=== PATIENT | male | born 1940 | race Caucasian/White ===

== ENCOUNTER 2017-04-24 06:24 | Inpatient (IN) ==
--- NOTE | 2017-04-24 06:32 | Emergency Department Note ---
START Narrative - START START: For this encounter, I have reviewed the SANDBLAST OR SHOTBLAST EQUIPMENT TENDER or PA documentation, treatment plan, and medical decision making; and I have had face to face time with this patient. 76 year old male presents to the ED via EMS for chest pain that started 0600 that wokeup him from sleep. Edgar appers to be having a STEMI on the ekg and it has anterolateral ST elevations and depression in the inferior leads. We have called a STEMI alert and awaiting phone call from the interventionalist.
[2017-04-24] MEDS ORDERED: *HR* Heparin 5,000 UNIT/ML VIAL IVP ONE (06:34)
[2017-04-24] MEDS ORDERED: *HR* Ticagrelor 90 MG TABLET PO ONE (06:34)
[2017-04-24] MEDS ORDERED: *HR* Heparin 5,000 UNIT/ML VIAL IVP PRN ×2 (06:34)
--- NOTE | 2017-04-24 06:34 | Emergency Department Note ---
Disposition Clinical Impression: Chest pain, STEMI (ST elevation myocardial infarction) Disposition: Admitted As Inpatient Condition: Fair Time of Disposition: 06:34 Chest Pain HPI - General Chief Complaint: ED Chest Pain Stated Complaint: CHEST PAIN Time Seen by Provider: 04/24/17 06:25 Source: patient Mode of arrival: EMS Limitations: no limitations Vital Signs Reviewed: Yes Nursing Notes Reviewed: Yes - History of Present Illness HPI Narrative: Patient is a 76-year-old male with no past medical history that presents to the ED with sudden onset chest pain that woke him up from rest. Patient describes chest pain as heaviness radiating to his left and right upper extremity with associated diaphoresis and shortness of breath. Rates pain a 6 out of 10. Denies any nausea, vomiting, fever, back pain, abdominal pain or any other symptoms/complaints. Denies any smoking history. Pt complaint: chest pain Onset (ago): hour(s) Duration: constant Onset: during rest Pain Location: left chest Severity: moderate Severity scale (1-10): 6 Quality: heaviness Pain Radiation: RUE, LUE Improves with: nothing Worsens with: nothing Associated symptoms: Reports: diaphoresis, dyspnea. Denies: nausea, vomiting, sense of impending doom, syncope, palpitations, fever, cough, leg swelling Treatments prior to arrival chest pain: aspirin - Related Data Allergies Allergy/AdvReac Type Severity Reaction Status Date / Time Penicillins AdvReac Hives Verified 04/24/17 06:26 All systems ED: reviewed and negative except as stated. Review of Systems: As Per HPI Constitutional: Denies: fever, chills Eyes: Denies: eye discharge, vision change ENT ED: Denies: ear pain, throat pain, dental pain, congestion Cardiovascular: Reports: chest pain, dyspnea on exertion. Denies: palpitations , orthopnea, edema, syncope, paroxysmal nocturnal dyspnea Respiratory: Reports: dyspnea. Denies: cough, wheezes, hemoptysis Gastrointestinal: Denies: abdominal pain, nausea, vomiting, diarrhea, constipation, hematemesis, melena, hematochezia Genitourinary: Denies: urgency, dysuria, frequency Musculoskeletal: Denies: back pain, neck pain Integumentary: Denies: rash Neurological: Denies: headache, weakness Chest Pain PMH - Past Medical History Medical history: Reports: no medical history Physical Exam - General Limitations: no limitations General appearance: alert, in no apparent distress - Head Head exam: atraumatic, normocephalic, normal inspection - Eye Eye exam: Present: normal appearance, PERRL, EOMI - ENT ENT exam: normal exam, normal oropharynx, mucous membranes moist - Neck Neck exam: Present: normal inspection, full ROM, trachea midline. Absent: tenderness, meningismus - Chest Chest inspection: Present: normal inspection, symmetric chest wall rise. Absent : tenderness - Respiratory Respiratory exam: Present: normal lung sounds bilaterally. Absent: respiratory distress, wheezes, stridor, accessory muscle use, prolonged expiratory phase - Cardiovascular Cardiovascular exam: Present: regular rate, normal rhythm, normal heart sounds - Abdominal Exam Abdominal exam: Present: soft, Non-Tender, normal bowel sounds. Absent: tenderness, distention, guarding, rebound, rigidity - Extremities Exam Extremities exam: Present: normal inspection, full ROM. Absent: pedal edema - Back Exam Back exam: Present: normal inspection, full ROM. Absent: tenderness, CVA tenderness (R), CVA tenderness (L) - Neurological Exam Neurological exam: Present: alert, oriented X3, CN II-XII intact - Psychiatric Psychiatric exam: Present: normal affect, normal mood - Skin Skin exam: Present: warm, dry, intact, normal color. Absent: rash, cyanosis, diaphoresis Course Course Narrative: Patient is a 76-year-old male with no past medical history that presents to the ED with sudden onset chest pain that woke him up from rest. Patient describes chest pain as heaviness radiating to his left and right upper extremity with associated diaphoresis and shortness of breath. Rates pain a 7 out of 10. Denies any nausea, vomiting, fever, back pain, abdominal pain or any other symptoms/complaints. Denies any smoking history. Pt is a nontoxic-appearing 76-year-old male. Vital stable. Afebrile. Alert and oriented 3. Head normocephalic. Eyes normal inspection. ENT within normal limits. Neck supple, full range of motion, nontender. Heart RRR. Lungs CTAB. Abdomen soft, nontender. Extremity within normal limits. No pedal edema. Neuro no focal neurological deficits noted on exam. EKG shows anterolateral ST elevations and depression in the inferior leads. ASA 324 mg GIVEN BY EMS in transit 06:26 STEMI Alert Called. 06:30 r&d lab technician notified they were on their way in. Interventionalists paged at 06:30 and AGAIN at 06:36. STEMI protocol orders initiated. Dr. Almonte recommended no pain meds at this time. Pain is a 5 out of 10. Interventionalist has not called back. Will transfer to [facility]. [facility] paged at 06:54 Pharmacy called at 06:59 to send up TPA. Chrissy talk to [facility] before giving TPA. Dr. Burton called back at 07:00. STates Dr. Murray is on his way in and to hang up with [facility]. Dr. Burton doesn't want TPA given Cath team called again at 07:05 they are here at [facility] now. Pt to geophysical laboratory chief 07:13. I walked pt myself to geophysical laboratory chief with cath team. Dr. Almonte had [id number] time with patient and agrees with my assessment and treatment plan. Vital Signs Temperature 97.7 F 04/24/17 06:26 Pulse Rate 69 04/24/17 06:26 Respiratory Rate 18 04/24/17 06:26 Blood Pressure 156/108 04/24/17 06:26 O2 Sat by Pulse Oximetry 96 04/24/17 06:26 Temperature 97.7 F 04/24/17 06:26 Pulse Rate 80 04/24/17 06:54 Respiratory Rate 12 04/24/17 06:54 Blood Pressure 155/81 04/24/17 06:54 O2 Sat by Pulse Oximetry 96 04/24/17 06:54 Oxygen Delivery Oxygen Delivery Nasal Cannula Chest Pain - Medical Records Medical records reviewed: Yes I reviewed the patient's medical records. - Lab Data Lab results reviewed: Yes I reviewed the patient's lab results. Result diagrams: 04/24/17 06:30 04/24/17 06:30 Lab Results 04/24/17 04/24/17 04/24/17 Range/Units 06:30 06:30 06:30 WBC 7.9 (4.3-11.1) K/mcL RBC 5.16 (4.19-5.50) M/mcL Hgb 15.1 (12.9-16.9) g/dL Hct 46.1 (37.5-50.1) % MCV 89.3 (83.0-100.0) fL MCH 29.3 (28.0-33.3) pg MCHC 32.8 (31.6-35.5) g/dL RDW 13.9 (11.5-14.5) % Plt Count 118 L (140-400) K/mcL MPV 10.9 (9.4-12.4) fL Immature Gran % 0.4 (0-4) % Seg Neutrophils % 58.9 % Lymphocytes % 29.6 % Monocytes % 7.1 % Eosinophils % 3.2 % Basophils % 0.8 % Neutrophils # 4.6 (1.6-8.9) K/mcL Lymphocytes # 2.3 (0.6-4.6) K/mcL Monocytes # 0.6 (0.0-1.3) K/mcL Eosinophils # 0.3 (0.0-0.6) K/mcL Basophils # 0.1 (0.0-0.2) K/mcL PT (9.4-12.1) Seconds INR APTT (26.0-36.0) Seconds Sodium 139 (136-145) mEq/L Potassium 4.1 (3.5-4.5) mEq/L Chloride 105 (98-109) mEq/L Carbon Dioxide 24 (19-29) mEq/L BUN 23 (8-26) mg/dL Creatinine 1.28 H (0.72-1.25) mg/dL Est GFR ( Amer) > 60 (> 60) Est GFR (Non-Af Amer) 54 L (> 60) BUN/Creatinine Ratio 18 (6-26) Glucose 120 H (70-99) mg/dL Calculated Osmolality 293 (280-300) Calcium 9.7 (8.6-10.8) mg/dL Magnesium 2.0 (1.6-2.6) mg/dL Troponin I 0.15 H* (0-0.03) ng/mL 04/24/17 Range/Units 06:40 WBC (4.3-11.1) K/mcL RBC (4.19-5.50) M/mcL Hgb (12.9-16.9) g/dL Hct (37.5-50.1) % MCV (83.0-100.0) fL MCH (28.0-33.3) pg MCHC (31.6-35.5) g/dL RDW (11.5-14.5) % Plt Count (140-400) K/mcL MPV (9.4-12.4) fL Immature Gran % (0-4) % Seg Neutrophils % % Lymphocytes % % Monocytes % % Eosinophils % % Basophils % % Neutrophils # (1.6-8.9) K/mcL Lymphocytes # (0.6-4.6) K/mcL Monocytes # (0.0-1.3) K/mcL Eosinophils # (0.0-0.6) K/mcL Basophils # (0.0-0.2) K/mcL PT 10.4 (9.4-12.1) Seconds INR 1.0 APTT 24.0 L (26.0-36.0) Seconds Sodium (136-145) mEq/L Potassium (3.5-4.5) mEq/L Chloride (98-109) mEq/L Carbon Dioxide (19-29) mEq/L BUN (8-26) mg/dL Creatinine (0.72-1.25) mg/dL Est GFR ( Amer) (> 60) Est GFR (Non-Af Amer) (> 60) BUN/Creatinine Ratio (6-26) Glucose (70-99) mg/dL Calculated Osmolality (280-300) Calcium (8.6-10.8) mg/dL Magnesium (1.6-2.6) mg/dL Troponin I (0-0.03) ng/mL - Radiology Data Radiology results reviewed: Yes I reviewed the patient's radiology results. - EKG Data EKG attestation: Yes I reviewed and interpreted this EKG. EKG shows normal: sinus rhythm Rate: normal Rhythm: NSR [place]/QRS: normal ST segment elevation in: v2, v3, v4, v5, v6 ST segment depression in: II, III, aVF Interpretation: acute HI
[2017-04-24 06:36] LABS: Basophils # 0.1 K/mcL (0.0-0.2); Basophils % 0.8 %; Eosinophils # 0.3 K/mcL (0.0-0.6); Eosinophils % 3.2 %; Hematocrit 46.1 % (37.5-50.1); Hemoglobin 15.1 g/dL (12.9-16.9); Immature Granulocytes % 0.4 % (0-4); Lymphocytes # 2.3 K/mcL (0.6-4.6); Lymphocytes % 29.6 %; Mean Corpuscular HGB Conc 32.8 g/dL (31.6-35.5); Mean Corpuscular Hemoglobin 29.3 pg (28.0-33.3); Mean Corpuscular Volume 89.3 fL (83.0-100.0); Mean Platelet Volume 10.9 fL (9.4-12.4); Monocytes # 0.6 K/mcL (0.0-1.3); Monocytes % 7.1 %; Neutrophils # 4.6 K/mcL (1.6-8.9); Platelet Count 118 K/mcL (140-400); Red Blood Count 5.16 M/mcL (4.19-5.50); Red Cell Distribution Width 13.9 % (11.5-14.5); Segmented Neutrophils % 58.9 %
[2017-04-24] MEDS ORDERED: Heparin 25,000 UNIT/500 ML D5W 25,000 UNIT/500 ML MLS IVC SCH (06:45)
[2017-04-24 06:49] LABS: Prothrombin Time 10.4 Seconds (9.4-12.1)
[2017-04-24 06:49] LABS: BUN/Creatinine Ratio 18 (6-26); Blood Urea Nitrogen 23 mg/dL (8-26); Calcium 9.7 mg/dL (8.6-10.8); Carbon Dioxide 24 mEq/L (19-29); Chloride 105 mEq/L (98-109); Glucose 120 mg/dL (70-99); Osmolality,Calculated 293 (280-300); Potassium 4.1 mEq/L (3.5-4.5); Sodium 139 mEq/L (136-145); eGFR For African Americans > 60 (> 60); eGFR For Non-African Americans 54 (> 60)
[2017-04-24] MEDS ORDERED: Nitroglycerin 1,000 MCG/10 ML VIAL IV ONE (06:55)
[2017-04-24] MEDS ORDERED: Heparin 1,000 UNITS/500 mL NS 500 ML ONE (06:55)
[2017-04-24] MEDS ORDERED: *HR* Heparin 10,000 UNIT/10 ML VIAL ONE (06:55)
[2017-04-24] MEDS ORDERED: 0.9 % Sodium Chloride 1,000 ML ONE ×2 (06:55→07:07)
[2017-04-24] MEDS ORDERED: ALTEPLASE IVPB ONE (06:57)
[2017-04-24] MEDS ORDERED: ALTEPLASE IVP ONE (07:02)
[2017-04-24] MEDS ORDERED: Verapamil 5 MG/2 ML VIAL ONE (07:14)
[2017-04-24] MEDS ORDERED: *HR* Midazolam HCl 2 MG/2 ML VIAL ONE (07:21)
[2017-04-24] MEDS ORDERED: *HR* FentaNYL (PF) 100 MCG/2 ML VIAL ONE (07:21)
[2017-04-24] MEDS ORDERED: *HR* Alteplase (Cathflo) 2 MG VIAL ONE (07:34)
[2017-04-24] MEDS ORDERED: Water for inj. (sterile) 10 ML IV ONE (07:37)
--- NOTE | 2017-04-24 08:35 | Pre-Sedation Evaluation ---
Pre-sedation evaluation - Pre-sedation checklist Date of procedure: 04/24/17 Procedure: [facility] Recent Vitals: Last Vital Signs Temp 97.7 F 04/24/17 06:26 Pulse 80 04/24/17 06:54 Resp 12 04/24/17 07:13 BP 148/89 04/24/17 07:13 Pulse Ox 96 04/24/17 06:54 H&P (including ROS) documented in medical record: Yes Previous reaction to sedatives/anesthetics: No Dietary Status: unknown Airway Assessment: Patient can open mouth completely, TMJ function normal Dentition: No loose teeth or bridges ASA Classification *see protocol: CLASS II-Mild systemic disease, E-EMERGENCY- Add to any of the above to indicate emergent Plan of Care: Pt appropriate candidate for procedure/moderate/conscious sedation , Risks/benefits of procedure/sedation discussed w/ patient/family, If not NPO; Risk of intake outweiged by necessity to perform procedure
--- NOTE | 2017-04-24 08:38 | Cardiology Consult Note ---
Date of Encounter: 04/24/17 Time of Encounter: 08:35 Assessment and Plan (1) STEMI (ST elevation myocardial infarction) Current Visit: Yes Status: Acute Guarded prognosis, patient critically ill. A/R/B C explained for life saving measures, patient agreeable and will proceed. Aspirin, Brilinta, heparin given. EF assessment will be completed and cardiac rehab consulted. Critical care time: 1 hour. Labs reviewed, EKG interpreted Qualifiers: Involved coronary artery: LAD coronary artery Qualified Code(s): I21.02 - ST elevation (STEMI) myocardial infarction involving left anterior descending coronary artery Discussion w patient/family: The assessment and plan as outlined above was discussed with the patient and/or family members who expressed understanding and agreement. All questions were answered. Thank you for involving us in the care of your patient. Please call with any questions. History of Present Illness Consult date: 04/24/17 Consult reason: chest pain History of present illness: Mr. Asher is a 76 year old male with no previous cardiac history awoke around 6am with crushing severe chest pressure - retrosternal - without radiation associated with diaphoresis. He stated he thought he was going to . Upon arrival to ED he had no improvement with aspirin, NTG, morphine. EKG shows anterolateral current of injury and STEMI page was activated. Past Med Surg Social Fam HX - Past Medical History Medical history: no medical history Psychiatric history: no psych history - Social History Smoking Status: Never smoker Smokeless Tobacco Status: No Alcohol use: none Drug use: none Medications and Allergies 3 Allergy/AdvReac Type Severity Reaction Status Date / Time Penicillins AdvReac Hives Verified 04/24/17 06:26 All Systems Review: A 10-system review of systems was performed and is negative for pertinent findings except as documented above in the HPI. - Constitutional Constitutional: chills, no fever(s) - EENT Eyes: no blurred vision, no loss of vision Nose, mouth and throat: no dysphagia, no epistaxis - Cardiovascular Cardiovascular: chest pain at rest, chest pain with exertion - Respiratory Respiratory: no hemoptysis, no wheezing - Gastrointestinal Gastrointestinal: no hematemesis, no hematochezia - Genitourinary Genitourinary: no dysuria, no hematuria - Musculoskeletal Musculoskeletal: no arthralgias, no myalgias - Integumentary Integumentary: no erythema, no rash - Neurological Neurological: no syncope, no tingling - Psychiatric Psychiatric: no hallucinations, no panic attacks - Hematological/Lymphatic Hematologic/Lymphatic: no easy bleeding, no easy bruising Physical Examination Vital Signs, Last 4 Hours Resp BP 04/24/17 07:13 12 148/89 General: Conversant, Other (distressed) HEENT: Atraumatic, Normocephaly Neck: No JVD Cardiac: Reg Rate and Rhythm, Normal S1 and S2 Lungs: Normal Breath Sounds Neuro: Alert and responsive Abdomen: Soft Skin: No rashes noted on visualized skin Musculoskeletal: No Chest Wall Tenderness Extremities: No Edema Results 04/24/17 06:30 04/24/17 06:30 - EKG Interpretation EKG results cardiology: personally reviewed (anterolateral current of injury) Consult Discharge Plan - Plan Referrals: Mirtha Vieira, COLLECTION AGENT [Primary Care Provider] -
[2017-04-24] MEDS ORDERED: *HR* OxyCODONE/APAP 5/325 TABLET PO PRN (08:40)
[2017-04-24] MEDS ORDERED: Ondansetron 4 MG/2 ML VIAL IVP PRN (08:40)
[2017-04-24] MEDS ORDERED: *HR* HYDROcodone/Acet 5/325 mg TABLET PO PRN (08:40)
[2017-04-24] MEDS ORDERED: Acetaminophen 325 MG TABLET PO PRN (08:40)
[2017-04-24] MEDS ORDERED: Nitroglycerin 0.4 MG TAB.SUBL SL PRN (08:40)
--- NOTE | 2017-04-24 08:51 | Invasive Diagnostic Lab Proc ---
Name: Aly Asher Date of Study: 04/24/2017 Date: 1940 Ht: 72.0in Medical Record#: [id number] Age: 76 Wt: 185.19lb Gender: Male BSA: 2.06 Order #: [id number] BMI: 25.08 Physicians Procedure Physician: Dominic Murray MD, FACC Referring MD: Mirtha Vieira CNP Referring MD: Staff Name Position Time In Reese Bales RN Monitor 07:19 AM Bernice James RN Delivery Technician 07:19 AM Julien Lee RN Delivery Technician 07:20 AM Kaylin Curran RT (R) Scrub 07:20 AM Indications Indication STEMI Procedures Performed Procedure L HRT ARTERY/VENTRICLE ANGIO PRQ CARD REVASC ME 1 VSL Pre-Procedure Checklist Informed consent is complete signed and on chart. H&P is on chart. ID band is on and ID verified with patient. Pt not NPO for procedure and MD aware. The procedure was described for the patient and questions were answered. Blood Pressure: 155/80 ECG is on chart. Rhythm: NSR Plan of Care Patient will tolerate the procedure without complications. Adequate level of comfort will be maintained. Hemodynamics will remain stable Patient will recover from procedure without complications. Respiratory function will be maintained. Cardiac rhythm will remain stable. Patient temperature will be maintained. Patient and/or family have verbalized understanding of the procedure. Patient Education Intravenous Access Time IV Size Location DC'd Fluid/Drip Rate Units RN 07:12 AM 18g 1 1/4" Patent On Arrival Lt Antecubital 0.9NaCl 25 ml/hr Bernice James RN 07:12 AM 18g 1 1/4" Patent On Arrival Rt Antecubital Bernice James RN Allergies PCN Vital Signs Time BP (mmHg) HR (bpm) O2 Sat. RR (bpm) LOC 07:12 AM 155 / 81 80 96 % 12 5 = Fully awake and oriented or at pre-proc level 07:21 AM / % 5 = Fully awake and oriented or at pre-proc level 07:21 AM / % 4 = Oriented but drowsy 07:37 AM / % 4 = Oriented but drowsy 08:07 AM / % 4 = Oriented but drowsy 07:18 AM 180 / 106 77 97 % 07:23 AM 188 / 101 73 98 % 29 07:28 AM 183 / 103 77 87 % 16 07:33 AM 199 / 122 81 98 % 14 07:38 AM 192 / 108 80 96 % 14 07:43 AM 201 / 96 77 99 % 24 07:48 AM 114 / 84 75 99 % 18 07:53 AM 103 / 57 60 97 % 16 07:58 AM 120 / 60 63 96 % 16 08:04 AM 116 / 62 67 96 % 16 08:09 AM 104 / 54 65 93 % 36 08:14 AM 107 / 52 65 96 % 17 08:19 AM 115 / 59 65 93 % 14 08:24 AM 115 / 63 70 100 % 10 08:23 AM / % 5 = Fully awake and oriented or at pre-proc level Procedural Medications Time Medication Dose Units Method Given By 07:21 AM Oxygen 2 L/min nasal cannula Julien Lee RN 07:22 AM Lidocaine 2% 1 ml Subcutaneous Dominic Murray MD, FACC 07:24 AM Lidocaine 2% 17 ml Subcutaneous Dominic Murray MD, FACC 07:25 AM Versed 2 mg Intravenous Bernice James RN 07:25 AM Fentanyl 50 mcg Intravenous Bernice James RN 07:29 AM Oxygen 10 L/min Oxy Mask Bernice James RN 07:40 AM TPA 2 mg Intracoronary Dominic Murray MD 07:45 AM Hydralazine 10 mg Intravenous JacobBernice steiner RN 07:51 AM Heparin 2000 units Intravenous Bernice James RN 07:30 AM Oxygen 15 L/min 100% non rebreather mask [place] RN 08:02 AM Oxygen 10 L/min Oxy Mask Bernice James RN ASA Classification: Emergent Procedure: ASA score is assumed Sejal Score Preprocedure Postprocedure Activity 2- Moves 4 extremities sustained head lift Activity 2- Moves 4 extremities sustained head lift Circulation 2- SBP +/= 20 points of pre-anesthetic level Circulation 2- SBP +/= 20 points of pre-anesthetic level Consciousness 2- Awake and alert oriented x 3 Consciousness 2- Awake and alert oriented x 3 O2 Saturation 2- Able to maintain O2 satruation of 92% on room air O2 Saturation 2- Able to maintain O2 satruation of 92% on room air Respiratory 2- Able to deep breathe and cough well Respiratory 2- Able to deep breathe and cough well Total Score 10 Total Score 10 Contrast Agent: Isovue Diagnostic Contrast: 288 ml Total Contrast: 288 ml Fluoro Dose: 1879 mGy Activated Clotting Time Time Seconds to Clot 07:54 AM 212 08:26 AM 243 Procedure Log Time Note Enter By 07:07 AM CathStat 07:17 AM Vitals capture started with the following parameters, Patient=Adult, Interval=5 min, Initial Qlwuutqk=608 mmHg, Deflation Rate=5 mmHg, Cuff placed on Right Arm 07:18 AM HR=77 bpm, FAXS=819/106 mmhg, SpO2=97.0 %, Comment=sr with st elevation 07:19 AM Recorded ECG: HR=78 Condition=Condition 1 07:19 AM Pt arrived to label press operator 2 at 07:14 csmith 07:19 AM Reese Bales RN Position: Monitor Time in: 07:19 csmith 07:20 AM Bernice James RN Position: Delivery Technician Time in: 07:19 csmith 07:20 AM Case Start 07:20 AM Julien Lee RN Position: Delivery Technician Time in: 07:20 csmith 07:20 AM Kaylin Curran RT (R) Position: Scrub Time [facility]: 07:20 [facility] Patient charges- Angio tray pack, Navilyst 3mm J, Pulse Oximetry and ACIST tubing and transducer csmith 07:21 AM Hair removed from procedure site in emergency department using clippers. Bilateral groin & right wrist prepped with Chloraprep by Julien Lee RN, safety strap applied then patient was draped. Skin intact. [facility] 07:21 AM Meet and greet completed [facility] AM Procedure start 07:21 [facility] AM Time: 07:21 Oxygen on at 2 L/min per nasal cannula by Julien Lee RN [facility] 07: AM Time: 07:21 Patient comfortable and pain free: Yes [facility] 07:21 AM Time: 07:21LOC: 5 = Fully awake and oriented or at pre-proc level csmith 07: AM Time out performed according to hospital policy [facility] :23 AM Time: : 1 ml Lidocaine 2% to right radial Subcutaneous Given by [facility], [facility] 07[facility] AM HR=73 bpm, OYFW=551/101 mmhg, SpO2=98.0 %, Resp=29 B/min 07:23 AM unable to pass wire via radial artery puncture site, abandoning radial attempt and moving to R groin [facility] 07:24 AM Time: 07:24 17 ml Lidocaine 2% to right groin Subcutaneous Given by Dominic Murray MD, [facility] csmith 07:25 AM Time: 07:25 Versed 2 mg Intravenous Given by Bernice James RN csmith 07:25 AM Time: 07:25 Fentanyl 50 mcg Intravenous Given by Bernice James RN csmith 07:25 AM Access obtained by percutaneous puncture. 6Fr 10cm Terumo Byram sheath placed in right Femoral artery. [id number] csmith 07:25 AM 0.035 260cm Navilyst 3mmJ wire [id number] csmith 07:25 AM Pressure channel 3 zeroed. 07:25 AM 6Fr EBU 3.5 [employer] Network[employer] guide catheter was used to cannulate the PCI vessel successfully. reused? No csmith 07:26 AM Recorded Pressure: Ao, HR=82, Condition=Condition 1 (Aorta) Ao 191/130/156 07:27 AM .014 [place] 190cm guide wire across target lesion- successful. reused? No csmith 07:27 AM LCA angiography performed in multiple views. csmith 07:27 AM Coronary Dominance: Left csmith 07:27 AM 2.0 mm x 12 mm Emerge Monorail balloon across target lesion- successful. reused? No csmith 07:28 AM balloon up and down csmith 07:28 AM HR=77 bpm, RUKU=844/103 mmhg, SpO2=87.0 %, Resp=16 B/min, Comment=sr with st elevation 07:29 AM balloon removed intact csmith 07:29 AM Time: 07:29 Oxygen on at 10 L/min per Oxy Mask by Bernice James RN csmith 07:30 AM Time: 07:30 Oxygen on at 15 L/min per 100% non rebreather mask by Bernice James RN csmith 07:32 AM PCI lesion in Proximal LAD. Pre Stenosis: 100 Pre ALTAGRACIA Flow: 0: No Flow/No perfusion csmith 07:33 AM HR=81 bpm, ABOM=740/122 mmhg, SpO2=98.0 %, Resp=14 B/min, Comment=sr with st elevation 07:35 AM 2.0 mm x 15 mm Emerge over the wire balloon across target lesion- unsuccessful. reused? No csmith 07:37 AM Time: 07:21 Patient comfortable and pain free: csmith 07:37 AM Time: 07:21LOC: 4 = Oriented but drowsy csmith 07:38 AM HR=80 bpm, GRPQ=461/108 mmhg, SpO2=96.0 %, Resp=14 B/min, Comment=sr with st elevation 07:39 AM pressure dressing placed to R radial site csmith 07:40 AM Time: 07:40 tpa 2 mg Intracoronary Given by Dominic Murray MD - given over 2 minutes slow push csmith 07:43 AM HR=77 bpm, FWZS=030/96 mmhg, SpO2=99.0 %, Resp=24 B/min, Comment=sr with st elevation 07:44 AM Balloon inflated @ 12 [place] for 16 seconds csmith 07:45 AM Balloon inflated @ 14 [place] for 16 seconds csmith 07:46 AM Time: 07:45 Hydralazine 10 mg Intravenous Given by Bernice James RN csmith 07:48 AM HR=75 bpm, DXKG=270/84 mmhg, SpO2=99.0 %, Resp=18 B/min, Comment=sr with st elevation 07:49 AM 3.5mm x 24mm Synergy drug-eluting stent across target lesion- successful Lot #[id number] csmith 07:50 AM Stent deployed @ 16 [place] for 30 seconds csmith 07:51 AM Time: 07:51 Heparin 2000 units Intravenous Given by Bernice James RN IVP csmith 07:52 AM Time: 07:37 Patient comfortable and pain free: Yes csmith 07:52 AM act drawn and running csmith 07:52 AM stent delivery system removed intact csmith 07:53 AM HR=60 bpm, JCRX=710/57 mmhg, SpO2=97.0 %, Resp=16 B/min, Comment=sr with st elevation 07:53 AM 4.0mm x 12mm Synergy drug-eluting stent across target lesion- successful Lot #[id number] csmith 07:54 AM PCI lesion in Mid LAD. Pre Stenosis: 100 Pre ALTAGRACIA Flow: 0: No Flow/No perfusion csmith 07:54 AM At 07:54 the ACT was 212 seconds. Drawn pre-heparin administration csmith 07:55 AM Stent deployed @ 16 [place] for 34 seconds csmith 07:56 AM Stent balloon reinflated @ 16 [place] for 15 seconds csmith 07:57 AM Stent balloon reinflated @ 16 [place] for 15 seconds csmith 07:58 AM HR=63 bpm, SAUH=833/60 mmhg, SpO2=96.0 %, Resp=16 B/min, Comment=sr with st elevation 07:58 AM chest pain improved to 2-3/10 per patient csmith 07:59 AM Vitals capture stopped. 08:01 AM stent delivery system removed csmith 08:02 AM Time: 08:02 Oxygen on at 10 L/min per Oxy Mask by Bernice James RN csmith 08:03 AM .014 [employer] [facility] Extra Support 182cm guide wire across target lesion- successful. reused? No 1st diagonal csmith 08:03 AM Vitals capture started with the following parameters, Patient=Adult, Interval=5 min, Initial Bktederv=301 mmHg, Deflation Rate=5 mmHg, Cuff placed on Right Arm 08:04 AM HR=67 bpm, MDYE=212/62 mmhg, SpO2=96.0 %, Resp=16 B/min, Comment=sr 08:05 AM 2.0 mm x 12 mm Emerge Monorail balloon across target lesion- successful. reused? No csmith 08:06 AM Balloon inflated @ 8 [place] for 6 seconds csmith 08:07 AM Time: 07:52 Patient comfortable and pain free: Yes csmith 08:07 AM Time: 07:37LOC: 4 = Oriented but drowsy csmith 08:09 AM HR=65 bpm, LFST=420/54 mmhg, SpO2=93.0 %, Resp=36 B/min, Comment=sr with improving st elevation 08:10 AM PCI lesion in 1st Diagonal. Pre Stenosis: 100 Pre ALTAGRACIA Flow: 0: No Flow/No perfusion csmith 08:14 AM HR=65 bpm, AUXV=086/52 mmhg, SpO2=96.0 %, Resp=17 B/min, Comment=sr 08:14 AM Balloon inflated @ 6 [place] for 11 seconds csmith 08:16 AM both coronary wires and balloon removed csmith 08:16 AM guide catheter removed csmith 08:16 AM 5Fr FR 4 catheter inserted over the wire [facility] csmith 08:18 AM RCA angiography performed in multiple views. csmith 08:18 AM catheter removed csmith 08:19 AM 5Fr Pigtail catheter inserted over the wire DN csmith 08:19 AM Catheter selectively placed in left ventricle csmith 08:19 AM HR=65 bpm, NVQR=823/59 mmhg, SpO2=93.0 %, Resp=14 B/min, Comment=sr 08:19 AM Pressure channel 2 zeroed. 08:19 AM Recorded Pressure: LV, HR=69, Condition=Condition 1 (Left Ventricle) LV 89/2/17 08:20 AM Bolus angiogram of left Ventricle complete: 12 ml/sec for a total of 30 mls csmith 08:20 AM Catheter removed csmith 08:20 AM Wire removed csmith 08:21 AM Recorded Pressure: LV, Ao, HR=70, Condition=Condition 1 (Left Ventricle) LV 80/14/21, (Aorta) Ao 68/34/51 08:23 AM Time: 08:07LOC: 4 = Oriented but drowsy csmith 08:23 AM Time: 08:07 Patient comfortable and pain free: Yes csmith 08:24 AM HR=70 bpm, OFDA=572/63 mmhg, LiL6=702.0 %, Resp=10 B/min, Comment=sr 08:24 AM Procedure completed at 08:24 csmith 08:25 AM Sign out completed: Radiation Dose 1879 mGy Fluoro Time: 19.8 Isovue 370 - 200ml contrast 288 ml given by Dominic Murray MD, [facility]. Complications: NoneCardiac Rehab Consult needed: YesConfirmed administered medications: Yes csmith 08:25 AM Isovue 370 - 200ml,2 Bottle(s) used. csmith 08:25 AM Sheath left in place to be pulled on floor/holding area csmith 08:25 AM Post ECG NSR csmith 08:25 AM Post Blood Pressure 115/63 csmith 08:25 AM 08:25 Post Pulses Bilateral DP & radial 2+ csmith 08:25 AM Information taught PCI csmith 08:25 AM Education needs Responsibilities of Patient in Care csmith 08:25 AM Learning barriers :None csmith 08:25 AM Education Methods Verbal csmith 08:25 AM Education evaluation Able to repeat information [facility] AM Site status No bleeding/hematoma - Rt Groin as reported by Kaylin Curran RT (R) at 08:25 csmith 08:26 AM Opsite applied csmith 08:26 AM Plavix, Effient or Brilinta given No - given in ED csmith 08:26 AM Family placed in consult room. csmith 08:26 AM At 08:26 the ACT was 243 seconds. csmith 08:29 AM Site status No bleeding/hematoma - Rt Wrist as reported by Julien Lee RN at 08:29 csmith 08:38 AM Time: 08:23 Patient comfortable and pain free: Yes csmith 08:38 AM Time: 08:23LOC: 5 = Fully awake and oriented or at pre-proc level csmith 08:40 AM Report given to atilio chavez RN Pt taken to ICU Room #10. 08:40 csmith 08:40 AM Patient out of room: 08:40 csmith Complications Complication None Hemodynamics Pressures Site Systolic/A Wave Diastolic/V Wave Mean AO 191 130 156 LV 89 2 17 LV 80 14 21 AO 68 34 51 Post Procedure Information Blood Pressure: 115/63 mmHg Rhythm: NSR Post procedural instructions were given Closure Device Time Device Success/Fail Manual Compression Site Checks Time Location Status Staff Sheath In? Note 08:25 AM Rt Groin No bleeding/hematoma Kaylin Curran RT (R) 08:29 AM Rt Wrist No bleeding/hematoma Julien Lee RN Pulses Time Site Pre-Procedure Post-Procedure Note 04/24/2017 7:12:00 AM Bilateral DP & radial 1+ 8:25:00 AM Bilateral DP & radial 2+ Updated by Reese Bales RN on 04/24/2017 8:40:24 AM electronically signed on 04/24/2017 8:42:28 AM with status of Final
[2017-04-24] MEDS ORDERED: Tirofiban 5 MG/100ML 5 MG/100 ML BAG IV ONE (09:00)
[2017-04-24] MEDS ORDERED: *HR* Ticagrelor 90 MG TABLET PO SCH (09:00)
[2017-04-24] MEDS ORDERED: Tirofiban 12.5 MG/250ML 12.5 MG/250 ML BAG IVC SCH (09:00)
[2017-04-24] MEDS: Metoprolol XL (24 HR) Succ 25 MG TAB.ER.24H PO SCH (14:15)
[2017-04-24] MEDS: Aspirin 81 MG TAB.CHEW PO SCH (14:15)
[2017-04-24] MEDS: 0.9 % Sodium Chloride 1,000 ML IVC SCH (14:16)
[2017-04-24] MEDS: *HR* Ticagrelor 90 MG TABLET PO SCH (20:24)
[2017-04-25] MEDS: 0.9 % Sodium Chloride 1,000 ML IVC SCH ×2 (03:08→13:51)
[2017-04-25 04:50] LABS: Basophils % 0.2 %; Eosinophils # 0.1 K/mcL (0.0-0.6); Eosinophils % 0.5 %; Hematocrit 40.5 % (37.5-50.1); Hemoglobin 13.3 g/dL (12.9-16.9); Immature Granulocytes % 0.5 % (0-4); Lymphocytes # 1.4 K/mcL (0.6-4.6); Lymphocytes % 10.6 %; Mean Corpuscular HGB Conc 32.8 g/dL (31.6-35.5); Mean Corpuscular Hemoglobin 29.9 pg (28.0-33.3); Mean Platelet Volume 10.7 fL (9.4-12.4); Monocytes % 7.5 %; Neutrophils # 10.7 K/mcL (1.6-8.9); Platelet Count 149 K/mcL (140-400); Red Blood Count 4.45 M/mcL (4.19-5.50); Red Cell Distribution Width 14.4 % (11.5-14.5); Segmented Neutrophils % 80.7 %
[2017-04-25 05:03] LABS: BUN/Creatinine Ratio 19 (6-26); Blood Urea Nitrogen 18 mg/dL (8-26); Calcium 8.5 mg/dL (8.6-10.8); Carbon Dioxide 18 mEq/L (19-29); Chloride 110 mEq/L (98-109); Glucose 108 mg/dL (70-99); Osmolality,Calculated 286 (280-300); Potassium 4.1 mEq/L (3.5-4.5); Sodium 137 mEq/L (136-145); eGFR For African Americans > 60 (> 60); eGFR For Non-African Americans > 60 (> 60)
[2017-04-25] MEDS: Metoprolol XL (24 HR) Succ 25 MG TAB.ER.24H PO SCH (08:42)
[2017-04-25] MEDS: *HR* Ticagrelor 90 MG TABLET PO SCH ×2 (08:42→19:55)
[2017-04-25] MEDS: Aspirin 81 MG TAB.CHEW PO SCH (08:42)
--- NOTE | 2017-04-25 10:59 | Cardiology Progress Note ---
Date of Encounter: 04/25/17 Time of Encounter: 09:20 Assessment and Plan (1) STEMI (ST elevation myocardial infarction) Current Visit: Yes Status: Acute Acute anterior NJ. S/p PCI with PTCA and ONEYDA to his proximal LAd and mid LAD. PTCA to the first diagonal. Denies recurrent chest pain. Hemodynamically stable. 24 hour telemetry review shows avg HR 62 bpm. NSR. There was one khalida noted. Seven beat run of IVCD. Continue bb. Importance of DAPT with asa and brilinta for minimum of one year uninterrupted reviewed with patient and family. They voiced understanding. Healthy heart diet and exercise reviewed. Cardiac rehab discussed. Continue statin and bb therapy. Check TTE. Cardiac rehab consult. Stepdown to 2N or 2NE. Possible d/c in am. Qualifiers: Involved coronary artery: LAD coronary artery Qualified Code(s): I21.02 - ST elevation (STEMI) myocardial infarction involving left anterior descending coronary artery (2) Leukocytosis Current Visit: Yes Status: Acute Mild leukocytosis noted. Likely reactive from NJ. CXR shows no concerning findings. No fever or chills. No cough. Continue to monitor. Qualifiers: Leukocytosis type: unspecified Qualified Code(s): D72.829 - Elevated white blood cell count, unspecified Discussion w patient/family: The assessment and plan as outlined above was discussed with the patient and/or family members who expressed understanding and agreement. All questions were answered. Thank you for involving us in the care of your patient. Please call with any questions. Subjective Principal diagnosis: STEMI Interval history: Mr. Asher has no complaints. Denies recurrent chest pain or SOB. Denies problems with right radial access site. Objective Vital Signs, Last 4 Hours Pulse Resp BP Pulse Ox 04/25/17 10:00 58 18 100/57 95 04/25/17 09:00 65 16 94/47 96 04/25/17 08:00 57 14 112/62 94 04/25/17 07:00 62 16 105/77 95 General: Conversant, No Apparent Distress HEENT: Atraumatic, Normocephaly, Mucus Membranes Moist Neck: No JVD, Normal carotid pulses Cardiac: Reg Rate and Rhythm, Normal S1 and S2, No Murmur Lungs: Normal Breath Sounds, No Wheeze, Rales, Rhonchi Neuro: Alert and responsive, No focal deficits noted Abdomen: Soft, Non-Tender Skin: No rashes noted on visualized skin Musculoskeletal: No Chest Wall Tenderness Extremities: No Clubbing, No Cyanosis, No Edema, Normal Pulses Results 04/25/17 04:42 04/25/17 04:42 Lab Results 04/25/17 04/25/17 04:42 04:42 WBC 13.2 H D Hgb 13.3 D Hct 40.5 Plt Count 149 Sodium 137 Potassium 4.1 Chloride 110 H Carbon Dioxide 18 L BUN 18 Creatinine 0.97 Glucose 108 H Calcium 8.5 L - Imaging and Cardiology Echo: pending Cardiac cath: report reviewed (SR with improving ST changes.) - EKG Interpretation EKG results cardiology: personally reviewed Consult Discharge Plan - Plan Referrals: Mirtha Vieira CNP [Primary Care Provider] -
[2017-04-25] MEDS ORDERED: *HR* HYDROcodone/Acet 5/325 mg TABLET PO PRN (13:53)
[2017-04-25] MEDS ORDERED: Nitroglycerin 0.4 MG TAB.SUBL SL PRN (13:53)
[2017-04-25] MEDS ORDERED: Acetaminophen 325 MG TABLET PO PRN (13:53)
[2017-04-25] MEDS ORDERED: Ondansetron 4 MG/2 ML VIAL IVP PRN (13:53)
[2017-04-25] MEDS ORDERED: *HR* OxyCODONE/APAP 5/325 TABLET PO PRN (13:53)
[2017-04-25] MEDS: *HR* Heparin 5,000 UNIT/ML VIAL SQ SCH (17:54)
[2017-04-26] MEDS: *HR* Heparin 5,000 UNIT/ML VIAL SQ SCH (05:41)
--- NOTE | 2017-04-26 06:20 | Electrocardiograph Report ---
[place] [address] Test Date: 2017-04-24 Pat Name: Aly Asher Department: 103 Room: 2NE34 Gender: M Ground Support Agent: LEOBARDO : 1940 Requested By: Maisha Rogers Order Number: [id number] Reading MD: Dominic Murray MD Measurements Intervals [place] Rate: 65 P: 42 AK: 154 QRS: -48 QRSD: 91 T: 35 QT: 409 QTc: 420 Interpretive Statements SINUS RHYTHM WITH OCCASIONAL VENTRICULAR PREMATURE COMPLEXES LOW QRS VOLTAGE IN PRECORDIAL LEADS LEFT ANTERIOR FASCICULAR BLOCK ANTEROLATERAL MA BASELINE ARTIFACT Electronically Signed On 04-26-2017 6:18:38 EDT by Dominic Murray MD
--- NOTE | 2017-04-26 06:22 | Electrocardiograph Report ---
[address] [place], [place] [address] Test Date: 2017-04-24 Pat Name: Aly Asher Department: 109 Room: 2NE34 Gender: M Coil Binder: GRACE : 1940 Requested By: Dominic Murray Order Number: [id number] Reading MD: Dominic Murray MD Measurements Intervals [place] Rate: 67 P: 44 SC: 166 QRS: 50 QRSD: 84 T: 26 QT: 403 QTc: 418 Interpretive Statements SINUS RHYTHM INDETERMINATE AXIS LOW QRS VOLTAGE IN EXTREMITY LEADS Poor R wave progression BASELINE ARTIFACT BORDERLINE LATERAL ST ELEVATION, ME PROBABLY RECENT Electronically Signed On 04-26-2017 6:21:06 EDT by Dominic Murray MD
[2017-04-26] MEDS: *HR* Ticagrelor 90 MG TABLET PO SCH (08:44)
[2017-04-26] MEDS ORDERED: Aspirin 81 MG TAB.CHEW PO SCH (09:00)
[2017-04-26] MEDS ORDERED: Metoprolol XL (24 HR) Succ 25 MG TAB.ER.24H PO SCH (09:00)
[2017-04-26] MEDS ORDERED: Perflutren Lipid Microsphere 1.3 ML in 0.9 % Sodium Chloride 8.7 ML IVP ONE (14:05)
[2017-04-26 15:43] VITALS: BP 115/76
--- NOTE | 2017-04-26 15:44 | Discharge Summary ---
Date of Encounter: 04/26/17 Time of Encounter: 15:41 - Discharge Diagnosis (1) STEMI (ST elevation myocardial infarction) Priority: Primary Status: Acute Comments: Admitted as acute NM Qualifiers: Involved coronary artery: LAD coronary artery Qualified Code(s): I21.02 - ST elevation (STEMI) myocardial infarction involving left anterior descending coronary artery (2) Ischemic cardiomyopathy Priority: Secondary Status: Acute Comments: LVEF 40% (3) Leukocytosis Priority: Secondary Status: Acute Comments: Elevated WBC, thought to be secondary to NM. Qualifiers: Leukocytosis type: unspecified Qualified Code(s): D72.829 - Elevated white blood cell count, unspecified - Discharge Medications Prescriptions: Nitroglycerin 0.4 mg SL Q5MIN PRN #10 tab.subl PRN Reason: Chest Pain Lisinopril [Zestril] 2.5 mg PO DAILY #30 tablet Metoprolol XL (24 HR) Succ [Toprol Xl] 25 mg PO DAILY #30 tab.er.24h Rosuvastatin [Crestor] 40 mg PO HS #30 tablet Ticagrelor [Brilinta] 90 mg PO BID #60 tablet Home Medications: Aspirin 81 mg PO DAILY 04/24/17 [History] Lisinopril [Zestril] 2.5 mg PO DAILY #30 tablet 04/26/17 [Rx] Metoprolol XL (24 HR) Succ [Toprol Xl] 25 mg PO DAILY #30 tab.er.24h 04/26/17 [ Rx] Nitroglycerin 0.4 mg SL Q5MIN PRN #10 tab.subl 04/26/17 [Rx] Rosuvastatin [Crestor] 40 mg PO HS #30 tablet 04/26/17 [Rx] Ticagrelor [Brilinta] 90 mg PO BID #60 tablet 04/26/17 [Rx] Allergies/Adverse Reactions: 3 Allergy/AdvReac Type Severity Reaction Status Date / Time Penicillins AdvReac Hives Verified 04/24/17 06:26 Procedures/tests Complete & Pending: Procedures Performed prior 72 hours Category Date Time Status ECG 12 lead ECG [ECG] Routine Y 04/24/17 08:40 Completed ECG 12 lead ECG [ECG] Routine Y 04/25/17 07:00 Ordered EV echocardiogram w enhance Routine Y 04/26/17 07:00 Completed Date of admission: 04/24/17 07:09 Primary care physician: Mirtha Vieira CNP Consults: 04/24/17 08:43 Consult to Cardiac Rehabilitation-Phase1 [CONS] Routine Comment: Reason for Consult: AMI Call Completed: Yes Consult to Nurse Navigator [CONS] Routine Comment: Discharging clinician: Analilia Baires Anticipated date of discharge: 04/26/17 - Patient Status Disposition: Home, Self-Care Condition: Fair Functional capacity at discharge: independent ambulation Overall status at discharge: patient is progressing back to baseline - Discharge Instructions Follow Up With: Dominic Murray MD [Partnered Physician] - (office will call patient at home with appointment date and time) Mirtha Vieira CNP [Primary Care Provider] - 04/29/17 2:00 pm Additional Instructions: RISK FACTORS: STOP SMOKING: If you smoke, STOP. Smoking or tobacco use significantly increases your risk of heart disease because nicotine causes the arteries to narrow or constrict. It also causes fats to stick to the artery. Your chances of having a heart attack are greatly increased if you continue to smoke. For more information, call the education line for smoking cessation 6-028-VTBSQLO EAT A LOW FAT/CHOLESTEROL/SODIUM DIET: This diet may help reduce your chances of having a heart attack. LIFTING: With affected extremity: Avoid bending, pushing off and lifting more than 2 pounds for 24 hours The following 48 hours, avoid lifting anything more than 5 pounds Avoid strenuous activity or repetitive motions ACTIVITY: You may walk or climb stairs as tolerated You can resume sexual activity as tolerated In general, you are encouraged to engage in a minimum of 30 minutes or more of moderate intensity physical activity, such as brisk walking, daily or at least 3 -4 times weekly BATHING Do not submerge the site into water (bath tub, hot tub, swimming pool, dishes) for 1 week. This can be a source for infection into the blood stream. You may shower after 24 hours SITE CARE: After 24 hours, you may remove the dressing and leave the site open to air. Keep the site clean and dry. Clean gently and pat dry. You can expect bruising and tenderness that gradually resolve within a week or two. Return to work as instructed per your physician Resume driving as instructed per physician Keep all scheduled follow up appointments Resume medications as instructed IMPORTANT: If prescribed a Platelet Aggregation Inhibitor such as, Plavix, Brilinta or Effient: Duration of therapy is minimum one year These medications are often used in combination with Aspirin in prevention of future heart attacks Never discontinue unless consult with your Foot Caster STROKE (CVA) Risk factors for a stroke are: Age, cigarette smoking, diabetes, excessive alcohol consumption, family history, high blood pressure, overweight, physical inactivity, prior stroke, heart attack, diagnosis of carotid artery stenosis or other artery disease. Warning signs: Sudden numbness or weakness of the face, arm or leg; especially on one side of the body, sudden confusion, trouble speaking or understanding, sudden trouble seeing in one or both eyes, sudden trouble walking, dizziness, loss of balance or coordination, sudden severe headache with no cause. Call 911 or go to the Emergency Room. CONGESTIVE HEART FAILURE: If you have been diagnosed with Congestive Heart Failure (CHF) and your symptoms return, make an appointment with your physician Weigh yourself daily. Notify your physician if you have a weight gain of two or more pounds in one day or five or more pounds in one week. If you experience any difficulty breathing, please call 911 BLEEDING: Although the risk of bleeding is minimal, it can happen. If you have any bleeding from the site, apply firm pressure above the puncture site for 10-15 minutes. If the bleeding does not stop, continue manual pressure and call 911 Contact [facility] ( ) if: You develop a fever greater than 101 degrees Fahrenheit Your site becomes reddened or has any drainage You have an increase in pain or burning at the site or if a large knot forms at the site. If you experience chest pain, shortness of breath, dizziness, or extreme tiredness, stop the activity and rest. Please notify [facility] office if you experience any of these symptoms and they are not relieved by rest please call 911! - Diet and Activity Activity: increase activity as tolerated Diet: low fat, low cholesterol, low salt diet - Hospital Course Hospital course: Mr. Asher is a 76 year old male who was admitted as acute NM. Patient underwent LHC with PCI to LAD and diagonal. Patient educated on importance of dual anti-platelet therapy uniterrupted for at least one year. Patient states understanding. Brilinta assistance card given to patient. ON asa, statin, beta richard, and brilinta. TTE today with LVEF 40%, moderate diastolic dysfunction, mild AR, mild MR, mild TR, mild TX, mild PH, apex, apical anterior, mid anterior , apical anterior, mid anterior, apical septal, mid inferior septal, and mid anterior septal hill hypokinetic. Bubba inhibitor was added. Patient educated to monitor BP and HR. Right radial access site without hematoma or ecchymosis. Right radial access site care instructions given to patient. Patient is being prepped for discharge today in stable condition. Patient will have follow up set with cardiology. Patient educated to call cardiololgy for any issues with prescriptions. Patient states understanding. - Time Spent with Patient Total time spent providing and/or coordinating discharge services: Less than 30 minutes Physical Examination Vital Signs Temperature 97.7 F 04/24/17 06:26 Pulse Rate 69 04/24/17 06:26 Respiratory Rate 18 04/24/17 06:26 Blood Pressure 156/108 04/24/17 06:26 O2 Sat by Pulse Oximetry 96 04/24/17 06:26 Temperature 97.7 F 04/26/17 14:00 Pulse Rate 60 04/26/17 14:00 Respiratory Rate 15 04/26/17 14:00 Blood Pressure 115/76 04/26/17 14:00 O2 Sat by Pulse Oximetry 98 04/26/17 14:00 Oxygen Delivery Oxygen Delivery Nasal Cannula General: Conversant, No Apparent Distress HEENT: Atraumatic, Normocephaly, Mucus Membranes Moist Neck: No JVD, Normal carotid pulses Cardiac: Reg Rate and Rhythm, Normal S1 and S2, No Murmur Lungs: Normal Breath Sounds, No Wheeze, Rales, Rhonchi Neuro: Alert and responsive, No focal deficits noted Abdomen: Soft, Non-Tender Skin: No rashes noted on visualized skin, Other (Right radial access site without hematoma or ecchymosis. ) Musculoskeletal: No Chest Wall Tenderness Extremities: No Clubbing, No Cyanosis, No Edema, Normal Pulses
[2017-04-26] MEDS ORDERED: FLUARIX QUAD 2017-18 36MOS UP/PF 0.5 ML SYRINGE IM ONE (16:07)
== END 2017-04-26 16:59 | disposition home or self-care (01) | DRG 246 ==
LOC: EMEROO 06:24 → ICNU 07:09 → 2NENU 04-25 15:08
PROVIDERS: ADMIT Emergency Medicine; ATTEND Emergency Medicine

== ENCOUNTER 2018-12-19 10:39 | Inpatient (IN) ==
--- NOTE | 2018-12-19 09:15 | Discharge Summary ---
<Nadeen Mariee E - Last Filed: 12/19/18 09:14> Orders not resulted at time of discharge: Pending orders 12/19/18 01:00 XR knee RT 1-2V [XR] Routine Hemoglobin and Hematocrit [HEME] Routine Date of Encounter: 12/19/18 - Hospital Course Hospital course: Mr. Asher is a 78 year old male - Time Spent with Patient Total time spent providing and/or coordinating discharge services: - Discharge Medications Prescriptions: Continued Aspirin 81 mg PO DAILY Metoprolol XL (24 HR) Succ [Toprol Xl] 25 mg PO DAILY #30 tab.er.24h Nitroglycerin 0.4 mg SL Q5MIN PRN #10 tab.subl PRN Reason: Chest Pain Clopidogrel [Plavix] 75 mg PO DAILY Acetaminophen [Tylenol] 500 mg PO Q6HR PRN PRN Reason: Pain Docusate Sodium [Move It Along] 100 mg PO BID Lisinopril 2.5 mg PO DAILY Oxycodone HCl [Roxybond] 5 mg PO Q6H PRN PRN Reason: Pain Rosuvastatin [Crestor] 40 mg PO DAILY Home Medications: Aspirin 81 mg PO DAILY 04/24/17 [History] Metoprolol XL (24 HR) Succ [Toprol Xl] 25 mg PO DAILY #30 tab.er.24h 04/26/17 [Rx] Nitroglycerin 0.4 mg SL Q5MIN PRN #10 tab.subl 04/26/17 [Rx] Clopidogrel [Plavix] 75 mg PO DAILY 05/25/17 [History] Acetaminophen [Tylenol] 500 mg PO Q6HR PRN 12/26/18 [History] Docusate Sodium [Move It Along] 100 mg PO BID 12/26/18 [History] Lisinopril 2.5 mg PO DAILY 12/26/18 [History] Oxycodone HCl [Roxybond] 5 mg PO Q6H PRN 12/26/18 [History] Rosuvastatin [Crestor] 40 mg PO DAILY 12/26/18 [History] Allergies/Adverse Reactions: Allergy/AdvReac Type Severity Reaction Status Date / Time Penicillins AdvReac Hives Verified 12/26/18 04:49 Primary care physician: Mirtha Vieiar CNP - Patient Status Disposition: Transfer Inpatient Rehab Fac Condition: Good - Discharge Instructions Follow Up With: Nadeen Mariee PAC [Physician Carrot Buncher] - 12/29/18 9:45 am (ALSO JANUARY 06 @ 0930) Maurice Amaya MD [Partnered Physician] - 01/18/19 4:00 pm Mirtha Vieira CNP [Primary Care Provider] - 04/26/19 3:00 pm Iván Lopez MD [Non-Partnered Physician] - 05/24/19 9:00 am Additional Instructions: Discharge Instructions: Total Knee Replacement Please call [facility] ([phone]), your Primary Care Physician, or report to the Emergency Room if you have any of the following symptoms: Nausea, vomiting, fever greater that 101.5, swelling, chest pain, shortness of breath, increased pain/redness/drainage/odor for your incision site, numbness/tingling, or any other concerning symptoms. ACTIVITY:Weight-bearing as tolerated. You may progress off support (crutches or walker) as tolerated. Incentive Spirometer 10 times an hour. MEDICATIONS: Upon discharge resume your home medications. Take all the medications as prescribed. Take a stool softener if taking narcotic pain medications. Stool softeners are only effective if you drink enough fluids. Drink 6-8 glass of water or fluids a day, unless this is not allowed for another health problem. Despite using stool softeners, if you haven't had a bowel movement in 3 days, please switch to a gentle laxative. Gentle laxatives are sold over the counter. You should have a bowel movement within 24 hours, if not call the office. You will be discharged from the hospital with a prescription for pain medication. You are encouraged to decrease the use of narcotic pain medication as tolerated. Should you require a refill, please call the office. [facility] prescribes narcotic pain medication for only 4-6 weeks after surgery. If you require pain medication beyond this time period, you may be referred to your Primary Care Physician or to the Pain Clinic for further evaluation. Plan ahead for refills on pain medication as many narcotics either need to be picked up at the office or mailed. It is best to call 48-72 hours in advance of needing a prescription refill so you don't run out of medication. To help control the post-operative pain, you may take NSAIDs (Aleve,Advil, Motrin, Ibuprofen, Naprosyn) or Tylenol as prescribed on the bottle in addition to the pain medication. ANTICOAGULATION (blood thinners): Continue your Aspirin, Lovenox or Coumadin as prescribed to help prevent a blood clot in the leg or in the lungs. As long as your incision remains dry and you tolerate the NSAIDs (Aleve, Advil, Motrin, ibuprofen, naprosyn), it is OK to use the NSAIDS while you are taking your anticoagulation medication. Should your incision start to drain, stop the NSAID and contact our office. Common symptoms of blood clot in the legs include: localized pain, swelling, calf tenderness, redness or discoloration of the skin. Blood clot in the lung symptoms include: shortness of breath, rapid pulse, sweating, and chest pain that worsens with deep breathing, coughing up blood, lightheadedness, feelings of anxiety. If you experience any of these symptoms notify your physician immediately, go to the emergency room, or if having trouble breathing, call 911. WOUND CARE: Leave the dressing on for 7 to 10days. You may change the dressing if it becomes saturated greater than 50%. Do not get the dressing wet at anytime. Wash your hands with antibacterial soap, rinse and dry prior to any wound care. If you have carmen the visiting nurse or rehab facility can remove the stapes 10-14 days after surgery and place steri-strips across the wound. Leave the steri-strips in place until they fall off on their won. You may let water from the shower run on top of the steri-strips. If you do not have a visiting nurse or rehab facility, you will need to return to the office at 10-14 days for the carmen to be removed. If you have itching or redness around the dressing call the office. FOLLOW-UP: Please follow up with your surgeon in the orthopedic clinic in 4 weeks from the day of surgery. If you have carmen that need to be removed, you will need to come back to the office in 10-14 days from the day of surgery. <Nadeen Gutierres - Last Filed: 12/26/18 17:33> - NOTES TO OUTPATIENT PROVIDER Notes to Outpatient Provider: Will need close follow up of H/H upon discharge, repeat labs at ECF within 24 hrs Orders not resulted at time of discharge: Pending orders 12/19/18 11:44 US anesthesia pain block [US] Routine 12/21/18 18:39 EKG [ECG 12 lead ECG] [ECG] Stat Date of Encounter: 12/26/18 Time of Encounter: 17:21 - Discharge Diagnosis (1) Status post total right knee replacement Priority: Primary Status: Acute (2) Osteoarthritis of right knee Priority: Primary Status: Chronic Qualifiers: Osteoarthritis type: unspecified Qualified Code(s): M17.11 - Unilateral primary osteoarthritis, right knee (3) CAD (coronary artery disease) Priority: Secondary Status: Chronic Qualifiers: Coronary Disease-Associated Artery/Lesion type: unspecified vessel or lesion type [place] vs. transplanted heart: [place] heart Associated angina: angina presence unspecified Qualified Code(s): I25.10 - Atherosclerotic heart disease of [place] coronary artery without angina pectoris (4) HTN (hypertension) Priority: Secondary Status: Chronic Qualifiers: Hypertension type: unspecified Qualified Code(s): I10 - Essential (primary) hypertension (5) Acute blood loss anemia Priority: Secondary Status: Acute (6) Hypotension Priority: Secondary Status: Acute Qualifiers: Hypotension type: hypotension due to hypovolemia Qualified Code(s): I95.89 - Other hypotension; E86.1 - Hypovolemia - Hospital Course Hospital course: Mr. Asher is a 78 year old male status post right TKR 12/19/18 with medical history of CAD, HTN. Patient developed hypotension and postoperative blood loss anemia likely cause of his vagal episode. Hospitalist was consulted and patient received fluid boluses and 2 units RBC transfusions and there was subsequent improvement to blood pressure and hemaglobin. Medically cleared by hospitalist. He is going to ECF upon discharge and will have close monitoring of H/H with repeat labs within 24hrs. A CT of hip/thigh was performed and found to have an intramuscular hemmorrhage in thigh, per Dr. Amaya no surgical intervention for this. He did participate with therapy once hypotension resolved and progressed well. He will follow up in [facility] office within 1 week. - Time Spent with Patient Total time spent providing and/or coordinating discharge services: Date of admission: 12/21/18 13:22 Primary care physician: Mirtha Vieira CNP Consults: 12/19/18 17:04 Consult to Nutrition [CONS] Routine Comment: Consulting Provider: NUTRITION Reason for Dietary Consult: Other Other:: Proper nutrition to facilitate wound healing Consult to Occupational Therapy [CONS] Routine Comment: Evaluate, develop and implement POC Reason for Consult: post knee surgery Does patient have active BEDREST order?: No Is patient medically & hemodynamically stable?: Yes Consult to Orthopedic Navigator [CONS] [CONS] Routine Consult to Physical Therapy [CONS] Routine Comment: Evaluate, develop and impliment POC Reason for Consult: post knee surgery Does patient have active BEDREST order?: No Is patient medically & hemodynamically stable?: Yes Consult to Combat [employer] [CONS] Routine Reason for SW Consult: Post op joint replacement. Patient needs assistance in cancelling home health that he has ordered and assistance w/rehabilitation placement for recovery post-discharge. RT Post Op Consult [CONS] Routine 12/20/18 18:58 Consult to Hospitalist [CONS] Stat Consulting Provider: Hospitalist Gabbi Reason for Consult: low BP Call Completed: No 12/20/18 23:31 Consult to Pastoral Services [CONS] Routine Comment: Discharging clinician: Dinesh Stoner Anticipated date of discharge: 12/24/18 - Impressions ITS Impressions Knee X-Ray 12/19/18 01:00 IMPRESSION: 1. Right knee arthroplasty. No periprosthetic dislocation. 2. Subtle linear lucency in the upper pole of the patella. Differential includes osteotomy or nondisplaced fracture. D/ / Dale Atkinson MD / Dale Atkinson MD Interpreting Provider: Dale Atkinson MD Echocardiogram 12/21/18 00:34 Impressions: LVEF 45%. Normal LV chamber size, wall thickness. Segmental left ventricular systolic dysfunction. Mild left ventricular diastolic dysfunction. Normal right ventricular structure and function. Mild aortic regurgitation. No evidence of pulmonary hypertension. Left Ventricular Wall Motion: Rest Echo Findings The apex, apical inferior, apical septal and mid anterior septal hill were hypokinetic. All other wall segments showed normal motion. Findings: Study Quality * Technically adequate exam. ECG Findings * Normal sinus rhythm. Left Ventricle * LVEF 45%. * Normal LV chamber size, wall thickness. * Segmental left ventricular systolic dysfunction. * Mild left ventricular diastolic dysfunction. Right Ventricle * Normal right ventricular structure and function. Left Atrium * Moderately dilated left atrium. Right Atrium * Mildly dilated right atrium. Interatrial Septum * Interatrial septum not well evaluated. Aortic Valve * Trileaflet aortic valve. * Mildly sclerotic aortic valve leaflets. * Mild aortic regurgitation. * No aortic stenosis. Mitral Valve * Normal mitral valve structure and function. * No mitral regurgitation. * No mitral stenosis. Tricuspid Valve * Normal tricuspid valve structure and function. * Trace tricuspid regurgitation. * No evidence of pulmonary hypertension. Pulmonic Valve * Normal pulmonic valve structure and function. * Trace pulmonic regurgitation. Aorta * Normally sized aortic root. Pericardium * The pericardium appears normal. IVC * Normal IVC dimensions and inspiratory collapse. Pulmonary Artery * Pulmonary artery not well visualized. Chest X-Ray 12/21/18 18:46 IMPRESSION: Left basilar atelectasis or scarring. Otherwise negative portable study D/ / Lisa Cesar Cha, MD / Lisa Cesar Cha, MD Interpreting Provider: Lisa Cesar Cha, MD Hip CT 12/21/18 19:43 IMPRESSION: 1. Heterogeneous enlargement of the proximal right vastus musculature likely representing intramuscular hemorrhage. 2. No acute osseous abnormality. D/ / Tushar Bales MD / Tushar Bales MD Interpreting Provider: Tushar Bales MD Knee CT 12/21/18 19:44 IMPRESSION: 1. Heterogeneous enlargement of the vastus intermedius muscle within the mid thigh compatible with intramuscular hemorrhage. 2. Status post right total knee arthroplasty without complication. Foci of soft tissue gas about the distal femur likely postoperative in etiology. D/ / Tushar Bales MD / Tushar Bales MD Interpreting Provider: Tushar Bales MD - Patient Status Functional capacity at discharge: uses cane/walker Overall status at discharge: patient is progressing back to baseline - Diet and Activity Activity: ambulate only with your walker, as per physical therapy Diet: advance to your usual diet
--- NOTE | 2018-12-19 10:36 | Anesthesia Evaluation PreOp ---
Date of Encounter: 12/19/18 Time of Encounter: 11:06 - Past History Planned Operation: Right Total Knee Arthroplasty Cardiac History: NM (2017), HTN, Hyperlipidemia, Cardiac Stent (stent x 3 in 2017, on plavix--last dose taken 12/19/2018) Pulmonary History: Denies Any Significant HX, Snore GRAIN GRADER History: Denies Any Significant HX Other Medical History: Denies Any Significant HX Anesthesia History: No Prior Anesthetic Complications, Past Anesthesia Alcohol Use: none Drug use: none Medications and Allergies Aspirin 81 mg PO DAILY 04/24/17 [History] Lisinopril [Zestril] 2.5 mg PO DAILY #30 tablet 04/26/17 [Rx] Metoprolol XL (24 HR) Succ [Toprol Xl] 25 mg PO DAILY #30 tab.er.24h 04/26/17 [Rx] Nitroglycerin 0.4 mg SL Q5MIN PRN #10 tab.subl 04/26/17 [Rx] Rosuvastatin [Crestor] 40 mg PO HS #30 tablet 04/26/17 [Rx] Clopidogrel [Plavix] 75 mg PO DAILY 05/25/17 [History] Acetaminophen [Non-Aspirin Extra Strength] 500 mg PO Q6H PRN 7 Days #28 tablet 12/19/18 [Rx] Docusate Sodium [Colace] 100 mg PO BID 5 Days #10 capsule 12/19/18 [Rx] OxyCODONE Immed Rel [Roxicodone 5 MG] 5 mg PO Q6HR PRN 5 Days #20 tablet 12/19/18 [Rx] Allergy/AdvReac Type Severity Reaction Status Date / Time Penicillins AdvReac Hives Verified 12/19/18 11:44 - Meds/Allergy Pre-op Review Medications Reviewed: Yes Allergies Reviewed: Yes Beta Blockers on Current Med List: Yes If Beta Blockers taken, Date/Time (Last Dose taken): 12/19/2018 at 0800 Anesthesia Results - Labs Laboratory Tests 11/30/18 11/30/18 11/30/18 14:24 14:24 14:24 WBC 6.6 Hgb 13.8 Hct 42.9 Plt Count 174 PT 11.2 INR 1.0 APTT 30.1 Sodium 138 Potassium 4.3 BUN 20 Creatinine 1.24 - Imaging EKG: report reviewed (12/12/2018 SINUS RHYTHM ANTEROSEPTAL MYOCARDIAL INFARCTION, OF INDETERMINATE AGE baseline artifact) Additional studies: 06/14/2017 Echo Impressions: LVEF 50%. Not all LV wall segments are well visualized. Mild left ventricular diastolic dysfunction. Normal right ventricular structure and function. Mild aortic regurgitation. Mild mitral regurgitation. Mild pulmonic regurgitation. Aneurysmal interatrial septal. No evidence of PFO with agitated saline contrast. 04/24/2017 Echo Impressions: There is severe one vessel coronary artery disease sp successful PTCA/Drug-Eluting Stent placement in the proximal/mid LAD and PTCA of proximal diagonal for culprit lesion The left ventricle has moderately abnormal contractility EF 35% Recommendations: Optimal medical therapy of patient's disease. Aggressive risk factor modification. DAPT Anesthesia Exam O2 Sat Height 1.78 m Weight 82.554 kg O2 Sat by Pulse Oximetry 98 Vital Signs Temp Pulse Resp BP Pulse Ox 97.7 F 58 18 133/78 98 12/19/18 11:16 12/19/18 11:16 12/19/18 11:16 12/19/18 11:16 12/19/18 11:16 Height: 5'10" Weight: 182 lbs NPO (# of Hours): 8 Pain Scale: 0 Pain Scale Used: Numeric (1 - 10) - HEENT Pupil (Motor): EOMI Mallampati: III Teeth: Normal Oral Opening: Greater than 3 - GRAIN GRADER LOC: Oriented GRAIN GRADER Motor: Normal RUE, Normal LUE, Normal RLE, Normal LLE, Normal Face GRAIN GRADER Sensory: Normal: RUE, LUE, RLE, LLE, Face - Cardiac Rhythm: Regular Murmur: None - Pulmonary Breath Sounds: bilateral Clear Respiratory Effort: Symmetrical Anesthesia Assess/Plan ASA Score: 3 Level of consciousness: Cooperative, Oriented, Tranquil Anesthetic Plan: General, Regional Nerve Block Regional Nerve Block Plan: Adductor canal Reason for No Neuroaxial/Regional Block: Patient on blood thinner (patient on p lavix with last dose taken today at 0800) Monitoring Plan: Standard Monitors Recovery Plan: PACU
[2018-12-19] MEDS ORDERED: *HR* FentaNYL (PF) 100 MCG/2 ML VIAL ONE (10:57)
[2018-12-19] MEDS ORDERED: Lidocaine -MPF 2% 2 ML VIAL ONE (10:58)
--- NOTE | 2018-12-19 10:59 | History & Physical Report ---
Date of Encounter: 12/19/18 Time of Encounter: 10:59 24 Hour HP Update - Instructions Instructions: If the History and Physical is less than 30 days old and was completed prior to A.M. admission and or procedure and has NOT been updated on calendar day of procedure please complete this update prior to performing procedure. - Update Patient reports changes in Medical Condition: No Changes in examination, assessment, or condition: No Changes in Medication: No Preop tests/diagnostics Reviewed: Yes Surgery Remains Indicated: Yes Consent for Planned Operative Procedure(s) Verified: Yes - Pre-Operative Checklist Preoperative Checklist Indicated: No Prophylactic Antibiotic Ordered: Yes Is VTE Prophylaxis Indicated?: Yes
[2018-12-19] MEDS ORDERED: Ethanol\\Acetic Acid\\Na Ace\\Ben 1,000 ML IRRIG.SOLN IR ONE (11:38)
[2018-12-19] MEDS ORDERED: Clindamycin 900 MG/50 ML 900 MG/50 ML IV.SOLN IVPB ONE (11:42)
[2018-12-19] MEDS ORDERED: ROPIVACAINE/PF/NS SYRINGE INTRAART ONE (11:44)
[2018-12-19] MEDS ORDERED: ROPIVACAINE HCL/PF 0.5% 30 ML VIAL ONE (11:44)
[2018-12-19] MEDS ORDERED: *HR* OxyCODONE ER (12 HR) 10 MG TABLET PO ONE ×2 (11:45→11:48)
[2018-12-19] MEDS ORDERED: Celecoxib 200 MG CAPSULE PO ONE ×2 (11:45→11:48)
[2018-12-19] MEDS: Ringers Solution, Lactated 1,000 ML IVC SCH ×3 (11:54→17:45)
[2018-12-19] MEDS ORDERED: *HR* HYDROmorphone (PF) 1 MG/ML SYRINGE IVP PRN (11:55)
[2018-12-19] MEDS ORDERED: Ondansetron 4 MG/2 ML VIAL IVP ONE (11:55)
[2018-12-19] MEDS ORDERED: *HR* Promethazine 25 MG/ML VIAL IVP PRN ×2 (11:55→17:04)
[2018-12-19] MEDS ORDERED: *HR* Propofol 200 MG/20 ML VIAL IVP ONE (12:08)
[2018-12-19] MEDS ORDERED: Ondansetron 4 MG/2 ML VIAL ONE (12:13)
[2018-12-19] MEDS ORDERED: Dexamethasone 4 MG/ML VIAL ONE (12:13)
[2018-12-19] MEDS ORDERED: EPHEDrine 50 MG/ML VIAL ONE (12:21)
[2018-12-19] MEDS ORDERED: *HR* HYDROMORPHONE 2 MG/ML VIAL ONE (12:29)
[2018-12-19] MEDS ORDERED: *HR* PHENYLEPHRINE 1,000 MCG/10 ML SYRINGE IVP ONE (12:36)
[2018-12-19] MEDS ORDERED: Ropivacaine/PF 0.5% 24.62 ML, EPINEPHrine 0.25 MG, Ketorolac 15 MG, Water for inj. (ste... IR ONE (12:40)
--- NOTE | 2018-12-19 12:45 | Anesthesia Procedures ---
Date of Encounter: 12/19/18 Time of Encounter: 12:00 Procedures: Anesthesia - Nerve Block Procedure Date: 12/19/18 Time: 12:00 Allergies/Adv Reactions: pcn Surgical Procedure: Right tka Checklist: Correct Patient Identifier, Correct procedure, History checked Correct side: Right Blood Thinner: Yes (plavix today) Monitor Applied: EKG, BP, Pulse Oximetry Supplemental Oxygen via Nasal Cannula (L/min): 2 Sedation: Fentanyl (mcg): 100 Indication: Post Op Analgesia (per dr. mandujano) Pre-op Neuro Deficits: No Block Type: Other (adductor) Catheter placed: No Sterile Technique: Yes Ultrasound used: Yes Anatomy identified: Yes Visual spread of Local: Yes Neuro Stimulation: No Blood on Needle Aspiration: No Smooth Injection of Local: Yes Pain with Injection of Local: No Prep: Chlorhexadine Needle: 21 x 100 mm Stimuplex Local: Ropivacaine (10cc 0.5% with 4mg decadron) Volume (cc): 10 Number of Attempts: 1 Complications: None/effective block Vitals: Vital Signs/O2 Sat/Glucose, Most Recent Temp Pulse Resp BP Pulse Ox 97.7 F 57 18 138/76 97 12/19/18 11:16 12/19/18 12:04 12/19/18 12:04 12/19/18 12:04 12/19/18 12:04 Comments: naac, performed by VIDAL Stout
--- NOTE | 2018-12-19 13:08 | Orthopedic Operative Note ---
Date of procedure: 12/19/18 Pre-op diagnosis: Right knee arthritis Post-op diagnosis: same Procedure: Procedure: Right robotic-assisted Total knee replacement Estimated blood loss: 200 cc Hardware: Metal and polyethylene replacement. Osgood Femur: 6 Tibia:6 TS insert:9 Patella: 39 Exam Under anesthesia: 20 degree flexion contracture 15 degree varus as calculated by the robot full flexion and no instability Procedural Notes: Grade 4 arthritic changes all 3 compartments Operative procedure: The patient was brought to the operating room and placed on the operating room table. After general anesthesia was administered the operative knee was examined. Findings were noted in the exam under anesthesia. The operative extremity was prepped and draped in sterile surgical fashion. The patient received IV antibiotics prior to skin incision. A standard midline incision was made centered over the patella. The incision was made through the skin and subcutaneous tissue. A medial parapatellar tendon approach was performed. Care was taken to preserve tissue along the medial aspect of the patella. And to protect the patella tendon. The deep MCL was released off the medial tibia. The infra patella fat pad was excised. The patella was everted and cut was made at the level of the insertion of the quadriceps and patella tendon. The patella was sized the guide was seated and the lug holes are drilled. Knee was brought into flexion. Patient noted to have grade 4 arthritic changes all 3 components. Steinmann pins were placed in the tibia and the femur for the tibial and femoral arrays respectively. Checkpoints were also placed in the tibia and the femur for calculation purposes. The knee including the femur and the tibial registered. Osteophytes, ACL and PCL were excised at this point. Extension and flexion were assessed with a valgus stress components were adjusted on the computer to balance the knee. Femoral cuts were made first with robotic assistance, these included the anterior cut posterior cuts chamfer cuts. Tibial cut was then performed with robotic assistance as well. Bone fragments were removed, as well as the medial and lateral meniscus. The size 6 femoral guide was seated box cut was made lug holes are drilled. The size 6 tibial tray was seated and prepared with the fin cutter. Trial reduction with the 9 TS Nelly revealed extension of 0 degree and 6 degrees varus full flexion. No varus valgus instability. Trial reduction revealed excellent patella tracking. All trial components were removed all bony surfaces were irrigated. The Tibia was seated followed by the femur, The selected Nelly size was seated and secured patella. Patient had similar findings for motion and stability. The knee was closed by the PA. The knee was then irrigated out with 2 L of pulse irrigation. The extensor mechanism was closed with #2 FiberWire suture and #2 PDS suture. The subcutaneous tissue was then irrigated and closed deep with #1 PDS suture superficially with 0 PDS suture and skin was closed with zip tie The patient was then placed in a sterile dressing and a postoperative brace extubated and transferred to recovery room in stable condition. Anesthesia: GETA Surgeon: Maurice Amaya Was there an administrative assistant front desk present: No Estimated blood loss (cc): 200 Condition: stable Disposition: PACU
--- NOTE | 2018-12-19 14:37 | Anesthesia Evaluation Post Op ---
Date of Encounter: 12/19/18 Time of Encounter: 14:31 - Vital Signs Vital Signs: vss - Lungs Lungs: Clear Ascult./Percussion - Airway Airway: Non-obstructed - Cardiovascular Baseline Rhythm - Mental Status Mental Status: Asleep with brisk response to light stimulation - Pain Pain Scale used: Tessa (Faces) (tolerable) - Nausea Vomiting Nausea Vomiting: Not Present - Hydration Hydration: Ice chips - Discharge PostOp Status: Transfer Patient to floor
[2018-12-19 14:41] LABS: Hematocrit 37.4 % (37.5-50.1); Hemoglobin 12.1 g/dL (12.9-16.9)
[2018-12-19] MEDS ORDERED: Temazepam 15 MG CAPSULE PO PRN (17:04)
[2018-12-19] MEDS ORDERED: Naloxone 0.4 MG/ML INJ IVP PRN (17:04)
[2018-12-19] MEDS ORDERED: Nitroglycerin 0.4 MG TAB.SUBL SL PRN (17:04)
[2018-12-19] MEDS ORDERED: Sennosides 8.6 MG TABLET PO PRN (17:04)
[2018-12-19] MEDS ORDERED: HYDROcodone BIT/Homatropine 5 MG TABLET PO PRN (17:04)
[2018-12-19] MEDS ORDERED: MOM Conc 10 ML UD.LIQ PO PRN (17:04)
[2018-12-19] MEDS ORDERED: *HR* OxyCODONE Immed Rel 5 MG TABLET PO PRN (17:04)
[2018-12-19] MEDS ORDERED: Ondansetron 4 MG/2 ML VIAL IVP PRN (17:04)
[2018-12-19] MEDS: Ascorbic Acid 500 MG TABLET PO SCH (17:46)
[2018-12-19] MEDS: Clindamycin 900 MG/50 ML 900 MG/50 ML IV.SOLN IVPB SCH (20:25)
[2018-12-20] MEDS: Clindamycin 900 MG/50 ML 900 MG/50 ML IV.SOLN IVPB SCH (03:49)
[2018-12-20] MEDS: *HR* Enoxaparin 30 MG/0.3 ML SYRINGE SQ SCH ×2 (06:38→16:41)
--- NOTE | 2018-12-20 06:40 | Orthopedics Progress Note ---
Date of Encounter: 12/20/18 Time of Encounter: 06:40 Subjective Interval history: Patient was seen this morning doing well without complaints. Afebrile vital signs stable. Operative extremity: Neurovascularly intact Dressing clean dry and intact Calves nontender Assessment and plan: Continue with postoperative care stable for discharge Objective Vital signs: Vital Signs Temp Pulse Resp BP Pulse Ox 12/20/18 05:22 104/65 12/20/18 03:43 97.3 F L 65 15 92/54 94 12/20/18 00:17 97.5 F L 12/19/18 22:57 97.0 F L 63 17 102/65 96 12/19/18 19:29 97.9 F 66 17 116/70 97 12/19/18 18:23 97.9 F 63 16 105/57 96 12/19/18 17:34 97.7 F 65 16 102/62 96 12/19/18 17:04 97.8 F 62 14 104/59 95 12/19/18 15:45 97.7 F 70 16 104/59 97 12/19/18 15:18 97.0 F L 61 16 102/54 98 12/19/18 15:08 97.0 F L 63 18 96/56 96 12/19/18 14:57 65 18 96/61 98 12/19/18 14:47 71 18 98/63 95 12/19/18 14:37 97.1 F L 74 18 105/66 94 12/19/18 14:27 82 18 106/75 93 12/19/18 14:17 77 16 98/61 93 12/19/18 14:07 96.9 F L 77 18 102/59 93 12/19/18 13:57 85 16 99/60 94 12/19/18 13:47 80 18 106/73 95 12/19/18 13:37 97.4 F L 83 18 115/62 97 12/19/18 12:04 57 18 138/76 97 12/19/18 11:58 58 18 115/77 97 12/19/18 11:16 97.7 F 58 18 133/78 98 Intake and Output 12/19/18 12/19/18 12/20/18 15:59 23:59 07:59 Intake Total 1000 / 2280 1280 / 2280 Output Total 200 / 200 100 / 100 Balance 800 / 2080 1280 / 2080 -100 / -100 Intake: IV Fluids 1000 / 2100 1100 / 2100 Lactated Ringers 1,000 ML @ 25 1000 / 2000 1000 / 2000 mls/hr IVC .Q24H [facility] Rx#: [id number] Cleocin Premix 900 MG/50 ML 900 100 / 100 mg In 50 ml @ 50 mls/hr IVPB Q8H [facility] Rx#:[id number] Oral 180 / 180 Output: Urine 100 / 100 Estimated Blood Loss 200 / 200 Other: # Voids 1 Weight 82.554 kg 82.7 kg Patient Weight 12/20/18 23:59 Weight 82.7 kg - Labs CBC & BMP: 12/19/18 14:03 Labs: Abnormal lab results Hgb 12.1 g/dL (12.9-16.9) L 12/19/18 14:03 Hct 37.4 % (37.5-50.1) L 12/19/18 14:03 Consult Discharge Plan - Plan Referrals: Mirtha Vieira, [facility] [Primary Care Provider] - Prescriptions: Docusate Sodium [Colace] 100 mg PO BID 5 Days #10 capsule Acetaminophen [Non-Aspirin Extra Strength] 500 mg PO Q6H PRN 7 Days #28 tablet PRN Reason: Mild To Moderate Pain OxyCODONE Immed Rel [Roxicodone 5 MG] 5 mg PO Q6HR PRN 5 Days #20 tablet PRN Reason: Severe Pain
[2018-12-20] MEDS: Ascorbic Acid 500 MG TABLET PO SCH ×2 (07:44→16:40)
[2018-12-20] MEDS: Multivit/Ca/Min/Fe/FA 1 TAB TABLET PO SCH (07:44)
[2018-12-20] MEDS: Aspirin 81 MG TAB.CHEW PO SCH (07:44)
--- NOTE | 2018-12-20 08:05 | Physician Discharge Referral ---
Home Health/Hosp Referral Info Transfer to: Home Health Attending Provider: Dr. Amaya - Diagnosis (1) Status post total right knee replacement Priority: Primary Status: Acute (2) Osteoarthritis of right knee Priority: Primary Status: Chronic (3) CAD (coronary artery disease) Priority: Secondary Status: Chronic (4) HTN (hypertension) Priority: Secondary Status: Chronic - Respiratory Orders None Smoking Cessation: Smoking cessation has been advised. For more information, call the [place] Tobacco Quit Line at 8-827-PRJZ-NOW. - Diet/Nutrition Diet/Nutrition Orders: Regular - Activity Activity Orders: Ambulate, Chair, Walker - Services Needed Following services are medically necessary services: Nursing, Home Health Aide, Physical Therapy, Occupational Therapy Home Care Orders: Opsite dressing, leave intact until first post-operative visit. If dressing becomes >50% saturated, contact office, remove dressing and place appropriate dressing in its place. Do not allow for dressing to get wet. Zipline/Susanna in place, plan to remove at post-operative day #14-16. Total Joint Precautions x 6 weeks Apply cold therapy wrap 3-6x/day for 20 minutes at a time. Encourage ambulation throughout the day Use Incentive spirometer 10x/hour. Elevate affected extremity above heart as tolerated. Brace: Wear knee immobilizer at night x 2 weeks. - Transfer Medications Prescriptions: Docusate Sodium [Colace] 100 mg PO BID 5 Days #10 capsule Acetaminophen [Non-Aspirin Extra Strength] 500 mg PO Q6H PRN 7 Days #28 tablet PRN Reason: Mild To Moderate Pain OxyCODONE Immed Rel [Roxicodone 5 MG] 5 mg PO Q6HR PRN 5 Days #20 tablet PRN Reason: Severe Pain Home Medications: Aspirin 81 mg PO DAILY 04/24/17 [History] Lisinopril [Zestril] 2.5 mg PO DAILY #30 tablet 04/26/17 [Rx] Metoprolol XL (24 HR) Succ [Toprol Xl] 25 mg PO DAILY #30 tab.er.24h 04/26/17 [Rx] Nitroglycerin 0.4 mg SL Q5MIN PRN #10 tab.subl 04/26/17 [Rx] Rosuvastatin [Crestor] 40 mg PO HS #30 tablet 04/26/17 [Rx] Clopidogrel [Plavix] 75 mg PO DAILY 05/25/17 [History] Acetaminophen [Non-Aspirin Extra Strength] 500 mg PO Q6H PRN 7 Days #28 tablet 12/19/18 [Rx] Docusate Sodium [Colace] 100 mg PO BID 5 Days #10 capsule 12/19/18 [Rx] OxyCODONE Immed Rel [Roxicodone 5 MG] 5 mg PO Q6HR PRN 5 Days #20 tablet 12/19/18 [Rx] Allergies/Adverse Reactions: Allergy/AdvReac Type Severity Reaction Status Date / Time Penicillins AdvReac Hives Verified 12/19/18 11:44 Certification: Further, I certify that my clinical findings support that this patient is homebound (i.e. absences from home require considerable and taxing effort and are for medical reasons or advent services or infrequently or short duration when for other reasons) because: Homebound Reason: Post-surgery restriction and or conditions limit ability to leave home Attestation: My signature below is to certify that this patient is under my care and that I, or nurse practitioner, or a physician accounting administrative assistant working with me, has a [id number] encounter with this patient.
[2018-12-20 08:45] LABS: Basophils % 0.1 %; Hematocrit 30.5 % (37.5-50.1); Immature Granulocytes % 0.5 % (0-4); Lymphocytes # 0.8 K/mcL (0.6-4.6); Lymphocytes % 7.3 %; Mean Corpuscular HGB Conc 31.8 g/dL (31.6-35.5); Mean Corpuscular Hemoglobin 29.5 pg (28.0-33.3); Mean Corpuscular Volume 92.7 fL (83.0-100.0); Mean Platelet Volume 10.8 fL (9.4-12.4); Monocytes # 0.7 K/mcL (0.0-1.3); Monocytes % 6.3 %; Neutrophils # 9.5 K/mcL (1.6-8.9); Platelet Count 158 K/mcL (140-400); Red Blood Count 3.29 M/mcL (4.19-5.50); Red Cell Distribution Width 13.5 % (11.5-14.5); Segmented Neutrophils % 85.8 %
[2018-12-20] MEDS ORDERED: 0.9 % Sodium Chloride 1,000 ML ONE (08:48)
[2018-12-20 08:49] LABS: Hemoglobin 9.7 g/dL (12.9-16.9)
[2018-12-20] MEDS ORDERED: Metoprolol XL (24 HR) Succ 25 MG TAB.ER.24H PO SCH (09:00)
[2018-12-20] MEDS ORDERED: Ringers Solution, Lactated 500 ML IVC ONE ×2 (09:04→14:40)
[2018-12-20 09:05] LABS: BUN/Creatinine Ratio 27 (6-26); Blood Urea Nitrogen 32 mg/dL (8-23); Carbon Dioxide 25 mEq/L (23-29); Chloride 102 mEq/L (98-107); Potassium 4.4 mEq/L (3.5-5.1); Sodium 135 mEq/L (136-145); eGFR For African Americans > 60 (> 60)
[2018-12-20 09:06] LABS: Calcium 8.8 mg/dL (8.6-10.3); Glucose 267 mg/dL (70-105); Osmolality,Calculated 296 (280-300); eGFR For Non-African Americans 58 (> 60)
[2018-12-20] MEDS: Ringers Solution, Lactated 1,000 ML IVC SCH (10:15)
[2018-12-20] MEDS ORDERED: *HR* Enoxaparin 30 MG/0.3 ML SYRINGE SQ SCH (11:07)
[2018-12-20 12:14] LABS: Hematocrit 29.5 % (37.5-50.1); Hemoglobin 9.7 g/dL (12.9-16.9)
[2018-12-20] MEDS: tiZANidine 4 MG TABLET PO PRN (15:04)
--- NOTE | 2018-12-20 18:06 | Event Note ---
Date of Encounter: 12/20/18 Time of Encounter: 14:50 PCR - POD#1 s/p right TKR 12/19/18 Patient seen at bedside, He states he is tired but denies any other symptoms at this time. Denies chest pain, SOB, fevers, changes in vision, headaches.A&O x 3 He had a vagal episode when he got up with therapy this morning and was lightheaded during this time. Nurse held his morning metoprolol this morning. Dressings had a little bleeding midline but within expectation and not excessive. Afebrile, vital signs stable except for hypotension since yesterday. He has received one fluid bolus so far and BP did improve somewhat. Nurse later informed me that BP dropped again. Will add another fluid bolus. HH was repeated and stable from this morning. Labs reviewed. H/H - 9.7/30.5 decreased from yesterday, stable upon recheck at 9.7/29.5 Pain control: inadequate, unable to give oxycodone due to low BP but he is having significant muscle spasms so will add tizanidine Participated in PT this morning but had vagal episode. currently on bedrest All questions and concerns addressed. Educated on use of incentive spirometer. Encouraged ambulation and proper hydration. Patient educated on post-operative restrictions and post-operative care. Assessment and plan: Continue with postoperative care Discharge plan: Home, discharge once medically stable. UPDATE 18:00 - Received call from nurse that BP had dropped to 73/39. She did lower head of bed and gave fluid bolus ordered earlier. After this BP only came up to 86/44 and patient is now displaying some confusion per nurse different than he was this morning. Will consult hospitalist for further evaluation. Call placed to paging center around 6:06pm and did not receive a response. Estefany stallworth paging center again around 6:35pm and told they can see the message was opened but still no response. 3NE charge nurse told to place a page as well around 6:55pm and still no answer. UPDATE 19:00 - hospitalist returned call and agreeable to take consult.
[2018-12-20 20:18] LABS: Hematocrit 25.1 % (37.5-50.1)
--- NOTE | 2018-12-20 23:21 | Internal Medicine Consult Note ---
Date of Encounter: 12/20/18 Time of Encounter: 22:30 - Assessment and Plan (1) Hypotension Current Visit: Yes Status: Acute Assessment and plan: Acute hypotension post-procedure. Likely d/t blood loss as evidenced by drop in Hgb from 12.1 to 8.0. Pt. reports he has never had issues w/hypotension in the past. Most recent Echocardiogram on 06/14/17 showed LVEF of 50%, not all LV wall segments were well visualized, mild left ventricular diastolic dysfunction, normal right ventricular structure and function, mild aortic regurgitation, mild mitral regurgitation, pulmonic regurgitation, and aneurysmal intra-atrial septal. Echocardiogram ordered. Takes Lisinopril and Metoprolol daily. Holding BP meds and opioid pain medications d/t current hypotension. Will bolus with 0.9 IV fluids if warranted. Bed rest. Falls precautions and up with assist only. Continuous cardiac telemetry. Timed H/Hs ordered Q4HR. Next draw is 00:00. Last Hgb 8.0, down from 9.7 today. Estimated blood loss from total knee replacement procedure: 200 cc. Stat T&S ordered. Will transfuse if Hgb continues to drop. Consider Cardiology consult if hypotensionPt. is high risk for further morbidity and complications d/t current new onset of hypotension likely r/t drop in Hgb from 12.1 to 8.0, hx of previous [place] w/stents x3, probable need for transfusion of PRBCs, and risk factors. Qualifiers: Hypotension type: postprocedural hypotension Qualified Code(s): I95.81 - Postprocedural hypotension (2) Syncope Current Visit: Yes Status: Acute Assessment and plan: Acute syncopal episode today when pt. vageled going to bedside chair for therapy. Bed rest. Falls/safety precautions and up with assist only. Qualifiers: Syncope type: vasovagal syncope Qualified Code(s): R55 - Syncope and collapse (3) Status post total right knee replacement Current Visit: Yes Status: Acute Assessment and plan: Acute status post-total right knee replacement on 12/19/18. PT/OT consults ordered. SW consult ordered for rehab placement and cancellation of home health per patient's request. Bed rest currently d/t syncopal episode today. Pt. being followed by Dr. Amaya. Concern for possible bleed d/t drop in Hgb from 12.1 on 12/19 to 8.0 tonight. Holding Lovenox. Bilateral Foot pumps for DVT prophylaxis. H/H Q4HR. Stat T&S ordered. Will place transfusion order if Hgb continues to drop overnight. Will use non-opioid pain medications for mgmt of pain d/t curre nt hypotension. (4) HTN (hypertension) Current Visit: Yes Status: Chronic Assessment and plan: Hx of chronic HTN. Monitor pt. and VS. New onset of hypotension post-procedure. Holding all BP and opioid pain medications until BP improves. Bed rest d/t syncopal episode today. Qualifiers: Hypertension type: essential hypertension Qualified Code(s): I10 - Essential (primary) hypertension (5) HLD (hyperlipidemia) Current Visit: Yes Status: Chronic Assessment and plan: Hx of chronic HLD. Lipid panel in a.m. labs. Continue pts. Crestor. Qualifiers: Hyperlipidemia type: pure hypercholesterolemia Qualified Code(s): E78.00 - Pure hypercholesterolemia, unspecified; E78.0 - Pure hypercholesterolemia (6) CKD (chronic kidney disease) stage 3, GFR 30-59 ml/min Current Visit: Yes Status: Chronic Assessment and plan: Hx of CKD, currently stage III w/GFR of 58. Creatinine 1.20. Will use IV fluids judiciously as needed d/t current hypotension and avoid nephrotoxins. Monitor I&O and f/u labs. (7) CAD (coronary artery disease) Current Visit: Yes Status: Chronic Assessment and plan: Hx of chronic CAD w/previous [place] in 2017 w/stents x3. Hx of HLD and HTN. Continue statin, Plavix, and ASA daily. Holding BP medications d/t current hypotension. Continuous cardiac telemetry. Echocardiogram. Last Echo on 06/14/17 showed LVEF of 50%, mild left ventricular diastolic dysfunction, normal right ventricular structure and function, mild aortic regurgitation, mild mitral regurgitation, mild pulmonic regurgitation, and aneurysmal intra-atrial septal. Qualifiers: Coronary Disease-Associated Artery/Lesion type: unspecified vessel or lesion type [place] vs. transplanted heart: [place] heart Associated angina: angina presence unspecified Qualified Code(s): I25.10 - Atherosclerotic heart disease of [place] coronary artery without angina pectoris (8) Previous myocardial infarction older than 8 weeks Current Visit: Yes Status: Resolved Assessment and plan: STEMI on 04/24/17. maker. Stents x3. On Plavix and ASA daily. Pt. denies any recent symptoms. Continuous cardiac telemetry. Holding pts. BP medications d/t current hypotension. (9) DVT prophylaxis Current Visit: Yes Status: Acute Assessment and plan: Bilateral foot pumps for DVT prophylaxis d/t post-knee replacement status. Holding Lovenox d/t current drop in Hgb. Monitor pts. H/H and for signs of bleeding. - Time Spent With Patient Total time spent is greater than 50% in coordination of care (as documented) at patient's floor/unit and/or counseling patient: Greater than 35 minutes Internal Medicine - CN: HPI - Data of Consult Patient: new to practice Consult date: 12/20/18 Requesting Physician: Maurice Amaya MD - Consult Narrative Reason for consult: Medical mgmt of new onset of hypotension History of present illness: Mr. Asher is a 78 year old male w/PMH of previous STEMI on 04/24/17 w/stents x3, hx of CKD, CAD, hx of renal calculi, HTN, and HLD presents for Hospitalist consult d/t syncopal episode this a.m. at 08:49 when pt. was being moved to bedside chair for therapy. Pt. vageled and eyes rolled into back of his head. Pt. was pale, diaphoretic, and could not respond to questions at first. P ts. BP 87/49 at this time w/HR of 54. Several seconds later, pt. began to respond and was helped back into bed and placed in Trendelenburg position. Pt. is status post right knee replacement on 12/19. Pt. reports he suffered an WV of the maker in 2017. States his BP is normally 120s/70s to 80s and denies previous problems with hypotension. Pts. Hgb 12.1 on 12/19 and dropped to 9.7 today. Patient denies recent illness, fever, chills, nausea, vomiting, unusual bleeding, changes in vision, CP, SOB, cough, chest congestion, diarrhea, constipation, numbness, or tingling. Past Med Surg Social Fam HX - Past Medical History Source: patient, old records reviewed Medical history: coronary artery disease, hyperlipidemia, hypertension, kidney stones, myocardial infarction Additional medical history: stents x 3 Psychiatric history: no psych history - Past Surgical History Surgical History: knee replacement (Right on 12/19/18), other Additional surgical history: left knee replacement. colonoscopy. PCI of acute WV (proximal mid LAD ONEYDA overlapping) PTCA additional vessel diagonal - Social History Smoking Status: Never smoker Smokeless Tobacco Status: No Alcohol use: occasionally Drug use: none Occupational status: retired Current living situation: Home - Independent Activity Level: Independent ambulation, Very active Recent Out of Country Travel Within the Last 8 Weeks: No Exposure or Possible Exposure to Illness During Travel: No - Family History Mother Race: Family Member Ethnicity: Non- Living Status: Age at : 83 Cause of : Alzheimer's disease Hx Family Neurologic Disorders: Yes (Alzheimer's disease) Father Adopted: No Race: Family Member Ethnicity: Non- Living Status: Age at : 89 Cause of : CAD Hx Family Cardiac Disorders: Yes (CAD) Brother Adopted: No Race: Family Member Ethnicity: Non- Living Status: Age at : 56 Cause of : WV Hx Family Cardiac Disorders: Yes ([place]) - Constitutional Constitutional: as per HPI - EENT Eyes: as per HPI Ears: as per HPI Nose, mouth and throat: as per HPI - Breasts Breasts: as per HPI - Cardiovascular Cardiovascular ROS IM: as per HPI, diaphoresis, syncope, other (New onset of hypotension) - Respiratory Respiratory: as per HPI - Gastrointestinal Gastrointestinal: as per HPI - Genitourinary Genitourinary ROS male: as per HPI - Musculoskeletal Musculoskeletal ROS IM: as per HPI - Integumentary Integumentary IM: as per HPI - Neurological Neurological ROS: as per HPI - Psychiatric Psychiatric: as per HPI - Endocrine Endocrine IM: as per HPI - Hematologic/Lymphatic Hematologic/Lymphatic: as per HPI - Allergic/Immunologic Allergic/Immunologic: as per HPI Internal Medicine - CN: Meds Aspirin 81 mg PO DAILY 04/24/17 [History] Lisinopril [Zestril] 2.5 mg PO DAILY #30 tablet 04/26/17 [Rx] Metoprolol XL (24 HR) Succ [Toprol Xl] 25 mg PO DAILY #30 tab.er.24h 04/26/17 [Rx] Nitroglycerin 0.4 mg SL Q5MIN PRN #10 tab.subl 04/26/17 [Rx] Rosuvastatin [Crestor] 40 mg PO HS #30 tablet 04/26/17 [Rx] Clopidogrel [Plavix] 75 mg PO DAILY 05/25/17 [History] Acetaminophen [Non-Aspirin Extra Strength] 500 mg PO Q6H PRN 7 Days #28 tablet 12/19/18 [Rx] Docusate Sodium [Colace] 100 mg PO BID 5 Days #10 capsule 12/19/18 [Rx] OxyCODONE Immed Rel [Roxicodone 5 MG] 5 mg PO Q6HR PRN 5 Days #20 tablet 12/19/18 [Rx] Allergy/AdvReac Type Severity Reaction Status Date / Time Penicillins AdvReac Hives Verified 12/19/18 11:44 Hospitalist - CN: Exam - Constitutional Vitals: Temp Pulse Resp BP Pulse Ox 98.6 F 69 17 101/62 97 12/20/18 22:53 12/20/18 22:53 12/20/18 22:53 12/20/18 22:53 12/20/18 22:53 General appearance IM: Present: cooperative, mild distress, A&O X 3, pleasant, answers questions appropriately Exam: Patient examined at bedside. Patient was resting in bed. Patient was A&O x3, however patient would repeat some information over asking if he had told me that before. No behavioral issues such as agitation or anxiety. Pt. stated he lost his to colon cancer and it took him 15 months to recover from this. 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 Pt. denies need for counseling services at this time. Pt. denies any other symptoms or complaints on exam. VS: 98.6F temp, HR 69, RR 17, BP 101/62, SPO2 97% on RA. - Head Head exam: Present: atraumatic, normal inspection - Eye Eye exam: Present: PERRL, conjuntiva pink, sclera anicteric Pupils: Present: normal accommodation, PERRL - ENT ENT exam: Present: normal exam - Neck Neck exam general surgery: Present: normal inspection - Respiratory Respiratory exam: Present: CTAB - Cardiovascular Cardiovascular exam IM: Present: RRR, +S1, +S2 - GI/Abdominal GI/Abdominal exam IM: Present: soft, no peritoneal signs - Rectal Rectal exam: Present: deferred - Additional comments: exam deferred. - Extremities Exam Extremities exam IM: Present: normal inspection, warm, radial pulses palpable and symmetrical - Neurological Exam Neurological exam: Present: alert, CN II-XII intact, oriented X3, strengths equal and symetr throughout Additional comments: Patient does repeat parts of his story several times during interview and assessment. A&O x3 however. - Psychiatric Psychiatric exam: Present: normal affect, normal mood - Skin Skin exam IM: Present: dry, intact Internal Medicine - CN: Reslt - Labs CBC & Chem 7: 12/20/18 20:04 12/20/18 08:14 Labs: Short CBC 12/20/18 12/20/18 12/20/18 Range/Units 08:14 11:52 20:04 WBC 11.0 (4.3-11.1) K/mcL Hgb 9.7 L D 9.7 L 8.0 L D (12.9-16.9) g/dL Hct 30.5 L 29.5 L 25.1 L (37.5-50.1) % Plt Count 158 (140-400) K/mcL Neutrophils # 9.5 H (1.6-8.9) K/mcL BMP 12/20/18 08:14 Sodium 135 L Potassium 4.4 Chloride 102 Carbon Dioxide 25 BUN 32 H Creatinine 1.20 Glucose 267 H Calcium 8.8 - Diagnostic Studies Other Images Additional comments: EXAMINATION: 2 XRAY VIEWS OF THE RIGHT KNEE 12/19/2018 1:56 pm COMPARISON: September 05, 2018 HISTORY: ORDERING SYSTEM PROVIDED HISTORY: s/p TKR RIGHT KNEE ARTHRITIS Right knee arthroplasty follow-up FINDINGS: Right knee arthroplasty. There is no periprosthetic dislocation or lucency. Alignment is anatomic. Subtle linear lucency in the upper pole of the patella. XR/XR knee RT 1-2V IMPRESSION: 1. Right knee arthroplasty. No periprosthetic dislocation. 2. Subtle linear lucency in the upper pole of the patella. Differential includes osteotomy or nondisplaced fracture. D/ / Dale Atkinson MD / aDle Atkinson MD Interpreting Provider: Dale Atkinson MD Consult Discharge Plan - Plan Referrals: Mirtha Vieira, JAIMIE [Primary Care Provider] - Prescriptions: Docusate Sodium [Colace] 100 mg PO BID 5 Days #10 capsule Acetaminophen [Non-Aspirin Extra Strength] 500 mg PO Q6H PRN 7 Days #28 tablet PRN Reason: Mild To Moderate Pain OxyCODONE Immed Rel [Roxicodone 5 MG] 5 mg PO Q6HR PRN 5 Days #20 tablet PRN Reason: Severe Pain
[2018-12-21] MEDS: tiZANidine 4 MG TABLET PO PRN ×2 (00:19→17:29)
[2018-12-21 00:50] LABS: Basophils % 0.1 %; Eosinophils % 0.2 %; Hematocrit 25.9 % (37.5-50.1); Hemoglobin 8.5 g/dL (12.9-16.9); Immature Granulocytes % 0.3 % (0-4); Lymphocytes # 1.6 K/mcL (0.6-4.6); Lymphocytes % 15.8 %; Mean Corpuscular HGB Conc 32.8 g/dL (31.6-35.5); Mean Corpuscular Volume 91.5 fL (83.0-100.0); Mean Platelet Volume 10.8 fL (9.4-12.4); Monocytes # 0.8 K/mcL (0.0-1.3); Monocytes % 8.2 %; Neutrophils # 7.7 K/mcL (1.6-8.9); Platelet Count 128 K/mcL (140-400); Red Blood Count 2.83 M/mcL (4.19-5.50); Red Cell Distribution Width 13.7 % (11.5-14.5); Segmented Neutrophils % 75.4 %; White Blood Count 10.2 K/mcL (4.3-11.1)
[2018-12-21 01:08] LABS: BUN/Creatinine Ratio 23 (6-26); Blood Urea Nitrogen 29 mg/dL (8-23); Calcium 8.6 mg/dL (8.6-10.3); Carbon Dioxide 25 mEq/L (23-29); Chloride 109 mEq/L (98-107); Glucose 115 mg/dL (70-105); Osmolality,Calculated 295 (280-300); Potassium 4.4 mEq/L (3.5-5.1); Sodium 139 mEq/L (136-145); eGFR For African Americans > 60 (> 60); eGFR For Non-African Americans 55 (> 60)
[2018-12-21 05:46] LABS: Hematocrit 25.2 % (37.5-50.1); Hemoglobin 8.1 g/dL (12.9-16.9)
--- NOTE | 2018-12-21 06:38 | Orthopedics Progress Note ---
Date of Encounter: 12/21/18 Time of Encounter: 06:37 - Assessment and Plan (1) Acute blood loss anemia Current Visit: Yes Status: Acute Subjective Interval history: Patient was seen this morning doing well without complaints. Afebrile vital signs stable. Operative extremity: Neurovascularly intact Dressing clean dry and intact Calves nontender Assessment and plan: Continue with postoperative care Hemoglobin 8.1 presently asymptomatic, discharge when cleared Objective Vital signs: Vital Signs Temp Pulse Resp BP Pulse Ox 12/21/18 06:18 68 115/57 12/21/18 06:13 98.0 F 71 15 100/55 98 12/21/18 05:14 101/65 12/21/18 04:42 96/58 12/21/18 03:34 98.1 F 75 18 101/55 97 12/21/18 01:17 65 94/51 96 12/20/18 23:45 69 106/66 12/20/18 23:15 75 114/56 12/20/18 22:53 98.6 F 69 17 101/62 97 12/20/18 22:38 107/55 12/20/18 21:45 99/61 12/20/18 21:16 97/62 12/20/18 20:32 72 139/49 12/20/18 20:15 97/61 12/20/18 19:18 97.9 F 68 16 85/51 96 12/20/18 18:45 97.9 F 76 16 89/47 95 12/20/18 18:23 78 16 86/44 97 12/20/18 16:46 75 16 85/54 95 12/20/18 15:04 96/52 12/20/18 15:00 97.5 F L 72 16 111/64 98 12/20/18 14:30 75 16 96/59 97 12/20/18 14:15 74 15 96/58 99 12/20/18 12:59 66 16 95/66 97 12/20/18 12:15 62 16 92/67 98 12/20/18 12:00 64 15 98/67 98 12/20/18 11:45 62 16 103/62 97 12/20/18 11:09 97.8 F 65 14 101/51 97 12/20/18 10:50 67 16 101/51 97 12/20/18 10:45 62 81/33 95 12/20/18 10:25 72 16 92/56 97 12/20/18 09:55 68 16 101/65 96 12/20/18 09:30 70 15 102/59 97 12/20/18 09:25 62 17 90/49 97 12/20/18 09:20 61 16 91/46 96 12/20/18 09:10 56 15 81/38 94 12/20/18 09:05 62 16 87/42 94 12/20/18 08:57 55 16 89/52 96 12/20/18 08:53 54 16 86/50 94 12/20/18 08:48 54 17 87/49 98 12/20/18 07:43 62 92/51 93 12/20/18 07:41 96 12/20/18 06:45 97.9 F 60 16 94/55 96 Intake and Output 12/20/18 12/20/18 12/21/18 15:59 23:59 07:59 Intake Total 770 / 770 Output Total 650 / 750 900 / 900 Balance 770 / 20 -650 / 20 -900 / -900 Intake: IV Fluids 550 / 550 Lactated Ringers 500 ML @ 1000 500 / 500 mls/hr IVC .Q30M ONE Rx#: [id number] Cleocin Premix 900 MG/50 ML 900 50 / 50 mg In 50 ml @ 50 mls/hr IVPB Q8H XAVIER Rx#:[id number] Oral 220 / 220 Output: Urine 650 / 750 900 / 900 Other: Meal Lunch Percent of Meal Consumed 100% # Voids 1 1 - Labs CBC & BMP: 12/21/18 05:23 12/21/18 00:35 Labs: Abnormal lab results RBC 2.83 M/mcL (4.19-5.50) L 12/21/18 00:35 Hgb 8.1 g/dL (12.9-16.9) L 12/21/18 05:23 Hct 25.2 % (37.5-50.1) L 12/21/18 05:23 Plt Count 128 K/mcL (140-400) L 12/21/18 00:35 9.5 K/mcL (1.6-8.9) H 12/20/18 08:14 Sodium 135 mEq/L (136-145) L 12/20/18 08:14 Chloride 109 mEq/L (98-107) H 12/21/18 00:35 BUN 29 mg/dL (8-23) H 12/21/18 00:35 Est GFR (Non-Af Amer) 55 (> 60) L 12/21/18 00:35 27 (6-26) H 12/20/18 08:14 Glucose 115 mg/dL (70-105) H 12/21/18 00:35 31 mg/dL (40-59) L 12/21/18 00:35 Consult Discharge Plan - Plan Referrals: Mirtha Vieira, FIREWALL SECURITY ENGINEER [Primary Care Provider] - Prescriptions: Docusate Sodium [Colace] 100 mg PO BID 5 Days #10 capsule Acetaminophen [Non-Aspirin Extra Strength] 500 mg PO Q6H PRN 7 Days #28 tablet PRN Reason: Mild To Moderate Pain OxyCODONE Immed Rel [Roxicodone 5 MG] 5 mg PO Q6HR PRN 5 Days #20 tablet PRN Reason: Severe Pain
[2018-12-21] MEDS: Ascorbic Acid 500 MG TABLET PO SCH ×2 (07:44→17:19)
[2018-12-21] MEDS: Multivit/Ca/Min/Fe/FA 1 TAB TABLET PO SCH (07:44)
[2018-12-21] MEDS: Aspirin 81 MG TAB.CHEW PO SCH (07:44)
[2018-12-21 08:59] LABS: Hematocrit 26.6 % (37.5-50.1); Hemoglobin 8.8 g/dL (12.9-16.9)
--- NOTE | 2018-12-21 09:09 | Internal Med Progress Note ---
Hospitalist Progress Note - Encounter Date of Encounter: 12/21/18 Time of Encounter: 15:00 - Subjective Interval History: Hospitalist service consulted overnight for hypotension - Exam Vitals: Temp Pulse Resp BP Pulse Ox 98.0 F 68 15 115/57 98 12/21/18 06:13 12/21/18 06:18 12/21/18 06:13 12/21/18 06:18 12/21/18 06:13 Exam: General appearance: Present: A&O X 3, no acute distress Head exam: Present: normocephalic Respiratory exam: Present: CTAB. Absent: accessory muscle use, rales, rhonchi, wheezes Cardiovascular exam: Present: RRR, +S1, +S2. Absent: diastolic murmur, gallop, rubs, systolic murmur GI/Abdominal exam: Soft, NT, ND, +BS Extremities exam:right knee dressing in place Neurological exam: Present: alert, oriented X3, no focal deficits. Absent: altered - Assessment and Plan (1) Hypotension Current Visit: Yes Status: Acute Assessment and Plan: Acute hypotension post-procedure. Likely d/t blood loss as evidenced by drop in Hgb from 12.1 to 8.0. Continue IV fluid resuscitation. recieved bolus of normal saline today. Villaseñor sfuse to keep hemoglobin above 9 in light of acute blood loss and CAD (2) Status post total right knee replacement Current Visit: Yes Status: Acute Assessment and Plan: s/p total right knee replacement. Stable. tolerated procedure with no acute complications (3) CAD (coronary artery disease) Current Visit: Yes Status: Chronic Assessment and Plan: Hx of chronic CAD w/previous [place] in 2017 w/stents x3. Hx of HLD and HTN. Continue statin, Plavix, and ASA daily. Will transfuse to keep hemoglobin above 9 (4) HTN (hypertension) Current Visit: Yes Status: Chronic Assessment and Plan: Hold antihypertensives due to hypotension (5) HLD (hyperlipidemia) Current Visit: Yes Status: Chronic Assessment and Plan: Hx of chronic HLD. Lipid panel in a.m. labs. Continue pts. Crestor. (6) Syncope Current Visit: Yes Status: Acute Assessment and Plan: Likely 2/2 to hypovolemia. Volume resuscitation (7) DVT prophylaxis Current Visit: Yes Status: Acute Assessment and Plan: SCD - Time Spent with Patient Total time spent is greater than 50% in coordination of care (as documented) at patient's floor/unit and/or counseling patient: Internal Medicine: Result - Labs CBC & Chem 7: 12/21/18 11:36 12/21/18 00:35 Labs: Short CBC 12/20/18 12/20/18 12/21/18 Range/Units 11:52 20:04 00:35 WBC 10.2 (4.3-11.1) K/mcL Hgb 9.7 L 8.0 L D 8.5 L (12.9-16.9) g/dL Hct 29.5 L 25.1 L 25.9 L (37.5-50.1) % Plt Count 128 L (140-400) K/mcL Neutrophils # 7.7 (1.6-8.9) K/mcL 12/21/18 12/21/18 Range/Units 05:23 08:47 WBC (4.3-11.1) K/mcL Hgb 8.1 L 8.8 L (12.9-16.9) g/dL Hct 25.2 L 26.6 L (37.5-50.1) % Plt Count (140-400) K/mcL Neutrophils # (1.6-8.9) K/mcL BMP 12/20/18 12/21/18 08:14 00:35 Sodium 135 L 139 Potassium 4.4 4.4 Chloride 102 109 H Carbon Dioxide 25 25 BUN 32 H 29 H Creatinine 1.20 1.27 Glucose 267 H 115 H Calcium 8.8 8.6 Consult Discharge Plan - Plan Referrals: Mirtha Vieira, BURRER OPERATOR [Primary Care Provider] - (1) Hypotension Qualifiers: Hypotension type: postprocedural hypotension Qualified Code(s): I95.81 - Postprocedural hypotension (3) CAD (coronary artery disease) Qualifiers: Coronary Disease-Associated Artery/Lesion type: unspecified vessel or lesion type [place] vs. transplanted heart: [place] heart Associated angina: angina presence unspecified Qualified Code(s): I25.10 - Atherosclerotic heart disease of [place] coronary artery without angina pectoris (4) HTN (hypertension) Qualifiers: Hypertension type: essential hypertension Qualified Code(s): I10 - Essential (primary) hypertension (5) HLD (hyperlipidemia) Qualifiers: Hyperlipidemia type: pure hypercholesterolemia Qualified Code(s): E78.00 - Pure hypercholesterolemia, unspecified; E78.0 - Pure hypercholesterolemia (6) Syncope Qualifiers: Syncope type: vasovagal syncope Qualified Code(s): R55 - Syncope and collapse
[2018-12-21] MEDS: Ringers Solution, Lactated 1,000 ML IVC SCH ×2 (11:28→21:08)
[2018-12-21] MEDS ORDERED: 0.9 % Sodium Chloride 1,000 ML IVC ONE ×3 (11:44→18:40)
[2018-12-21 11:55] LABS: Hematocrit 26.3 % (37.5-50.1); Hemoglobin 8.6 g/dL (12.9-16.9)
[2018-12-21] MEDS ORDERED: 0.9 % Sodium Chloride 1,000 ML ONE (11:55)
--- NOTE | 2018-12-21 15:57 | Event Note ---
Date of Encounter: 12/21/18 Time of Encounter: 12:20 PCR - POD#2 s/p right TKR 12/19/18 Patient seen at bedside,A&Ox3. He did not display any confusion on exam for me today. He has no concerns at this time and states he feels well. Afebrile, vital signs stable except for continued hypotension. dressings have quarter sized bloody drainage to middle of dressings. will continue to monitor but does not appear to be enough bleeding from incision to account for the low Hgb. Labs reviewed. H/H - did decrease from 9.7/30.5 to 8.6/26.3 stable upon multiple rechecks today. Hospitalist recommended another fluid bolus after another vagal episode this morning when trying to stand at bedside. Hospitalist was consulted yesterday and appreciate their recommendations for medical management. Recently recommended for 1 unit RBC transfusion. Pain control: adequate at this time. will continue to avoid opioids while hypotensive. PT - he is currently on bedrest due to hypotension/vagal episodes. He has not taken more than 1 step with therapy and is not safe to go home at this time. He was switched to inpatient status for further management of hypotension and will likely require transition to ECF upon discharge. All questions and concerns addressed. Educated on use of incentive spirometer. Encouraged ambulation and proper hydration. Patient educated on post-operative restrictions and post-operative care. Assessment and plan: Continue with postoperative care Discharge plan: likely ECF Wednesday
[2018-12-21] MEDS ORDERED: 0.9 % Sodium Chloride 250 ML ONE ×2 (18:04→22:06)
--- NOTE | 2018-12-21 19:05 | Electrocardiograph Report ---
[address] [place] [id number] Test Date: 2018-12-20 Pat Name: Aly Lb Department: 114 Room: [facility] Gender: M Tire Repairer: : 1940 Requested By: Aly Zarco Order Number: [id number] Reading MD: Alan Andrade Measurements Intervals [place] Rate: 71 P: 157 [place]: 188 QRS: 5 QRSD: 90 T: 56 QT: 375 QTc: 397 Interpretive Statements SINUS RHYTHM LOW VOLTAGE LIMB LEADS SEPTAL MYOCARDIAL INFARCTION, OF INDETERMINATE AGE Electronically Signed On 12-21-2018 19:03:47 EDT by Alan Andrade
[2018-12-21 19:30] LABS: Hematocrit 22.6 % (37.5-50.1); Hemoglobin 7.2 g/dL (12.9-16.9)
[2018-12-21] MEDS: Acetaminophen 325 MG TABLET PO PRN (22:53)
[2018-12-22 06:04] LABS: Basophils % 0.2 %; Eosinophils # 0.1 K/mcL (0.0-0.6); Eosinophils % 1.2 %; Hematocrit 29.7 % (37.5-50.1); Immature Granulocytes % 0.7 % (0-4); Lymphocytes # 0.7 K/mcL (0.6-4.6); Lymphocytes % 6.6 %; Mean Corpuscular HGB Conc 33.3 g/dL (31.6-35.5); Mean Corpuscular Hemoglobin 28.6 pg (28.0-33.3); Mean Corpuscular Volume 85.8 fL (83.0-100.0); Mean Platelet Volume 10.8 fL (9.4-12.4); Monocytes # 0.8 K/mcL (0.0-1.3); Monocytes % 7.8 %; Neutrophils # 8.3 K/mcL (1.6-8.9); Platelet Count 109 K/mcL (140-400); Red Blood Count 3.46 M/mcL (4.19-5.50); Red Cell Distribution Width 16.1 % (11.5-14.5); Segmented Neutrophils % 83.5 %
[2018-12-22 06:05] LABS: Hemoglobin 9.9 g/dL (12.9-16.9)
[2018-12-22 06:31] LABS: BUN/Creatinine Ratio 19 (6-26); Blood Urea Nitrogen 20 mg/dL (8-23); Calcium 8.3 mg/dL (8.6-10.3); Carbon Dioxide 24 mEq/L (23-29); Chloride 109 mEq/L (98-107); Glucose 95 mg/dL (70-105); Magnesium 1.8 mg/dL (1.6-2.6); Osmolality,Calculated 298 (280-300); Phosphorous 2.2 mg/dL (2.7-4.5); Potassium 4.1 mEq/L (3.5-5.1); Sodium 143 mEq/L (136-145); eGFR For African Americans > 60 (> 60); eGFR For Non-African Americans > 60 (> 60)
--- NOTE | 2018-12-22 06:47 | Orthopedics Progress Note ---
Date of Encounter: 12/22/18 Time of Encounter: 06:46 - Assessment and Plan (1) Acute blood loss anemia Current Visit: Yes Status: Acute Subjective Interval history: Patient was seen this morning doing well without complaints. Afebrile vital signs stable. Operative extremity: Neurovascularly intact Dressing clean dry and intact Calves nontender no unusual swelling Assessment and plan: Continue with postoperative care Hemoglobin 9.9 . Doing much better plan for discharge today. Objective Vital signs: Vital Signs Temp Pulse Resp BP Pulse Ox 12/22/18 05:00 90 136/74 12/22/18 02:59 98.0 F 85 17 121/76 94 12/22/18 02:50 85 118/59 12/22/18 01:01 98 F 80 20 113/70 97 12/21/18 23:45 113/64 12/21/18 23:24 66 106/72 12/21/18 22:48 98 F 89 18 122/77 98 12/21/18 22:33 97.9 F 83 20 117/51 97 12/21/18 22:04 99.1 F 85 16 109/65 97 12/21/18 21:11 81 125/60 12/21/18 20:20 74 115/80 12/21/18 20:01 73 94/55 12/21/18 18:38 98.2 F 65 83/42 94 12/21/18 18:23 97.7 F 64 18 83/44 94 12/21/18 15:18 98.2 F 98 14 92/45 95 12/21/18 11:13 98.0 F 74 16 117/54 97 Intake and Output 12/21/18 12/21/18 12/22/18 15:59 23:59 07:59 Intake Total 560 / 860 300 / 860 300 / 300 Output Total 1100 / 3075 1075 / 3075 650 / 650 Balance -540 / -2215 -775 / -2215 -350 / -350 Intake: Oral 560 / 560 Blood Product 300 / 300 300 / 300 Rbcs Leuko Poor As-1 Unit 300 / 300 [id number] Rbcs Leuko Poor As-3 2nd Unit 0 / 0 300 / 300 [id number] Output: Urine 1100 / 3075 1075 / 3075 650 / 650 Other: Meal Lunch Percent of Meal Consumed 100% - Labs CBC & BMP: 12/22/18 05:14 12/22/18 05:14 Labs: Abnormal lab results RBC 3.46 M/mcL (4.19-5.50) L 12/22/18 05:14 Hgb 9.9 g/dL (12.9-16.9) L D 12/22/18 05:14 Hct 29.7 % (37.5-50.1) L 12/22/18 05:14 RDW 16.1 % (11.5-14.5) H 12/22/18 05:14 Plt Count 109 K/mcL (140-400) L 12/22/18 05:14 9.5 K/mcL (1.6-8.9) H 12/20/18 08:14 Sodium 135 mEq/L (136-145) L 12/20/18 08:14 Chloride 109 mEq/L (98-107) H 12/22/18 05:14 BUN 29 mg/dL (8-23) H 12/21/18 00:35 Est GFR (Non-Af Amer) 55 (> 60) L 12/21/18 00:35 27 (6-26) H 12/20/18 08:14 Glucose 115 mg/dL (70-105) H 12/21/18 00:35 Calcium 8.3 mg/dL (8.6-10.3) L 12/22/18 05:14 Phosphorus 2.2 mg/dL (2.7-4.5) L 12/22/18 05:14 31 mg/dL (40-59) L 12/21/18 00:35 Crossmatch See Detail 12/20/18 22:57 Consult Discharge Plan - Plan Referrals: Mirtha Vieira, CLINICAL RADIOLOGIST [Primary Care Provider] -
--- NOTE | 2018-12-22 06:51 | Event Note ---
Date of Encounter: 12/21/18 Time of Encounter: 19:00 Alerted by charge nurse while making my initial rounds that this pt. was experiencing symptoms similar to what he did the previous day when he became diaphoretic, weak, and pre-syncopal. Went to the pts. room. Dr. Fernandez was present and examining the pt. Pts. surgical site had new bloody discharge and nurse reported it had been changed. Concern for bleeding as this pts. Hgb had dropped significantly the day prior. I had typed and screened the pt. in the event he would need transfused, which in fact, began today with two units of PRBCs. Dr. Fernandez had ordered CTs of the right knee and hip looking for a source of possible blood loss. CT showed heterogeneous enlargement of the vastus intermedius muscle within the mid thigh compatible with intramuscular hemorrhage. Status post right total knee arthroplasty without complication. Foci of soft tissue gas about the distal femur likely postoperative in etiology. I was made aware of these results at 22:09 by the pts. nurse RACHEL Kerr. I instructed her to contact Dr. Amaya and to let him know the imaging results, Hgb had dropped to 7.2 now, and a repeat Hgb was ordered for 23:00. Dr. Amaya's recommendation was to transfuse the second unit of PRBCs. Hgb re-timed for 04:00 d/t hanging second unit. Alerted by pts. nurse at 23:26 that the unit of blood had been running for almost an hour and the patient stated he was feeling much better. BP 106/72 and HR 66. Alerted at 01:04 that the blood had finished. BP now 113/70 with HR 80. Alerted again at 06:12 patient's hemoglobin is now 9.9. Nurse instructed to continue monitoring the pt. very closely and alert me immediately of any adverse changes.
[2018-12-22] MEDS: Ringers Solution, Lactated 1,000 ML IVC SCH ×4 (07:37→19:56)
[2018-12-22] MEDS: Aspirin 81 MG TAB.CHEW PO SCH (08:03)
[2018-12-22] MEDS: Acetaminophen 325 MG TABLET PO PRN (08:03)
[2018-12-22] MEDS: Ascorbic Acid 500 MG TABLET PO SCH ×2 (08:03→18:18)
[2018-12-22] MEDS: Multivit/Ca/Min/Fe/FA 1 TAB TABLET PO SCH (08:03)
--- NOTE | 2018-12-22 09:02 | Internal Med Progress Note ---
Hospitalist Progress Note - Encounter Date of Encounter: 12/22/18 Time of Encounter: 09:00 - Subjective Interval History: Transfused PRBC overnight due to hypotension - Exam Vitals: Temp Pulse Resp BP Pulse Ox 97.8 F 86 16 116/66 95 12/22/18 06:48 12/22/18 06:48 12/22/18 06:48 12/22/18 06:48 12/22/18 06:48 Exam: General appearance: Present: A&O X 3, no acute distress Head exam: Present: normocephalic Respiratory exam: Present: CTAB. Absent: accessory muscle use, rales, rhonchi, wheezes Cardiovascular exam: Present: RRR, +S1, +S2. Absent: diastolic murmur, gallop, rubs, systolic murmur GI/Abdominal exam: Soft, NT, ND, +BS Extremities exam:right knee dressing in place Neurological exam: Present: alert, oriented X3, no focal deficits. Absent: altered - Assessment and Plan (1) Hypotension Current Visit: Yes Status: Acute Assessment and Plan: Acute hypotension post-procedure. Likely d/t blood loss as evidenced by drop in Hgb from 12.1 to 8.0. Was hypotensive overnight likely secondary to acute surgical blood loss with anemia Received 2L normal saline bolus and 2 units of PRBC Hemoglobin responded appropriately. CT hip showed intramuscular hemorrhage within the thigh Per ortho no surgcal intervention indicated (2) Status post total right knee replacement Current Visit: Yes Status: Acute Assessment and Plan: s/p total right knee replacement. Stable. tolerated procedure with no acute complications (3) CAD (coronary artery disease) Current Visit: Yes Status: Chronic Assessment and Plan: Hx of chronic CAD w/previous [place] in 2017 w/stents x3. Hx of HLD and HTN. Continue statin, Plavix, and ASA daily. Will transfuse to keep hemoglobin above 9 (4) HTN (hypertension) Current Visit: Yes Status: Chronic Assessment and Plan: Hold antihypertensives due to hypotension (5) HLD (hyperlipidemia) Current Visit: Yes Status: Chronic Assessment and Plan: Hx of chronic HLD. Lipid panel in a.m. labs. Continue pts. Crestor. (6) Syncope Current Visit: Yes Status: Acute Assessment and Plan: Likely 2/2 to hypovolemia. Volume resuscitation (7) DVT prophylaxis Current Visit: Yes Status: Acute Assessment and Plan: SCD - Time Spent with Patient Total time spent is greater than 50% in coordination of care (as documented) at patient's floor/unit and/or counseling patient: Internal Medicine: Result - Labs CBC & Chem 7: 12/22/18 05:14 12/22/18 05:14 Labs: Short CBC 12/21/18 12/21/18 12/21/18 Range/Units 08:47 11:36 19:06 WBC (4.3-11.1) K/mcL Hgb 8.8 L 8.6 L 7.2 L (12.9-16.9) g/dL Hct 26.6 L 26.3 L 22.6 L (37.5-50.1) % Plt Count (140-400) K/mcL Neutrophils # (1.6-8.9) K/mcL 12/22/18 Range/Units 05:14 WBC 10.0 (4.3-11.1) K/mcL Hgb 9.9 L D (12.9-16.9) g/dL Hct 29.7 L (37.5-50.1) % Plt Count 109 L (140-400) K/mcL Neutrophils # 8.3 (1.6-8.9) K/mcL BMP 12/22/18 05:14 Sodium 143 Potassium 4.1 Chloride 109 H Carbon Dioxide 24 BUN 20 Creatinine 1.04 Glucose 95 Calcium 8.3 L - Impressions Impressions Echocardiogram 12/21/18 00:34 Impressions: LVEF 45%. Normal LV chamber size, wall thickness. Segmental left ventricular systolic dysfunction. Mild left ventricular diastolic dysfunction. Normal right ventricular structure and function. Mild aortic regurgitation. No evidence of pulmonary hypertension. Left Ventricular Wall Motion: Rest Echo Findings The apex, apical inferior, apical septal and mid anterior septal hill were hypokinetic. All other wall segments showed normal motion. Findings: Study Quality * Technically adequate exam. ECG Findings * Normal sinus rhythm. Left Ventricle * LVEF 45%. * Normal LV chamber size, wall thickness. * Segmental left ventricular systolic dysfunction. * Mild left ventricular diastolic dysfunction. Right Ventricle * Normal right ventricular structure and function. Left Atrium * Moderately dilated left atrium. Right Atrium * Mildly dilated right atrium. Interatrial Septum * Interatrial septum not well evaluated. Aortic Valve * Trileaflet aortic valve. * Mildly sclerotic aortic valve leaflets. * Mild aortic regurgitation. * No aortic stenosis. Mitral Valve * Normal mitral valve structure and function. * No mitral regurgitation. * No mitral stenosis. Tricuspid Valve * Normal tricuspid valve structure and function. * Trace tricuspid regurgitation. * No evidence of pulmonary hypertension. Pulmonic Valve * Normal pulmonic valve structure and function. * Trace pulmonic regurgitation. Aorta * Normally sized aortic root. Pericardium * The pericardium appears normal. IVC * Normal IVC dimensions and inspiratory collapse. Pulmonary Artery * Pulmonary artery not well visualized. Chest X-Ray 12/21/18 18:46 IMPRESSION: Left basilar atelectasis or scarring. Otherwise negative portable study D/ / Lisa Cesar Cha, MD / Lisa Cesar Cha, MD Interpreting Provider: Lisa Cesar Cha, MD Hip CT 12/21/18 19:43 IMPRESSION: 1. Heterogeneous enlargement of the proximal right vastus musculature likely representing intramuscular hemorrhage. 2. No acute osseous abnormality. D/ / Tushar Bales MD / Tushar Bales MD Interpreting Provider: Tushar Bales MD Knee CT 12/21/18 19:44 IMPRESSION: 1. Heterogeneous enlargement of the vastus intermedius muscle within the mid thigh compatible with intramuscular hemorrhage. 2. Status post right total knee arthroplasty without complication. Foci of soft tissue gas about the distal femur likely postoperative in etiology. D/ / Tushar Bales MD / Tushar Bales MD Interpreting Provider: Tushar Bales MD Consult Discharge Plan - Plan Referrals: Mirtha Vieira, CIRCUIT DESIGNER [Primary Care Provider] - (1) Hypotension Qualifiers: Hypotension type: postprocedural hypotension Qualified Code(s): I95.81 - Post procedural hypotension (3) CAD (coronary artery disease) Qualifiers: Coronary Disease-Associated Artery/Lesion type: unspecified vessel or lesion type [place] vs. transplanted heart: [place] heart Associated angina: angina presence unspecified Qualified Code(s): I25.10 - Atherosclerotic heart disease of [place] coronary artery without angina pectoris (4) HTN (hypertension) Qualifiers: Hypertension type: essential hypertension Qualified Code(s): I10 - Essential (primary) hypertension (5) HLD (hyperlipidemia) Qualifiers: Hyperlipidemia type: pure hypercholesterolemia Qualified Code(s): E78.00 - Pure hypercholesterolemia, unspecified; E78.0 - Pure hypercholesterolemia (6) Syncope Qualifiers: Syncope type: vasovagal syncope Qualified Code(s): R55 - Syncope and collapse
--- NOTE | 2018-12-22 15:21 | Event Note ---
Date of Encounter: 12/22/18 Time of Encounter: 12:30 PCR - POD#3 s/p right TKR 12/19/18 Patient seen at bedside,A&Ox3. He did not display any confusion on exam for me today. He has no concerns at this time and states he feels well. Afebrile, vital signs stable. BP has improved and staying stable Labs reviewed. H/H - improved to 9.9/29.7 after receiving 2 unit RBC transfusion yesterday Pain control: adequate at this time. PT - bedrest restriction was lifted, he did well participating with therapy this morning and BP continued to stay stable. no further vagal episodes thus far today All questions and concerns addressed. Educated on use of incentive spirometer. Encouraged ambulation and proper hydration. Patient educated on post-operative restrictions and post-operative care. Assessment and plan: Continue with postoperative care Discharge plan: ECF likely Wednesday
--- NOTE | 2018-12-22 15:30 | Physician Discharge Referral ---
ExtendedCare Referral Info Transfer To: [facility] Provider in Charge: Dr. Amaya - Diagnosis (1) Status post total right knee replacement Priority: Primary Status: Acute (2) Osteoarthritis of right knee Priority: Primary Status: Chronic (3) CAD (coronary artery disease) Priority: Secondary Status: Chronic (4) HTN (hypertension) Priority: Secondary Status: Chronic (5) Acute blood loss anemia Priority: Secondary Status: Acute (6) Hypotension Priority: Secondary Status: Acute Expected Duration of Placement: <30 days Prognosis: Good Aware of Diagnosis: Patient Aware of Prognosis: Patient - Transfer Medications Home Medications: Aspirin 81 mg PO DAILY 04/24/17 [History] Lisinopril [Zestril] 2.5 mg PO DAILY #30 tablet 04/26/17 [Rx] Metoprolol XL (24 HR) Succ [Toprol Xl] 25 mg PO DAILY #30 tab.er.24h 04/26/17 [Rx] Nitroglycerin 0.4 mg SL Q5MIN PRN #10 tab.subl 04/26/17 [Rx] Rosuvastatin [Crestor] 40 mg PO HS #30 tablet 04/26/17 [Rx] Clopidogrel [Plavix] 75 mg PO DAILY 05/25/17 [History] Acetaminophen [Non-Aspirin Extra Strength] 500 mg PO Q6H PRN 7 Days #28 tablet 12/19/18 [Rx] Docusate Sodium [Colace] 100 mg PO BID 5 Days #10 capsule 12/19/18 [Rx] OxyCODONE Immed Rel [Roxicodone 5 MG] 5 mg PO Q6HR PRN 5 Days #20 tablet 12/19/18 [Rx] Allergies/Adverse Reactions: Allergy/AdvReac Type Severity Reaction Status Date / Time Penicillins AdvReac Hives Verified 12/19/18 11:44 - Respiratory Orders Smoking Cessation: Smoking cessation has been advised. For more information, call the [place] Tobacco Quit Line at 0-795-RKKV-NOW. - Ancillary Orders May use pressure relief devices daily prn, May go on [place] w/family/respon libertarian w/meds at nurse discretion PRN, May consult with Dentist, Director Instrumentation, Web Designer PRN - Advance Directives Code Status: Full Code - Mobility Orders Chair, Ambulate - Rehabiliation Orders Rehab Potential: Good Rehab Orders: ROM Exercises, Evaluation for Physical Therapy, Evaluation for Occupational Therapy Other: Opsite dressing, leave intact until first post-operative visit. If dressing becomes >50% saturated, contact office, remove dressing and place appropriate dressing in its place. Do not allow for dressing to get wet. Zipline/[place] in place, plan to remove at post-operative day #14-16. Total Joint Precautions x 6 weeks Apply cold therapy wrap 3-6x/day for 20 minutes at a time. Encourage ambulation throughout the day Use Incentive spirometer 10x/hour. Elevate affected extremity above heart as tolerated. Brace: Wear knee immobilizer at night x 2 weeks. - Treatments Skin tear care topically daily PRN per policy - Diet Orders Regular CERTIFICATION: I certify that the transfer of the above named patient to an Extended Care Facility is necessary for the continuing treatment of the diagnosis listed. The above information is true and accurate reflection of patient's current condition. Confidential - Redisclosure prohibited without a patient's written consent.
[2018-12-22] MEDS: tiZANidine 4 MG TABLET PO PRN (18:19)
[2018-12-23] MEDS: tiZANidine 4 MG TABLET PO PRN ×2 (00:19→20:17)
[2018-12-23] MEDS: Ringers Solution, Lactated 1,000 ML IVC SCH ×3 (00:43→20:33)
[2018-12-23] MEDS: traMADol 50 MG TABLET PO PRN (04:15)
[2018-12-23 06:21] LABS: Basophils % 0.2 %; Eosinophils # 0.1 K/mcL (0.0-0.6); Eosinophils % 1.4 %; Hematocrit 27.9 % (37.5-50.1); Hemoglobin 9.1 g/dL (12.9-16.9); Immature Granulocytes % 0.5 % (0-4); Lymphocytes % 12.5 %; Mean Corpuscular HGB Conc 32.6 g/dL (31.6-35.5); Mean Corpuscular Hemoglobin 28.3 pg (28.0-33.3); Mean Corpuscular Volume 86.9 fL (83.0-100.0); Mean Platelet Volume 10.9 fL (9.4-12.4); Monocytes # 0.7 K/mcL (0.0-1.3); Monocytes % 8.3 %; Neutrophils # 6.4 K/mcL (1.6-8.9); Platelet Count 104 K/mcL (140-400); Red Blood Count 3.21 M/mcL (4.19-5.50); Red Cell Distribution Width 16.4 % (11.5-14.5); Segmented Neutrophils % 77.1 %; White Blood Count 8.4 K/mcL (4.3-11.1)
[2018-12-23 06:41] LABS: BUN/Creatinine Ratio 18 (6-26); Blood Urea Nitrogen 18 mg/dL (8-23); Calcium 8.5 mg/dL (8.6-10.3); Carbon Dioxide 25 mEq/L (23-29); Chloride 108 mEq/L (98-107); Glucose 120 mg/dL (70-105); Magnesium 1.9 mg/dL (1.6-2.6); Osmolality,Calculated 291 (280-300); Phosphorous 2.5 mg/dL (2.7-4.5); Potassium 4.4 mEq/L (3.5-5.1); Sodium 139 mEq/L (136-145); eGFR For African Americans > 60 (> 60); eGFR For Non-African Americans > 60 (> 60)
--- NOTE | 2018-12-23 06:41 | Orthopedics Progress Note ---
Date of Encounter: 12/23/18 Time of Encounter: 06:40 - Assessment and Plan (1) Acute blood loss anemia Current Visit: Yes Status: Acute Subjective Interval history: Patient was seen this morning doing well without complaints. Afebrile vital signs stable. Operative extremity: Neurovascularly intact Dressing clean dry and intact Calves nontender no unusual swelling Assessment and plan: Continue with postoperative care Hemoglobin 9.1 and stable . Doing much better plan for discharge today. Objective Vital signs: Vital Signs Temp Pulse Resp BP Pulse Ox 12/23/18 04:10 98.1 F 70 17 119/66 96 12/22/18 23:14 98.3 F 72 16 109/69 95 12/22/18 20:07 95 12/22/18 18:59 97.9 F 73 17 132/84 95 12/22/18 14:00 97.8 F 76 18 116/78 98 12/22/18 10:44 97.6 F 70 17 121/75 98 12/22/18 06:48 97.8 F 86 16 116/66 95 Intake and Output 12/22/18 12/22/18 12/23/18 15:59 23:59 07:59 Intake Total 120 / 1620 200 / 1620 Output Total 500 / 1150 Balance 120 / 470 -300 / 470 Intake: Oral 120 / 320 200 / 320 Output: Urine 500 / 1150 Other: Meal Breakfast Percent of Meal Consumed 5% Stool Size Small Moderate Stool Consistency loose Stool Color Brown # Bowel Movements 1 - Labs CBC & BMP: 12/23/18 06:07 12/22/18 05:14 Labs: Abnormal lab results RBC 3.21 M/mcL (4.19-5.50) L 12/23/18 06:07 Hgb 9.1 g/dL (12.9-16.9) L 12/23/18 06:07 Hct 27.9 % (37.5-50.1) L 12/23/18 06:07 RDW 16.4 % (11.5-14.5) H 12/23/18 06:07 Plt Count 104 K/mcL (140-400) L 12/23/18 06:07 9.5 K/mcL (1.6-8.9) H 12/20/18 08:14 Sodium 135 mEq/L (136-145) L 12/20/18 08:14 Chloride 109 mEq/L (98-107) H 12/22/18 05:14 BUN 29 mg/dL (8-23) H 12/21/18 00:35 Est GFR (Non-Af Amer) 55 (> 60) L 12/21/18 00:35 27 (6-26) H 12/20/18 08:14 Glucose 115 mg/dL (70-105) H 12/21/18 00:35 Calcium 8.3 mg/dL (8.6-10.3) L 12/22/18 05:14 Phosphorus 2.2 mg/dL (2.7-4.5) L 12/22/18 05:14 31 mg/dL (40-59) L 12/21/18 00:35 Crossmatch See Detail 12/20/18 22:57 Consult Discharge Plan - Plan Referrals: Mirtha Vieira, HEAD END DESIZING MACHINE OPERATOR [Primary Care Provider] -
--- NOTE | 2018-12-23 09:12 | Internal Med Progress Note ---
Hospitalist Progress Note - Encounter Date of Encounter: 12/23/18 Time of Encounter: 09:00 - Subjective Interval History: No acute events overnight - Exam Vitals: Temp Pulse Resp BP Pulse Ox 98.2 F 67 18 118/70 94 12/23/18 06:41 12/23/18 06:41 12/23/18 06:41 12/23/18 06:41 12/23/18 06:41 Exam: General appearance: Present: A&O X 3, no acute distress Head exam: Present: normocephalic Respiratory exam: Present: CTAB. Absent: accessory muscle use, rales, rhonchi, wheezes Cardiovascular exam: Present: RRR, +S1, +S2. Absent: diastolic murmur, gallop, rubs, systolic murmur GI/Abdominal exam: Soft, NT, ND, +BS Extremities exam:right knee dressing in place Neurological exam: Present: alert, oriented X3, no focal deficits. Absent: altered - Assessment and Plan (1) Hypotension Current Visit: Yes Status: Acute Assessment and Plan: Acute hypotension post-procedure. Likely d/t blood loss as evidenced by drop in Hgb from 12.1 to 8.0. Was hypotensive overnight on 12/21 likely secondary to acute surgical blood loss with anemia Received 2L normal saline bolus and 2 units of PRBC Hemoglobin responded appropriately. CT hip showed intramuscular hemorrhage within the thigh Per ortho no surgcal intervention indicated (2) Status post total right knee replacement Current Visit: Yes Status: Acute Assessment and Plan: s/p total right knee replacement. Stable. tolerated procedure with no acute complications (3) CAD (coronary artery disease) Current Visit: Yes Status: Chronic Assessment and Plan: Hx of chronic CAD w/previous [place] in 2017 w/stents x3. Hx of HLD and HTN. Continue statin, Plavix, and ASA daily. Will transfuse to keep hemoglobin above 9 (4) HTN (hypertension) Current Visit: Yes Status: Chronic Assessment and Plan: Hold antihypertensives due to hypotension (5) HLD (hyperlipidemia) Current Visit: Yes Status: Chronic Assessment and Plan: Hx of chronic HLD. Lipid panel in a.m. labs. Continue pts. Crestor. (6) Syncope Current Visit: Yes Status: Acute Assessment and Plan: Likely 2/2 to hypovolemia. Volume resuscitation (7) DVT prophylaxis Current Visit: Yes Status: Acute Assessment and Plan: SCD - Time Spent with Patient Total time spent is greater than 50% in coordination of care (as documented) at patient's floor/unit and/or counseling patient: Internal Medicine: Result - Labs CBC & Chem 7: 12/23/18 06:07 12/23/18 06:07 Labs: Short CBC 12/23/18 Range/Units 06:07 WBC 8.4 (4.3-11.1) K/mcL Hgb 9.1 L (12.9-16.9) g/dL Hct 27.9 L (37.5-50.1) % Plt Count 104 L (140-400) K/mcL Neutrophils # 6.4 (1.6-8.9) K/mcL BMP 12/23/18 06:07 Sodium 139 Potassium 4.4 Chloride 108 H Carbon Dioxide 25 BUN 18 Creatinine 1.00 Glucose 120 H Calcium 8.5 L Consult Discharge Plan - Plan Referrals: Mirtha Vieira, GRATED CHEESE MAKER [Primary Care Provider] - (1) Hypotension Qualifiers: Hypotension type: postprocedural hypotension Qualified Code(s): I95.81 - Postprocedural hypotension (3) CAD (coronary artery disease) Qualifiers: Coronary Disease-Associated Artery/Lesion type: unspecified vessel or lesion type [place] vs. transplanted heart: [place] heart Associated angina: angina presence unspecified Qualified Code(s): I25.10 - Atherosclerotic heart disease of [place] coronary artery without angina pectoris (4) HTN (hypertension) Qualifiers: Hypertension type: essential hypertension Qualified Code(s): I10 - Essential (primary) hypertension (5) HLD (hyperlipidemia) Qualifiers: Hyperlipidemia type: pure hypercholesterolemia Qualified Code(s): E78.00 - Pure hypercholesterolemia, unspecified; E78.0 - Pure hypercholesterolemia (6) Syncope Qualifiers: Syncope type: vasovagal syncope Qualified Code(s): R55 - Syncope and collapse
[2018-12-23] MEDS: Multivit/Ca/Min/Fe/FA 1 TAB TABLET PO SCH (09:46)
[2018-12-23] MEDS: Aspirin 81 MG TAB.CHEW PO SCH (09:46)
[2018-12-23] MEDS: Ascorbic Acid 500 MG TABLET PO SCH ×2 (09:46→17:25)
--- NOTE | 2018-12-23 17:21 | Event Note ---
Date of Encounter: 12/23/18 Time of Encounter: 11:10 PCR - POD#4 s/p right TKR 12/19/18 Patient seen today walking in room with therapist to window and back,A&Ox3. Afebrile, vital signs stable. BP has improved and staying stable Labs reviewed. H/H - 9.127.9, stable, asymptomatic. received 2 unit RBC transfusion 12/21 Pain control: adequate at this time. PT - participating All questions and concerns addressed. Educated on use of incentive spirometer. Encouraged ambulation and proper hydration. Patient educated on post-operative restrictions and post-operative care. Assessment and plan: Continue with postoperative care Discharge plan: ECF likely Wednesday
[2018-12-24] MEDS: tiZANidine 4 MG TABLET PO PRN (02:08)
[2018-12-24] MEDS ORDERED: 0.9 % Sodium Chloride 1,000 ML IVC ONE (04:16)
[2018-12-24 05:40] LABS: Basophils % 0.1 %; Eosinophils # 0.1 K/mcL (0.0-0.6); Eosinophils % 1.2 %; Hematocrit 25.4 % (37.5-50.1); Hemoglobin 8.2 g/dL (12.9-16.9); Immature Granulocytes % 0.3 % (0-4); Lymphocytes # 0.9 K/mcL (0.6-4.6); Lymphocytes % 9.8 %; Mean Corpuscular HGB Conc 32.3 g/dL (31.6-35.5); Mean Corpuscular Hemoglobin 28.3 pg (28.0-33.3); Mean Corpuscular Volume 87.6 fL (83.0-100.0); Monocytes # 0.7 K/mcL (0.0-1.3); Monocytes % 8.2 %; Neutrophils # 7.2 K/mcL (1.6-8.9); Platelet Count 116 K/mcL (140-400); Red Cell Distribution Width 16.1 % (11.5-14.5); Segmented Neutrophils % 80.4 %
[2018-12-24 06:01] LABS: BUN/Creatinine Ratio 18 (6-26); Blood Urea Nitrogen 18 mg/dL (8-23); Calcium 7.8 mg/dL (8.6-10.3); Carbon Dioxide 26 mEq/L (23-29); Chloride 106 mEq/L (98-107); Glucose 131 mg/dL (70-105); Osmolality,Calculated 286 (280-300); Phosphorous 2.4 mg/dL (2.7-4.5); Potassium 4.1 mEq/L (3.5-5.1); Sodium 136 mEq/L (136-145); eGFR For African Americans > 60 (> 60); eGFR For Non-African Americans > 60 (> 60)
[2018-12-24] MEDS: Aspirin 81 MG TAB.CHEW PO SCH (07:54)
[2018-12-24] MEDS: Ascorbic Acid 500 MG TABLET PO SCH ×2 (07:54→16:42)
[2018-12-24] MEDS: Multivit/Ca/Min/Fe/FA 1 TAB TABLET PO SCH (07:54)
--- NOTE | 2018-12-24 09:10 | Internal Med Progress Note ---
Hospitalist Progress Note - Encounter Date of Encounter: 12/24/18 Time of Encounter: 15:00 - Subjective Interval History: No acute events overnight - Exam Vitals: Temp Pulse Resp BP Pulse Ox 98.3 F 79 17 107/64 94 12/24/18 07:57 12/24/18 07:57 12/24/18 07:57 12/24/18 07:57 12/24/18 07:57 Exam: General appearance: Present: A&O X 3, no acute distress Head exam: Present: normocephalic Respiratory exam: Present: CTAB. Absent: accessory muscle use, rales, rhonchi, wheezes Cardiovascular exam: Present: RRR, +S1, +S2. Absent: diastolic murmur, gallop, rubs, systolic murmur GI/Abdominal exam: Soft, NT, ND, +BS Extremities exam:right knee dressing in place Neurological exam: Present: alert, oriented X3, no focal deficits. Absent: altered - Assessment and Plan (1) Hypotension Current Visit: Yes Status: Acute Assessment and Plan: Acute hypotension post-procedure. Likely d/t blood loss as evidenced by drop in Hgb from 12.1 to 8.0. Was hypotensive overnight on 12/21 likely secondary to acute surgical blood loss with anemia Received 2L normal saline bolus and 2 units of PRBC Hemoglobin responded appropriately. CT hip showed intramuscular hemorrhage within the thigh Per ortho no surgcal intervention indicated 12/24. Hemoglobin stable at 9.5 this am. BP stable. Will sign off and can call back with any questions (2) Status post total right knee replacement Current Visit: Yes Status: Acute Assessment and Plan: s/p total right knee replacement. Stable. tolerated procedure with no acute complications (3) CAD (coronary artery disease) Current Visit: Yes Status: Chronic Assessment and Plan: Hx of chronic CAD w/previous OK in 2017 w/stents x3. Hx of HLD and HTN. Continue statin, Plavix, and ASA daily. Will transfuse to keep hemoglobin above 9 (4) HTN (hypertension) Current Visit: Yes Status: Chronic Assessment and Plan: Hold antihypertensives due to hypotension (5) HLD (hyperlipidemia) Current Visit: Yes Status: Chronic Assessment and Plan: Hx of chronic HLD. Lipid panel in a.m. labs. Continue pts. Crestor. (6) Syncope Current Visit: Yes Status: Acute Assessment and Plan: Likely 2/2 to hypovolemia. Volume resuscitation (7) DVT prophylaxis Current Visit: Yes Status: Acute Assessment and Plan: SCD - Time Spent with Patient Total time spent is greater than 50% in coordination of care (as documented) at patient's floor/unit and/or counseling patient: Internal Medicine: Result - Labs CBC & Chem 7: 12/24/18 10:57 12/24/18 04:50 Labs: Short CBC 12/24/18 Range/Units 04:50 WBC 9.0 (4.3-11.1) K/mcL Hgb 8.2 L (12.9-16.9) g/dL Hct 25.4 L (37.5-50.1) % Plt Count 116 L (140-400) K/mcL Neutrophils # 7.2 (1.6-8.9) K/mcL BMP 12/24/18 04:50 Sodium 136 Potassium 4.1 Chloride 106 Carbon Dioxide 26 BUN 18 Creatinine 0.99 Glucose 131 H Calcium 7.8 L Consult Discharge Plan - Plan Additional Instructions: Discharge Instructions: Total Knee Replacement Please call [facility] ([phone]), your Primary Care Physician, or report to the Emergency Room if you have any of the following symptoms: Nausea, vomiting, fever greater that 101.5, swelling, chest pain, shortness of breath, increased pain/redness/drainage/odor for your incision site, numbness/tingling, or any other concerning symptoms. ACTIVITY:Weight-bearing as tolerated. You may progress off support (crutches or walker) as tolerated. Incentive Spirometer 10 times an hour. MEDICATIONS: Upon discharge resume your home medications. Take all the medications as prescribed. Take a stool softener if taking narcotic pain medications. Stool softeners are only effective if you drink enough fluids. Drink 6-8 glass of water or fluids a day, unless this is not allowed for another health problem. Despite using stool softeners, if you haven't had a bowel movement in 3 days, please switch to a gentle laxative. Gentle laxatives are sold over the counter. You should have a bowel movement within 24 hours, if not call the office. You will be discharged from the hospital with a prescription for pain medication. You are encouraged to decrease the use of narcotic pain medication as tolerated. Should you require a refill, please call the office. [facility] prescribes narcotic pain medication for only 4-6 weeks after surgery. If you require pain medication beyond this time period, you may be referred to your Primary Care Physician or to the Pain Clinic for further evaluation. Plan ahead for refills on pain medication as many narcotics either need to be picked up at the office or mailed. It is best to call 48-72 hours in advance of needing a prescription refill so you don't run out of medication. To help control the post-operative pain, you may take NSAIDs (Aleve,Advil, Motrin, Ibuprofen, Naprosyn) or Tylenol as prescribed on the bottle in addition to the pain medication. ANTICOAGULATION (blood thinners): Continue your Aspirin, Lovenox or Coumadin as prescribed to help prevent a blood clot in the leg or in the lungs. As long as your incision remains dry and you tolerate the NSAIDs (Aleve, Advil, Motrin, ibuprofen, naprosyn), it is OK to use the NSAIDS while you are taking your anticoagulation medication. Should your incision start to drain, stop the NSAID and contact our office. Common symptoms of blood clot in the legs include: localized pain, swelling, calf tenderness, redness or discoloration of the skin. Blood clot in the lung symptoms include: shortness of breath, rapid pulse, sweating, and chest pain that worsens with deep breathing, coughing up blood, lightheadedness, feelings of anxiety. If you experience any of these symptoms notify your physician immediately, go to the emergency room, or if having trouble breathing, call 911. WOUND CARE: Leave the dressing on for 7 to 10days. You may change the dressing if it becomes saturated greater than 50%. Do not get the dressing wet at anytime. Wash your hands with antibacterial soap, rinse and dry prior to any wound care. If you have carmen the visiting nurse or rehab facility can remove the stapes 10-14 days after surgery and place steri-strips across the wound. Leave the steri-strips in place until they fall off on their won. You may let water from the shower run on top of the steri-strips. If you do not have a visiting nurse or rehab facility, you will need to return to the office at 10-14 days for the carmen to be removed. If you have itching or redness around the dressing call the office. FOLLOW-UP: Please follow up with your surgeon in the orthopedic clinic in 4 weeks from the day of surgery. If you have carmen that need to be removed, you will need to come back to the office in 10-14 days from the day of surgery. Referrals: Nadeen Mariee PAC [Physician Boiler Coverer] - 12/29/18 9:45 am (ALSO JANUARY 06 @ 09) Maurice Amaya MD [Partnered Physician] - 01/18/19 4:00 pm addyMirtha CNP [Primary Care Provider] - 04/26/19 3:00 pm Iván Lopez MD [Non-Partnered Physician] - 05/24/19 9:00 am (1) Hypotension Qualifiers: Hypotension type: postprocedural hypotension Qualified Code(s): I95.81 - Postprocedural hypotension (3) CAD (coronary artery disease) Qualifiers: Coronary Disease-Associated Artery/Lesion type: unspecified vessel or lesion type [place] vs. transplanted heart: [place] heart Associated angina: angina presence unspecified Qualified Code(s): I25.10 - Atherosclerotic heart disease of [place] coronary artery without angina pectoris (4) HTN (hypertension) Qualifiers: Hypertension type: essential hypertension Qualified Code(s): I10 - Essential (primary) hypertension (5) HLD (hyperlipidemia) Qualifiers: Hyperlipidemia type: pure hypercholesterolemia Qualified Code(s): E78.00 - Pure hypercholesterolemia, unspecified; E78.0 - Pure hypercholesterolemia (6) Syncope Qualifiers: Syncope type: vasovagal syncope Qualified Code(s): R55 - Syncope and collapse
[2018-12-24] MEDS: traMADol 50 MG TABLET PO PRN (10:48)
[2018-12-24 11:41] LABS: Hematocrit 28.7 % (37.5-50.1); Hemoglobin 9.5 g/dL (12.9-16.9)
[2018-12-24 16:51] VITALS: BP 145/90
== END 2018-12-24 17:08 | DRG 470 ==
LOC: SAMDAY 10:39 → 3NENU 15:59
PROVIDERS: ADMIT Orthopaedic Surgery; ATTEND Orthopaedic Surgery

== ENCOUNTER 2018-12-26 04:39 | Inpatient (IN) ==
[2018-12-26] MEDS ORDERED: 0.9 % Sodium Chloride 1,000 ML IVC ONE ×2 (04:44→05:15)
--- NOTE | 2018-12-26 04:49 | Emergency Department Note ---
Disposition Clinical Impression: Hypocalcemia, Lactic acidosis Syncope Qualifiers: Syncope type: unspecified Qualified Code(s): R55 - Syncope and collapse Hypotension Qualifiers: Hypotension type: hypotension due to hypovolemia Qualified Code(s): I95.89 - Other hypotension Anemia Qualifiers: Anemia type: unspecified type Qualified Code(s): D64.9 - Anemia, unspecified Disposition: Admitted As Inpatient Condition: Critical Time of Disposition: 07:04 Syncope HPI - General Stated Complaint: unresponsive Time Seen by Provider: 12/26/18 04:44 Source: patient, EMS Mode of arrival: EMS Limitations: altered mental status Nursing Notes Reviewed: Yes Vital Signs Reviewed: Yes - History of Present Illness HPI Narrative: 78-year-old male past medical history of CAD with [place] and stent placement approximately 3 years ago, on aspirin and Plavix, [facility] to [facility]opal episode. Patient was at the half-way for recovery from right knee replacement on December 19. Patient stated that he had a syncopal episode when he attempted to get out of bed to bathroom tonight at the nursing facility. Patient states he has not had a bowel movement since his knee replacement last week and has been experiencing a sense of fullness and need to go the bathroom. This appears to be extremely frustrating to the patient as he keeps asking when he will be able to get to the bathroom and "get this shit out of me." EMS states the patient had a period of unresponsiveness but that he has been alert and oriented during transport with stable vital signs. Upon presentation patient is alert but appears to be somnolent. Patient stating that he needs to use the bathroom stating "I need to poop." Patient appears pale, sluggish, upon standing and pivot to bedside commode patient is unable to place weight on to his lower extremities, appears t o be very weak. Pt Subjective Complaint: loss of consciousness, felt faint Onset (ago): Just [employer] Prodromal Symptoms: none Witnessed: yes - by other Context: getting out of bed Injuries Sustained Associated with Event: none Current Symptoms: none History: history of CAD Treatments prior to arrival: none Associated trauma secondary to event: No - Related Data Home Medications Medication Instructions Recorded Confirmed Aspirin 81 mg PO DAILY 04/24/17 12/19/18 Clopidogrel [Plavix] 75 mg PO DAILY 05/25/17 12/19/18 Previous Rx's Medication Instructions Recorded Lisinopril [Zestril] 2.5 mg PO DAILY #30 tablet 04/26/17 Metoprolol XL (24 HR) Succ [Toprol 25 mg PO DAILY #30 tab.er.24h 04/26/17 Xl] Nitroglycerin 0.4 mg SL Q5MIN PRN #10 tab.subl 04/26/17 Rosuvastatin [Crestor] 40 mg PO HS #30 tablet 04/26/17 Allergies Allergy/AdvReac Type Severity Reaction Status Date / Time Penicillins AdvReac Hives Verified 12/26/18 04:49 Review of Systems: *See History of Present Illness for more detail Constitutional: Denies: fever, chills Cardiovascular: Denies: chest pain Respiratory: Denies: dyspnea, cough, hemoptysis Gastrointestinal: Admits to feeling as though he is scheduled bathroom but that he has not pooped in one week Denies: abdominal pain, nausea, vomiting, diarrhea, constipation, hematemesis, melena, hematochezia Genitourinary: Denies: hematuria Musculoskeletal: Denies: back pain, neck pain Neurological: Admits to weakness. Denies: headache, lightheadedness/dizziness, numbness, paresthesias, difficulty with ambulation. Endocrine: Admits: fatigue All systems ED: reviewed and negative except as stated. Review of Systems: As Per HPI Past Medical History - Past Medical History Medical history: Reports: coronary artery disease, hyperlipidemia, hypertension, kidney stones, myocardial infarction Surgical history: Reports: knee replacement (Right on 12/19/18), other Psychiatric history: Reports: no psych history - Social History Smoking Status: Never smoker Smokeless Tobacco Status: No Alcohol use: Reports: occasionally Drug use: Reports: none Physical Exam Constitutional: Patient appears to be in acute distress, he is alert but somno lent, he is engaged conversation speech is fluid is able to answer questions appropriately but sluggishly, appears to be minimally cooperative with review of systems history of present illness questioning. Neuro: GCS 15, no overt focal neurological deficits Head: Atraumatic, normocephalic Eyes: Pupils equal, round and reactive to light, no scleral icterus, no conjunctival injection Neck: Trachea midline without deviation. Anterior neck is supple without swelling. *Chest: Symmetric chest wall rise *Heart: Cardiac rhythm and rate are regular with S1 and S2 , no S3 or S4 appreciated, no murmurs, gallops, rubs, or clicks. *Lungs: Lungs are clear to auscultation bilaterally, without accessory muscle use or prolonged expiratory phase. No wheezes, rhonchi or stridor appreciated. Abdomen: Abdomen is flat, soft to palpation, normal bowel sounds. No abdominal bruit auscultated. Non-distended, non-rigid, no organomegaly, no ascites appreciated. No pulsatile mass, no tenderness or guarding to palpation in all four quadrants, no rebound Extremities: Normal capillary refill without evidence of pedal edema, joint swelling or erythema. Pulses/motor intact in all 4 extremities. Psychiatric exam: Patient displays a normal affect and mood for the environment. No overt signs of hallucination. Integumentary: Patient appears pale, there is yellowing of his skin noticeable bruising with discoloration of the right lower extremity. Skin is otherwise warm, dry, intact. - General Limitations: no limitations General appearance: alert, in distress Course Course Narrative: ED syncope evaluation to include type and screen CT scan of the head and brain without contrast. EKG chest x-ray and basic labs Treatments: IV fluids - Reevaluation(s) Reevaluation #1: Patient is found to be severely anemic with a hemoglobin of 5.3. Patient lactic acid also found to be 5.3. Patient has received 1,500 mL of normal saline to this point. We will order 1 unit of emergency trauma blood with 2 units PRBCs ordered to be transfused after type and screen. Hypocalcemia noted is 7.4. 2 g calcium gluconate given-we will repeat calcium level at 8 AM. Time: 05:38 Reevaluation #2: Patient informed of low hemoglobin values and the need to receive blood products at this time. Patient verbally consents "yes" to receive blood product and states "let's get this show on the road." Time: 05:43 Reevaluation #3: Trauma blood has arrived at this time we will begin rapid transfusion under 2 hours. Time: 05:49 Additional Reevaluation(s): 06:23 - first unit of trauma blood has been administered. Subsequent second and third units of typed and screened packed red blood cells are ready for administration at this time. We will bolus the first dose with second unit given over 4 hour period. We have notified blood bank to keep 2 units on standby at all times for this patient during hospitalization. Vital Signs Temperature 97.6 F 12/26/18 04:52 Pulse Rate 72 12/26/18 04:52 Respiratory Rate 16 12/26/18 04:52 Blood Pressure 87/63 12/26/18 04:52 O2 Sat by Pulse Oximetry 100 12/26/18 04:52 Temperature 97.7 F 12/26/18 06:50 Pulse Rate 69 12/26/18 06:55 Respiratory Rate 20 12/26/18 06:50 Blood Pressure 106/62 12/26/18 06:55 O2 Sat by Pulse Oximetry 100 12/26/18 06:55 Oxygen Delivery Oxygen Delivery Nasal Cannula Syncope - MDM Narrative Medical decision making narrative: Patient clinically improving with management here in the ED. Patient blood pressure has stabilized with a map above 65. Patient will be admitted to hospitalist medicine service likely with ICU a dmission for further evaluation and management of symptomatic anemia. Patient was also found bilateral small pleural effusions on chest x-ray and CT scan. Hypocalcemia replaced we will remeasure labs Lactic acid time to place H&H repeat placed Patient is hemodynamically stable time of admission. Patient care signed out to the day shift physicians Dr. Jessica Darnell and Dr. Cassidy Douglas at the end of my shift. Please see documentation by these physicians for further evaluation, and management while pending admission. - Lab Data Lab results reviewed: Yes I reviewed the patient's lab results. Result diagrams: 12/26/18 05:32 12/26/18 04:57 Lab Results 12/26/18 12/26/18 12/26/18 Range/Units 04:57 04:57 04:57 WBC 14.8 H D (4.3-11.1) K/mcL RBC 1.84 L (4.19-5.50) M/mcL Hgb 5.3 L* D (12.9-16.9) g/dL Hct 17.0 L (37.5-50.1) % MCV 92.4 (83.0-100.0) fL MCH 28.8 (28.0-33.3) pg MCHC 31.2 L (31.6-35.5) g/dL RDW 16.0 H (11.5-14.5) % Plt Count 184 D (140-400) K/mcL MPV 10.6 (9.4-12.4) fL Immature Gran % 1.9 (0-4) % Seg Neutrophils % 75.7 % Lymphocytes % 12.6 % Monocytes % 9.6 % Eosinophils % 0.2 % Basophils % 0.0 % Neutrophils # 11.2 H (1.6-8.9) K/mcL Lymphocytes # 1.9 (0.6-4.6) K/mcL Monocytes # 1.4 H (0.0-1.3) K/mcL Eosinophils # 0.0 (0.0-0.6) K/mcL Basophils # 0.0 (0.0-0.2) K/mcL Platelet Estimate Normal (Normal) Hypochromasia Present A (Not Present) Microcytosis Present A (Not Present) Tear Drop Cells 2+ A (Not Present) Ovalocytes 1+ A (Not Present) PT 16.4 H (9.4-12.1) Seconds INR 1.4 APTT 22.2 L (26.0-36.0) Seconds Sodium 138 (136-145) mEq/L Potassium 4.6 (3.5-5.1) mEq/L Chloride 105 (98-107) mEq/L Carbon Dioxide 20 L (23-29) mEq/L BUN 42 H (8-23) mg/dL Creatinine 1.16 (0.70-1.30) mg/dL Est GFR ( Amer) > 60 (> 60) Est GFR (Non-Af Amer) > 60 (> 60) BUN/Creatinine Ratio 36 H (6-26) Glucose 234 H (70-105) mg/dL Calculated Osmolality 304 H (280-300) Lactic Acid (0.5-2.2) mmol/L Calcium 7.4 L (8.6-10.3) mg/dL Magnesium (1.6-2.6) mg/dL Total Bilirubin 0.7 (0.3-1.0) mg/dL AST 38 (13-39) Units/L ALT 36 (7-52) Units/L Alkaline Phosphatase 41 (34-104) Units/L Ammonia (16-53) mcmol/L Creatine Kinase 262 H (30-223) Units/L Troponin I < 0.03 (< 0.04) ng/mL Serum Total Protein 3.5 L (6.4-8.9) g/dL Albumin 2.2 L (3.5-5.7) g/dL Globulin 1.3 L (2.4-3.5) g/dL Albumin/Globulin Ratio 1.7 (1.1-2.2) TSH (0.340-5.600) mcIU/mL Stool Occult Bld Scrn (Negative) Blood Type Antibody Screen Crossmatch 12/26/18 12/26/18 12/26/18 Range/Units 04:57 05:00 05:32 WBC (4.3-11.1) K/mcL RBC (4.19-5.50) M/mcL Hgb (12.9-16.9) g/dL Hct (37.5-50.1) % MCV (83.0-100.0) fL MCH (28.0-33.3) pg MCHC (31.6-35.5) g/dL RDW (11.5-14.5) % Plt Count (140-400) K/mcL MPV (9.4-12.4) fL Immature Gran % (0-4) % Seg Neutrophils % % Lymphocytes % % Monocytes % % Eosinophils % % Basophils % % Neutrophils # (1.6-8.9) K/mcL Lymphocytes # (0.6-4.6) K/mcL Monocytes # (0.0-1.3) K/mcL Eosinophils # (0.0-0.6) K/mcL Basophils # (0.0-0.2) K/mcL Platelet Estimate (Normal) Hypochromasia (Not Present) Microcytosis (Not Present) Tear Drop Cells (Not Present) Ovalocytes (Not Present) PT (9.4-12.1) Seconds INR APTT (26.0-36.0) Seconds Sodium (136-145) mEq/L Potassium (3.5-5.1) mEq/L Chloride (98-107) mEq/L Carbon Dioxide (23-29) mEq/L BUN (8-23) mg/dL Creatinine (0.70-1.30) mg/dL Est GFR ( Amer) (> 60) Est GFR (Non-Af Amer) (> 60) BUN/Creatinine Ratio (6-26) Glucose (70-105) mg/dL Calculated Osmolality (280-300) Lactic Acid 5.3 H* (0.5-2.2) mmol/L Calcium (8.6-10.3) mg/dL Magnesium (1.6-2.6) mg/dL Total Bilirubin (0.3-1.0) mg/dL AST (13-39) Units/L ALT (7-52) Units/L Alkaline Phosphatase (34-104) Units/L Ammonia (16-53) mcmol/L Creatine Kinase (30-223) Units/L Troponin I (< 0.04) ng/mL Serum Total Protein (6.4-8.9) g/dL Albumin (3.5-5.7) g/dL Globulin (2.4-3.5) g/dL Albumin/Globulin Ratio (1.1-2.2) TSH (0.340-5.600) mcIU/mL Stool Occult Bld Scrn Negative (Negative) Blood Type O POSITIVE Antibody Screen NEGATIVE Crossmatch See Detail 12/26/18 12/26/18 12/26/18 Range/Units 05:32 05:32 05:32 WBC 11.0 (4.3-11.1) K/mcL RBC 1.58 L (4.19-5.50) M/mcL Hgb 4.6 L* (12.9-16.9) g/dL Hct 14.4 L* (37.5-50.1) % MCV 91.1 (83.0-100.0) fL MCH 29.1 (28.0-33.3) pg MCHC 31.9 (31.6-35.5) g/dL RDW 15.8 H (11.5-14.5) % Plt Count 148 (140-400) K/mcL MPV 10.6 (9.4-12.4) fL Immature Gran % (0-4) % Seg Neutrophils % % Lymphocytes % % Monocytes % % Eosinophils % % Basophils % % Neutrophils # (1.6-8.9) K/mcL Lymphocytes # (0.6-4.6) K/mcL Monocytes # (0.0-1.3) K/mcL Eosinophils # (0.0-0.6) K/mcL Basophils # (0.0-0.2) K/mcL Platelet Estimate (Normal) Hypochromasia (Not Present) Microcytosis (Not Present) Tear Drop Cells (Not Present) Ovalocytes (Not Present) PT (9.4-12.1) Seconds INR APTT (26.0-36.0) Seconds Sodium (136-145) mEq/L Potassium (3.5-5.1) mEq/L Chloride (98-107) mEq/L Carbon Dioxide (23-29) mEq/L BUN (8-23) mg/dL Creatinine (0.70-1.30) mg/dL Est GFR ( Amer) (> 60) Est GFR (Non-Af Amer) (> 60) BUN/Creatinine Ratio (6-26) Glucose (70-105) mg/dL Calculated Osmolality (280-300) Lactic Acid (0.5-2.2) mmol/L Calcium (8.6-10.3) mg/dL Magnesium 1.7 (1.6-2.6) mg/dL Total Bilirubin (0.3-1.0) mg/dL AST (13-39) Units/L ALT (7-52) Units/L Alkaline Phosphatase (34-104) Units/L Ammonia 27 (16-53) mcmol/L Creatine Kinase (30-223) Units/L Troponin I (< 0.04) ng/mL Serum Total Protein (6.4-8.9) g/dL Albumin (3.5-5.7) g/dL Globulin (2.4-3.5) g/dL Albumin/Globulin Ratio (1.1-2.2) TSH 1.342 (0.340-5.600) mcIU/mL Stool Occult Bld Scrn (Negative) Blood Type Antibody Screen Crossmatch - Radiology Data Radiology results reviewed: Yes I reviewed the patient's radiology results. Chest X-Ray 12/26/18 04:44 IMPRESSION: Trace effusions and mild bibasilar airspace disease which could represent atelectasis or pneumonia. D/ / Manny Daily MD / Manny Daily MD Interpreting Provider: Manny Daily MD
[2018-12-26 05:18] LABS: Eosinophils % 0.2 %; Immature Granulocytes % 1.9 % (0-4); Lymphocytes # 1.9 K/mcL (0.6-4.6); Lymphocytes % 12.6 %; Mean Corpuscular HGB Conc 31.2 g/dL (31.6-35.5); Mean Corpuscular Hemoglobin 28.8 pg (28.0-33.3); Mean Corpuscular Volume 92.4 fL (83.0-100.0); Mean Platelet Volume 10.6 fL (9.4-12.4); Monocytes # 1.4 K/mcL (0.0-1.3); Monocytes % 9.6 %; Neutrophils # 11.2 K/mcL (1.6-8.9); Platelet Count 184 K/mcL (140-400); Red Blood Count 1.84 M/mcL (4.19-5.50); Segmented Neutrophils % 75.7 %; White Blood Count 14.8 K/mcL (4.3-11.1)
[2018-12-26 05:22] LABS: INR 1.4; Prothrombin Time 16.4 Seconds (9.4-12.1)
[2018-12-26 05:25] LABS: Activated Partial Thrombo Time 22.2 Seconds (26.0-36.0)
[2018-12-26 05:29] LABS: Hemoglobin 5.3 g/dL (12.9-16.9)
[2018-12-26 05:39] LABS: Alanine Aminotransferase 36 Units/L (7-52); Albumin 2.2 g/dL (3.5-5.7); Albumin/Globulin Ratio 1.7 (1.1-2.2); Alkaline Phosphatase 41 Units/L (34-104); Aspartate Amino Transferase 38 Units/L (13-39); BUN/Creatinine Ratio 36 (6-26); Bilirubin,Total 0.7 mg/dL (0.3-1.0); Blood Urea Nitrogen 42 mg/dL (8-23); Calcium 7.4 mg/dL (8.6-10.3); Carbon Dioxide 20 mEq/L (23-29); Chloride 105 mEq/L (98-107); Creatine Kinase 262 Units/L (30-223); Globulin 1.3 g/dL (2.4-3.5); Glucose 234 mg/dL (70-105); Osmolality,Calculated 304 (280-300); Potassium 4.6 mEq/L (3.5-5.1); Sodium 138 mEq/L (136-145); Total Protein 3.5 g/dL (6.4-8.9); Troponin I < 0.03 ng/mL (< 0.04); eGFR For African Americans > 60 (> 60); eGFR For Non-African Americans > 60 (> 60)
[2018-12-26] MEDS ORDERED: Calcium Gluconate 2,000 MG in 0.9 % Sodium Chloride 100 ML IVPB ONE (05:40)
[2018-12-26 05:48] LABS: Hypochromasia Present (Not Present); Microcytosis Present (Not Present); Ovalocytes 1+ (Not Present); Platelet Estimate Normal (Normal); Tear Drop Cells 2+ (Not Present)
[2018-12-26 05:48] LABS: Platelet Count 148 K/mcL (140-400)
[2018-12-26 05:49] LABS: Mean Corpuscular HGB Conc 31.9 g/dL (31.6-35.5); Mean Corpuscular Hemoglobin 29.1 pg (28.0-33.3); Mean Corpuscular Volume 91.1 fL (83.0-100.0); Mean Platelet Volume 10.6 fL (9.4-12.4); Red Blood Count 1.58 M/mcL (4.19-5.50); Red Cell Distribution Width 15.8 % (11.5-14.5)
[2018-12-26 05:52] LABS: Hemoglobin 4.6 g/dL (12.9-16.9)
[2018-12-26 05:53] LABS: Hematocrit 14.4 % (37.5-50.1)
[2018-12-26 06:05] LABS: Magnesium 1.7 mg/dL (1.6-2.6)
[2018-12-26 06:19] LABS: Thyroid Stimulating Hormone 1.342 mcIU/mL (0.340-5.600)
[2018-12-26] MEDS ORDERED: *HR* FentaNYL (PF) 100 MCG/2 ML VIAL IVP ONE ×2 (06:22→11:32)
[2018-12-26] MEDS ORDERED: Isovue-370 500 ML BOTTLE IVP ONE ×2 (07:13→07:22)
--- NOTE | 2018-12-26 07:25 | Emergency Department Note ---
Disposition Clinical Impression: Hypocalcemia, Lactic acidosis Syncope Qualifiers: Syncope type: unspecified Qualified Code(s): R55 - Syncope and collapse Hypotension Qualifiers: Hypotension type: hypotension due to hypovolemia Qualified Code(s): I95.89 - Other hypotension Anemia Qualifiers: Anemia type: unspecified type Qualified Code(s): D64.9 - Anemia, unspecified Disposition: Admitted As Inpatient Condition: Critical Time of Disposition: 07:04 General Adult HPI - General Chief complaint: ED Syncope Stated complaint: unresponsive Time Seen by Provider: 12/26/18 04:44 Source: patient, EMS Mode of arrival: EMS Limitations: no limitations Nursing Notes Reviewed: Yes Vital Signs Reviewed: Yes - History of Present Illness Pain Scale: 0 - Related Data Home Medications Medication Instructions Recorded Confirmed Aspirin 81 mg PO DAILY 04/24/17 12/19/18 Clopidogrel [Plavix] 75 mg PO DAILY 05/25/17 12/19/18 Acetaminophen [Tylenol] 500 mg PO Q6HR 12/26/18 12/26/18 Docusate Sodium [Move It Along] 100 mg PO 1-2XD 12/26/18 12/26/18 OxyCODONE/APAP 5/325 [Percocet 5 mg PO 6XD 12/26/18 12/26/18 5/325 MG] Previous Rx's Medication Instructions Recorded Lisinopril [Zestril] 2.5 mg PO DAILY #30 tablet 04/26/17 Metoprolol XL (24 HR) Succ [Toprol 25 mg PO DAILY #30 tab.er.24h 04/26/17 Xl] Nitroglycerin 0.4 mg SL Q5MIN PRN #10 tab.subl 04/26/17 Rosuvastatin [Crestor] 40 mg PO HS #30 tablet 04/26/17 Allergies Allergy/AdvReac Type Severity Reaction Status Date / Time Penicillins AdvReac Hives Verified 12/26/18 04:49 Past Medical History - Past Medical History Medical history: Reports: coronary artery disease, hyperlipidemia, hypertension, kidney stones, myocardial infarction Surgical history: Reports: knee replacement (Right on 12/19/18), other Psychiatric history: Reports: no psych history - Social History Smoking Status: Never smoker Smokeless Tobacco Status: No Alcohol use: Reports: occasionally Drug use: Reports: none Physical Exam - General Limitations: no limitations General appearance: alert, in distress Course Vital Signs Temperature 97.6 F 12/26/18 04:52 Pulse Rate 72 12/26/18 04:52 Respiratory Rate 16 12/26/18 04:52 Blood Pressure 87/63 12/26/18 04:52 O2 Sat by Pulse Oximetry 100 12/26/18 04:52 Temperature 97.7 F 12/26/18 06:50 Pulse Rate 68 12/26/18 07:03 Respiratory Rate 20 12/26/18 06:50 Blood Pressure 111/56 12/26/18 07:03 O2 Sat by Pulse Oximetry 100 12/26/18 07:03 Oxygen Delivery Oxygen Delivery Nasal Cannula Medical Decision Making - Medical Records Medical records reviewed: Yes I reviewed the patient's medical records. - Lab Data Lab results reviewed: Yes I reviewed the patient's lab results. Result diagrams: 12/26/18 05:32 12/26/18 04:57 Lab Results 12/26/18 12/26/18 12/26/18 Range/Units 04:57 04:57 04:57 WBC 14.8 H D (4.3-11.1) K/mcL RBC 1.84 L (4.19-5.50) M/mcL Hgb 5.3 L* D (12.9-16.9) g/dL Hct 17.0 L (37.5-50.1) % MCV 92.4 (83.0-100.0) fL MCH 28.8 (28.0-33.3) pg MCHC 31.2 L (31.6-35.5) g/dL RDW 16.0 H (11.5-14.5) % Plt Count 184 D (140-400) K/mcL MPV 10.6 (9.4-12.4) fL Immature Gran % 1.9 (0-4) % Seg Neutrophils % 75.7 % Lymphocytes % 12.6 % Monocytes % 9.6 % Eosinophils % 0.2 % Basophils % 0.0 % Neutrophils # 11.2 H (1.6-8.9) K/mcL Lymphocytes # 1.9 (0.6-4.6) K/mcL Monocytes # 1.4 H (0.0-1.3) K/mcL Eosinophils # 0.0 (0.0-0.6) K/mcL Basophils # 0.0 (0.0-0.2) K/mcL Platelet Estimate Normal (Normal) Hypochromasia Present A (Not Present) Microcytosis Present A (Not Present) Tear Drop Cells 2+ A (Not Present) Ovalocytes 1+ A (Not Present) PT 16.4 H (9.4-12.1) Seconds INR 1.4 APTT 22.2 L (26.0-36.0) Seconds Sodium 138 (136-145) mEq/L Potassium 4.6 (3.5-5.1) mEq/L Chloride 105 (98-107) mEq/L Carbon Dioxide 20 L (23-29) mEq/L BUN 42 H (8-23) mg/dL Creatinine 1.16 (0.70-1.30) mg/dL Est GFR ( Amer) > 60 (> 60) Est GFR (Non-Af Amer) > 60 (> 60) BUN/Creatinine Ratio 36 H (6-26) Glucose 234 H (70-105) mg/dL Calculated Osmolality 304 H (280-300) Lactic Acid (0.5-2.2) mmol/L Calcium 7.4 L (8.6-10.3) mg/dL Magnesium (1.6-2.6) mg/dL Total Bilirubin 0.7 (0.3-1.0) mg/dL AST 38 (13-39) Units/L ALT 36 (7-52) Units/L Alkaline Phosphatase 41 (34-104) Units/L Ammonia (16-53) mcmol/L Creatine Kinase 262 H (30-223) Units/L Troponin I < 0.03 (< 0.04) ng/mL Serum Total Protein 3.5 L (6.4-8.9) g/dL Albumin 2.2 L (3.5-5.7) g/dL Globulin 1.3 L (2.4-3.5) g/dL Albumin/Globulin Ratio 1.7 (1.1-2.2) TSH (0.340-5.600) mcIU/mL Stool Occult Bld Scrn (Negative) Blood Type Antibody Screen Crossmatch 12/26/18 12/26/18 12/26/18 Range/Units 04:57 05:00 05:32 WBC (4.3-11.1) K/mcL RBC (4.19-5.50) M/mcL Hgb (12.9-16.9) g/dL Hct (37.5-50.1) % MCV (83.0-100.0) fL MCH (28.0-33.3) pg MCHC (31.6-35.5) g/dL RDW (11.5-14.5) % Plt Count (140-400) K/mcL MPV (9.4-12.4) fL Immature Gran % (0-4) % Seg Neutrophils % % Lymphocytes % % Monocytes % % Eosinophils % % Basophils % % Neutrophils # (1.6-8.9) K/mcL Lymphocytes # (0.6-4.6) K/mcL Monocytes # (0.0-1.3) K/mcL Eosinophils # (0.0-0.6) K/mcL Basophils # (0.0-0.2) K/mcL Platelet Estimate (Normal) Hypochromasia (Not Present) Microcytosis (Not Present) Tear Drop Cells (Not Present) Ovalocytes (Not Present) PT (9.4-12.1) Seconds INR APTT (26.0-36.0) Seconds Sodium (136-145) mEq/L Potassium (3.5-5.1) mEq/L Chloride (98-107) mEq/L Carbon Dioxide (23-29) mEq/L BUN (8-23) mg/dL Creatinine (0.70-1.30) mg/dL Est GFR ( Amer) (> 60) Est GFR (Non-Af Amer) (> 60) BUN/Creatinine Ratio (6-26) Glucose (70-105) mg/dL Calculated Osmolality (280-300) Lactic Acid 5.3 H* (0.5-2.2) mmol/L Calcium (8.6-10.3) mg/dL Magnesium (1.6-2.6) mg/dL Total Bilirubin (0.3-1.0) mg/dL AST (13-39) Units/L ALT (7-52) Units/L Alkaline Phosphatase (34-104) Units/L Ammonia (16-53) mcmol/L Creatine Kinase (30-223) Units/L Troponin I (< 0.04) ng/mL Serum Total Protein (6.4-8.9) g/dL Albumin (3.5-5.7) g/dL Globulin (2.4-3.5) g/dL Albumin/Globulin Ratio (1.1-2.2) TSH (0.340-5.600) mcIU/mL Stool Occult Bld Scrn Negative (Negative) Blood Type O POSITIVE Antibody Screen NEGATIVE Crossmatch See Detail 12/26/18 12/26/18 12/26/18 Range/Units 05:32 05:32 05:32 WBC 11.0 (4.3-11.1) K/mcL RBC 1.58 L (4.19-5.50) M/mcL Hgb 4.6 L* (12.9-16.9) g/dL Hct 14.4 L* (37.5-50.1) % MCV 91.1 (83.0-100.0) fL MCH 29.1 (28.0-33.3) pg MCHC 31.9 (31.6-35.5) g/dL RDW 15.8 H (11.5-14.5) % Plt Count 148 (140-400) K/mcL MPV 10.6 (9.4-12.4) fL Immature Gran % (0-4) % Seg Neutrophils % % Lymphocytes % % Monocytes % % Eosinophils % % Basophils % % Neutrophils # (1.6-8.9) K/mcL Lymphocytes # (0.6-4.6) K/mcL Monocytes # (0.0-1.3) K/mcL Eosinophils # (0.0-0.6) K/mcL Basophils # (0.0-0.2) K/mcL Platelet Estimate (Normal) Hypochromasia (Not Present) Microcytosis (Not Present) Tear Drop Cells (Not Present) Ovalocytes (Not Present) PT (9.4-12.1) Seconds INR APTT (26.0-36.0) Seconds Sodium (136-145) mEq/L Potassium (3.5-5.1) mEq/L Chloride (98-107) mEq/L Carbon Dioxide (23-29) mEq/L BUN (8-23) mg/dL Creatinine (0.70-1.30) mg/dL Est GFR ( Amer) (> 60) Est GFR (Non-Af Amer) (> 60) BUN/Creatinine Ratio (6-26) Glucose (70-105) mg/dL Calculated Osmolality (280-300) Lactic Acid (0.5-2.2) mmol/L Calcium (8.6-10.3) mg/dL Magnesium 1.7 (1.6-2.6) mg/dL Total Bilirubin (0.3-1.0) mg/dL AST (13-39) Units/L ALT (7-52) Units/L Alkaline Phosphatase (34-104) Units/L Ammonia 27 (16-53) mcmol/L Creatine Kinase (30-223) Units/L Troponin I (< 0.04) ng/mL Serum Total Protein (6.4-8.9) g/dL Albumin (3.5-5.7) g/dL Globulin (2.4-3.5) g/dL Albumin/Globulin Ratio (1.1-2.2) TSH 1.342 (0.340-5.600) mcIU/mL Stool Occult Bld Scrn (Negative) Blood Type Antibody Screen Crossmatch - Radiology Data Radiology results reviewed: Yes I reviewed the patient's radiology results. Chest X-Ray 12/26/18 04:44 IMPRESSION: Trace effusions and mild bibasilar airspace disease which could represent atelectasis or pneumonia. D/ / Manny Daily MD / Manny Daily MD Interpreting Provider: Manny Daily MD Abdomen/Pelvis CT 12/26/18 05:35 IMPRESSION: Small bilateral pleural effusions and small amount of ascites. Bowel wall thickening seen involving the 1st and 2nd portions of the duodenum with minimal pneumatosis. There is no evidence for bowel rupture or abscess. May be secondary to duodenitis. Large cyst seen within the right kidney with small nonobstructive nephrolith. D/ / Ashwin Pickering MD / Ashwin Pickering MD Interpreting Provider: Ashwin Pickering MD - EKG Data EKG #1 EKG attestation: Yes I reviewed and interpreted this EKG. EKG results narrative: EKG shows normal sinus rhythm with ventricular rate of 62. No significant ST segment elevation or depression. PAC. Possible old anterior infarct. Critical Care Time Critical Care Time: Yes Total Critical Care Time: 90 Attestation: Critical care performed: Time is exclusive of separately billable procedures. Time includes: direct patient care, patient reassessment, coordination of patient care, interpretation of data (laboratory data, radiology data, and respiratory data), review of patie nt's medical records, medical consultation and documentation of patient care. Procedures included in critical care time: Procedures excluded from critical care time: Attestation Statement - Attestation Attestation: I, Mata Gonzalez MD, personally evaluated this patient and discussed their management with the resident physician. I reviewed the resident's note and agree with the documented findings, medical decision making, and plan of care. I reviewed the residents documentation and agree with the residents assessment and plan of care. I have personally had face to face time with the patient. I personally supervised and was present for the jackson/critical portions of the following procedures completed by the resident: EKG interpretation. 78-year-old male who is 1 week postop from right total knee arthroplasty presents to the emergency department from [facility] after he had a syncopal episode. Patient's only complaint is that his bowels needed to move. He states he has not had a bowel movement since his surgery a week ago and he needs to have a bowel movement. He denies generalized abdominal pain but complains of pain and pressure in his rectum area and just feels like his bowels needed to move. No nausea or vomiting. No chest pain or shortness of breath. No cough. No fever. Patient got up to go to the bathroom tonight and had a syncopal episode. Patient reports that his blood pressure has been running low all week. He denies hypertension and states his normal blood pressure is usually 120/80. Apparently while he was in the hospital last week after he had the knee surgery he became anemic and had a similar episode and dropped his blood pressure to 70/30. Family reports that he had 3 units of blood and seemed to stabilize. They could not find any etiology for the blood loss and felt that it was just due to the surgery. On arrival here in the emergency department the patient was extremely pale. He was also hypotensive. Patient repeatedly requesting to go to the bathroom. We did assist him to the bedside commode and patient had a syncopal spell when we set him up on the bedside commode. He was placed back in bed. On examination patient is a well-developed well-nourished elderly male in mild distress. He is alert and oriented 3. There is no cyanosis or diaphoresis. He is extremely pale. Breath sounds are clear and equal bilaterally. Heart regular rate and rhythm. Abdomen is soft and nontender with normal bowel sounds. On rectal exam patient has a large fecal impaction. Soft brown colored stool which was Hemoccult negative. There is old resolving ecchymosis of the right knee and thigh extending up onto the hip and right flank area. No palpable hematoma or fluctuance or induration. Labs reviewed. Initial hemoglobin 5.3. This was repeated and dropped to 4.6 after he had received 1500 mL of normal saline. Patient received one unit of uncrossed matched O- blood. He then received a unit of cross match blood. Blood pressures did improve. CT the abdomen and pelvis did not show any acute intra-abdominal hemorrhage. There was a large right renal cyst. There is also some questionable duodenitis with questionable pneumatosis of the bowel wall. Dr. Grady discussed the case with the hospitalist, Dr. Foster, who is familiar with the patient from his recent hospital admission. He also discussed the case with the hospitalist, Dr. Nash. At present we are obtaining a CT of the leg to make sure there is no large hematoma within the leg prior to patient being accepted for admission. Patient is signed out to the oncoming dayshift team pending final disposition.
[2018-12-26] MEDS ORDERED: Ondansetron 4 MG/2 ML VIAL ONE (07:55)
[2018-12-26] MEDS: Ondansetron 4 MG/2 ML VIAL IVP ONE ×2 (07:58→08:57)
[2018-12-26] MEDS ORDERED: Pantoprazole 40 MG VIAL IVP ONE (08:01)
--- NOTE | 2018-12-26 08:38 | Emergency Department Note ---
Disposition Clinical Impression: Lactic acidosis, Duodenitis, Peptic ulcer disease Anemia Qualifiers: Anemia type: unspecified type Qualified Code(s): D64.9 - Anemia, unspecified Disposition: Admitted As Inpatient Condition: Critical Time of Disposition: 09:28 General Adult HPI - General Chief complaint: ED Syncope Stated complaint: unresponsive Time Seen by Provider: 12/26/18 04:44 Source: patient, EMS Mode of arrival: EMS Limitations: no limitations Nursing Notes Reviewed: Yes Vital Signs Reviewed: Yes - History of Present Illness HPI Narrative: 78 year old male one week ago had a right kne replacement per Dr. Amaya and has been experincng anemia issues since the surgeyr. It appears that he was reently admitted a few days ago for transfusion and appears that he has recycled back to a low hgb of 4.6 simliar to his last presenstaitn. Night team Dr. Chris Grady initially saw patient. There were concerns that perhaps he may have an active bleed into his leg. ALthough upon examiantoin it does not appears excessively swollen and i do not believe he has an active bleed. After reviewin his labs I am more concenred about heomlysis of some sort. Patient has a lactic acid of 5.3 and I am considering mesenteric ischemia of his abdomen. He is complainig that he is having constiatpin and difficulty with moving his bowels, although he does not experience abdominal pain. Patient is complainong about left leg pain. ABCT without contrast showed duodenitis with possible minimal pneumoatosis. He is currenlty being transfused 5 units of blood, he is O(+). Pain Scale: 0 - Related Data Home Medications Medication Instructions Recorded Confirmed Aspirin 81 mg PO DAILY 04/24/17 12/26/18 Clopidogrel [Plavix] 75 mg PO DAILY 05/25/17 12/26/18 Acetaminophen [Tylenol] 500 mg PO Q6HR 12/26/18 12/26/18 Docusate Sodium [Move It Along] 100 mg PO 1-2XD 12/26/18 12/26/18 OxyCODONE/APAP 5/325 [Percocet 5 mg PO 6XD 12/26/18 12/26/18 5/325 MG] Previous Rx's Medication Instructions Recorded Lisinopril [Zestril] 2.5 mg PO DAILY #30 tablet 04/26/17 Metoprolol XL (24 HR) Succ [Toprol 25 mg PO DAILY #30 tab.er.24h 04/26/17 Xl] Nitroglycerin 0.4 mg SL Q5MIN PRN #10 tab.subl 04/26/17 Rosuvastatin [Crestor] 40 mg PO HS #30 tablet 04/26/17 Allergies Allergy/AdvReac Type Severity Reaction Status Date / Time Penicillins AdvReac Hives Verified 12/26/18 04:49 Constitutional: Reports: weakness. Denies: fever, chills, weight change Eyes: Denies: eye pain, eye discharge, vision change ENT ED: Denies: ear pain, throat pain, dental pain, hearing loss, epistaxis, congestion, dysphagia Cardiovascular: Denies: chest pain, palpitations, dyspnea on exertion, edema, syncope Respiratory: Denies: cough, dyspnea, wheezes, hemoptysis, stridor Gastrointestinal: Reports: constipation. Denies: abdominal pain, nausea, vomiting, diarrhea, hematemesis, melena, hematochezia Genitourinary: Denies: urgency, dysuria, frequency, hematuria Musculoskeletal: Reports: as per HPI (leg pain). Denies: back pain, neck pain, arthralgia, myalgia Integumentary: Denies: rash, abrasion, lesions Neurological: Denies: headache, weakness, numbness, paresthesias, confusion, abnormal gait, vertigo Psychiatric: Denies: anxiety, depression, suicidal thoughts, homicidal thoughts, auditory hallucinations, visual hallucinations Endocrine: Denies: fatigue Hematological/Lymphatic: Denies: easy bleeding, easy bruising Allergic/Immunologic: Denies: facial swelling, urticaria Past Medical History - Past Medical History Medical history: Reports: coronary artery disease, hyperlipidemia, hypertension, kidney stones, myocardial infarction Surgical history: Reports: knee replacement (Right on 12/19/18), other Psychiatric history: Reports: no psych history - Social History Smoking Status: Never smoker Smokeless Tobacco Status: No Alcohol use: Reports: occasionally Drug use: Reports: none Physical Exam - General Limitations: no limitations General appearance: alert, other (pale) - Head Head exam: atraumatic, normocephalic, normal inspection - Eye Eye exam: Present: normal appearance, PERRL, EOMI - Expanded Eye Exam Pupils: Bilateral: regular, round, reactive - ENT ENT exam: normal exam, normal oropharynx, mucous membranes moist - Expanded ENT Exam External ear exam: Present: normal external inspection Mouth exam: Present: normal external inspection Teeth exam: Present: normal inspection Throat exam: Present: normal inspection - Neck Neck exam: Present: normal inspection, full ROM, trachea midline - Chest Chest inspection: Present: normal inspection, symmetric chest wall rise - Respiratory Respiratory exam: Present: normal lung sounds bilaterally - Cardiovascular Cardiovascular exam: Present: regular rate, normal rhythm, normal heart sounds - Abdominal Exam Abdominal exam: Present: soft, Non-Tender. Absent: tenderness, distention, guarding, rebound, rigidity - Extremities Exam Extremities exam: Present: other (RLE has extensive depenednt bruising without tense compartments and has an well healing knee incision) - Expanded Upper Extremity Exam Shoulder exam: Present: normal inspection, full ROM Arm exam: Present: normal inspection, full ROM Elbow exam: Present: normal inspection, full ROM Forearm/Wrist exam: Present: normal inspection, full ROM Hand exam: Present: normal inspection, full ROM Vascular exam: Normal: capillary refill, radial pulse - Expanded Lower Extremity Exam Hip/Pelvis exam: Present: normal inspection, full ROM Ankle exam: Present: normal inspection, full ROM Foot/toe exam: Present: normal inspection, full ROM Neurovascular/Tendon exam: Absent: motor deficit, sensory deficit, tendon deficit - Back Exam Back exam: Present: normal inspection, full ROM. Absent: tenderness - Neurological Exam Neurological exam: Present: alert, oriented X3 - Expanded Neurological Exam Patient oriented to: Present: person, place, time Coma Scale Eye Opening: Spontaneous Coma Scale Motor Response: Obeys Commands Coma Scale Verbal Response: Oriented Coma Scale Total: 15 - Psychiatric Psychiatric exam: Present: normal affect, normal mood - Skin Skin exam: Present: warm, dry, intact, normal color Course - Reevaluation(s) Reevaluation #1: acceped sign out from Dr. Perez and Ysabel. PLan is to followup on CT leg scan and re-admit Time: 07:00 Reevaluation #2: henry had one episode of coffee-ground emesis, withut active red blood or clots. I will give him zofran and protonix. vital signs still stable and tranfusion contintued Time: 08:00 Reevaluation #3: after reviewing the CT there is concern for peptic ulcer disease and acute duodenitis. I will continue protonix therapy and add ABX therapy to cover and added a C.diff order due to recent admission to the hospital. PAtient is otherwise alert and stable and tranfusions have continued. Time: 09:10 - Consultations Consultation #1: discussed case with Dr. Foster. she has accepted patient to her service. Patient is likely an upper GI bleed and dudodenitis concern for C.diff secondary to the elevated lactic acidosis. IVF, tranfusion continued, and protonix therpay gien Time: :28 Consultation #2: conference with Luís and ICU doctor Cory. He will come to evlauate and ICU bed has been reserved and we will determine bed placement. Time: :44 Consultation #3: ICU dr. Hollingsworth has accepted patinet to the ICU. Time: 10:04 Vital Signs Temperature 97.6 F 12/26/18 04:52 Pulse Rate 72 12/26/18 04:52 Respiratory Rate 16 12/26/18 04:52 Blood Pressure 87/63 12/26/18 04:52 O2 Sat by Pulse Oximetry 100 12/26/18 04:52 Temperature 98.0 F 12/26/18 09:43 Pulse Rate 72 12/26/18 09:43 Respiratory Rate 18 12/26/18 09:43 Blood Pressure 92/80 12/26/18 09:43 O2 Sat by Pulse Oximetry 100 12/26/18 09:00 Oxygen Delivery Oxygen Delivery Nasal Cannula Medical Decision Making - Lab Data Result diagrams: 12/26/18 05:32 12/26/18 04:57 Lab Results 12/26/18 12/26/18 12/26/18 Range/Units 04:57 04:57 04:57 WBC 14.8 H D (4.3-11.1) K/mcL RBC 1.84 L (4.19-5.50) M/mcL Hgb 5.3 L* D (12.9-16.9) g/dL Hct 17.0 L (37.5-50.1) % MCV 92.4 (83.0-100.0) fL MCH 28.8 (28.0-33.3) pg MCHC 31.2 L (31.6-35.5) g/dL RDW 16.0 H (11.5-14.5) % Plt Count 184 D (140-400) K/mcL MPV 10.6 (9.4-12.4) fL Immature Gran % 1.9 (0-4) % Seg Neutrophils % 75.7 % Lymphocytes % 12.6 % Monocytes % 9.6 % Eosinophils % 0.2 % Basophils % 0.0 % Neutrophils # 11.2 H (1.6-8.9) K/mcL Lymphocytes # 1.9 (0.6-4.6) K/mcL Monocytes # 1.4 H (0.0-1.3) K/mcL Eosinophils # 0.0 (0.0-0.6) K/mcL Basophils # 0.0 (0.0-0.2) K/mcL Platelet Estimate Normal (Normal) Hypochromasia Present A (Not Present) Microcytosis Present A (Not Present) Tear Drop Cells 2+ A (Not Present) Ovalocytes 1+ A (Not Present) PT 16.4 H (9.4-12.1) Seconds INR 1.4 APTT 22.2 L (26.0-36.0) Seconds Sodium 138 (136-145) mEq/L Potassium 4.6 (3.5-5.1) mEq/L Chloride 105 (98-107) mEq/L Carbon Dioxide 20 L (23-29) mEq/L BUN 42 H (8-23) mg/dL Creatinine 1.16 (0.70-1.30) mg/dL Est GFR ( Amer) > 60 (> 60) Est GFR (Non-Af Amer) > 60 (> 60) BUN/Creatinine Ratio 36 H (6-26) Glucose 234 H (70-105) mg/dL Calculated Osmolality 304 H (280-300) Lactic Acid (0.5-2.2) mmol/L Calcium 7.4 L (8.6-10.3) mg/dL Magnesium (1.6-2.6) mg/dL Total Bilirubin 0.7 (0.3-1.0) mg/dL AST 38 (13-39) Units/L ALT 36 (7-52) Units/L Alkaline Phosphatase 41 (34-104) Units/L Ammonia (16-53) mcmol/L Creatine Kinase 262 H (30-223) Units/L Troponin I < 0.03 (< 0.04) ng/mL Serum Total Protein 3.5 L (6.4-8.9) g/dL Albumin 2.2 L (3.5-5.7) g/dL Globulin 1.3 L (2.4-3.5) g/dL Albumin/Globulin Ratio 1.7 (1.1-2.2) TSH (0.340-5.600) mcIU/mL Stool Occult Bld Scrn (Negative) Blood Type Antibody Screen Crossmatch 12/26/18 12/26/18 12/26/18 Range/Units 04:57 05:00 05:32 WBC (4.3-11.1) K/mcL RBC (4.19-5.50) M/mcL Hgb (12.9-16.9) g/dL Hct (37.5-50.1) % MCV (83.0-100.0) fL MCH (28.0-33.3) pg MCHC (31.6-35.5) g/dL RDW (11.5-14.5) % Plt Count (140-400) K/mcL MPV (9.4-12.4) fL Immature Gran % (0-4) % Seg Neutrophils % % Lymphocytes % % Monocytes % % Eosinophils % % Basophils % % Neutrophils # (1.6-8.9) K/mcL Lymphocytes # (0.6-4.6) K/mcL Monocytes # (0.0-1.3) K/mcL Eosinophils # (0.0-0.6) K/mcL Basophils # (0.0-0.2) K/mcL Platelet Estimate (Normal) Hypochromasia (Not Present) Microcytosis (Not Present) Tear Drop Cells (Not Present) Ovalocytes (Not Present) PT (9.4-12.1) Seconds INR APTT (26.0-36.0) Seconds Sodium (136-145) mEq/L Potassium (3.5-5.1) mEq/L Chloride (98-107) mEq/L Carbon Dioxide (23-29) mEq/L BUN (8-23) mg/dL Creatinine (0.70-1.30) mg/dL Est GFR ( Amer) (> 60) Est GFR (Non-Af Amer) (> 60) BUN/Creatinine Ratio (6-26) Glucose (70-105) mg/dL Calculated Osmolality (280-300) Lactic Acid 5.3 H* (0.5-2.2) mmol/L Calcium (8.6-10.3) mg/dL Magnesium (1.6-2.6) mg/dL Total Bilirubin (0.3-1.0) mg/dL AST (13-39) Units/L ALT (7-52) Units/L Alkaline Phosphatase (34-104) Units/L Ammonia (16-53) mcmol/L Creatine Kinase (30-223) Units/L Troponin I (< 0.04) ng/mL Serum Total Protein (6.4-8.9) g/dL Albumin (3.5-5.7) g/dL Globulin (2.4-3.5) g/dL Albumin/Globulin Ratio (1.1-2.2) TSH (0.340-5.600) mcIU/mL Stool Occult Bld Scrn Negative (Negative) Blood Type O POSITIVE Antibody Screen NEGATIVE Crossmatch See Detail 12/26/18 12/26/18 12/26/18 Range/Units 05:32 05:32 05:32 WBC 11.0 (4.3-11.1) K/mcL RBC 1.58 L (4.19-5.50) M/mcL Hgb 4.6 L* (12.9-16.9) g/dL Hct 14.4 L* (37.5-50.1) % MCV 91.1 (83.0-100.0) fL MCH 29.1 (28.0-33.3) pg MCHC 31.9 (31.6-35.5) g/dL RDW 15.8 H (11.5-14.5) % Plt Count 148 (140-400) K/mcL MPV 10.6 (9.4-12.4) fL Immature Gran % (0-4) % Seg Neutrophils % % Lymphocytes % % Monocytes % % Eosinophils % % Basophils % % Neutrophils # (1.6-8.9) K/mcL Lymphocytes # (0.6-4.6) K/mcL Monocytes # (0.0-1.3) K/mcL Eosinophils # (0.0-0.6) K/mcL Basophils # (0.0-0.2) K/mcL Platelet Estimate (Normal) Hypochromasia (Not Present) Microcytosis (Not Present) Tear Drop Cells (Not Present) Ovalocytes (Not Present) PT (9.4-12.1) Seconds INR APTT (26.0-36.0) Seconds Sodium (136-145) mEq/L Potassium (3.5-5.1) mEq/L Chloride (98-107) mEq/L Carbon Dioxide (23-29) mEq/L BUN (8-23) mg/dL Creatinine (0.70-1.30) mg/dL Est GFR ( Amer) (> 60) Est GFR (Non-Af Amer) (> 60) BUN/Creatinine Ratio (6-26) Glucose (70-105) mg/dL Calculated Osmolality (280-300) Lactic Acid (0.5-2.2) mmol/L Calcium (8.6-10.3) mg/dL Magnesium 1.7 (1.6-2.6) mg/dL Total Bilirubin (0.3-1.0) mg/dL AST (13-39) Units/L ALT (7-52) Units/L Alkaline Phosphatase (34-104) Units/L Ammonia 27 (16-53) mcmol/L Creatine Kinase (30-223) Units/L Troponin I (< 0.04) ng/mL Serum Total Protein (6.4-8.9) g/dL Albumin (3.5-5.7) g/dL Globulin (2.4-3.5) g/dL Albumin/Globulin Ratio (1.1-2.2) TSH 1.342 (0.340-5.600) mcIU/mL Stool Occult Bld Scrn (Negative) Blood Type Antibody Screen Crossmatch
[2018-12-26] MEDS ORDERED: Water for inj. (sterile) 10 ML ONE (09:04)
[2018-12-26] MEDS ORDERED: MetroNIDAZOLE 500 MG/100 ML 500 MG/100 ML BAG IVPB ONE (09:06)
[2018-12-26] MEDS ORDERED: 0.9 % Sodium Chloride 1,000 ML ONE (09:12)
--- NOTE | 2018-12-26 10:26 | Event Note ---
Date of Encounter: 12/26/18 Time of Encounter: 10:25 Mr. Asher is 78 years old white male who status post right knee replacement that was complicated by a hematoma and presented today with syncope, his laboratory data was evident of severe anemia of hemoglobin of 4.5, a concern for possible extension of the hematoma prompted a CT scan of the thigh and right lower extremity which was negative for any expanding hematoma. Initial CAT scan of the abdomen was no contrast has no evidence of intracranial bleed and suggested pneumatosis Repeat CAT scan of the abdomen with contrast revealed duodenitis as well as peptic ulcer disease, paitnet had one episode of coffee-ground emesis. The patient now on his third transfusion however his blood pressure still on the soft side with mean blood pressure less than 60, it was noted that blood pressure will improve during the transfusion and once transfusion, low pressure will drop down. I discussed with the summer camp counselor customer consulting manager who graciously agreed to see the patient in the ER, given that the patient is hemodynamically unstable for floor admission as well as the possible need of pressor support, decision was made to admit the patient to the intensive care unit. I contacted GI consultation on-call and presented the patient clinical condition and the possible of active upper GI bleeding, they agreed to patient to see the patient in consult. The patient was signed out to the ICU team for further evaluation and management, family was updated about the plan of care in detail and they are agreeable with the current plan.
[2018-12-26] MEDS ORDERED: Naloxone 0.4 MG/ML INJ IVP PRN (10:43)
--- NOTE | 2018-12-26 11:14 | Anesthesia Evaluation PreOp ---
<Javier Tarango - Last Filed: 12/26/18 11:11> Date of Encounter: 12/26/18 - Past History Planned Operation: EGD Cardiac History: [place], HTN, Hyperlipidemia, Cardiac Stent (x3 2017. was on Plavix.), Other (CAD. Acute anemia and has issues since TKA) Pulmonary History: Denies Any Significant HX Other Medical History: Renal (stones) Alcohol Use: occasionally Drug use: none Medications and Allergies Aspirin 81 mg PO DAILY 04/24/17 [History] Metoprolol XL (24 HR) Succ [Toprol Xl] 25 mg PO DAILY #30 tab.er.24h 04/26/17 [Rx] Nitroglycerin 0.4 mg SL Q5MIN PRN #10 tab.subl 04/26/17 [Rx] Clopidogrel [Plavix] 75 mg PO DAILY 05/25/17 [History] Acetaminophen [Tylenol] 500 mg PO Q6HR PRN 12/26/18 [History] Docusate Sodium [Move It Along] 100 mg PO BID 12/26/18 [History] Lisinopril 2.5 mg PO DAILY 12/26/18 [History] Oxycodone HCl [Roxybond] 5 mg PO Q6H PRN 12/26/18 [History] Rosuvastatin [Crestor] 40 mg PO DAILY 12/26/18 [History] Allergy/AdvReac Type Severity Reaction Status Date / Time Penicillins AdvReac Hives Verified 12/26/18 04:49 - Meds/Allergy Pre-op Review Medications Reviewed: Yes Allergies Reviewed: Yes Beta Blockers on Current Med List: No Anesthesia Results - Labs 12/26/18 05:32 12/26/18 04:57 - Imaging Additional studies: echo: Impressions: LVEF 45%. Normal LV chamber size, wall thickness. Segmental left ventricular systolic dysfunction. Mild left ventricular diastolic dysfunction. Normal right ventricular structure and function. Mild aortic regurgitation. 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 TECHNICIAN PARKING History: Denies Any Significant HX Other Medical History: Bleeding (Significant GI bleed with hgb 4.6 on presentation), GERD (severe duodenitis/PUD on CT abdomen) Anesthesia History: No Prior Anesthetic Complications Anesthesia Results - Labs 12/26/18 12:12 12/26/18 12:12 Anesthesia Exam - HEENT Pupil (Motor): Pupils equal, EOMI Mallampati: III Teeth: Normal, Prosthesis (two front upper teeth are implants (are not removable)) Oral Opening: Greater than 3 - ENGINEERING TECHNICIAN PARKING LOC: Oriented - Cardiac Rhythm: Regular - Pulmonary Breath Sounds: bilateral Clear Respiratory Effort: Symmetrical Anesthesia Assess/Plan ASA Score: 4 Level of consciousness: Cooperative Anesthetic Plan: MAC Monitoring Plan: Standard Monitors Recovery Plan: PACU
--- NOTE | 2018-12-26 11:31 | Gastroenterology Consult Note ---
Date of Encounter: 12/26/18 Time of Encounter: 11:00 - Assessment and plan (1) Acute blood loss anemia Current Visit: No Status: Acute Assessment and plan: 78 year old male who presents following syncopal episode at SNF this morning. Hgb 4.6 on presentation, pt is being transfused and transferred to ICU. CT shows duodenitis and severe peptic ulcer disease. Continue IV protonix, monitor H&H, transfuse as needed. Will proceed with EGD to rule out esophagitis, gastric ulcers, duodenitis, gastritis, MW tear or AVM with bleeding control as indicated. Risks and benefits explained to pt and family and they verbalize understanding and are in agreement. (2) CAD (coronary artery disease) Current Visit: No Status: Chronic Qualifiers: Coronary Disease-Associated Artery/Lesion type: unspecified vessel or lesion type [place] vs. transplanted heart: [place] heart Associated angina: angina presence unspecified Qualified Code(s): I25.10 - Atherosclerotic heart disease of [place] coronary artery without angina pectoris (3) Duodenitis Current Visit: Yes Status: Acute (4) Peptic ulcer disease Current Visit: Yes Status: Acute - Time Spent With Patient Total time spent is greater than 50% in coordination of care (as documented) at patient's floor/unit and/or counseling patient: GI History of Present Illness - Data of Consult Patient: new to practice Consult date: 12/26/18 Requesting Physician: Anderson Nash MD - Consult Narrative Reason for consult: anemia, hemetemeis History of present illness: Mr. Asher is a 78 year old male with a pmhx of coronary artery disease, hyperlipidemia, hypertension, kidney stones, myocardial infarction, with coronary stents x 3. He is status post right knee replacement on 12/19/18. Post op period was complicated by a hematoma and anemia and he required transfusion before discharge home. He was at a SNF and had a syncopal episode this morning when he go up to go to the bathroom. Laboratory data was evident of severe anemia of hemoglobin of 4.5, a concern for possible extension of the hematoma prompted a CT scan of the thigh and right lower extremity which was negative for any expanding hematoma. CAT scan of the abdomen with contrast revealed duodenitis as well as severe peptic ulcer disease. He denies abdominal pain, he does admit to some nausea and had one episode of coffee-ground emesis witnessed in the ER. He has third unit of PRBCs infusing at this time. Blood pressure ll improves during the transfusion and then trends downward once transfusion is complete. He denies abdominal pain, diarrhea or GERD. He states he has not had a BM since he had surgery. He does complain of pain in his right leg. He reports poor appetite. NSAIDS: asa 81 mg Anticoagulants: plavix procedures: pt is unsure Past Med Surg Social Fam HX - Past Medical History Medical history: coronary artery disease, hyperlipidemia, hypertension, kidney stones, myocardial infarction Additional medical history: stents x 3 Psychiatric history: no psych history - Past Surgical History Surgical History: knee replacement (Right on 12/19/18), other Additional surgical history: left knee replacement. colonoscopy. PCI of acute [place] (proximal mid LAD ONEYDA overlapping) PTCA additional vessel diagonal - Social History Smoking Status: Never smoker Smokeless Tobacco Status: No Alcohol use: occasionally Drug use: none - Family History Mother Family Member Ethnicity: Non- Living Status: Hx Family Neurologic Disorders: Yes (Alzheimer's disease) Father Adopted: No Family Member Ethnicity: Non- Living Status: Hx Family Cardiac Disorders: Yes (CAD) Brother Adopted: No Family Member Ethnicity: Non- Living Status: Hx Family Cardiac Disorders: Yes ([place]) Hx Family Respiratory Disorders: No Hx Family Cancer: No Hx Family GI Disorders: No Hx Family Endocrine Disorder: No Hx Family Neuromuscular Disorders: No Hx Family Neurologic Disorders: No Hx Family HEENT Disorders: No Hx Family Autoimmune Disorders: No Review of Systems: GI: as per [facility] GENERAL: denies fever, has some chills EYES: denies yellow discoloration ENT: denies pain with swallowing or difficulty swallowing CARDIO: denies chest pain, palpitations RESP: Shortness of breath with exertion : denies change in color of urine NEURO: weakness and dizziness HEME: Denies any bruising MS: see HPI DERM: denies rash or itching PSYCH: Denies history of anxiety or depression - Constitutional Vitals: Temp Pulse Resp BP Pulse Ox 98.0 F 72 18 92/80 100 12/26/18 09:43 12/26/18 09:43 12/26/18 09:43 12/26/18 09:43 12/26/18 09:00 Exam: CONSTITUTIONAL:alert, no acute distress.HEAD:normocephalic.EYES:no jaundice.NECK:no obvious swelling.HEART:regular rate and rhythm, no murmurs.LUNGS:bilateral fair air entry.ABDOMEN:non distended, soft, non tender, no masses palpable, no organomegaly.RECTAL EXAM:Deferred.EXTREMITIES:right knee dressing with old blood noted, 1-2+ edema to right leg, large bruising noted ot right leg from groin down to below his knee.SKIN:pallor noted, no stigmata of chronic liver disease.NEUROLOGIC:no obvious focal defect. Results - Labs CBC & Chem 7: 12/26/18 05:32 12/26/18 04:57 Labs: Last Result 12/26/18 04:57 Calcium 7.4 L Troponin I < 0.03 Entire Visit 12/26/18 12/26/18 12/26/18 04:57 04:57 04:57 Hgb 5.3 L* D Hct 17.0 L PT 16.4 H Total Bilirubin 0.7 AST 38 ALT 36 Ammonia 12/26/18 12/26/18 05:32 05:32 Hgb 4.6 L* Hct 14.4 L* PT Total Bilirubin AST ALT Ammonia 27 - ABG ABG results: PT/INR, D-dimer PT 16.4 Seconds (9.4-12.1) H 12/26/18 04:57 - Impressions Impressions Chest X-Ray 12/26/18 04:44 IMPRESSION: Trace effusions and mild bibasilar airspace disease which could represent atelectasis or pneumonia. D/ / Manny Daily MD / Manny Daily MD Interpreting Provider: Manny Daily MD Abdomen/Pelvis CT 12/26/18 05:35 IMPRESSION: Small bilateral pleural effusions and small amount of ascites. Bowel wall thickening seen involving the 1st and 2nd portions of the duodenum with minimal pneumatosis. There is no evidence for bowel rupture or abscess. May be secondary to duodenitis. Large cyst seen within the right kidney with small nonobstructive nephrolith. D/ / Ashwin Pickering MD / Ashwin Pickering MD Interpreting Provider: Ashwin Pickering MD Abdomen/Pelvis CT 12/26/18 07:13 IMPRESSION: 1. Mild atherosclerotic disease without obvious vascular stenosis or thrombosis noting that this is not a dedicated CT angiogram. 2. Quite pronounced thickening of the duodenum maximal in the 2nd part with surrounding peritoneal fat stranding and traces of fluid tracking into the pelvis consistent with acute duodenitis. Pneumatosis reported on prior is decreased on the current study. No free intraperitoneal air to suggest perforation. Findings probably due to severe peptic ulcer disease but clinical correlation and endoscopy as deemed necessary would be advised. 3. Benign findings including bilateral renal cysts and hepatic cysts. There is a dominant 9.8 cm right renal cyst. D/ / Paul Zayas MD / Paul Zayas MD Interpreting Provider: Paul Zayas MD Lower Extremity CT 12/26/18 07:22 IMPRESSION: 1. No significant complication identified status post right total knee arthroplasty. 2. No focal hematoma or evidence of active bleeding. D/ / 12/26/2018 08:56:26 Ronnie Bell MD / alfredo Interpreting Provider: Ronnie Bell MD Consult Discharge Plan - Plan Referrals: Mirtha Vieira, JAIMIE [Primary Care Provider] -
--- NOTE | 2018-12-26 11:35 | Pulmonology History & Physical ---
<Anand Zarco - Last Filed: 12/26/18 15:29> Date of Encounter: 12/26/18 Time of Encounter: 11:36 Assessment and Plan (1) Anemia Current visit: Yes Status: Acute - Patient initially presented to the emergency department after a syncopal episo de with associated weakness and hypotension - Labs on arrival demonstrated a low hemoglobin of 5.3; repeat hemoglobin was 4.6 - Etiology is unknown at this time; possible GI bleed versus hematoma after right-sided knee replacement - Underwent R-sided total knee replacement on 12/19; per review of records, patient developed an intramuscular hematoma after the operation - On exam, patient has extensive ecchymosis on his posterior and lateral right thigh extending down to the area below his knee, and he complains of significant knee pain - CT RLE: No evidence of active bleeding or hematoma - CT abdomen/pelvis: considerable thickening of duodenum consistent with acute duodenitis and possible severe PUD - Patient denies having any stool changes, but did reportedly have 1 episode of coffee-ground hematemesis - FOBT (-) - He has been transfused with 5 units of pRBCs, 1 unit of platelets, and one unit of fresh frozen plasma - Of note, patient is on ASA and Plavix, as he is status post ID with stent placement 3 years ago - Repeat hemoglobin after receiving 3 units of packed red blood cells was 7.7 Plan: - GI has been consulted; plan is for EGD this afternoon to r/o upper GI bleed - Orthopedics has been consulted; awaiting further recommendations - We will continue to trend H/H and transfuse as necessary - Hold ASA and Plavix Qualifiers: Anemia type: unspecified type Qualified Code(s): D64.9 - Anemia, unspecified (2) Status post total right knee replacement Current visit: No Status: Acute - Patient is status post total knee replacement on the right on 12/19 - Per chart review, patients postop course was complicated by hematoma in the muscle - Patient now complains of significant knee pain, and on physical exam there is extensive ecchymosis in the right leg - There is no notable swelling or discharge from the incision site Plan: - Dr. Amaya has been notified; will be seeing patient later today - Patient has received 2 doses of fentanyl for pain control, which has only been mildly effective - Will administer another dose of 50 mcg fentanyl for pain control (3) Hypotension Current visit: Yes Status: Acute - Patient presented with hypotension within SBP in the 80s - Etiology is likely secondary to blood loss anemia - Received 2 boluses of NS 1000mL in the ED - Since transfer to ICU, SBP has improved to 100s-130s - We are holding patients antihypertensive medication for the time being Qualifiers: Qualified Code(s): I95.9 - Hypotension, unspecified (4) CAD (coronary artery disease) Current visit: No Status: Chronic - Patient has a known history of CAD and ID s/p stent placement 3 years ago - Normally takes ASA and Plavix at home - We are holding these in the setting of acute blood loss anemia Qualifiers: Coronary Disease-Associated Artery/Lesion type: unspecified vessel or lesion type [place] vs. transplanted heart: [place] heart Associated angina: angina presence unspecified Qualified Code(s): I25.10 - Atherosclerotic heart disease of [place] coronary artery without angina pectoris (5) Lactic acidosis Current visit: Yes Status: Acute - Labs on presentation demonstrated elevated lactate at 5.3 - Repeat lactate was 1.0 History of Present Illness Chief complaint: syncope HPI: Mr. Asher is a 78 year old male with PMH of HTN, HLD, CAD s/p ID with stent placement approximately 3 years ago on ASA and Plavix, history of R-sided knee replacement on December 19 presented to [facility] on 12/26/18 after a syncopal episode at [facility] group home facility. He was at the skilled nursing for recovery from his knee replacement. He experienced a syncopal episode when he got up to get out of bed. Patient reported that he had not had a bowel movement since his operation, and has been experiencing a sense of fullness. On arrival, he was noted to be very pale and weak. He also reported that he was unable to place w eight on his lower extremities. He denied having any abdominal pain or distention. He was also noted to have significant ecchymosis on his right lateral thigh extending down to below his right knee. He complained of significant knee pain. Upon arrival to the ED, vital signs were significant for a low BP of 87/63. All other vitals were within normal limits. Labs demonstrated a low Hb of 5.3, an elevated lactate at 5.3, and a creatinine kinase of 262. Repeat Hb was 4.6. FOBT was negative. Patient was typed and screened in the ED, and 5 units of pRBCs have been ordered. So far, he has been transfused with 2 units. CXR demonstrated trace effusions and bibasilar airspace opacities. CT scan of the abdomen and pelvis without contrast demonstrated small b/l pleural effusions and a small amount of ascites. In addition, bowel wall thickening was seen involving the first and second portions of duodenum with minimal pneumatosis, possibly representing duodenitis. CT abdomen and pelvis with contrast was also performed, which demonstrated pronounced thickening of duodenum consistent with acute duodenitis; per report, finding is likely secondary to severe peptic ulcer disease. A CT scan of the right lower extremity was also performed, which did not demonstrate any hematoma or signs of active bleeding. During interview, patient endorses significant right-sided knee pain. He is noticeably uncomfortable, and is having a difficult time finding a comfortable position. He denies feeling dizzy or weak at this time. Denies cough, shortness of breath, lower extremity swelling, lightheadedness, or visual disturbances. He will be transferred to the ICU for further monitoring. We will continue to transfuse as necessary. Plan is for EGD this afternoon to rule out GI bleed. Orthopedics has been consulted, and we are waiting for further recommendations. Past Med Surg Social Fam HX - Past Medical History Medical history: coronary artery disease, hyperlipidemia, hypertension, kidney stones, myocardial infarction Additional medical history: stents x 3 Psychiatric history: no psych history - Past Surgical History Surgical History: knee replacement (Right on 12/19/18), other Additional surgical history: left knee replacement. colonoscopy. PCI of acute [place] (proximal mid LAD ONEYDA overlapping) PTCA additional vessel diagonal - Social History Smoking Status: Never smoker Smokeless Tobacco Status: No Alcohol use: occasionally Drug use: none - Family History Mother Family Member Ethnicity: Non- Living Status: Hx Family Neurologic Disorders: Yes (Alzheimer's disease) Father Adopted: No Family Member Ethnicity: Non- Living Status: Hx Family Cardiac Disorders: Yes (CAD) Brother Adopted: No Family Member Ethnicity: Non- Living Status: Hx Family Cardiac Disorders: Yes ([place]) Hx Family Respiratory Disorders: No Hx Family Cancer: No Hx Family GI Disorders: No Hx Family Endocrine Disorder: No Hx Family Neuromuscular Disorders: No Hx Family Neurologic Disorders: No Hx Family HEENT Disorders: No Hx Family Autoimmune Disorders: No Medications and Allergies Aspirin 81 mg PO DAILY 04/24/17 [History] Metoprolol XL (24 HR) Succ [Toprol Xl] 25 mg PO DAILY #30 tab.er.24h 04/26/17 [Rx] Nitroglycerin 0.4 mg SL Q5MIN PRN #10 tab.subl 04/26/17 [Rx] Clopidogrel [Plavix] 75 mg PO DAILY 05/25/17 [History] Acetaminophen [Tylenol] 500 mg PO Q6HR PRN 12/26/18 [History] Docusate Sodium [Move It Along] 100 mg PO BID 12/26/18 [History] Lisinopril 2.5 mg PO DAILY 12/26/18 [History] Oxycodone HCl [Roxybond] 5 mg PO Q6H PRN 12/26/18 [History] Rosuvastatin [Crestor] 40 mg PO DAILY 12/26/18 [History] Allergy/AdvReac Type Severity Reaction Status Date / Time Penicillins AdvReac Hives Verified 12/26/18 04:49 All Systems: The remainder of the systems were reviewed and are negative Physical Examination Vital Signs: Vital Signs, Last 4 Hours Temp Pulse Resp BP Pulse Ox 12/26/18 11:33 20 0/0 12/26/18 09:43 98.0 F 72 18 92/80 12/26/18 09:27 98.2 F 73 18 92/42 12/26/18 09:00 77 18 103/57 100 12/26/18 08:30 69 18 101/73 97 12/26/18 08:00 72 18 94/41 100 General: Conversant, in mild distress due to knee pain; patient having difficulty finding comfortable position Head: atraumatic, normocephalic Eye: PERRL, EOMI, conjuntiva pink, sclera anicteric Neck: Supple, trachea midline; No lymphadenopathy Respiratory: CTAB. No accessory muscle use, wheezes, rales, or rhonchi Cardiovascular: RRR, +S1, +S2; no murmurs, rubs, gallops Abdomen: Soft, nontender Extremities: Extensive ecchymosis on the posterior and lateral right thigh extending down to below the knee; incision site from total knee replacement currently dressed, with no evidence of bleeding or discharge; no swelling of the lower extremities noted Psychiatric: Normal affect, normal mood Skin: Dry, intact; pale appearing Results - Laboratory Findings CBC and BMP: 12/26/18 12:12 12/26/18 12:12 PT/INR, D-dimer PT 16.4 Seconds (9.4-12.1) H 12/26/18 04:57 Abnormal lab findings: Abnormal lab results WBC 14.8 K/mcL (4.3-11.1) H D 12/26/18 04:57 RBC 1.58 M/mcL (4.19-5.50) L 12/26/18 05:32 Hgb 4.6 g/dL (12.9-16.9) L* 12/26/18 05:32 Hct 14.4 % (37.5-50.1) L* 12/26/18 05:32 MCHC 31.2 g/dL (31.6-35.5) L 12/26/18 04:57 RDW 15.8 % (11.5-14.5) H 12/26/18 05:32 11.2 K/mcL (1.6-8.9) H 12/26/18 04:57 1.4 K/mcL (0.0-1.3) H 12/26/18 04:57 Present (Not Present) A 12/26/18 04:57 Present (Not Present) A 12/26/18 04:57 2+ (Not Present) A 12/26/18 04:57 1+ (Not Present) A 12/26/18 04:57 PT 16.4 Seconds (9.4-12.1) H 12/26/18 04:57 APTT 22.2 Seconds (26.0-36.0) L 12/26/18 04:57 Carbon Dioxide 20 mEq/L (23-29) L 12/26/18 04:57 BUN 42 mg/dL (8-23) H 12/26/18 04:57 36 (6-26) H 12/26/18 04:57 Glucose 234 mg/dL (70-105) H 12/26/18 04:57 304 (280-300) H 12/26/18 04:57 Lactic Acid 5.3 mmol/L (0.5-2.2) H* 12/26/18 04:57 Calcium 7.4 mg/dL (8.6-10.3) L 12/26/18 04:57 262 Units/L (30-223) H 12/26/18 04:57 3.5 g/dL (6.4-8.9) L 12/26/18 04:57 2.2 g/dL (3.5-5.7) L 12/26/18 04:57 1.3 g/dL (2.4-3.5) L 12/26/18 04:57 Crossmatch See Detail 12/26/18 05:32 <Jerrica Anguiano S - Last Filed: 12/27/18 00:16> Date of Encounter: 12/27/18 History of Present Illness HPI: Mr. Asher is a 78 year old male All Systems: The remainder of the systems were reviewed and are negative Physical Examination Vital Signs: Vital Signs, Last 4 Hours Temp Pulse Resp BP Pulse Ox 12/27/18 00:00 98.5 F 12/26/18 23:00 80 17 100/53 93 12/26/18 22:00 81 19 96/48 94 12/26/18 21:00 87 20 112/42 95 Results - Laboratory Findings CBC and BMP: 12/26/18 22:47 12/26/18 22:47 PT/INR, D-dimer PT 13.6 Seconds (9.4-12.1) H 12/26/18 22:47 5347 ng/mLFEU (0-500) H 12/26/18 12:12 Abnormal lab findings: Abnormal lab results WBC 14.8 K/mcL (4.3-11.1) H D 12/26/18 04:57 RBC 2.99 M/mcL (4.19-5.50) L 12/26/18 22:47 Hgb 8.7 g/dL (12.9-16.9) L 12/26/18 22:47 Hct 25.8 % (37.5-50.1) L 12/26/18 22:47 MCHC 31.2 g/dL (31.6-35.5) L 12/26/18 04:57 RDW 15.5 % (11.5-14.5) H 12/26/18 22:47 11.2 K/mcL (1.6-8.9) H 12/26/18 04:57 1.4 K/mcL (0.0-1.3) H 12/26/18 04:57 Present (Not Present) A 12/26/18 04:57 Present (Not Present) A 12/26/18 04:57 2+ (Not Present) A 12/26/18 04:57 1+ (Not Present) A 12/26/18 04:57 PT 13.6 Seconds (9.4-12.1) H 12/26/18 22:47 APTT 25.8 Seconds (26.0-36.0) L 12/26/18 22:47 5347 ng/mLFEU (0-500) H 12/26/18 12:12 Chloride 111 mEq/L (98-107) H 12/26/18 22:47 Carbon Dioxide 22 mEq/L (23-29) L 12/26/18 22:47 BUN 34 mg/dL (8-23) H 12/26/18 22:47 37 (6-26) H 12/26/18 22:47 Glucose 68 mg/dL (70-105) L 12/26/18 22:47 POC Glucose 252 mg/dL (70-99) H 12/26/18 04:56 304 (280-300) H 12/26/18 04:57 Lactic Acid 5.3 mmol/L (0.5-2.2) H* 12/26/18 04:57 Calcium 7.7 mg/dL (8.6-10.3) L 12/26/18 22:47 262 Units/L (30-223) H 12/26/18 04:57 3.5 g/dL (6.4-8.9) L 12/26/18 04:57 2.2 g/dL (3.5-5.7) L 12/26/18 04:57 1.3 g/dL (2.4-3.5) L 12/26/18 04:57 Ur Specific [place] > 1.030 (1.010-1.025) H 12/26/18 11:33 Trace (Negative) H 12/26/18 11:33 3-5 per hpf (0-3) H 12/26/18 11:33 3-5 per hpf (0-3) H 12/26/18 11:33 Ur Squamous Epith Cells Moderate per lpf (None-Few) H 12/26/18 11:33 Crossmatch See Detail 12/26/18 05:32 - Attending Attestation I saw and evaluated this patient and my medical decision-making was reviewed wi th the Resident Physician. I agree with the documented findings, disposition and treatment plan as described except to the extent set forth below. We independently had [id number] contact with the patient I spent 45 minutes of Critical Care time with this patient. It involved decision making of high complexity to assess, manipulate, and support vital organ system failure and/or to prevent further life threatening deterioration of the patient's condition. The time involved in the performance of separately reportable procedures was not counted toward critical care time. Patient seen and examined at bedside Labs, radiology, chart personally reviewed. Management was reviewed during multidisciplinary critical care rounds. BILINGUAL EXECUTIVE ASSISTANT: Patient is very lethargic drowsy but conscious oriented following commands Pulm: As acceptable oxygenation and ventilation has some subtle pulmonary congestion signs Cards:Patient is hemodynamically unstable patient responded to 4 units of blood 1 unit of. FFP and 1 unit of platelets. Patient is fluid responsive mostly likely due to hypovolemic shock with elevated lactic acidosis will repeat labs the lactate came back normal it looks like shock assess slowly getting worse resolved FEN-GI:Patient is nothing by mouth for the EGD which showed duodenal ulcer no active stigmata for bleeding. Renal: Patient has some acute kidney injury most likely due to hypovolemia ID: No evidence of active infection. Heme/Onc:Patient has acute blood loss anemia has some thrombocytopenia Endo: Glucose Monitored Integ/MSK: Skin Care per routine ICU Nursing Protocol to prevent ulcers. Lines: All lines examined without evidence of infection : Dispo: to remain critically ill in the ICU CODE:Full code
[2018-12-26 11:46] LABS: Bilirubin,Urine Negative (Negative); Blood,Urine Trace (Negative); Clarity,Urine Clear (Clear); Color,Urine Yellow (Yellow); Glucose,Urine (UA) Normal (Normal); Ketones,Urine Negative (Negative); Leukocyte Esterase,Urine Negative (Negative); Nitrite,Urine Negative (Negative); PH,Urine 5.5 pH Units (5.0-8.0); Protein,Urine Trace mg/dL (Neg-Trace); Specific Gravity,Urine > 1.030 (1.010-1.025); Urobilinogen,Urine Normal (Normal)
[2018-12-26 11:48] LABS: Bacteria,Urine Few per hpf (None-Few); Hyaline Casts,Urine None Seen per lpf (None-Few); Squamous Epithelial Cell,Urine Moderate per lpf (None-Few)
--- NOTE | 2018-12-26 12:23 | Orthopedic Consult Note ---
Date of Encounter: 12/26/18 Time of Encounter: 12:00 Assessment and Plan (1) Status post total right knee replacement Current Visit: Yes Status: Acute (2) Anemia Current Visit: Yes Status: Acute Qualifiers: Anemia type: unspecified type Qualified Code(s): D64.9 - Anemia, unspecified History of Present Illness Chief complaint: s/p right total knee HPI: Mr. Asher is a 78 year old male s/p Right robotic-assisted Total knee replacement 12/19/18 for knee arthritis by Dr. Amaya. Patient was discharged to [facility] for rehabilitation postoperatively on 12/24/18 in stable condition. Patient presented today to ED from [facility] for evaluation of per family multiple syncopal episodes. Patient is now POD#7 s/p total knee. He is seen in ICU with his friend, son, and grandson at bedside. On exam, patient appears pale, nonicteric, alert and oriented. He states he is doing well with regard to his knee and demonstrates motion appx 0-100 degrees with ease. Ecchymosis noted to RLE scattered, no focal collection noted. No palpable fluid collection noted. Incision is c/d/i with scant old bloody drainage noted along incision line. Honeycomb opsite noted to be intact with no disruption. No effusion noted to knee. Mild swelling noted as expected at 7 days postoperative of total joint. No calf tenderness to palpation bilaterally. Ankle ROM intact bilaterally. Neurovascularly intact with sensation intact bilaterally. CT scan reviewed: CT/CT LE RT w con IMPRESSION: 1. No significant complication identified status post right total knee arthroplasty. 2. No focal hematoma or evidence of active bleeding. D/ / 12/26/2018 08:56:26 Ronnie Bell MD / alfredo Patient noted to have dramatic blood loss on review of labwork from 12/24 to today with presenting hemoglobin on 5.3 Patient is being managed by hospitalist and ICU teams. Case reviewed with Dr. Amaya. At this point there is very low likelihood that the patient's rapid blood loss is from the knee as he has no drainage from knee incision. GI consult noted. Once medically stable, patient will need to participate with therapy services to give patient optimal outcome from joint replacement surgery. Encourage EPCD ap plication bilateral feet to aid in DVT prophylaxis and encourage adequate PO intake and hydration as well as incentive spirometry use. Thank you for this consultation. We will continue to follow. Past Med Surg Social Fam HX - Past Medical History Medical history: coronary artery disease, hyperlipidemia, hypertension, kidney stones, myocardial infarction Additional medical history: stents x 3 Psychiatric history: no psych history - Past Surgical History Surgical History: knee replacement (Right on 12/19/18), other Additional surgical history: bilateral knee replacement. colonoscopy. [place] with 3 stents - Social History Smoking Status: Never smoker Smokeless Tobacco Status: No Alcohol use: none Drug use: none - Family History Mother Family Member Ethnicity: Non- Living Status: Hx Family Neurologic Disorders: Yes (Alzheimer's disease) Father Adopted: No Family Member Ethnicity: Non- Living Status: Hx Family Cardiac Disorders: Yes (CAD) Brother Adopted: No Family Member Ethnicity: Non- Living Status: Hx Family Cardiac Disorders: Yes (NM) Hx Family Respiratory Disorders: No Hx Family Cancer: No Hx Family GI Disorders: No Hx Family Endocrine Disorder: No Hx Family Neuromuscular Disorders: No Hx Family Neurologic Disorders: No Hx Family HEENT Disorders: No Hx Family Autoimmune Disorders: No Medications and Allergies Aspirin 81 mg PO DAILY 04/24/17 [History] Metoprolol XL (24 HR) Succ [Toprol Xl] 25 mg PO DAILY #30 tab.er.24h 04/26/17 [Rx] Nitroglycerin 0.4 mg SL Q5MIN PRN #10 tab.subl 04/26/17 [Rx] Clopidogrel [Plavix] 75 mg PO DAILY 05/25/17 [History] Acetaminophen [Tylenol] 500 mg PO Q6HR PRN 12/26/18 [History] Docusate Sodium [Move It Along] 100 mg PO BID 12/26/18 [History] Lisinopril 2.5 mg PO DAILY 12/26/18 [History] Oxycodone HCl [Roxybond] 5 mg PO Q6H PRN 12/26/18 [History] Rosuvastatin [Crestor] 40 mg PO DAILY 12/26/18 [History] Allergy/AdvReac Type Severity Reaction Status Date / Time Penicillins AdvReac Hives Verified 12/26/18 04:49 All Systems Reviewed: The remainder of the systems were reviewed and are negative Physical Exam - Constitutional Vitals: Temp Pulse Resp BP Pulse Ox 98.0 F 82 20 0/0 98 12/26/18 11:10 12/26/18 11:10 12/26/18 11:33 12/26/18 11:33 12/26/18 11:10 Results - Labs Result Diagrams: 12/26/18 12:12 12/26/18 12:12 Labs: Abnormal lab results WBC 14.8 K/mcL (4.3-11.1) H D 12/26/18 04:57 RBC 1.58 M/mcL (4.19-5.50) L 12/26/18 05:32 Hgb 4.6 g/dL (12.9-16.9) L* 12/26/18 05:32 Hct 14.4 % (37.5-50.1) L* 12/26/18 05:32 MCHC 31.2 g/dL (31.6-35.5) L 12/26/18 04:57 RDW 15.8 % (11.5-14.5) H 12/26/18 05:32 11.2 K/mcL (1.6-8.9) H 12/26/18 04:57 1.4 K/mcL (0.0-1.3) H 12/26/18 04:57 Present (Not Present) A 12/26/18 04:57 Present (Not Present) A 12/26/18 04:57 2+ (Not Present) A 12/26/18 04:57 1+ (Not Present) A 12/26/18 04:57 PT 16.4 Seconds (9.4-12.1) H 12/26/18 04:57 APTT 22.2 Seconds (26.0-36.0) L 12/26/18 04:57 Carbon Dioxide 20 mEq/L (23-29) L 12/26/18 04:57 BUN 42 mg/dL (8-23) H 12/26/18 04:57 36 (6-26) H 12/26/18 04:57 Glucose 234 mg/dL (70-105) H 12/26/18 04:57 304 (280-300) H 12/26/18 04:57 Lactic Acid 5.3 mmol/L (0.5-2.2) H* 12/26/18 04:57 Calcium 7.4 mg/dL (8.6-10.3) L 12/26/18 04:57 262 Units/L (30-223) H 12/26/18 04:57 3.5 g/dL (6.4-8.9) L 12/26/18 04:57 2.2 g/dL (3.5-5.7) L 12/26/18 04:57 1.3 g/dL (2.4-3.5) L 12/26/18 04:57 Ur Specific [place] > 1.030 (1.010-1.025) H 12/26/18 11:33 Trace (Negative) H 12/26/18 11:33 3-5 per hpf (0-3) H 12/26/18 11:33 3-5 per hpf (0-3) H 12/26/18 11:33 Ur Squamous Epith Cells Moderate per lpf (None-Few) H 12/26/18 11:33 Crossmatch See Detail 12/26/18 05:32 H & H 12/26/18 12/26/18 Range/Units 04:57 05:32 Hgb 5.3 L* D 4.6 L* (12.9-16.9) g/dL Hct 17.0 L 14.4 L* (37.5-50.1) % All other labs normal. Consult Discharge Plan - Plan Referrals: Mirtha Vieira, [employer] OPERATOR [Primary Care Provider] -
[2018-12-26 12:25] LABS: Basophils % 0.2 %; Eosinophils % 0.2 %; Hematocrit 23.6 % (37.5-50.1); Lymphocytes # 1.3 K/mcL (0.6-4.6); Lymphocytes % 11.6 %; Mean Corpuscular HGB Conc 32.6 g/dL (31.6-35.5); Mean Corpuscular Hemoglobin 28.8 pg (28.0-33.3); Mean Corpuscular Volume 88.4 fL (83.0-100.0); Mean Platelet Volume 10.5 fL (9.4-12.4); Monocytes % 9.2 %; Neutrophils # 8.6 K/mcL (1.6-8.9); Platelet Count 140 K/mcL (140-400); Red Blood Count 2.67 M/mcL (4.19-5.50); Red Cell Distribution Width 14.9 % (11.5-14.5); Segmented Neutrophils % 77.8 %
[2018-12-26 12:28] LABS: Hemoglobin 7.7 g/dL (12.9-16.9)
[2018-12-26] MEDS ORDERED: *HR* FentaNYL (PF) 100 MCG/2 ML VIAL ONE (12:30)
[2018-12-26 12:44] LABS: BUN/Creatinine Ratio 43 (6-26); Blood Urea Nitrogen 40 mg/dL (8-23); Calcium 7.5 mg/dL (8.6-10.3); Carbon Dioxide 24 mEq/L (23-29); Chloride 108 mEq/L (98-107); Glucose 111 mg/dL (70-105); Lactate Dehydrogenase 194 Units/L (140-271); Osmolality,Calculated 294 (280-300); Potassium 4.3 mEq/L (3.5-5.1); Sodium 137 mEq/L (136-145); eGFR For African Americans > 60 (> 60); eGFR For Non-African Americans > 60 (> 60)
[2018-12-26 12:45] LABS: Activated Partial Thrombo Time 23.6 Seconds (26.0-36.0)
[2018-12-26 12:46] LABS: INR 1.3; Prothrombin Time 14.3 Seconds (9.4-12.1)
[2018-12-26] MEDS: *HR* FentaNYL (PF) 100 MCG/2 ML VIAL IVP ONE (15:00)
--- NOTE | 2018-12-26 17:00 | Anesthesia Evaluation Post Op ---
Date of Encounter: 12/26/18 Time of Encounter: 16:59 - Vital Signs Vital Signs: 114/62, HR 78, SpO2 100%, RR 18 - Lungs Lungs: Clear Ascult./Percussion - Airway Airway: Non-obstructed - Cardiovascular Regular Rate - Mental Status Mental Status: Alert & Oriented, Answers Appropriately - Pain Pain Scale: 0 Pain Scale used: Numeric (1 - 10) - Nausea Vomiting Nausea Vomiting: Not Present - Hydration Hydration: NPO, Has not voided - Discharge PostOp Status: Transfer Patient to floor
[2018-12-26] MEDS ORDERED: Lidocaine -MPF 2% 2 ML VIAL ONE (17:03)
[2018-12-26] MEDS ORDERED: *HR* Propofol 200 MG/20 ML VIAL IVP ONE (17:03)
[2018-12-26] MEDS ORDERED: *HR* Etomidate 40 MG/20 ML VIAL IVP ONE (17:03)
[2018-12-26] MEDS ORDERED: Pantoprazole 40 MG VIAL IVP SCH (18:00)
[2018-12-26 23:11] LABS: Basophils % 0.2 %; Eosinophils # 0.2 K/mcL (0.0-0.6); Eosinophils % 1.8 %; Hematocrit 25.8 % (37.5-50.1); Hemoglobin 8.7 g/dL (12.9-16.9); Immature Granulocytes % 1.3 % (0-4); Lymphocytes # 1.4 K/mcL (0.6-4.6); Lymphocytes % 15.5 %; Mean Corpuscular HGB Conc 33.7 g/dL (31.6-35.5); Mean Corpuscular Hemoglobin 29.1 pg (28.0-33.3); Mean Corpuscular Volume 86.3 fL (83.0-100.0); Mean Platelet Volume 10.4 fL (9.4-12.4); Monocytes # 1.1 K/mcL (0.0-1.3); Monocytes % 11.7 %; Neutrophils # 6.3 K/mcL (1.6-8.9); Platelet Count 162 K/mcL (140-400); Red Blood Count 2.99 M/mcL (4.19-5.50); Red Cell Distribution Width 15.5 % (11.5-14.5); Segmented Neutrophils % 69.5 %; White Blood Count 9.1 K/mcL (4.3-11.1)
[2018-12-26 23:18] LABS: INR 1.2; Prothrombin Time 13.6 Seconds (9.4-12.1)
[2018-12-26 23:34] LABS: BUN/Creatinine Ratio 37 (6-26); Blood Urea Nitrogen 34 mg/dL (8-23); Calcium 7.7 mg/dL (8.6-10.3); Carbon Dioxide 22 mEq/L (23-29); Chloride 111 mEq/L (98-107); Glucose 68 mg/dL (70-105); Magnesium 1.8 mg/dL (1.6-2.6); Osmolality,Calculated 290 (280-300); Potassium 3.8 mEq/L (3.5-5.1); Sodium 137 mEq/L (136-145); eGFR For African Americans > 60 (> 60); eGFR For Non-African Americans > 60 (> 60)
[2018-12-27] MEDS: *HR* FentaNYL (PF) 100 MCG/2 ML VIAL IVP ONE (00:11)
[2018-12-27] MEDS ORDERED: Pantoprazole 40 MG VIAL IVP SCH (06:00)
[2018-12-27 06:35] LABS: Basophils % 0.4 %; Eosinophils # 0.2 K/mcL (0.0-0.6); Eosinophils % 2.9 %; Hematocrit 25.6 % (37.5-50.1); Hemoglobin 8.5 g/dL (12.9-16.9); Immature Granulocytes % 1.3 % (0-4); Lymphocytes # 1.2 K/mcL (0.6-4.6); Lymphocytes % 15.8 %; Mean Corpuscular HGB Conc 33.2 g/dL (31.6-35.5); Mean Corpuscular Hemoglobin 28.8 pg (28.0-33.3); Mean Corpuscular Volume 86.8 fL (83.0-100.0); Monocytes # 0.9 K/mcL (0.0-1.3); Neutrophils # 5.4 K/mcL (1.6-8.9); Platelet Count 152 K/mcL (140-400); Red Blood Count 2.95 M/mcL (4.19-5.50); Red Cell Distribution Width 15.7 % (11.5-14.5); Segmented Neutrophils % 68.6 %; White Blood Count 7.8 K/mcL (4.3-11.1)
[2018-12-27 06:51] LABS: BUN/Creatinine Ratio 35 (6-26); Blood Urea Nitrogen 32 mg/dL (8-23); Calcium 7.7 mg/dL (8.6-10.3); Carbon Dioxide 24 mEq/L (23-29); Chloride 108 mEq/L (98-107); Glucose 61 mg/dL (70-105); Osmolality,Calculated 295 (280-300); Potassium 3.7 mEq/L (3.5-5.1); Sodium 140 mEq/L (136-145); eGFR For African Americans > 60 (> 60); eGFR For Non-African Americans > 60 (> 60)
[2018-12-27] MEDS ORDERED: D5% in 0.9% NACL 1,000 ML IVC SCH (07:15)
[2018-12-27 07:58] LABS: Hematocrit 23.9 % (37.5-50.1); Hemoglobin 8.4 g/dL (12.9-16.9)
[2018-12-27] MEDS ORDERED: D5% in Water 1,000 ML IVC PRN ×2 (11:55→15:50)
[2018-12-27] MEDS ORDERED: Dextrose Gel 15 GM/37.5 ML TUBE PO PRN ×4 (11:55→15:50)
[2018-12-27] MEDS ORDERED: *HR* Dextrose 50 % in Water (Syg) 50 ML SYRINGE IVP PRN ×2 (11:55→15:50)
[2018-12-27] MEDS ORDERED: *HR* OxyCODONE Immed Rel 5 MG TABLET PO PRN (12:58)
[2018-12-27] MEDS ORDERED: tiZANidine 4 MG TABLET PO PRN (12:58)
[2018-12-27] MEDS ORDERED: Acetaminophen 325 MG TABLET PO PRN ×2 (12:59→15:50)
[2018-12-27] MEDS ORDERED: HYDROcodone BIT/Homatropine 5 MG TABLET PO PRN ×2 (13:00→15:50)
--- NOTE | 2018-12-27 13:35 | Pulmonology Progress Note ---
<Anand Zarco - Last Filed: 12/27/18 15:57> Date of Encounter: 12/27/18 Time of Encounter: 13:34 Assessment and Plan (1) Anemia Current Visit: Yes Status: Acute - Patient initially presented with syncope, hypotension - Labs obtained in the ER demonstrated a low hemoglobin of 5.3; repeat hemoglobin was 4.6 - Also had an elevated lactate on presentation at 5.3 - He is status post right-sided total knee replacement on 12/19 - Patient was noted to have a large area of extensive ecchymosis on posterior and lateral right thigh extending to area below the knee - A CT scan of the abdomen and pelvis, and right lower extremities were obtained; no overt source of bleeding/hematoma was found - CT abdomen did demonstrate the presence of thickening of the duodenum consistent with acute duodenitis and possible severe PUD - He required a total of 5 units of packed red blood cells - Yesterday, he underwent an EGD, which demonstrated the presence of nonbleeding duodenal and esophageal ulcers, gastritis, esophageal stenosis - GI recommended keeping the patient nothing by mouth at the time, and today, we will be advancing diet to clear liquids - After being transfused, his hemoglobin remained stable; last 3 levels have been 8.5, 8.4, 8.5 - At this time, no overt bleeding source was found; it is possible that patients anemia developed slowly over the course of several days after his operation, extending into his right lower extremity, as well as a slow upper GI bleed from duodenal ulcer - Of note, patient was on ASA and Plavix on presentation due to history of [place] with stent placement 3 years ago Plan: - Per GIs recommendations, advance diet as tolerated - Protonix twice a day and Carafate 4 times a day - Continue to monitor H/H; transfuse as necessary - Continuous telemetry - Continue to hold ASA and Plavix Qualifiers: Anemia type: unspecified type Qualified Code(s): D64.9 - Anemia, unspecified (2) Status post total right knee replacement Current Visit: Yes Status: Acute - Patient is status post total knee replacement on the right on 12/19 - Per chart review, patients postop course was complicated by hematoma in the muscle - Extensive ecchymosis visible on the right leg, unchanged from yesterday - There is no notable swelling or discharge from the incision site Plan: - Orthopedics is following; recommended Bubba placement with lidocaine patches for pain control (3) Hypotension Current Visit: Yes Status: Acute - Initially presented after syncopal episode at [facility] - Patient was found to be hypotensive with systolic blood pressure in the 80s - Today, SBP has improved to 100s to 130s - We are holding patients antihypertensive medication for the time being Qualifiers: Qualified Code(s): I95.9 - Hypotension, unspecified (4) CAD (coronary artery disease) Current Visit: No Status: Chronic - Patient has a known history of CAD and [place] s/p stent placement 3 years ago - Normally takes ASA and Plavix at home, both of which are currently being held Qualifiers: Coronary Disease-Associated Artery/Lesion type: unspecified vessel or lesion type [place] vs. transplanted heart: [place] heart Associated angina: angina presence unspecified Qualified Code(s): I25.10 - Atherosclerotic heart disease of [place] coronary artery without angina pectoris (5) Lactic acidosis Current Visit: Yes Status: Acute - Labs on presentation demonstrated elevated lactate at 5.3 - Repeat lactate was 1.0 (6) DVT prophylaxis Current Visit: No Status: Acute - SCDs Subjective Interval history: Patient was seen and examined at bedside. Patient no longer appears pale today. He complains of knee pain and restricted range of motion. Orthopedics is still following; recommends a brace placement and lidocaine patch. EGD performed yesterday did not show an overt source of bleeding, but did demonstrate the presence of nonbleeding duodenal ulcers, esophageal ulcers, gastritis, esophageal stenosis. Patient was kept nothing by mouth after the procedure. We are starting clear liquid diet today per GIs recommendations. He was also started on Carafate 1 g 4 times daily. Hemoglobin has remained stable; last level was 8.5. He has received a total of 5 units of packed red blood cells, one unit of fresh frozen plasma, and 1 unit of platelets. Plan today is to transfer patient out of ICU to [facility]. He is no longer hypotensive and is hemodynamically stable at this time. Objective PUL Vital signs: Last Vital Signs Temp 98.3 F 12/27/18 10:56 Pulse 75 12/27/18 13:00 Resp 22 12/27/18 13:00 BP 108/62 12/27/18 13:00 Pulse Ox 93 12/27/18 13:00 General: Conversant, in mild distress due to knee pain Head: atraumatic, normocephalic Eye: PERRL, EOMI, conjuntiva pink, sclera anicteric Neck: Supple, trachea midline; No lymphadenopathy Respiratory: CTAB. No accessory muscle use, wheezes, rales, or rhonchi Cardiovascular: RRR, +S1, +S2; no murmurs, rubs, gallops Abdomen: Soft, nontender Extremities: Extensive ecchymosis on the posterior and lateral right thigh extending down to below the knee; incision site from total knee replacement currently dressed, with no evidence of bleeding or discharge; no swelling of the lower extremities noted Psychiatric: Normal affect, normal mood Skin: Dry, intact Results - Laboratory Findings CBC and BMP: 12/27/18 13:31 12/27/18 06:22 PT/INR, D-dimer PT 13.6 Seconds (9.4-12.1) H 12/26/18 22:47 5347 ng/mLFEU (0-500) H 12/26/18 12:12 Abnormal lab findings: Abnormal lab results WBC 14.8 K/mcL (4.3-11.1) H D 12/26/18 04:57 RBC 2.95 M/mcL (4.19-5.50) L 12/27/18 06:22 Hgb 8.4 g/dL (12.9-16.9) L 12/27/18 07:43 Hct 23.9 % (37.5-50.1) L 12/27/18 07:43 MCHC 31.2 g/dL (31.6-35.5) L 12/26/18 04:57 RDW 15.7 % (11.5-14.5) H 12/27/18 06:22 11.2 K/mcL (1.6-8.9) H 12/26/18 04:57 1.4 K/mcL (0.0-1.3) H 12/26/18 04:57 Present (Not Present) A 12/26/18 04:57 Present (Not Present) A 12/26/18 04:57 2+ (Not Present) A 12/26/18 04:57 1+ (Not Present) A 12/26/18 04:57 PT 13.6 Seconds (9.4-12.1) H 12/26/18 22:47 APTT 25.8 Seconds (26.0-36.0) L 12/26/18 22:47 5347 ng/mLFEU (0-500) H 12/26/18 12:12 Chloride 108 mEq/L (98-107) H 12/27/18 06:22 Carbon Dioxide 22 mEq/L (23-29) L 12/26/18 22:47 BUN 32 mg/dL (8-23) H 12/27/18 06:22 35 (6-26) H 12/27/18 06:22 Glucose 61 mg/dL (70-105) L 12/27/18 06:22 POC Glucose 68 mg/dL (70-99) L 12/27/18 10:58 304 (280-300) H 12/26/18 04:57 Lactic Acid 5.3 mmol/L (0.5-2.2) H* 12/26/18 04:57 Calcium 7.7 mg/dL (8.6-10.3) L 12/27/18 06:22 262 Units/L (30-223) H 12/26/18 04:57 3.5 g/dL (6.4-8.9) L 12/26/18 04:57 2.2 g/dL (3.5-5.7) L 12/26/18 04:57 1.3 g/dL (2.4-3.5) L 12/26/18 04:57 Ur Specific [place] > 1.030 (1.010-1.025) H 12/26/18 11:33 Trace (Negative) H 12/26/18 11:33 3-5 per hpf (0-3) H 12/26/18 11:33 3-5 per hpf (0-3) H 12/26/18 11:33 Ur Squamous Epith Cells Moderate per lpf (None-Few) H 12/26/18 11:33 Crossmatch See Detail 12/26/18 05:32 - Microbiology Findings Microbiology Findings: Microbiology, Last 48 Hours 12/26/18 05:32 Blood Culture - Preliminary Peripheral Venipuncture Culture is incubating and being continuously monitored for growth. Final report to follow. 12/26/18 04:57 Blood Culture - Preliminary Peripheral Venipuncture Culture is incubating and being continuously monitored for growth. Final report to follow. - Clinical Findings Intake & Output: Intake & Output 12/26/18 12/27/18 12/27/18 23:59 07:59 15:59 Intake Total 884 / 3579 300 / 300 Output Total 375 / 550 450 / 600 150 / 600 Balance 509 / 3029 -450 / -300 150 / -300 Consult Discharge Plan - Plan Referrals: Mirtha Vieira, [employer] [Primary Care Provider] - <Jerrica Anguiano - Last Filed: 12/27/18 22:29> Date of Encounter: 12/27/18 Objective PUL Vital signs: Last Vital Signs Temp 98.0 F 12/27/18 18:34 Pulse 74 12/27/18 18:34 Resp 17 12/27/18 18:34 BP 119/62 12/27/18 18:34 Pulse Ox 94 12/27/18 19:59 Results - Laboratory Findings CBC and BMP: 12/27/18 19:48 12/27/18 06:22 PT/INR, D-dimer PT 13.6 Seconds (9.4-12.1) H 12/26/18 22:47 5347 ng/mLFEU (0-500) H 12/26/18 12:12 Abnormal lab findings: Abnormal lab results WBC 14.8 K/mcL (4.3-11.1) H D 12/26/18 04:57 RBC 2.95 M/mcL (4.19-5.50) L 12/27/18 06:22 Hgb 8.3 g/dL (12.9-16.9) L 12/27/18 19:48 Hct 24.6 % (37.5-50.1) L 12/27/18 19:48 MCHC 31.2 g/dL (31.6-35.5) L 12/26/18 04:57 RDW 15.7 % (11.5-14.5) H 12/27/18 06:22 11.2 K/mcL (1.6-8.9) H 12/26/18 04:57 1.4 K/mcL (0.0-1.3) H 12/26/18 04:57 Present (Not Present) A 12/26/18 04:57 Present (Not Present) A 12/26/18 04:57 2+ (Not Present) A 12/26/18 04:57 1+ (Not Present) A 12/26/18 04:57 PT 13.6 Seconds (9.4-12.1) H 12/26/18 22:47 APTT 25.8 Seconds (26.0-36.0) L 12/26/18 22:47 5347 ng/mLFEU (0-500) H 12/26/18 12:12 Chloride 108 mEq/L (98-107) H 12/27/18 06:22 Carbon Dioxide 22 mEq/L (23-29) L 12/26/18 22:47 BUN 32 mg/dL (8-23) H 12/27/18 06:22 35 (6-26) H 12/27/18 06:22 Glucose 61 mg/dL (70-105) L 12/27/18 06:22 POC Glucose 118 mg/dL (70-99) H 12/27/18 14:52 304 (280-300) H 12/26/18 04:57 Lactic Acid 5.3 mmol/L (0.5-2.2) H* 12/26/18 04:57 Calcium 7.7 mg/dL (8.6-10.3) L 12/27/18 06:22 262 Units/L (30-223) H 12/26/18 04:57 3.5 g/dL (6.4-8.9) L 12/26/18 04:57 2.2 g/dL (3.5-5.7) L 12/26/18 04:57 1.3 g/dL (2.4-3.5) L 12/26/18 04:57 Ur Specific [place] > 1.030 (1.010-1.025) H 12/26/18 11:33 Trace (Negative) H 12/26/18 11:33 3-5 per hpf (0-3) H 12/26/18 11:33 3-5 per hpf (0-3) H 12/26/18 11:33 Ur Squamous Epith Cells Moderate per lpf (None-Few) H 12/26/18 11:33 Crossmatch See Detail 12/26/18 05:32 - Microbiology Findings Microbiology Findings: Microbiology, Last 48 Hours 12/26/18 05:32 Blood Culture - Preliminary Peripheral Venipuncture Culture is incubating and being continuously monitored for growth. Final report to follow. 12/26/18 04:57 Blood Culture - Preliminary Peripheral Venipuncture Culture is incubating and being continuously monitored for growth. Final report to follow. - Clinical Findings Intake & Output: Intake & Output 12/27/18 12/27/18 12/27/18 07:59 15:59 23:59 Intake Total 300 / 300 Output Total 450 / 1020 350 / 1020 220 / 1020 Balance -450 / -720 -50 / -720 -220 / -720 - Attending Attestation - Attending Attestation I saw and evaluated this patient and my medical decision-making was reviewed with the Resident Physician. I agree with the documented findings, disposition and treatment plan as described except to the extent set forth below. We independently had [id number] contact with the patient Patient seen and examined at bedside Labs, radiology, chart personally reviewed. Management was reviewed during multidisciplinary critical care rounds. SECRETARY BOOKKEEPER: Patient is conscious oriented 3 Pulm: Patient has acceptable oxygenation and ventilation patient has a small component of hydrostatic pulmonary edema Cards:Patient is hemodynamically unstable patient responded to 4 units of blood 1 unit of. FFP and 1 unit of platelets. Patient is fluid responsive mostly likely due to hypovolemic shock with elevated lactic acidosis will repeat labs the lactate came back normal it looks like shock assess slowly getting worse resolved 12/27 patient is hemodynamically stable almost over 24 hours looks like patient bleeding is stopped the main reason for hypertension as hypovolemic shock. FEN-GI:Patient is nothing by mouth for the EGD which showed duodenal ulcer no active stigmata for bleeding. Okayed by GI to advance clear liquid diet no colonoscopy for today. Renal: Labs and output were reviewed ID: No evidence of active infection. Heme/Onc: Patient bled hemoglobin is stable Endo: Glucose Monitored Integ/MSK: Skin Care per routine ICU Nursing Protocol to prevent ulcers. Lines: All lines examined without evidence of infection : Dispo: To transfer from the ICU stable in the later evening CODE:Full code
[2018-12-27 13:42] LABS: Hematocrit 25.5 % (37.5-50.1); Hemoglobin 8.5 g/dL (12.9-16.9)
[2018-12-27] MEDS: D5% in 0.9% NACL 1,000 ML IVC SCH (17:11)
[2018-12-27] MEDS: Pantoprazole 40 MG VIAL IVP SCH (17:12)
[2018-12-27 20:17] LABS: Hematocrit 24.6 % (37.5-50.1); Hemoglobin 8.3 g/dL (12.9-16.9)
[2018-12-28] MEDS: D5% in 0.9% NACL 1,000 ML IVC SCH (02:50)
[2018-12-28] MEDS: Pantoprazole 40 MG VIAL IVP SCH ×2 (05:28→17:48)
[2018-12-28] MEDS: *HR* OxyCODONE Immed Rel 5 MG TABLET PO PRN ×3 (05:32→13:52)
--- NOTE | 2018-12-28 06:41 | Orthopedics Progress Note ---
Date of Encounter: 12/28/18 Time of Encounter: 06:40 Subjective Interval history: Patient was seen this morning doing well without complaints. Afebrile vital signs stable. Operative extremity: Neurovascularly intact Dressing clean dry and intact [place] nontender positive ecchymosis upper thigh Assessment and plan: Continue with postoperative care patient stable orthopedically, plan as per medical Objective Vital signs: Vital Signs Temp Pulse Resp BP Pulse Ox 12/28/18 03:40 98.1 F 71 16 143/75 93 12/27/18 23:30 98.1 F 75 19 139/66 95 12/27/18 19:59 94 12/27/18 18:34 98.0 F 74 17 119/62 94 12/27/18 15:00 58 13 95/52 92 12/27/18 14:00 71 20 116/54 94 12/27/18 13:00 75 22 108/62 93 12/27/18 12:00 65 18 121/63 93 12/27/18 11:25 65 12/27/18 11:00 74 17 88/63 95 12/27/18 10:56 98.3 F 12/27/18 10:00 63 11 112/65 92 12/27/18 09:00 65 17 108/60 95 12/27/18 08:00 68 15 104/63 92 12/27/18 07:58 98.3 F 12/27/18 07:00 81 20 92/56 92 Intake and Output 12/27/18 12/27/18 12/28/18 15:59 23:59 07:59 Intake Total 300 / 300 1000 / 1000 Output Total 350 / 1020 220 / 1020 550 / 550 Balance -50 / -720 -220 / -720 450 / 450 Intake: IV Fluids 300 / 300 1000 / 1000 D5% And 0.9% Nacl 1000 Ml 1,000 300 / 300 1000 / 1000 ML @ 100 mls/hr IVC .Q10H XAVIER Rx#:[id number] Output: Urine 350 / 1020 220 / 1020 550 / 550 Other: Meal Lunch Percent of Meal Consumed 100% Stool Size Copious Stool Consistency formed Stool Color Brown Black # Voids 1 Blood Glucose* 118 101 - Labs CBC & BMP: 12/27/18 19:48 12/27/18 06:22 Labs: Abnormal lab results WBC 14.8 K/mcL (4.3-11.1) H D 12/26/18 04:57 RBC 2.95 M/mcL (4.19-5.50) L 12/27/18 06:22 Hgb 8.3 g/dL (12.9-16.9) L 12/27/18 19:48 Hct 24.6 % (37.5-50.1) L 12/27/18 19:48 MCHC 31.2 g/dL (31.6-35.5) L 12/26/18 04:57 RDW 15.7 % (11.5-14.5) H 12/27/18 06:22 11.2 K/mcL (1.6-8.9) H 12/26/18 04:57 1.4 K/mcL (0.0-1.3) H 12/26/18 04:57 Present (Not Present) A 12/26/18 04:57 Present (Not Present) A 12/26/18 04:57 2+ (Not Present) A 12/26/18 04:57 1+ (Not Present) A 12/26/18 04:57 PT 13.6 Seconds (9.4-12.1) H 12/26/18 22:47 APTT 25.8 Seconds (26.0-36.0) L 12/26/18 22:47 5347 ng/mLFEU (0-500) H 12/26/18 12:12 Chloride 108 mEq/L (98-107) H 12/27/18 06:22 Carbon Dioxide 22 mEq/L (23-29) L 12/26/18 22:47 BUN 32 mg/dL (8-23) H 12/27/18 06:22 35 (6-26) H 12/27/18 06:22 Glucose 61 mg/dL (70-105) L 12/27/18 06:22 POC Glucose 106 mg/dL (70-99) H 12/28/18 01:53 304 (280-300) H 12/26/18 04:57 Lactic Acid 5.3 mmol/L (0.5-2.2) H* 12/26/18 04:57 Calcium 7.7 mg/dL (8.6-10.3) L 12/27/18 06:22 262 Units/L (30-223) H 12/26/18 04:57 3.5 g/dL (6.4-8.9) L 12/26/18 04:57 2.2 g/dL (3.5-5.7) L 12/26/18 04:57 1.3 g/dL (2.4-3.5) L 12/26/18 04:57 Ur Specific [place] > 1.030 (1.010-1.025) H 12/26/18 11:33 Trace (Negative) H 12/26/18 11:33 3-5 per hpf (0-3) H 12/26/18 11:33 3-5 per hpf (0-3) H 12/26/18 11:33 Ur Squamous Epith Cells Moderate per lpf (None-Few) H 12/26/18 11:33 Crossmatch See Detail 12/26/18 05:32 - VTE Documentation of Mechanical Device: Venous foot pump, device Consult Discharge Plan - Plan Referrals: Mirtha Vieira, DEVELOPMENT ASSOCIATE [Primary Care Provider] -
[2018-12-28 07:23] LABS: Basophils % 0.3 %; Eosinophils # 0.2 K/mcL (0.0-0.6); Eosinophils % 3.1 %; Hematocrit 25.8 % (37.5-50.1); Hemoglobin 8.6 g/dL (12.9-16.9); Immature Granulocytes % 1.7 % (0-4); Lymphocytes # 1.2 K/mcL (0.6-4.6); Lymphocytes % 17.9 %; Mean Corpuscular HGB Conc 33.3 g/dL (31.6-35.5); Mean Corpuscular Hemoglobin 29.7 pg (28.0-33.3); Mean Platelet Volume 9.9 fL (9.4-12.4); Monocytes # 0.7 K/mcL (0.0-1.3); Monocytes % 10.5 %; Neutrophils # 4.6 K/mcL (1.6-8.9); Platelet Count 184 K/mcL (140-400); Red Cell Distribution Width 15.7 % (11.5-14.5); Segmented Neutrophils % 66.5 %; White Blood Count 6.9 K/mcL (4.3-11.1)
[2018-12-28 07:44] LABS: BUN/Creatinine Ratio 29 (6-26); Blood Urea Nitrogen 23 mg/dL (8-23); Calcium 7.5 mg/dL (8.6-10.3); Carbon Dioxide 23 mEq/L (23-29); Chloride 110 mEq/L (98-107); Glucose 109 mg/dL (70-105); Osmolality,Calculated 294 (280-300); Potassium 3.3 mEq/L (3.5-5.1); Sodium 140 mEq/L (136-145); eGFR For African Americans > 60 (> 60); eGFR For Non-African Americans > 60 (> 60)
[2018-12-28] MEDS: Metoprolol XL (24 HR) Succ 25 MG TAB.ER.24H PO SCH (09:16)
--- NOTE | 2018-12-28 10:09 | Cardiology Consult Note ---
<TravisJaleesaMarina L - Last Filed: 12/28/18 10:37> Date of Encounter: 12/28/18 Time of Encounter: 09:30 Assessment and Plan (1) Syncope Current Visit: Yes Status: Acute Syncopal episode in the setting hypotension secondary to acute blood loss an emia. HgB 5.3 upon arrival, now s/p 5 units PRBC, 1 unit platelet and and 1 unit of plasma. Symptoms resolved. Upper GI demonstrated esophageal and duodenal ulcers. Reports "tar like" BM yesterday. Continue to transfuse as needed, defer further mgmt to Hospitalist service. TTE 12/21/18 demonstrated LVEF 45% (known), mild LVDD, mild AR. Obtain ECG--if no significant findings, anticipate sign-off. Qualifiers: Syncope type: unspecified Qualified Code(s): R55 - Syncope and collapse (2) CAD (coronary artery disease) Current Visit: Yes Status: Chronic Hx of anterior STEMI 04/2017. EF, 40% at that time. No chest pain or discomfort reported prior to admission. Troponin negative. Euvolemic upon exam. TTE shows LVEF 45% with segmental LV systolic dysfunction--unchanged from previous. Asa/plavix held upon admission. Continue statin. Resume BB upon discharge if BP will tolerate. Ideally, if okay by GI resume asa 81 mg daily upon discharge. Okay to d/c plavix , has been >1 year since [facility]. Qualifiers: Coronary Disease-Associated Artery/Lesion type: [place] artery [place] vs. transplanted heart: [place] heart Associated angina: without angina Qualified Code(s): I25.10 - Atherosclerotic heart disease of [place] coronary artery without angina pectoris (3) Ischemic cardiomyopathy Current Visit: Yes Status: Acute Discussion w patient/family: The assessment and plan as outlined above was discussed with the patient and/or family members who expressed understanding and agreement. All questions were answered. Thank you for involving us in the care of your patient. Please call with any questions. The patient will be discussed and reviewed with Dr. Lopez, changes to be made accordingly. History of Present Illness Consult date: 12/28/18 Requesting physician: Kate Perrin Consult reason: Syncope Chief complaint: Syncope History of present illness: Mr. Asher is a 78 year old male with PMHx CAD s/p PCI, and ICMP who presented to the ED from SNF (rehab) due to syncope. He reports x2 episodes prio r to admission, during the episodes he reports significant hypotension (SBP 50's) which prompted ED evaluation. Of note, he was recently discharged from [facility] s/p right total knee replacement. Upon arrival to the ED his Hgb noted to have significantly dropped, 5.3. Upper GI completed this admission shows esophageal ulcers and stenosis, additionally multiple duodenal ulcers with dark clotted blood. He also reports "tar like" bowel movement yesterday. H/H stable today, s/p 5 units PRBC, 1 unit plasma, and platelets. He denies chest pain or discomfort since HI 04/2017; he reports prior to knee replacement he has been active without chest pain. Exercises 3x week without chest pain. Past Med Surg Social Fam HX - Past Medical History Attestation: Yes The following information was validated with the patient. Source: patient Medical history: coronary artery disease, hyperlipidemia, hypertension, kidney stones, myocardial infarction Additional medical history: stents x 3 Psychiatric history: no psych history - Past Surgical History Surgical History: knee replacement (Right on 12/19/18), other Additional surgical history: bilateral knee replacement. colonoscopy. HI with 3 stents - Social History Smoking Status: Never smoker Smokeless Tobacco Status: No Alcohol use: none Drug use: none - Family History Mother Family Member Ethnicity: Non- Living Status: Hx Family Neurologic Disorders: Yes (Alzheimer's disease) Father Adopted: No Family Member Ethnicity: Non- Living Status: Hx Family Cardiac Disorders: Yes (CAD) Brother Adopted: No Family Member Ethnicity: Non- Living Status: Hx Family Cardiac Disorders: Yes (HI) Hx Family Respiratory Disorders: No Hx Family Cancer: No Hx Family GI Disorders: No Hx Family Endocrine Disorder: No Hx Family Neuromuscular Disorders: No Hx Family Neurologic Disorders: No Hx Family HEENT Disorders: No Hx Family Autoimmune Disorders: No Medications and Allergies Aspirin 81 mg PO DAILY 04/24/17 [History] Metoprolol XL (24 HR) Succ [Toprol Xl] 25 mg PO DAILY #30 tab.er.24h 04/26/17 [Rx] Nitroglycerin 0.4 mg SL Q5MIN PRN #10 tab.subl 04/26/17 [Rx] Docusate Sodium [Move It Along] 100 mg PO BID 12/26/18 [History] Rosuvastatin [Crestor] 40 mg PO DAILY 12/26/18 [History] Acetaminophen [Non-Aspirin Extra Strength] 500 mg PO Q6H PRN 7 Days #28 tablet 12/29/18 [Rx] Cholecalciferol (D-3) [Vitamin D] 1,000 unit PO DAILY tablet 12/29/18 [Rx] Lidocaine Patch [Lidoderm 5% patch] 1 each TP DAILY adh..patch 12/29/18 [Rx] OxyCODONE Immed Rel [Roxicodone 5 MG] 5 mg PO BID PRN 5 Days #10 tablet 12/29/18 [Rx] Pantoprazole Sodium [Protonix] 40 mg PO BID #60 tablet.dr 12/29/18 [Rx] Polyethylene Glycol 3350 [MiraLAX] 17 gm PO BID powd.pack 12/29/18 [Rx] Sucralfate [Carafate] 1 gm PO QIDAC 30 Days #120 tablet 12/29/18 [Rx] Tizanidine HCl 2 mg PO QID PRN 5 Days #20 tablet 12/29/18 [Rx] Allergy/AdvReac Type Severity Reaction Status Date / Time Penicillins AdvReac Hives Verified 12/26/18 04:49 All Systems Review: The remainder of the systems were reviewed and are negative - Cardiovascular Cardiovascular: as per HPI Physical Examination Vital Signs, Last 4 Hours Temp Pulse Resp BP Pulse Ox 12/28/18 07:55 98.2 F 77 15 128/70 95 General: Conversant, No Apparent Distress HEENT: Atraumatic, Normocephaly, Mucus Membranes Moist Cardiac: Reg Rate and Rhythm, Normal S1 and S2 Lungs: Normal Breath Sounds Neuro: Alert and responsive Abdomen: Soft Skin: No rashes noted on visualized skin Musculoskeletal: No Chest Wall Tenderness Extremities: Other (right knee ecchymosis extending to upper thigh) Results 12/28/18 06:47 12/28/18 06:47 Lab Results 12/27/18 12/27/18 12/28/18 13:31 19:48 06:47 WBC 6.9 Hgb 8.5 L 8.3 L 8.6 L Hct 25.5 L 24.6 L 25.8 L Plt Count 184 Sodium Potassium Chloride Carbon Dioxide BUN Creatinine Glucose Calcium 12/28/18 06:47 WBC Hgb Hct Plt Count Sodium 140 Potassium 3.3 L Chloride 110 H Carbon Dioxide 23 BUN 23 Creatinine 0.80 Glucose 109 H Calcium 7.5 L Active Medications Acetaminophen (Tylenol) 650 mg PO Q6HR PRN PRN Reason: Pain Stop: 06/28/19 13:00 Dextrose/Water (Dextrose 50% (Syg)) 25 ml IVP AD PRN PRN Reason: Hypoglycemia Stop: 06/28/19 11:56 Glucagon (Glucagen) 1 mg IM ONCE PRN PRN Reason: Hypoglycemia Stop: 06/28/19 11:56 Glucose (Gluctose) 15 gm PO ONCE PRN PRN Reason: Hypoglycemia Stop: 06/28/19 11:56 Glucose (Gluctose) 30 gm PO ONCE PRN PRN Reason: Hypoglycemia Stop: 06/28/19 11:56 Hydrocodone Bit/Homatropine MBr (Hycodan) 5 mg PO Q6HR PRN PRN Reason: pain Stop: 06/28/19 13:01 Dextrose/Sodium Chloride (D5% And 0.9% Nacl 1000 Ml) 1,000 mls @ 100 mls/hr IVC .Q10H XAVIER Stop: 06/28/19 07:16 Last Admin: 12/28/18 02:50 Dose: 100 mls/hr Documented by: Dextrose (Dextrose 5%) 1,000 mls @ 100 mls/hr IVC .Q10H PRN PRN Reason: HYPOGLYCEMIA Stop: 06/28/19 11:56 Lidocaine HCl (Lidoderm 5% Patch) 1 each TP DAILY XAVIER Stop: 06/28/19 13:01 Last Admin: 12/28/18 09:16 Dose: 1 each Documented by: Metoprolol Succinate (Toprol Xl) 25 mg PO DAILY XAVIER Stop: 06/29/19 09:01 Last Admin: 12/28/18 09:16 Dose: 25 mg Documented by: Oxycodone HCl (Roxicodone) 5 mg PO Q4HR PRN; Protocol PRN Reason: Pain Stop: 06/28/19 12:59 Last Admin: 12/28/18 09:33 Dose: 5 mg Documented by: Pantoprazole Sodium (Protonix) 40 mg IVP Q12HR XAVIER Stop: 06/28/19 06:01 Last Admin: 12/28/18 05:28 Dose: 40 mg Documented by: Polyethylene Glycol (Miralax) 17 gm PO BID XAVIER Stop: 06/29/19 10:01 Rosuvastatin Calcium (Crestor) 40 mg PO DAILY XAVIER Stop: 06/29/19 09:01 Last Admin: 12/28/18 09:16 Dose: 40 mg Documented by: Tizanidine HCl (Zanaflex) 2 mg PO QID PRN PRN Reason: Muscle Spasm Stop: 06/28/19 12:59 - Imaging and Cardiology Echo: report reviewed Cardiac cath: report reviewed - EKG Interpretation EKG results cardiology: personally reviewed Consult Discharge Plan - Plan Referrals: Mirtha Vieira [facility] [Primary Care Provider] - Prescriptions: Sucralfate [Carafate] 1 gm PO QIDAC 30 Days #120 tablet Acetaminophen [Non-Aspirin Extra Strength] 500 mg PO Q6H PRN 7 Days #28 tablet PRN Reason: Mild To Moderate Pain Pantoprazole Sodium [Protonix] 40 mg PO BID #60 tablet. OxyCODONPari Immed Rel [Roxicodone 5 MG] 5 mg PO BID PRN 5 Days #10 tablet PRN Reason: Severe Pain Tizanidine HCl 2 mg PO QID PRN 5 Days #20 tablet PRN Reason: Spasms <JessicaWednesday A - Last Filed: 12/29/18 10:59> Date of Encounter: 12/29/18 - Attending Attestation I have personally performed a face to face evaluation on this patient. I have reviewed and agree with the documented findings and care plan as documented by the [facility]. History and Exam by me shows: 78 y/o pleasant gentleman with history of CAD s/p PCI in 2017, recent R knee surgery, presented with symptomatic severe anemia requiring blood transfusion. Feeling better AAOX3 in NAD at the bedside Hemodynamically stable Cardiopulmonary exam revealed S1, S2, no murmur; clear lungs Rhythm reviewed - sinus rhythm, no acute ST T changes Echo preserved EF, no significant valvular heart disease Impression/plan: CAD s/p PCI - discontinue plavix, resume aspirin 81mg daily if no further active bleeding. Continue statin , Wednesday MD Jessica FACC Assessment and Plan Discussion w patient/family: The assessment and plan as outlined above was discussed with the patient and/or family members who expressed understanding and agreement. All questions were answered. Thank you for involving us in the care of your patient. Please call with any questions. History of Present Illness History of present illness: Mr. Asher is a 78 year old male All Systems Review: The remainder of the systems were reviewed and are negative Physical Examination Vital Signs, Last 4 Hours Temp Pulse BP Pulse Ox 12/29/18 08:35 118/65 12/29/18 07:01 98.2 F 76 97/62 96 Results 12/29/18 04:44 12/29/18 04:44 Lab Results 12/29/18 12/29/18 04:44 04:44 WBC 7.9 Hgb 8.9 L Hct 27.1 L Plt Count 204 Sodium 137 Potassium 3.5 Chloride 109 H Carbon Dioxide 23 BUN 15 Creatinine 0.76 Glucose 130 H Calcium 7.5 L Magnesium 1.8
--- NOTE | 2018-12-28 15:05 | Orthopedics Progress Note ---
Date of Encounter: 12/27/18 Time of Encounter: 12:00 - Assessment and Plan (1) Status post total right knee replacement Current Visit: Yes Status: Acute (2) Anemia Current Visit: Yes Status: Acute Qualifiers: Anemia type: unspecified type Qualified Code(s): D64.9 - Anemia, unspecified (3) Constipation Current Visit: Yes Status: Acute Qualifiers: Constipation type: unspecified constipation type Qualified Code(s): K59.00 - Constipation, unspecified Subjective Principal diagnosis: s/p right total knee Interval history: 12/27: POD#8 Patient seen at bedside - patient continues in ICU. Grandson at bedside. Much improved from 12/26. Patient noted to have knees pulled to chest and c/o excruciating pain with extension of b/l knees. Incision intact. Dressing with scant drainage, no increase from previous day noted. No calf tenderness, erythema or warmth noted. Scattered ecchymosis noted to posterior leg. With coaching patient able to nearly extend right leg though c/o excruciating cramping pain to b/l anterior thighs. Labwork, vitals, and medications reviewed. D/w patient's nurse - patient has no pain medications ordered. Meds ordered - encouraged sparing use of opioids secondary to patient's cons tipation. Stool softener to aid in improvement and liquid diet. Ofirmev and Tizanidine encouraged as primary for pain relief. Knee immobilizer at all times - remove for therapy only to prevent flexion contracture as patient continues to draw knees to chest. PT/OT consults placed Will continue to follow. History: Mr. Asher is a 78 year old male s/p Right robotic-assisted Total knee replacement 12/19/18 for knee arthritis by Dr. Amaya. Patient was discharged to [facility] for rehabilitation postoperatively on 12/24/18 in stable condition. Patient presented today to ED from [facility] for evaluation of per family multiple syncopal episodes. Patient is now POD#7 s/p total knee. He is seen in ICU with his friend, son, and grandson at bedside. On exam, patient appears pale, nonicteric, alert and oriented. He states he is doing well with regard to his knee and demonstrates motion appx 0-100 degrees with ease. Ecchymosis noted to RLE scattered, no focal collection noted. No palpable fluid collection noted. Incision is c/d/i with scant old bloody drainage noted along incision line. Honeycomb opsite noted to be intact with no disruption. No effusion noted to knee. Mild swelling noted as expected at 7 days postoperative of total joint. No calf tenderness to palpation bilaterally. Ankle ROM intact bilaterally. Neurovascularly intact with sensation intact bilaterally. CT scan reviewed: CT/CT LE RT w con IMPRESSION: 1. No significant complication identified status post right total knee arthroplasty. 2. No focal hematoma or evidence of active bleeding. D/ / 12/26/2018 08:56:26 Ronnie Bell MD / alfredo Patient noted to have dramatic blood loss on review of labwork from 12/24 to today with presenting hemoglobin on 5.3 Patient is being managed by hospitalist and ICU teams. Case reviewed with Dr. Amaya. At this point there is very low likelihood that the patient's rapid blood loss is from the knee as he has no drainage from knee incision. GI consult noted. Once medically stable, patient will need to participate with therapy services to give patient optimal outcome from joint replacement surgery. Encourage EPCD application bilateral feet to aid in DVT prophylaxis and encourage adequate PO intake and hydration as well as incentive spirometry use. Thank you for this consultation. We will continue to follow. Objective Vital signs: Vital Signs Temp Pulse Pulse Pulse Pulse Resp BP 12/28/18 12:01 98.0 F 68 14 126/69 12/28/18 10:12 95 81 70 12/28/18 09:38 12/28/18 09:00 12/28/18 07:55 98.2 F 77 15 128/70 12/28/18 03:40 98.1 F 71 16 143/75 12/27/18 23:30 98.1 F 75 19 139/66 12/27/18 19:59 12/27/18 18:34 98.0 F 74 17 119/62 BP BP BP Pulse Ox 12/28/18 12:01 98 12/28/18 10:12 134/53 135/76 113/60 12/28/18 09:38 95 12/28/18 09:00 134/53 12/28/18 07:55 95 12/28/18 03:40 93 12/27/18 23:30 95 12/27/18 19:59 94 12/27/18 18:34 94 Intake and Output 12/27/18 12/28/18 12/28/18 23:59 07:59 15:59 Intake Total 1100 / 1150 50 / 1150 Output Total 220 / 1020 750 / 1025 275 / 1025 Balance -220 / -720 350 / 125 -225 / 125 Intake: IV Fluids 1000 / 1000 D5% And 0.9% Nacl 1000 Ml 1,000 1000 / 1000 ML @ 100 mls/hr IVC .Q10H XAVIER Rx#:[id number] Oral 100 / 150 50 / 150 Output: Urine 220 / 1020 750 / 1025 275 / 1025 Other: Stool Size Copious Stool Consistency formed Stool Color Brown Black # Voids 1 Blood Glucose* 110 116 - Labs CBC & BMP: 12/28/18 06:47 12/28/18 06:47 Labs: Abnormal lab results WBC 14.8 K/mcL (4.3-11.1) H D 12/26/18 04:57 RBC 2.90 M/mcL (4.19-5.50) L 12/28/18 06:47 Hgb 8.6 g/dL (12.9-16.9) L 12/28/18 06:47 Hct 25.8 % (37.5-50.1) L 12/28/18 06:47 MCHC 31.2 g/dL (31.6-35.5) L 12/26/18 04:57 RDW 15.7 % (11.5-14.5) H 12/28/18 06:47 11.2 K/mcL (1.6-8.9) H 12/26/18 04:57 1.4 K/mcL (0.0-1.3) H 12/26/18 04:57 Present (Not Present) A 12/26/18 04:57 Present (Not Present) A 12/26/18 04:57 2+ (Not Present) A 12/26/18 04:57 1+ (Not Present) A 12/26/18 04:57 PT 13.6 Seconds (9.4-12.1) H 12/26/18 22:47 APTT 25.8 Seconds (26.0-36.0) L 12/26/18 22:47 5347 ng/mLFEU (0-500) H 12/26/18 12:12 Potassium 3.3 mEq/L (3.5-5.1) L 12/28/18 06:47 Chloride 110 mEq/L (98-107) H 12/28/18 06:47 Carbon Dioxide 22 mEq/L (23-29) L 12/26/18 22:47 BUN 32 mg/dL (8-23) H 12/27/18 06:22 29 (6-26) H 12/28/18 06:47 Glucose 109 mg/dL (70-105) H 12/28/18 06:47 POC Glucose 101 mg/dL (70-99) H 12/28/18 03:38 304 (280-300) H 12/26/18 04:57 Lactic Acid 5.3 mmol/L (0.5-2.2) H* 12/26/18 04:57 Calcium 7.5 mg/dL (8.6-10.3) L 12/28/18 06:47 262 Units/L (30-223) H 12/26/18 04:57 3.5 g/dL (6.4-8.9) L 12/26/18 04:57 2.2 g/dL (3.5-5.7) L 12/26/18 04:57 1.3 g/dL (2.4-3.5) L 12/26/18 04:57 Ur Specific [place] > 1.030 (1.010-1.025) H 12/26/18 11:33 Trace (Negative) H 12/26/18 11:33 3-5 per hpf (0-3) H 12/26/18 11:33 3-5 per hpf (0-3) H 12/26/18 11:33 Ur Squamous Epith Cells Moderate per lpf (None-Few) H 12/26/18 11:33 Crossmatch See Detail 12/26/18 05:32 - VTE Documentation of Mechanical Device: Venous foot pump, device Consult Discharge Plan - Plan Referrals: Mirtha Vieira, [employer] [Primary Care Provider] -
--- NOTE | 2018-12-28 15:05 | Event Note ---
Date of Encounter: 12/28/18 Time of Encounter: 15:15 12/28: POD#9 Patient seen at bedside - now in orthopedic unit. Patient's friend at bedside. Patient again much improved from yesterday. Patient noted to have knee immobilizer in place to right knee. Left knee drawn toward chest. Patient c/o of left quad pain - severely worsened with hip and knee extension. Patient admits to very large bowel movement today with dramatically improved abd discomfort. Incision intact. Dressing with scant drainage, no increase from previous day noted. No calf tenderness, erythema or warmth noted. Scattered ecchymosis noted to posterior leg. With coaching patient able to extend left leg though c/o excruciating cramping pain to b/l anterior thighs with laying flat or straightening both legs. No gross deformity noted to left leg either. No calf tenderness. Left anterior knee incisional scar intact with no skin disruption noted. No tenderness to palpation left leg. ROM intact hip, knee, and ankle. Sensation intact distally b/l. Labwork, vitals, and medications reviewed. D/w patient's nurse - change Opsite today. Encouraged sparing use of opioids secondary to patient's constipation. Stool softener to aid in improvement. Patient requesting change in diet - nurse states she has contacted hospitalist re: this patient concern. Ofirmev and Tizanidine encouraged as primary for pain relief. Knee immobilizer at all times - remove for therapy only to prevent flexion contracture as patient continues to draw knees to chest. Will plan to resume nighttime only use tomorrow. PT/OT consults and sessions appreciated. Patient was scheduled to see this author in outpatient office tomorrow, 12/29. As patient continues inpatient and is accepted back to rehab tomorrow, 12/29, we will cancel patient's outpatient appt for tomorrow, remove patient's carmen tomorrow, and obtain xrays while in hospital tomorrow morning. We will keep patient's week 2 appt as scheduled. Will continue to follow while inpatient. 12/27: POD#8 Patient seen at bedside - patient continues in ICU. Grandson at bedside. Much improved from 12/26. Patient noted to have knees pulled to chest and c/o excruciating pain with extension of b/l knees. Incision intact. Dressing with scant drainage, no increase from previous day noted. No calf tenderness, erythema or warmth noted. Scattered ecchymosis noted to posterior leg. With coaching patient able to nearly extend right leg though c/o excruciating cramping pain to b/l anterior thighs. Labwork, vitals, and medications reviewed. D/w patient's nurse - patient has no pain medications ordered. Meds ordered - encouraged sparing use of opioids secondary to patient's constipation. Stool softener to aid in improvement and liquid diet. Ofirmev and Tizanidine encouraged as primary for pain relief. Knee immobilizer at all times - remove for therapy only to prevent flexion cont racture as patient continues to draw knees to chest. PT/OT consults placed Will continue to follow. History: Mr. Asher is a 78 year old male s/p Right robotic-assisted Total knee replacement 12/19/18 for knee arthritis by Dr. Amaya. Patient was discharged to [facility] for rehabilitation postoperatively on 12/24/18 in stable condition. Patient presented today to ED from [facility] for evaluation of per family multiple syncopal episodes. Patient is now POD#7 s/p total knee. He is seen in ICU with his friend, son, and grandson at bedside. On exam, patient appears pale, nonicteric, alert and oriented. He states he is doing well with regard to his knee and demonstrates motion appx 0-100 degrees with ease. Ecchymosis noted to RLE scattered, no focal collection noted. No palpable fluid collection noted. Incision is c/d/i with scant old bloody drainage noted along incision line. Honeycomb opsite noted to be intact with no disruption. No effusion noted to knee. Mild swelling noted as expected at 7 days postoperative of total joint. No calf tenderness to palpation bilaterally. Ankle ROM intact bilaterally. Neurovascularly intact with sensation intact bilaterally. CT scan reviewed: CT/CT LE RT w con IMPRESSION: 1. No significant complication identified status post right total knee arthroplasty. 2. No focal hematoma or evidence of active bleeding. D/ / 12/26/2018 08:56:26 Ronnie Bell MD / alfredo Patient noted to have dramatic blood loss on review of labwork from 12/24 to today with presenting hemoglobin on 5.3 Patient is being managed by hospitalist and ICU teams. Case reviewed with Dr. Amaya. At this point there is very low likelihood that the patient's rapid blood loss is from the knee as he has no drainage from knee incision. GI consult noted. Once medically stable, patient will need to participate with therapy services to give patient optimal outcome from joint replacement surgery. Encourage EPCD application bilateral feet to aid in DVT prophylaxis and encourage adequate PO intake and hydration as well as incentive spirometry use. Thank you for this consultation. We will continue to follow.
--- NOTE | 2018-12-28 15:21 | Internal Med Progress Note ---
Hospitalist Progress Note - Encounter Date of Encounter: 12/28/18 Time of Encounter: 08:00 - Subjective Interval History: patient was seen and examined at bedside reports that he was unable to have a BM for a few days and finally had a BM which was "8 pounds and black" currently denies hematemesis or hematochezia, has had no nausea or vomiting tolerating po diet. painis controlled.d believes that he is even more deconditioned. would like to shower and get up into chair. all questions and concerns answered. plan discussed with [facility] nursing staff. - Exam Vitals: Temp Pulse Resp BP Pulse Ox 98.0 F 68 14 126/69 98 12/28/18 12:12/28/18 12:12/28/18 12:12/28/18 12:12/28/18 12:01 Exam: General: Conversant, overweight Head: atraumatic, normocephalic Eye: PERRL, EOMI, conjuntiva pink, anicteric Neck: Supple, trachea midline; Respiratory: distant breath sounds secondary to body habitus CTAB. No accessory muscle use, wheezes, rales, or rhonchi Cardiovascular: RRR, +S1, +S2; no murmurs, rubs, gallops Abdomen: Soft, nontender, obese, BS normoactive Extremities: Extensive ecchymosis on the posterior and lateral right thigh extending down to below the knee; incision site from total knee replacement currently dressed, with no evidence of bleeding or discharge; no swelling of the lower extremities noted Psychiatric: Normal affect, normal mood Neurological: Axox3, no focal deficit Skin: Dry, intact - Assessment and Plan (1) Acute blood loss anemia Current Visit: No Status: Acute Assessment and Plan: Labs obtained in the ER demonstrated a low hemoglobin of 5.3; repeat hemoglobin was 4.6 He is status post right-sided total knee replacement on 12/19 Patient was noted to have a large area of extensive ecchymosis on posterior and lateral right thigh extending to area below the knee A CT scan of the abdomen and pelvis, and right lower extremities were obtained; no overt source of bleeding/hematoma was found CT abdomen did demonstrate the presence of thickening of the duodenum consistent with acute duodenitis and possible severe PUD S/P EGD which demonstrated the presence of nonbleeding duodenal and esophageal ulcers, gastritis, esophageal stenosis patient was on ASA and Plavix on presentation due to history of MO with stent placement 2 years ago He required a total of 5 units of packed red blood cells H/h currently stable >8 Protonix twice a day and Carafate 4 times a day Continue to monitor H/H; transfuse as necessary cardiology consulted and recommended to continue with ASA and hold off of plavix on discharge since he has already been on DAPT >1 year (2) Syncope Current Visit: Yes Status: Acute Assessment and Plan: most likley secondary to seere anemia and subsequent hypotension TTE 12/21/18 demonstrated LVEF 45% (known), mild LVDD, mild AR. cardiology consulted orthostatics to be repeated again nursing staff aware EKG ordered by cardiology team (3) Duodenitis Current Visit: Yes Status: Acute Assessment and Plan: EGD, which demonstrated the presence of nonbleeding duodenal and esophageal ulcers, gastritis, esophageal stenosis continue with PPi ad carafate advance diet as per GI recs (4) Hypotension Current Visit: Yes Status: Acute Assessment and Plan: Initially presented after syncopal episode at snf Patient was found to be hypotensive with systolic blood pressure in the 80s he was found to have severe anemia requiring multiple transfusions SBP has improved as anemia has improved orthostatics vitals (5) Status post total right knee replacement Current Visit: Yes Status: Acute Assessment and Plan: Patient is status post total knee replacement on the right on 12/19 Per chart review, patients postop course was complicated by hematoma in the muscle Extensive ecchymosis visible on the right leg, unchanged from yesterday There is no notable swelling or discharge from the incision site Orthopedics is following; recommended Bubba placement with lidocaine patches for pain control rest of vipin management as per orthopedics (6) CAD (coronary artery disease) Current Visit: Yes Status: Chronic Assessment and Plan: Hx of anterior STEMI 04/2017. EF, 40% at that time. No chest pain or discomfort reported prior to admission. Troponin negative. Euvolemic upon exam. TTE shows LVEF 45% with segmental LV systolic dysfunction--unchanged from previous. was started on BB will hold off of starting ACEI until BP stabilizes will consider resuming ASA if ok by GI (7) Hypokalemia Current Visit: Yes Status: Acute Assessment and Plan: replaced (8) DVT prophylaxis Current Visit: No Status: Acute Assessment and Plan: scd (9) Lactic acidosis Current Visit: Yes Status: Resolved Assessment and Plan: Labs on presentation demonstrated elevated lactate at 5.3 Repeat lactate was 1.0 - Time Spent with Patient Total time spent is greater than 50% in coordination of care (as documented) at patient's floor/unit and/or counseling patient: Internal Medicine: Result - Labs CBC & Chem 7: 12/28/18 06:47 12/28/18 06:47 Labs: Short CBC 12/27/18 12/28/18 Range/Units 19:48 06:47 WBC 6.9 (4.3-11.1) K/mcL Hgb 8.3 L 8.6 L (12.9-16.9) g/dL Hct 24.6 L 25.8 L (37.5-50.1) % Plt Count 184 (140-400) K/mcL Neutrophils # 4.6 (1.6-8.9) K/mcL BMP 12/28/18 06:47 Sodium 140 Potassium 3.3 L Chloride 110 H Carbon Dioxide 23 BUN 23 Creatinine 0.80 Glucose 109 H Calcium 7.5 L - ABG Interpretation ABG results: PT/INR, D-dimer PT 13.6 Seconds (9.4-12.1) H 12/26/18 22:47 5347 ng/mLFEU (0-500) H 12/26/18 12:12 - VTE Documentation of Mechanical Device: Venous foot pump, device Consult Discharge Plan - Plan Referrals: Mirtha Vieira, ECONOMICS PROFESSOR [Primary Care Provider] - (2) Syncope Qualifiers: Syncope type: unspecified Qualified Code(s): R55 - Syncope and collapse (4) Hypotension Qualifiers: Qualified Code(s): I95.9 - Hypotension, unspecified (6) CAD (coronary artery disease) Qualifiers: Coronary Disease-Associated Artery/Lesion type: [place] artery [place] vs. transplanted heart: [place] heart Associated angina: without angina Qualified Code(s): I25.10 - Atherosclerotic heart disease of [place] coronary artery w ithout angina pectoris
[2018-12-28] MEDS: tiZANidine 4 MG TABLET PO PRN (17:48)
[2018-12-29] MEDS: D5% in 0.9% NACL 1,000 ML IVC SCH ×2 (03:37→03:38)
[2018-12-29 05:08] LABS: Hematocrit 27.1 % (37.5-50.1); Hemoglobin 8.9 g/dL (12.9-16.9); Mean Corpuscular HGB Conc 32.8 g/dL (31.6-35.5); Mean Corpuscular Hemoglobin 29.3 pg (28.0-33.3); Mean Corpuscular Volume 89.1 fL (83.0-100.0); Mean Platelet Volume 9.6 fL (9.4-12.4); Platelet Count 204 K/mcL (140-400); Red Blood Count 3.04 M/mcL (4.19-5.50); Red Cell Distribution Width 15.9 % (11.5-14.5); White Blood Count 7.9 K/mcL (4.3-11.1)
[2018-12-29 05:19] LABS: BUN/Creatinine Ratio 20 (6-26); Blood Urea Nitrogen 15 mg/dL (8-23); Calcium 7.5 mg/dL (8.6-10.3); Carbon Dioxide 23 mEq/L (23-29); Chloride 109 mEq/L (98-107); Glucose 130 mg/dL (70-105); Magnesium 1.8 mg/dL (1.6-2.6); Osmolality,Calculated 287 (280-300); Potassium 3.5 mEq/L (3.5-5.1); Sodium 137 mEq/L (136-145); eGFR For African Americans > 60 (> 60); eGFR For Non-African Americans > 60 (> 60)
[2018-12-29] MEDS ORDERED: *HR* Metoprolol 5 MG/5 ML VIAL IVP ONE ×2 (05:41→06:16)
[2018-12-29] MEDS: Pantoprazole 40 MG VIAL IVP SCH (05:51)
--- NOTE | 2018-12-29 08:02 | Orthopedics Progress Note ---
Date of Encounter: 12/29/18 Time of Encounter: 08:01 Subjective Principal diagnosis: s/p right total knee Interval history: Patient was seen this morning doing well without complaints. Afebrile vital signs stable. Operative extremity: Neurovascularly intact Dressing clean dry and intact Calves nontender positive ecchymosis upper thigh Assessment and plan: Continue with postoperative care patient stable orthopedically, plan as per medical patient was A. fib RVR overnight being evaluated by hospitalist. Objective Vital signs: Vital Signs Temp Pulse Pulse Pulse Pulse Resp BP 12/29/18 07:01 98.2 F 76 97/62 12/29/18 04:59 124 94/34 12/29/18 03:56 98.0 F 128 17 97/67 12/28/18 23:03 98.1 F 67 18 134/75 12/28/18 19:33 97.5 F L 67 17 117/69 12/28/18 16:09 98.0 F 69 15 149/54 12/28/18 12:01 98.0 F 68 14 126/69 12/28/18 10:12 95 81 70 12/28/18 09:38 12/28/18 09:00 BP BP BP Pulse Ox 12/29/18 07:01 96 12/29/18 04:59 12/29/18 03:56 95 12/28/18 23:03 95 12/28/18 19:33 94 12/28/18 16:09 96 12/28/18 12:01 98 12/28/18 10:12 134/53 135/76 113/60 12/28/18 09:38 95 12/28/18 09:00 134/53 Intake and Output 12/28/18 12/29/18 12/29/18 23:59 07:59 15:59 Intake Total 100 / 2250 Output Total 350 / 1375 500 / 500 Balance -250 / 875 -500 / -500 Intake: Oral 100 / 250 Output: Urine 350 / 1375 500 / 500 Other: Blood Glucose* 117 127 - Labs CBC & BMP: 12/29/18 04:44 12/29/18 04:44 Labs: Abnormal lab results WBC 14.8 K/mcL (4.3-11.1) H D 12/26/18 04:57 RBC 3.04 M/mcL (4.19-5.50) L 12/29/18 04:44 Hgb 8.9 g/dL (12.9-16.9) L 12/29/18 04:44 Hct 27.1 % (37.5-50.1) L 12/29/18 04:44 MCHC 31.2 g/dL (31.6-35.5) L 12/26/18 04:57 RDW 15.9 % (11.5-14.5) H 12/29/18 04:44 11.2 K/mcL (1.6-8.9) H 12/26/18 04:57 1.4 K/mcL (0.0-1.3) H 12/26/18 04:57 Present (Not Present) A 12/26/18 04:57 Present (Not Present) A 12/26/18 04:57 2+ (Not Present) A 12/26/18 04:57 1+ (Not Present) A 12/26/18 04:57 PT 13.6 Seconds (9.4-12.1) H 12/26/18 22:47 APTT 25.8 Seconds (26.0-36.0) L 12/26/18 22:47 5347 ng/mLFEU (0-500) H 12/26/18 12:12 Potassium 3.3 mEq/L (3.5-5.1) L 12/28/18 06:47 Chloride 109 mEq/L (98-107) H 12/29/18 04:44 Carbon Dioxide 22 mEq/L (23-29) L 12/26/18 22:47 BUN 32 mg/dL (8-23) H 12/27/18 06:22 29 (6-26) H 12/28/18 06:47 Glucose 130 mg/dL (70-105) H 12/29/18 04:44 POC Glucose 127 mg/dL (70-99) H 12/29/18 03:55 304 (280-300) H 12/26/18 04:57 Lactic Acid 5.3 mmol/L (0.5-2.2) H* 12/26/18 04:57 Calcium 7.5 mg/dL (8.6-10.3) L 12/29/18 04:44 262 Units/L (30-223) H 12/26/18 04:57 3.5 g/dL (6.4-8.9) L 12/26/18 04:57 2.2 g/dL (3.5-5.7) L 12/26/18 04:57 1.3 g/dL (2.4-3.5) L 12/26/18 04:57 25-OH Vitamin D Total 24 ng/mL (30-80) L 12/29/18 04:44 Ur Specific [place] > 1.030 (1.010-1.025) H 12/26/18 11:33 Trace (Negative) H 12/26/18 11:33 3-5 per hpf (0-3) H 12/26/18 11:33 3-5 per hpf (0-3) H 12/26/18 11:33 Ur Squamous Epith Cells Moderate per lpf (None-Few) H 12/26/18 11:33 Crossmatch See Detail 12/26/18 05:32 - VTE Documentation of Mechanical Device: Venous foot pump, device Consult Discharge Plan - Plan Referrals: Mirtha Vieira, CLAY MACHINE OPERATOR [Primary Care Provider] -
[2018-12-29] MEDS ORDERED: Aspirin 81 MG TAB.CHEW PO SCH (09:00)
[2018-12-29] MEDS ORDERED: Cholecalciferol (D-3) 1,000 UNIT TABLET PO SCH (09:00)
--- NOTE | 2018-12-29 09:34 | Cardiology Progress Note ---
Date of Encounter: 12/29/18 Time of Encounter: 09:00 Assessment and Plan (1) Anemia Current Visit: Yes Status: Acute Per Cardiology: Syncopal episode in the setting hypotension secondary to acute blood loss anemia. HgB 5.3 upon arrival, now s/p 5 units PRBC, 1 unit platelet and and 1 unit of plasma. Upper GI demonstrated esophageal and duodenal ulcers. Reports "tar like" BM yesterday. Continue to transfuse as needed, defer further mgmt to Hospitalist service. Discharge to rehab pending. Patient discussed with primary service. Qualifiers: Qualified Code(s): D64.9 - Anemia, unspecified (2) CAD (coronary artery disease) Current Visit: Yes Status: Chronic Per Cardiology: Hx of anterior STEMI 04/2017. EF 40% at that time. No chest pain or discomfort reported prior to admission. Troponin negative. Now on ASA, BB, statin. Off Plavix- has been >1 year since [facility]. Qualifiers: Qualified Code(s): I25.10 - Atherosclerotic heart disease of [place] coronary artery without angina pectoris (3) Ischemic cardiomyopathy Current Visit: Yes Status: Acute Per Cardiology: Euvolemic upon exam. TTE shows LVEF 45% with segmental LV systolic dysfunction--unchanged from previous. Discussion w patient/family: 4) PAF: Noted to have brief episodes of PAF with RVR in the 120s yesterday evening. Currently sinus rhythm. Patient had been on beta richard. Patient denies any past history of atrial fibrillation. Now back on Toprol-XL 25 mg by mouth daily. Continue to monitor. Discussed and reviewed with Dr. Lopez, will order two-week monitor applied a discharge to assess future A. fib burden to help address long-term potential anticoagulation. Regarding long-term anticoagulation, patient poor candidate at this time due to recent acute blood loss anemia and transfusions. Patient aware of increased stroke risk. Cardiology signoff, reconsult as needed, follow-up arranged. The assessment and plan as outlined above was discussed with the patient and/or family members who expressed understanding and agreement. All questions were answered. Thank you for involving us in the care of your patient. Please call with any questions. Subjective Principal diagnosis: s/p right total knee Interval history: Patient denies any concerns or complaints overnight. He denies any chest pain, shortness of breath, palpitations, any awareness to bleeding. He does report some lightheadedness. Patient very concerned about going to rehabilitation and wants to go home. Objective Vital Signs, Last 4 Hours Temp Pulse BP Pulse Ox 12/29/18 08:35 118/65 12/29/18 07:01 98.2 F 76 97/62 96 General: Conversant, No Apparent Distress HEENT: Atraumatic, Normocephaly, Mucus Membranes Moist Neck: No JVD, Normal carotid pulses Cardiac: Reg Rate and Rhythm, Normal S1 and S2, No Murmur Lungs: Normal Breath Sounds, No Wheeze, Rales, Rhonchi Neuro: Alert and responsive, No focal deficits noted Abdomen: Soft, Non-Tender Skin: No rashes noted on visualized skin Musculoskeletal: No Chest Wall Tenderness Extremities: No Clubbing, No Cyanosis, No Edema, Normal Pulses Results 12/29/18 04:44 12/29/18 04:44 Lab Results Laboratory Tests 12/26/18 12/26/18 12/26/18 04:57 05:00 05:32 Hgb Hct Creatinine Est GFR (Non-Af Amer) Magnesium Troponin I < 0.03 TSH 1.342 Stool Occult Bld Scrn Negative 12/26/18 12/29/18 12/29/18 05:32 04:44 04:44 Hgb 4.6 L* 8.9 L Hct 14.4 L* 27.1 L Creatinine 0.76 Est GFR (Non-Af Amer) > 60 Magnesium 1.8 Troponin I TSH Stool Occult Bld Scrn ITS Impressions Chest X-Ray 12/26/18 04:44 IMPRESSION: Trace effusions and mild bibasilar airspace disease which could represent atelectasis or pneumonia. D/ / Manny Daily MD / Manny Daily MD Interpreting Provider: Manny Daily MD Abdomen/Pelvis CT 12/26/18 05:35 IMPRESSION: Small bilateral pleural effusions and small amount of ascites. Bowel wall thickening seen involving the 1st and 2nd portions of the duodenum with minimal pneumatosis. There is no evidence for bowel rupture or abscess. May be secondary to duodenitis. Large cyst seen within the right kidney with small nonobstructive nephrolith. D/ / Ashwin Pickering MD / Ashwin Pickering MD Interpreting Provider: Ashwin Pickering MD Abdomen/Pelvis CT 12/26/18 07:13 IMPRESSION: 1. Mild atherosclerotic disease without obvious vascular stenosis or thrombosis noting that this is not a dedicated CT angiogram. 2. Quite pronounced thickening of the duodenum maximal in the 2nd part with surrounding peritoneal fat stranding and traces of fluid tracking into the pelvis consistent with acute duodenitis. Pneumatosis reported on prior is decreased on the current study. No free intraperitoneal air to suggest perforation. Findings probably due to severe peptic ulcer disease but clinical correlation and endoscopy as deemed necessary would be advised. 3. Benign findings including bilateral renal cysts and hepatic cysts. There is a dominant 9.8 cm right renal cyst. D/ / Paul Zayas MD / Paul Zayas MD Interpreting Provider: Paul Zayas MD Lower Extremity CT 12/26/18 07:22 IMPRESSION: 1. No significant complication identified status post right total knee arthroplasty. 2. No focal hematoma or evidence of active bleeding. D/ / 12/26/2018 08:56:26 Ronnie Bell MD / alfredo Interpreting Provider: Ronnie Bell MD Active Medications Acetaminophen (Tylenol) 650 mg PO Q6HR PRN PRN Reason: Pain Stop: 06/28/19 13:00 Aspirin (Aspirin) 81 mg PO DAILY XAVIER Stop: 06/30/19 09:01 Dextrose/Water (Dextrose 50% (Syg)) 25 ml IVP AD PRN PRN Reason: Hypoglycemia Stop: 06/28/19 11:56 Glucagon (Glucagen) 1 mg IM ONCE PRN PRN Reason: Hypoglycemia Stop: 06/28/19 11:56 Glucose (Gluctose) 15 gm PO ONCE PRN PRN Reason: Hypoglycemia Stop: 06/28/19 11:56 Glucose (Gluctose) 30 gm PO ONCE PRN PRN Reason: Hypoglycemia Stop: 06/28/19 11:56 Hydrocodone Bit/Homatropine MBr (Hycodan) 5 mg PO Q6HR PRN PRN Reason: pain Stop: 06/28/19 13:01 Dextrose/Sodium Chloride (D5% And 0.9% Nacl 1000 Ml) 1,000 mls @ 100 mls/hr IVC .Q10H XAVIER Stop: 06/28/19 07:16 Last Admin: 12/29/18 03:38 Dose: 100 mls/hr Documented by: Dextrose (Dextrose 5%) 1,000 mls @ 100 mls/hr IVC .Q10H PRN PRN Reason: HYPOGLYCEMIA Stop: 06/28/19 11:56 Lidocaine HCl (Lidoderm 5% Patch) 1 each TP DAILY XAVIER Stop: 06/28/19 13:01 Last Admin: 12/28/18 09:16 Dose: 1 each Documented by: Metoprolol Succinate (Toprol Xl) 25 mg PO DAILY XAVIER Stop: 06/29/19 09:01 Last Admin: 12/28/18 09:16 Dose: 25 mg Documented by: Oxycodone HCl (Roxicodone) 5 mg PO Q4HR PRN; Protocol PRN Reason: Pain Stop: 06/28/19 12:59 Last Admin: 12/28/18 13:52 Dose: 5 mg Documented by: Pantoprazole Sodium (Protonix) 40 mg IVP Q12HR XAVIER Stop: 06/28/19 06:01 Last Admin: 12/29/18 05:51 Dose: 40 mg Documented by: Polyethylene Glycol (Miralax) 17 gm PO BID XAVIER Stop: 06/29/19 10:01 Last Admin: 12/28/18 22:27 Dose: Not Given Documented by: Rosuvastatin Calcium (Crestor) 40 mg PO DAILY XAVIER Stop: 06/29/19 09:01 Last Admin: 12/28/18 09:16 Dose: 40 mg Documented by: Tizanidine HCl (Zanaflex) 2 mg PO QID PRN PRN Reason: Muscle Spasm Stop: 06/28/19 12:59 Last Admin: 12/28/18 17:48 Dose: 2 mg Documented by: Vitamin D (Vitamin D) 1,000 unit PO DAILY XAVIER Stop: 06/30/19 09:01 - Imaging and Cardiology Echo: report reviewed (Impressions: LVEF 45%. Normal LV chamber size, wall thickness. Segmental left ventricular systolic dysfunction. Mild left ventricular diastolic dysfunction. Normal right ventricular structure and function. Mild aortic regurgitation. No evidence of pulmonary hypertension. Left Ventricular Wall Motion: Rest Echo Findings The apex, apical inferior, apical septal and mid anterior septal hill were hypokinetic. All other wall segments showed normal motion.) Holter: report reviewed (04/2017: Lesion Findings/Interventions * Left Main Coronary Artery The LMCA is angiographically free of disease. * Left Anterior Descending There is a 20 mm long, 100% stenosis in the Proximal LAD. The lesion has a ALTAGRACIA flow of 0, has thrombus present, and is a bifurcation lesion. An intervention was performed on the Proximal LAD with a final stenosis of 0%. There were no lesion complications. The final ALTAGRACIA flow was 3. There is a 12 mm long, 100% stenosis in the Mid LAD. The lesion has a ALTAGRACIA flow of 0 and has thrombus present. An intervention was performed on the Mid LAD with a final stenosis of 0%. There were no lesion complications. The final ALTAGRACIA flow was 3. There is a 80% stenosis in jailed proximal diagonal. The lesion has a ALTAGRACIA flow of 2 and has no thrombus present. An intervention was performed on the 1st Diagonal with a final stenosis of 0%. There were no lesion complications. The final ALTAGRACIA flow was 3. * Circumflex The Circumflex has proximal 15% stenosis The 1st Marginal has 20% stenosis The Left PDA is angiographically free of disease. * Right Coronary Artery The RCA has proximal 30% stenosis (non- dominant).) - VTE Documentation of Mechanical Device: Venous foot pump, device Consult Discharge Plan - Plan Referrals: Mirtha Vieira CNP [Primary Care Provider] - Prescriptions: Sucralfate [Carafate] 1 gm PO QIDAC 30 Days #120 tablet Acetaminophen [Non-Aspirin Extra Strength] 500 mg PO Q6H PRN 7 Days #28 tablet PRN Reason: Mild To Moderate Pain Pantoprazole Sodium [Protonix] 40 mg PO BID #60 tablet.dr Rafaela Vega Rel [Roxicodone 5 MG] 5 mg PO BID PRN 5 Days #10 tablet PRN Reason: Severe Pain Tizanidine HCl 2 mg PO QID PRN 5 Days #20 tablet PRN Reason: Spasms
[2018-12-29] MEDS: tiZANidine 4 MG TABLET PO PRN (10:05)
[2018-12-29] MEDS: Metoprolol XL (24 HR) Succ 25 MG TAB.ER.24H PO SCH (10:05)
--- NOTE | 2018-12-29 10:18 | Physician Discharge Referral ---
<Nadeen Mariee E - Last Filed: 12/29/18 10:15> [facility] Referral Info Transfer To: F - Diagnosis (1) Status post total right knee replacement Priority: Primary Status: Acute (2) Anemia Priority: Primary Status: Acute (3) Constipation Priority: Primary Status: Acute Expected Duration of Placement: less than 30 days Prognosis: Good Aware of Diagnosis: Patient Aware of Prognosis: Patient - Transfer Medications Prescriptions: Sucralfate [Carafate] 1 gm PO QIDAC 30 Days #120 tablet Acetaminophen [Non-Aspirin Extra Strength] 500 mg PO Q6H PRN 7 Days #28 tablet PRN Reason: Mild To Moderate Pain Pantoprazole Sodium [Protonix] 40 mg PO BID #60 tablet. OxyCODONPari Immed Rel [Roxicodone 5 MG] 5 mg PO BID PRN 5 Days #10 tablet PRN Reason: Severe Pain Tizanidine HCl 2 mg PO QID PRN 5 Days #20 tablet PRN Reason: Spasms Home Medications: Aspirin 81 mg PO DAILY 04/24/17 [History] Metoprolol XL (24 HR) Succ [Toprol Xl] 25 mg PO DAILY #30 tab.er.24h 04/26/17 [Rx] Nitroglycerin 0.4 mg SL Q5MIN PRN #10 tab.subl 04/26/17 [Rx] Docusate Sodium [Move It Along] 100 mg PO BID 12/26/18 [History] Rosuvastatin [Crestor] 40 mg PO DAILY 12/26/18 [History] Acetaminophen [Non-Aspirin Extra Strength] 500 mg PO Q6H PRN 7 Days #28 tablet 12/29/18 [Rx] Cholecalciferol (D-3) [Vitamin D] 1,000 unit PO DAILY tablet 12/29/18 [Rx] Lidocaine Patch [Lidoderm 5% patch] 1 each TP DAILY adh..patch 12/29/18 [Rx] OxyCODONE Immed Rel [Roxicodone 5 MG] 5 mg PO BID PRN 5 Days #10 tablet 12/29/18 [Rx] Pantoprazole Sodium [Protonix] 40 mg PO BID #60 tablet. 12/29/18 [Rx] Polyethylene Glycol 3350 [MiraLAX] 17 gm PO BID powd.pack 12/29/18 [Rx] Sucralfate [Carafate] 1 gm PO QIDAC 30 Days #120 tablet 12/29/18 [Rx] Tizanidine HCl 2 mg PO QID PRN 5 Days #20 tablet 12/29/18 [Rx] Allergies/Adverse Reactions: Allergy/AdvReac Type Severity Reaction Status Date / Time Penicillins AdvReac Hives Verified 12/26/18 04:49 - Respiratory Orders Smoking Cessation: Smoking cessation has been advised. For more information, call the [place] Tobacco Quit Line at 4-269-GTEY-NOW. - Ancillary Orders May use pressure relief devices daily prn, May consult with Dentist, Vp Data, Work Counselor PRN - Mobility Orders Chair, Ambulate - Rehabiliation Orders Rehab Potential: Good Rehab Orders: Evaluation for Physical Therapy, Evaluation for Occupational Therapy Other: Total Knee replacement Precautions x 6 weeks Apply cold therapy wrap 3-6x/day for 20 minutes at a time. Encourage ambulation throughout the day and incentive spirometer 10x/hour. Elevate affected extremity above heart as tolerated. Brace: Wear knee immobilizer at night x 2 weeks. - Treatments Skin tear care topically daily PRN per policy List/Other: Opsite placed. Keep dressing intact until first follow up appointment. If greater than 50% saturated, notify office, remove dressing and place appropriate dressing back in place. Leave Zipline intact. Opsite dressing is water resistant, not water-proof. OK to shower, but do not get dressing wet. CERTIFICATION: I certify that the transfer of the above named patient to an Extended Care Facility is necessary for the continuing treatment of the diagnosis listed. The above information is true and accurate reflection of patient's current condition. Confidential - Redisclosure prohibited without a patient's written consent. <Kate Perrin - Last Filed: 12/29/18 14:25> Extended[facility] Referral Info Provider in Charge after Transfer: PCP Institutional Level of Care: Skilled - Diagnosis (1) Acute blood loss anemia Status: Acute (2) Syncope Status: Acute (3) Duodenitis Status: Acute (4) Hypotension Status: Acute (5) Status post total right knee replacement Status: Acute (6) CAD (coronary artery disease) Status: Chronic (7) Hypokalemia Status: Acute (8) DVT prophylaxis Status: Acute (9) Lactic acidosis Status: Resolved - Respiratory Orders Smoking Cessation: Smoking cessation has been advised. For more information, call the [place] Tobacco Quit Line at 8-690-OYQI-NOW. - Lab Orders Lab Orders: CBC (repeat in 2 days) - Advance Directives Code Status: Full Code CERTIFICATION: I certify that the transfer of the above named patient to an Extended Care Facility is necessary for the continuing treatment of the diagnosis listed. The above information is true and accurate reflection of patient's current condition. Confidential - Redisclosure prohibited without a patient's written consent.
--- NOTE | 2018-12-29 10:49 | Discharge Summary ---
Orders not resulted at time of discharge: Pending orders 12/26/18 04:44 ECG 12 lead ECG [ECG] Stat 12/26/18 05:32 Culture,Blood [BC] Stat PLASMA [BBK] Stat PRBC [Red Blood Cells] [BBK] Stat Platelets [BBK] Stat Type and Screen [BBK] Stat 12/28/18 10:17 ECG 12 lead ECG [ECG] Routine 12/29/18 05:12 EKG [ECG 12 lead ECG] [ECG] Stat Date of Encounter: 12/29/18 Time of Encounter: 10:46 - Discharge Diagnosis (1) Acute blood loss anemia Priority: Primary Status: Acute (2) Syncope Priority: Secondary Status: Acute Qualifiers: Syncope type: unspecified Qualified Code(s): R55 - Syncope and collapse (3) Duodenitis Priority: Secondary Status: Acute (4) Hypotension Priority: Secondary Status: Acute Qualifiers: Qualified Code(s): I95.9 - Hypotension, unspecified (5) Status post total right knee replacement Priority: Secondary Status: Acute (6) CAD (coronary artery disease) Priority: Secondary Status: Chronic Qualifiers: Coronary Disease-Associated Artery/Lesion type: [place] artery [place] vs. transplanted heart: [place] heart Associated angina: without angina Qualified Code(s): I25.10 - Atherosclerotic heart disease of [place] coronary artery without angina pectoris (7) Hypokalemia Priority: Secondary Status: Acute (8) DVT prophylaxis Priority: Secondary Status: Acute (9) Lactic acidosis Priority: Secondary Status: Resolved Hospital course: "Mr. Asher is a 78 year old male with PMH of HTN, HLD, CAD s/p [place] with s tent placement approximately 3 years ago on ASA and Plavix, history of R-sided knee replacement on December 19 [address] [facility] on 12/26/18 after a syncopal episode [facility]. He was at the half-way for recovery from his knee replacement. He experienced a syncopal episode when he got up to get out of bed. Patient reported that he had not had a bowel movement since his operation, and has been experiencing a sense of fullness. On arrival, he was noted to be very pale and weak. He also reported that he was unable to place weight on his lower extremities. He denied having any abdominal pain or distention. He was also noted to have significant ecchymosis on his right lateral thigh extending down to below his right knee. He complained of significant knee pain. Upon arrival to the ED, vital signs were significant for a low BP of 87/63. All other vitals were within normal limits. Labs demonstrated a low Hb of 5.3, an elevated lactate at 5.3, and a creatinine kinase of 262. Repeat Hb was 4.6. FOBT was negative. Patient was typed and screened in the ED, and 5 units of pRBCs have been ordered. So far, he has been transfused with 2 units. CXR demonstrated trace effusions and bibasilar airspace opacities. CT scan of the abdomen and pelvis without contrast demonstrated small b/l pleural effusions and a small amount of ascites. In addition, bowel wall thickening was seen involving the first and second portions of duodenum with minimal pneumatosis, possibly representing duodenitis. CT abdomen and pelvis with contrast was also performed, which demonstrated pronounced thickening of duodenum consistent with acute duodenitis; per report, finding is likely secondary to severe peptic ulcer disease. A CT scan of the right lower extremity was also performed, which did not demonstrate any hematoma or signs of active bleeding. During interview, patient endorses significant right-sided knee pain. He is noticeably uncomfortable, and is having a difficult time finding a comfortable position. He denies feeling dizzy or weak at this time. Denies cough, shortness of breath, lower extremity swelling, lightheadedness, or visual disturbances. He will be transferred to the ICU for further monitoring. We will continue to transfuse as necessary. Plan is for EGD this afternoon to rule out GI bleed. Orthopedics has been consulted, and we are waiting for further recommendations." Patient presented with above presentation and had above ED course. He was admitted to the ICU on 12/26. GI and orthopedics was consulted. He received 5 units of PRBC 1 unit of FFP and 1 platelet with stabilization of his blood levels. Endoscopy was performed which showed esophageal ulcers, esophageal stenosis, gastritis, multiple with dark clotted blood noted duodenal ulcers with pigmented material. he was transferred to the telemetry unit on 12/28 and my first encounter with the patient was on 12/28. Diet was advanced as tolerated, CBC was monitored with stabilization of his hemoglobin and hematocrit which stayed above 8. Orthopedics followed the patient and the CT of right lower extremity was performed which did not show any focal hematoma or evidence of active bleeding. He was cleared for discharge to rehabilitation by orthopedics. Cardiology was consulted for syncope. TTE 12/21/18 demonstrated LVEF 45% (known), mild LVDD, mild AR. It was recommended to discontinue Plavix as he had the last stent placed more than 2 years ago. It was recommended for him to continue with aspirin and beta richard. LE hose stockings were provided for or thostatic hypotension he understands that he would need to get up slowly from a laying position and sit for a couple minutes before standing. With LE hose stockings and this maneuvers his symptomatic orthostatic hypotension improved. He did have a run of atrial fibrillation in the early hours of the morning on 12/29, HR controlled with metoprolol. cardiology discussed with the patient the risks and benefits of anticoagulation and with his recent anemia requiring multiple transfusions he understands that he will be at risk of stroke however the risk of bleeding outweighs the benefit. he was continued on ASA as per cardiology recommendations. He understands that he will need to follow-up with cardiology and they will consider starting him on anticoagulation on office follow up. lisinopril was discontineud as he has orthostatic hypotension and since his BP remained controlled. to follow up with cardiology and to restart lisinopril as per cardiology discretion on follow up visits. was clered for discharge by cardiology to have CBC repeated in 2 days. if he develops hematemesis, hematochezia, melena he is to come to the emergency department as soon as possible. Nursing staff aware to provide follow-up appointment with orthopedics and gastroenterology. Cardiology will provide appointment for patient to follow-up. Pain medication prescriptions are provided by orthopedics. CT RT LE: IMPRESSION: 1. No significant complication identified status post right total knee arthroplasty. 2. No focal hematoma or evidence of active bleeding. Ct A/P IMPRESSION: 1. Mild atherosclerotic disease without obvious vascular stenosis or thrombosis noting that this is not a dedicated CT angiogram. 2. Quite pronounced thickening of the duodenum maximal in the 2nd part with surrounding peritoneal fat stranding and traces of fluid tracking into the pelvis consistent with acute duodenitis. Pneumatosis reported on prior is decreased on the current study. No free intraperitoneal air to suggest perforation. Findings probably due to severe peptic ulcer disease but clinical correlation and endoscopy as deemed necessary would be advised. 3. Benign findings including bilateral renal cysts and hepatic cysts. There is a dominant 9.8 cm right renal cyst. Discharge discussed with: patient, nurse, social work, case management, reservoir engineering consultant - Time Spent with Patient Total time spent providing and/or coordinating discharge services: Time spent: Greater than 30 minutes (40) - Discharge Medications Prescriptions: New Acetaminophen [Non-Aspirin Extra Strength] 500 mg PO Q6H PRN 7 Days #28 tablet PRN Reason: Mild To Moderate Pain OxyCODONE Immed Rel [Roxicodone 5 MG] 5 mg PO BID PRN 5 Days #10 tablet PRN Reason: Severe Pain Tizanidine HCl 2 mg PO QID PRN 5 Days #20 tablet PRN Reason: Spasms Sucralfate [Carafate] 1 gm PO QIDAC 30 Days #120 tablet Lidocaine Patch [Lidoderm 5% patch] 1 each TP DAILY adh..patch Polyethylene Glycol 3350 [MiraLAX] 17 gm PO BID powd.pack Pantoprazole Sodium [Protonix] 40 mg PO BID #60 tablet. Cholecalciferol (D-3) [Vitamin D] 1,000 unit PO DAILY tablet Continued Aspirin 81 mg PO DAILY Metoprolol XL (24 HR) Succ [Toprol Xl] 25 mg PO DAILY #30 tab.er.24h Nitroglycerin 0.4 mg SL Q5MIN PRN #10 tab.subl PRN Reason: Chest Pain Docusate Sodium [Move It Along] 100 mg PO BID Rosuvastatin [Crestor] 40 mg PO DAILY Discontinued Clopidogrel [Plavix] 75 mg PO DAILY Acetaminophen [Tylenol] 500 mg PO Q6HR PRN PRN Reason: Pain Lisinopril 2.5 mg PO DAILY Oxycodone HCl [Roxybond] 5 mg PO Q6H PRN PRN Reason: Pain Home Medications: Aspirin 81 mg PO DAILY 04/24/17 [History] Metoprolol XL (24 HR) Succ [Toprol Xl] 25 mg PO DAILY #30 tab.er.24h 04/26/17 [Rx] Nitroglycerin 0.4 mg SL Q5MIN PRN #10 tab.subl 04/26/17 [Rx] Docusate Sodium [Move It Along] 100 mg PO BID 12/26/18 [History] Rosuvastatin [Crestor] 40 mg PO DAILY 12/26/18 [History] Acetaminophen [Non-Aspirin Extra Strength] 500 mg PO Q6H PRN 7 Days #28 tablet 12/29/18 [Rx] Cholecalciferol (D-3) [Vitamin D] 1,000 unit PO DAILY tablet 12/29/18 [Rx] Lidocaine Patch [Lidoderm 5% patch] 1 each TP DAILY adh..patch 12/29/18 [Rx] OxyCODONE Immed Rel [Roxicodone 5 MG] 5 mg PO BID PRN 5 Days #10 tablet 12/29/18 [Rx] Pantoprazole Sodium [Protonix] 40 mg PO BID #60 tablet.dr 12/29/18 [Rx] Polyethylene Glycol 3350 [MiraLAX] 17 gm PO BID powd.pack 12/29/18 [Rx] Sucralfate [Carafate] 1 gm PO QIDAC 30 Days #120 tablet 12/29/18 [Rx] Tizanidine HCl 2 mg PO QID PRN 5 Days #20 tablet 12/29/18 [Rx] Allergies/Adverse Reactions: Allergy/AdvReac Type Severity Reaction Status Date / Time Penicillins AdvReac Hives Verified 12/26/18 04:49 Date of admission: 12/26/18 07:01 Primary care physician: Mirtha Vieira CNP Consults: 12/26/18 11:14 Consult to Gastroenterology [CONS] Stat Consulting Provider: Gastroenterology Angi Reason for Consult: Hemoglobin of 5.3, evidence of severe duodenitis on CT scan of abdomen and pelvis Call Completed: Yes 12/26/18 11:20 Consult to Orthopedic Surgery [CONS] Stat Consulting Provider: Maurice Amaya Reason for Consult: S/P right knee replacement on December 19; presents with anemia and ecchymosis on the right lower extremity Call Completed: Yes 12/26/18 11:49 Consult to Facility Specialist [CONS] Routine Reason for SW Consult: from [facility] 12/27/18 13:01 Consult to Occupational Therapy [CONS] Stat Comment: Evaluate, develop and implement POC Reason for Consult: s/p knee replacement Does patient have active BEDREST order?: No Is patient medically & hemodynamically stable?: Yes Consult to Physical Therapy [CONS] Stat Comment: Evaluate, develop and implement POC Reason for Consult: s/p knee replacement Does patient have active BEDREST order?: No Is patient medically & hemodynamically stable?: Yes 12/28/18 07:54 Consult to Cardiology [CONS] Routine Comment: Consulting Provider: Cardiology Angi Reason for Consult: syncope most likley secondary acute blood loss anemia. had STEMI 3 years ago on ASA and plavix which are being held along with the rest of his cardiac medication. Call Completed: No - Constitutional Vitals: Temp Pulse Resp BP Pulse Ox 98.2 F 76 17 118/65 96 12/29/18 07:01 12/29/18 07:01 12/29/18 03:56 12/29/18 08:35 12/29/18 07:01 Exam: General: Conversant, overweight Head: atraumatic, normocephalic Eye: PERRL, EOMI, conjuntiva pink, anicteric Neck: Supple, trachea midline; Respiratory: distant breath sounds secondary to body habitus CTAB. No accessory muscle use, wheezes, rales, or rhonchi Cardiovascular: RRR, +S1, +S2; no murmurs, rubs, gallops Abdomen: Soft, nontender, obese, BS normoactive Extremities: Extensive ecchymosis on the posterior and lateral right thigh extending down to below the knee; incision site from total knee replacement currently dressed, with no evidence of bleeding or discharge; no swelling of the lower extremities noted Psychiatric: Normal affect, normal mood Neurological: Axox3, no focal deficit Skin: Dry, intact - Patient Status Disposition: Transfer SNF Condition: Critical Functional capacity at discharge: uses cane/walker Overall status at discharge: patient is progressing back to baseline - Discharge Instructions Follow Up With: Mirtha Vieira CNP [Primary Care Provider] - Forms: ED Satisfaction Letter - Diet and Activity Activity: as per physical therapy Diet: low salt diet - VTE Documentation of Mechanical Device: Venous foot pump, device
[2018-12-29 11:42] VITALS: BP 109/69
--- NOTE | 2018-12-29 12:11 | Event Note ---
Date of Encounter: 12/29/18 Time of Encounter: 10:00 12/29: POD#10 Patient seen at bedside - sitting in chair. Patient again much improved from yesterday. Patient noted to have knee immobilizer in place to right knee. left knee unremarkable. Brace removed. Incision intact. Dressing c/d/i. No calf tenderness, erythema or warmth noted. Scattered ecchymosis noted to posterior leg. Knee motion 0-100 deg right knee, full left knee. Neurovascularly intact b/l LE. Sensation intact distally b/l. Labwork, vitals, and medications reviewed. D/w patient's nurse - Remove carmen today then replace Opsite. Encouraged sparing use of opioids secondary to patient's constipation. Stool softener to aid in improvement. PO Tylenol and Tizanidine encouraged as primary for pain relief. Knee immobilizer resume nighttime only now until 14 days postoperatively. PT/OT consults and sessions appreciated. Patient was scheduled to see this author in outpatient office today 12/29. As patient continues inpatient and is accepted back to rehab today 12/29, we will cancel patient's outpatient appt and obtain xrays while in hospital tomorrow morning. We will keep patient's week 2 appt as scheduled. Please contact Ortho with any questions or concerns. ECF continuity initiated with postoperative instructions. 12/28: POD#9 Patient seen at bedside - now in orthopedic unit. Patient's friend at bedside. Patient again much improved from yesterday. Patient noted to have knee immobilizer in place to right knee. Left knee drawn toward chest. Patient c/o of left quad pain - severely worsened with hip and knee extension. Patient admits to very large bowel movement today with dramatically improved abd discomfort. Incision intact. Dressing with scant drainage, no increase from previous day noted. No calf tenderness, erythema or warmth noted. Scattered ecchymosis noted to posterior leg. With coaching patient able to extend left leg though c/o excruciating cramping pain to b/l anterior thighs with laying flat or straightening both legs. No gross deformity noted to left leg either. No calf tenderness. Left anterior knee incisional scar intact with no skin disruption noted. No tenderness to palpation left leg. ROM intact hip, knee, and ankle. Sensation intact distally b/l. Labwork, vitals, and medications reviewed. D/w patient's nurse - change Opsite today. Encouraged sparing use of opioids secondary to patient's constipation. Stool softener to aid in improvement. Patient requesting change in diet - nurse states she has contacted hospitalist re: this patient concern. Ofirmev and Tizanidine encouraged as primary for pain relief. Knee immobilizer at all times - remove for therapy only to prevent flexion contracture as patient continues to draw knees to chest. Will plan to resume nighttime only use tomorrow. PT/OT consults and sessions appreciated. Patient was scheduled to see this author in outpatient office tomorrow, 12/29. As patient continues inpatient and is accepted back to rehab tomorrow, 12/29, we will cancel patient's outpatient appt for tomorrow, remove patient's carmen boris orrow, and obtain xrays while in hospital tomorrow morning. We will keep patient's week 2 appt as scheduled. Will continue to follow while inpatient. 12/27: POD#8 Patient seen at bedside - patient continues in ICU. Grandson at bedside. Much improved from 12/26. Patient noted to have knees pulled to chest and c/o excruciating pain with extension of b/l knees. Incision intact. Dressing with scant drainage, no increase from previous day noted. No calf tenderness, erythema or warmth noted. Scattered ecchymosis noted to posterior leg. With coaching patient able to nearly extend right leg though c/o excruciating cramping pain to b/l anterior thighs. Labwork, vitals, and medications reviewed. D/w patient's nurse - patient has no pain medications ordered. Meds ordered - encouraged sparing use of opioids secondary to patient's constipation. Stool softener to aid in improvement and liquid diet. Ofirmev and Tizanidine encouraged as primary for pain relief. Knee immobilizer at all times - remove for therapy only to prevent flexion contracture as patient continues to draw knees to chest. PT/OT consults placed Will continue to follow. History: Mr. Asher is a 78 year old male s/p Right robotic-assisted Total knee replacement 12/19/18 for knee arthritis by Dr. Amaya. Patient was discharged to [facility] for rehabilitation postoperatively on 12/24/18 in stable condition. Patient presented today to ED from [facility] for evaluation of per family multiple syncopal episodes. Patient is now POD#7 s/p total knee. He is seen in ICU with his friend, son, and grandson at bedside. On exam, patient appears pale, nonicteric, alert and oriented. He states he is doing well with regard to his knee and demonstrates motion appx 0-100 degrees with ease. Ecchymosis noted to RLE scattered, no focal collection noted. No palpable fluid collection noted. Incision is c/d/i with scant old bloody drainage noted along incision line. Honeycomb opsite noted to be intact with no disruption. No effusion noted to knee. Mild swelling noted as expected at 7 days postoperative of total joint. No calf tenderness to palpation bilaterally. Ankle ROM intact bilaterally. Neurovascularly intact with sensation intact bilaterally. CT scan reviewed: CT/CT LE RT w con IMPRESSION: 1. No significant complication identified status post right total knee arthroplasty. 2. No focal hematoma or evidence of active bleeding. D/ / 12/26/2018 08:56:26 Ronnie Bell MD / alfredo Patient noted to have dramatic blood loss on review of labwork from 12/24 to today with presenting hemoglobin on 5.3 Patient is being managed by hospitalist and ICU teams. Case reviewed with Dr. Amaya. At this point there is very low likelihood that the patient's rapid blood loss is from the knee as he has no drainage from knee incision. GI consult noted. Once medically stable, patient will need to participate with therapy services to give patient optimal outcome from joint replacement surgery. Encourage EPCD application bilateral feet to aid in DVT prophylaxis and encourage adequate PO intake and hydration as well as incentive spirometry use. Thank you for this consultation. We will continue to follow.
--- NOTE | 2018-12-29 16:08 | Electrocardiograph Report ---
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
--- NOTE | 2018-12-29 16:33 | Electrocardiograph Report ---
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
== END 2018-12-29 15:55 | DRG 378 ==
LOC: EMEROOARM 04:39 → 2NNU 07:01 → ICNU 09:51 → UNDODISIN 11:00 → ICNU 11:00 → 3NENU 12-27 15:49
PROVIDERS: ADMIT Internal Medicine; ATTEND Internal Medicine
PROC: ENDOERT (2018-12-26 13:00)

== ENCOUNTER 2019-01-27 08:45 | Inpatient (IN) ==
--- NOTE | 2019-01-27 09:07 | Emergency Department Note ---
Disposition Clinical Impression: Elevated d-dimer Syncope Qualifiers: Syncope type: unspecified Qualified Code(s): R55 - Syncope and collapse Disposition: Admitted As Inpatient Condition: Undetermined Time of Disposition: 13:40 General Adult HPI - General Chief complaint: ED Syncope Stated complaint: syncopal episode Time Seen by Provider: 01/27/19 08:48 Source: patient, family (daughter) Mode of arrival: EMS Limitations: no limitations Nursing Notes Reviewed: Yes Vital Signs Reviewed: Yes - History of Present Illness HPI Narrative: Patient is a 78-year-old male with a past medical history including chronic kidney disease, hypertension, coronary artery disease with 3 stent placements, no longer on Plavix, hemorrhagic gastric ulcerations, presenting with chief complaint of a syncopal event. The patient was evaluated in on January 04 as he was found to be hypotensive and lightheaded at his rehabilitation center. He had a right knee replacement and middle of December. At that time, he was evaluated in [facility] emergency department. He had stood up quickly and felt lightheaded when he ambulated. He was likely vasovagal. He returned back to the rehabilitation center. He states he has been doing well with rehabilitation. Today, he was sitting at breakfast when he all of a sudden felt lightheaded, had tunnel vision and felt nauseous. Staff tried to bring him to a another chair and he lost consciousness for less than 30 seconds. When he woke up, he had 2 episodes of nonbilious nonbloody emesis. He was initially confused but he remembered feeling lightheaded prior to the event. He denies any chest pain, shortness of breath, cough, fevers or chills, abdominal pain. He states he feels at his baseline at this time. - Related Data Home Medications Medication Instructions Recorded Confirmed Aspirin 81 mg PO DAILY 04/24/17 01/27/19 Docusate Sodium [Move It Along] 100 mg PO BID 12/26/18 01/27/19 Rosuvastatin [Crestor] 40 mg PO DAILY 12/26/18 01/27/19 Acetaminophen [Tylenol] 500 mg PO Q6HR PRN 01/20/19 01/27/19 Oxycodone HCl [Roxybond] 5 mg PO BID PRN 01/20/19 01/27/19 HYDROcodone/Acet 5/325 mg [[place] 1 tab PO Q6H 01/27/19 01/27/19 5-325 mg] Tizanidine HCl [Zanaflex] 2 mg PO QID PRN 01/27/19 01/27/19 Previous Rx's Medication Instructions Recorded Metoprolol XL (24 HR) Succ [Toprol 25 mg PO DAILY #30 tab.er.24h 04/26/17 Xl] Nitroglycerin 0.4 mg SL Q5MIN PRN #10 tab.subl 04/26/17 Cholecalciferol (D-3) [Vitamin D] 1,000 unit PO DAILY tablet 12/29/18 Lidocaine Patch [Lidoderm 5% patch] 1 each TP DAILY adh..patch 12/29/18 Pantoprazole Sodium [Protonix] 40 mg PO BID #60 tablet.dr 12/29/18 Polyethylene Glycol 3350 [MiraLAX] 17 gm PO BID powd.pack 12/29/18 Sucralfate [Carafate] 1 gm PO QIDAC 30 Days #120 tablet 12/29/18 Allergies Allergy/AdvReac Type Severity Reaction Status Date / Time Penicillins AdvReac Hives Verified 12/26/18 04:49 All systems ED: reviewed and negative except as stated. Review of Systems: As Per HPI Constitutional: Denies: fever, chills Eyes: Denies: vision change ENT ED: Denies: congestion Cardiovascular: Reports: syncope. Denies: chest pain, palpitations Respiratory: Denies: cough, dyspnea Gastrointestinal: Denies: abdominal pain, nausea, vomiting Musculoskeletal: Denies: back pain, neck pain Neurological: Denies: headache, weakness, numbness, paresthesias Past Medical History - Past Medical History Attestation: Yes The following information was validated with the patient. Source: patient, obtained from family Medical history: Reports: coronary artery disease, hyperlipidemia, myocardial infarction Surgical history: Reports: knee replacement (Right on 12/19/18), other Psychiatric history: Reports: no psych history - Social History Smoking Status: Never smoker Smokeless Tobacco Status: No Alcohol use: Reports: none Drug use: Reports: none Physical Exam - General Limitations: no limitations General appearance: alert, in no apparent distress - Head Head exam: atraumatic, normocephalic - Eye Eye exam: Present: normal appearance, PERRL, EOMI - ENT ENT exam: normal exam, normal oropharynx - Neck Neck exam: Present: normal inspection, trachea midline - Chest Chest inspection: Present: normal inspection, symmetric chest wall rise - Respiratory Respiratory exam: Present: normal lung sounds bilaterally. Absent: respiratory distress, wheezes - Cardiovascular Cardiovascular exam: Present: regular rate, normal rhythm, normal heart sounds - Abdominal Exam Abdominal exam: Present: soft, Non-Tender. Absent: distention - Extremities Exam Extremities exam: Present: normal capillary refill, other (Right knee in knee immobilizer). Absent: pedal edema, calf tenderness - Neurological Exam Neurological exam: Present: alert, oriented X3, CN II-XII intact. Absent: motor sensory deficit - Expanded Neurological Exam Speech: Present: fluid speech Cerebellar function: finger to nose: Normal Motor strength - LUE: 5/5 Motor strength - RUE: 5/5 Motor strength - LLE: 5/5 Motor strength - RLE: 5/5 Upper motor neuron exam: santhosh neglect: Absent bilaterally, pronator drift: Absent bilaterally Sensory exam upper extremity: light touch: Normal Sensory exam lower extremity: light touch: Normal - Psychiatric Psychiatric exam: Present: normal affect, normal mood - Skin Skin exam: Present: warm, dry. Absent: diaphoresis, pallor Course Vital Signs Temperature 97.6 F 01/27/19 08:57 Pulse Rate 61 01/27/19 08:57 Respiratory Rate 16 01/27/19 08:57 Blood Pressure 109/78 01/27/19 08:57 O2 Sat by Pulse Oximetry 97 01/27/19 08:57 Temperature 97.6 F 01/27/19 08:57 Pulse Rate 67 01/27/19 13:21 Respiratory Rate 17 01/27/19 13:21 Blood Pressure 101/87 01/27/19 13:21 O2 Sat by Pulse Oximetry 97 01/27/19 13:21 Oxygen Delivery Oxygen Delivery Room Air Medical Decision Making - [facility] Narrative Medical decision making narrative: Patient is presenting with a syncopal event at rest. He is no longer on his Plavix. Vitals are within normal limits, he is afebrile. Nonfocal neurologic examination. Heart is regular without murmurs. We will obtain EKG, CBC, BMP, troponin, chest x-ray, d-dimer to further evaluate his syncopal event. Minimal liter bolus IV fluids. He did not hit his head. He is in no acute distress at this time. He will likely require admission for a syncopal event of unclear etiology. 12:55 Patient's troponin <0.03. D-dimer was elevated so the patient received a CTA of his chest. This was negative for pulmonary embolism. D-dimer is likely elevated secondary to his recent right knee replacement surgery. Patient will be admitted for his syncopal event for further admission. Hospitalist has been paged. The patient does have paperwork at work stating that he is DNR DNI however he states he wants to change this to full code. 13:35 Discussed with Hospitalist, Dr. Foster, who accepts admission. - Medical Records Medical records reviewed: Yes I reviewed the patient's medical records. - Lab Data Lab results reviewed: Yes I reviewed the patient's lab results. Result diagrams: 01/27/19 09:20 01/27/19 09:20 Lab Results 01/27/19 01/27/19 01/27/19 Range/Units 09:20 09:20 09:20 WBC 8.3 (4.3-11.1) K/mcL RBC 4.18 L (4.19-5.50) M/mcL Hgb 12.0 L (12.9-16.9) g/dL Hct 38.2 (37.5-50.1) % MCV 91.4 (83.0-100.0) fL MCH 28.7 (28.0-33.3) pg MCHC 31.4 L (31.6-35.5) g/dL RDW 14.7 H (11.5-14.5) % Plt Count 191 (140-400) K/mcL MPV 10.4 (9.4-12.4) fL Immature Gran % 0.4 (0-4) % Seg Neutrophils % 75.7 % Lymphocytes % 14.9 % Monocytes % 7.1 % Eosinophils % 1.5 % Basophils % 0.4 % Neutrophils # 6.3 (1.6-8.9) K/mcL Lymphocytes # 1.2 (0.6-4.6) K/mcL Monocytes # 0.6 (0.0-1.3) K/mcL Eosinophils # 0.1 (0.0-0.6) K/mcL Basophils # 0.0 (0.0-0.2) K/mcL PT 12.0 (9.4-12.1) Seconds INR 1.1 APTT 29.5 (26.0-36.0) Seconds D-Dimer 1690 H (0-500) ng/mLFEU Sodium 140 (136-145) mEq/L Potassium 4.1 (3.5-5.1) mEq/L Chloride 102 (98-107) mEq/L Carbon Dioxide 28 (23-29) mEq/L BUN 16 (8-23) mg/dL Creatinine 1.08 (0.70-1.30) mg/dL Est GFR ( Amer) > 60 (> 60) Est GFR (Non-Af Amer) > 60 (> 60) BUN/Creatinine Ratio 15 (6-26) Glucose 99 (70-105) mg/dL Calculated Osmolality 291 (280-300) Calcium 9.1 (8.6-10.3) mg/dL Troponin I < 0.03 (< 0.04) ng/mL - Radiology Data Radiology results reviewed: Yes I reviewed the patient's radiology results. Chest X-Ray 01/27/19 00:00 IMPRESSION: No evidence of acute cardiopulmonary disease. D/ / Juanjose Correa MD / Juanjose Correa MD Interpreting Provider: Juanjose Correa MD Chest CTA 01/27/19 10:46 IMPRESSION: No evidence of pulmonary embolism or acute pulmonary abnormality. D/ / 01/27/2019 12:47:54 Melvin Ramos MD / [facility] Interpreting Provider: Melvin Ramos MD - EKG Data EKG #1 EKG attestation: Yes I reviewed and interpreted this EKG. EKG results narrative: EKG obtained at 859 shows sinus rhythm with heart rate 59, MT interval 141, QRS duration 114, QTc 457, no ST elevation or depression, T-wave inversion in V2 and V3, compared to old EKG from 01/04/2019 which shows no new changes. Attestation Statement - Attestation Attestation: I, Pilo Douglas, examined this patient and my medical decision-making was reviewed with the MINING CAPTAIN/PA/Advanced Practice Nurse/Resident Physician. I agree with the documented findings, disposition and treatment plan as described except to the extent set forth below. 78-year-old male presents emergency Department with concerns of syncopal episode. Patient was sitting at breakfast in his rehabilitation facility when he suddenly became lightheaded and became unconscious. Bystanders reported seizure-like activity. Patient was confused upon waking. He did not have loss of control of bowel and bladder. Patient is now awake alert and answering questions appropriately. Family states that this has occurred multiple times in the past 2 weeks. Patient was evaluated for similar symptoms 2 weeks ago however at that time it occurred after exertion and was thought to be related to vasovagal syncope. Today the patient was not exerting himself prior to the event. D-dimer was elevated however CTA of the chest did not show evidence of acute PE. Laboratory evaluation did not show other significant abnormality.I reviewed the EKG with the resident and agree with the interpretation. Patient will be admitted to the hospitalist for further care and evaluation.
[2019-01-27] MEDS ORDERED: 0.9 % Sodium Chloride 1,000 ML IVC ONE (09:42)
[2019-01-27 09:44] LABS: Basophils % 0.4 %; Eosinophils # 0.1 K/mcL (0.0-0.6); Eosinophils % 1.5 %; Hematocrit 38.2 % (37.5-50.1); Immature Granulocytes % 0.4 % (0-4); Lymphocytes # 1.2 K/mcL (0.6-4.6); Lymphocytes % 14.9 %; Mean Corpuscular HGB Conc 31.4 g/dL (31.6-35.5); Mean Corpuscular Hemoglobin 28.7 pg (28.0-33.3); Mean Corpuscular Volume 91.4 fL (83.0-100.0); Mean Platelet Volume 10.4 fL (9.4-12.4); Monocytes # 0.6 K/mcL (0.0-1.3); Monocytes % 7.1 %; Neutrophils # 6.3 K/mcL (1.6-8.9); Platelet Count 191 K/mcL (140-400); Red Blood Count 4.18 M/mcL (4.19-5.50); Red Cell Distribution Width 14.7 % (11.5-14.5); Segmented Neutrophils % 75.7 %; White Blood Count 8.3 K/mcL (4.3-11.1)
[2019-01-27 09:54] LABS: INR 1.1
[2019-01-27 09:57] LABS: Activated Partial Thrombo Time 29.5 Seconds (26.0-36.0)
[2019-01-27] MEDS ORDERED: Isovue-370 500 ML BOTTLE IVP ONE (10:46)
[2019-01-27] MEDS ORDERED: *HR* HYDROcodone/Acet 5/325 mg TABLET PO ONE (11:02)
[2019-01-27 11:28] LABS: BUN/Creatinine Ratio 15 (6-26); Blood Urea Nitrogen 16 mg/dL (8-23); Calcium 9.1 mg/dL (8.6-10.3); Carbon Dioxide 28 mEq/L (23-29); Chloride 102 mEq/L (98-107); Glucose 99 mg/dL (70-105); Osmolality,Calculated 291 (280-300); Potassium 4.1 mEq/L (3.5-5.1); Sodium 140 mEq/L (136-145); Troponin I < 0.03 ng/mL (< 0.04); eGFR For African Americans > 60 (> 60); eGFR For Non-African Americans > 60 (> 60)
--- NOTE | 2019-01-27 12:52 | Electrocardiograph Report ---
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
--- NOTE | 2019-01-27 19:02 | Internal Med History&Physical ---
Date of Encounter: 01/27/19 Time of Encounter: 19:00 Internal Medicine - H&P: HPI Chief complaint: syncope History of present illness: Mr. Asher is a 78 year old male with a past medical history including chronic kidney disease, hypertension, coronary artery disease with 3 stent placements, no longer on Plavix, hemorrhagic gastric ulcerations, presenting to the ER with an episode of syncope. The patient stated that he has a sudden episode of loss of consciousness while eating breakfast. To that episode he felt lightheaded and was nauseated, she delivered at bedside stated that the episode was witnessed by one of the staff at the rehabilitation center and they believe that the patient might have seizure. The patient was confused for a while after he regained consciousness and he had two episodes of nonbloody vomiting. the patient was evaluated by the ER staff and CAT scan of the head revealed no significant abnormalities. laboratory data was suggestive of elevatedd-dimer however CTA of the chest was negative for pulmonary embolism. Reviewing the patient's records revealed that he was evaluated by the cardiology team recently for brief episodes of PAF with RVR in the 120s. Patient had been on beta richard name but his record he was considered a poor candidate for long-term anticoagulation due to the history of recent acute blood loss anemia and transfusions. The patient was admitted for further evaluation and management. Past Med Surg Social Fam HX - Past Medical History Medical history: atrial fibrillation, coronary artery disease, hyperlipidemia, myocardial infarction Additional medical history: stents x 3 Psychiatric history: no psych history - Past Surgical History Surgical History: knee replacement (Right on 12/19/18), other Additional surgical history: bilateral knee replacement. colonoscopy. PCI - Social History Smoking Status: Never smoker Smokeless Tobacco Status: No Alcohol use: none Drug use: none - Family History Mother Family Member Ethnicity: Non- Living Status: Hx Family Neurologic Disorders: Yes (Alzheimer's disease) Father Adopted: No Family Member Ethnicity: Non- Living Status: Hx Family Cardiac Disorders: Yes (CAD) Brother Adopted: No Family Member Ethnicity: Non- Living Status: Hx Family Cardiac Disorders: Yes (ME) Hx Family Respiratory Disorders: No Hx Family Cancer: No Hx Family GI Disorders: No Hx Family Endocrine Disorder: No Hx Family Neuromuscular Disorders: No Hx Family Neurologic Disorders: No Hx Family HEENT Disorders: No Hx Family Autoimmune Disorders: No Internal Medicine - H&P: Meds Aspirin 81 mg PO DAILY 04/24/17 [History] Metoprolol XL (24 HR) Succ [Toprol Xl] 25 mg PO DAILY #30 tab.er.24h 04/26/17 [Rx] Nitroglycerin 0.4 mg SL Q5MIN PRN #10 tab.subl 04/26/17 [Rx] Docusate Sodium [Move It Along] 100 mg PO BID 12/26/18 [History] Rosuvastatin [Crestor] 40 mg PO DAILY 12/26/18 [History] Cholecalciferol (D-3) [Vitamin D] 1,000 unit PO DAILY tablet 12/29/18 [Rx] Lidocaine Patch [Lidoderm 5% patch] 1 each TP DAILY adh..patch 12/29/18 [Rx] Pantoprazole Sodium [Protonix] 40 mg PO BID #60 tablet.dr 12/29/18 [Rx] Polyethylene Glycol 3350 [MiraLAX] 17 gm PO BID powd.pack 12/29/18 [Rx] Acetaminophen [Tylenol] 500 mg PO Q6HR PRN 01/20/19 [History] Tizanidine HCl [Zanaflex] 2 mg PO QID PRN 01/27/19 [History] Sucralfate [Carafate] 1 gm PO QID 01/28/19 [History] Ciprofloxacin [Cipro] 500 mg PO BID #11 tablet 01/30/19 [Rx] HYDROcodone/Acet 5/325 mg [[place] 5-325 mg] 1 tab PO Q6H PRN 1 Days #4 tablet 01/30/19 [Rx] Oxycodone HCl [Roxybond] 5 mg PO BID PRN 1 Days #2 tablet.orl 01/30/19 [Rx] Allergy/AdvReac Type Severity Reaction Status Date / Time Penicillins AdvReac Hives Verified 12/26/18 04:49 All Systems PM: A 10-system review of systems was performed and is negative for pertinent findings except as documented above in the HPI. - Constitutional Vitals: Temp Pulse Resp BP Pulse Ox 98.2 F 65 18 142/88 97 01/27/19 18:56 01/27/19 18:56 01/27/19 18:56 01/27/19 18:56 01/27/19 18:56 Exam: Gen.: No acute distress. AAOx3 HEENT: Normocephalic, atraumatic Cardiac: RRR, no murmur, +S1/S2 Pulmonary: CTA bilaterally, no wheezes, rales or rhonchi, equal chest expansion Abdomen: soft, nontender, Bowel sounds noted, no guarding Extremities: no BLE edema, Neuro: A&Ox3, no focal deficits Psych: Appropriate mood and behavior Internal Med - H&P Results - Labs CBC & Chem 7: 01/30/19 03:46 01/28/19 01:37 Labs: Short CBC 01/27/19 Range/Units 09:20 WBC 8.3 (4.3-11.1) K/mcL Hgb 12.0 L (12.9-16.9) g/dL Hct 38.2 (37.5-50.1) % Plt Count 191 (140-400) K/mcL Neutrophils # 6.3 (1.6-8.9) K/mcL BMP 01/27/19 09:20 Sodium 140 Potassium 4.1 Chloride 102 Carbon Dioxide 28 BUN 16 Creatinine 1.08 Glucose 99 Calcium 9.1 Cardiac Enzymes 01/27/19 Range/Units 09:20 Troponin I < 0.03 (< 0.04) ng/mL - Impressions ITS Impressions Chest X-Ray 01/27/19 00:00 IMPRESSION: No evidence of acute cardiopulmonary disease. D/ / Juanjose Correa MD / Juanjose Correa MD Interpreting Provider: Juanjose Correa MD Chest CTA 01/27/19 10:46 IMPRESSION: No evidence of pulmonary embolism or acute pulmonary abnormality. D/ / 01/27/2019 12:47:54 [facility] Interpreting Provider: Melvin Ramos MD - Assessment and Plan (1) Syncope Status: Acute Assessment and plan: Syncope DD *vasovagal episode *TIA *Arrhythmia *Seizure PLAN: - Telemetry - Cardiac enzymes x 2 q 8hr - EKG now and in AM - 2D Echo - Carotid duplex - EEG Qualifiers: Syncope type: unspecified Qualified Code(s): R55 - Syncope and collapse (2) Ischemic cardiomyopathy Status: Acute Assessment and plan: We will cont. home meds. (3) Peptic ulcer disease Status: Acute Assessment and plan: We will cont home PPIs (4) Status post total right knee replacement Status: Acute (5) CAD (coronary artery disease) Status: Chronic Assessment and plan: we will continue home medications Qualifiers: Coronary Disease-Associated Artery/Lesion type: [place] artery [place] vs. transplanted heart: [place] heart Associated angina: without angina Qualified Code(s): I25.10 - Atherosclerotic heart disease of [place] coronary artery witho ut angina pectoris (6) CKD (chronic kidney disease) stage 3, GFR 30-59 ml/min Status: Chronic Assessment and plan: creatinine at baseline, we'll continue to monitor renal function , and dosing of medication as the current EGFR. (7) HLD (hyperlipidemia) Status: Chronic Assessment and plan: we'll continue simvastatin and obtain fasting lipid profile in a.m. Qualifiers: Hyperlipidemia type: pure hypercholesterolemia Qualified Code(s): E78.00 - Pure hypercholesterolemia, unspecified; E78.0 - Pure hypercholesterolemia (8) HTN (hypertension) Status: Chronic Assessment and plan: Will continue antihypertensive regimen ,continue to monitor blood pressure while inpatient and adjust regimen accordingly Qualifiers: Hypertension type: essential hypertension Qualified Code(s): I10 - Essential (primary) hypertension (9) Paroxysmal atrial fibrillation Status: Acute Assessment and plan: Reviewing the patient's records revealed that he was evaluated by the cardiology team recently for brief episodes of PAF with RVR in the 120s. Patient had been on beta richard name but his record he was considered a poor candidate for long-term anticoagulation due to the history of recent acute blood loss anemia and transfusions. We will place the patient on telemetry, obtain echo cardiogram. - Time Spent With Patient Total time spent is greater than 50% in coordination of care (as documented) at patient's floor/unit and/or counseling patient:
[2019-01-27] MEDS ORDERED: Naloxone 0.4 MG/ML INJ IVP PRN (19:34)
[2019-01-27] MEDS ORDERED: Ondansetron 4 MG/2 ML VIAL IVP PRN (19:34)
[2019-01-27] MEDS ORDERED: *HR* OxyCODONE Immed Rel 5 MG TABLET PO PRN (19:37)
[2019-01-27] MEDS ORDERED: tiZANidine 4 MG TABLET PO PRN (19:37)
[2019-01-27] MEDS ORDERED: Nitroglycerin 0.4 MG TAB.SUBL SL PRN (19:37)
[2019-01-27] MEDS: *HR* HYDROcodone/Acet 5/325 mg TABLET PO SCH (20:34)
[2019-01-27] MEDS: Sucralfate 1 GM TABLET PO SCH (21:58)
[2019-01-27 23:43] LABS: Bilirubin,Urine Negative (Negative); Blood,Urine Negative (Negative); Clarity,Urine Cloudy (Clear); Color,Urine Yellow (Yellow); Glucose,Urine (UA) Normal (Normal); Ketones,Urine Negative (Negative); Leukocyte Esterase,Urine Moderate (Negative); Nitrite,Urine Negative (Negative); Protein,Urine Negative (Neg-Trace); Specific Gravity,Urine > 1.030 (1.010-1.025); Urobilinogen,Urine Normal (Normal)
[2019-01-27 23:47] LABS: Bacteria,Urine Many per hpf (None-Few); Hyaline Casts,Urine None Seen per lpf (None-Few); RBC,Urine 0-3 per hpf (0-3); Squamous Epithelial Cell,Urine None Seen per lpf (None-Few); WBC,Urine 50-100 per hpf (0-3)
[2019-01-28] MEDS ORDERED: *HR* HYDROcodone/Acet 5/325 mg TABLET PO PRN (00:01)
[2019-01-28 02:01] LABS: Basophils # 0.1 K/mcL (0.0-0.2); Basophils % 0.8 %; Eosinophils # 0.1 K/mcL (0.0-0.6); Hematocrit 34.2 % (37.5-50.1); Hemoglobin 10.7 g/dL (12.9-16.9); Immature Granulocytes % 0.3 % (0-4); Lymphocytes # 1.4 K/mcL (0.6-4.6); Mean Corpuscular HGB Conc 31.3 g/dL (31.6-35.5); Mean Corpuscular Hemoglobin 28.8 pg (28.0-33.3); Mean Corpuscular Volume 92.2 fL (83.0-100.0); Mean Platelet Volume 10.6 fL (9.4-12.4); Monocytes # 0.6 K/mcL (0.0-1.3); Monocytes % 8.6 %; Neutrophils # 4.4 K/mcL (1.6-8.9); Platelet Count 174 K/mcL (140-400); Red Blood Count 3.71 M/mcL (4.19-5.50); Red Cell Distribution Width 14.6 % (11.5-14.5); Segmented Neutrophils % 67.3 %; White Blood Count 6.5 K/mcL (4.3-11.1)
[2019-01-28 02:10] LABS: INR 1.1; Prothrombin Time 12.4 Seconds (9.4-12.1)
[2019-01-28 02:12] LABS: Activated Partial Thrombo Time 30.7 Seconds (26.0-36.0)
[2019-01-28 02:23] LABS: Alanine Aminotransferase 21 Units/L (7-52); Albumin 3.5 g/dL (3.5-5.7); Albumin/Globulin Ratio 1.8 (1.1-2.2); Alkaline Phosphatase 78 Units/L (34-104); Aspartate Amino Transferase 23 Units/L (13-39); BUN/Creatinine Ratio 17 (6-26); Bilirubin,Total 0.5 mg/dL (0.3-1.0); Blood Urea Nitrogen 16 mg/dL (8-23); Calcium 8.8 mg/dL (8.6-10.3); Carbon Dioxide 26 mEq/L (23-29); Chloride 105 mEq/L (98-107); Cholesterol 89 mg/dL (< 200); Globulin 1.9 g/dL (2.4-3.5); Glucose 88 mg/dL (70-105); HDL Cholesterol 44 mg/dL (40-59); LDL Cholesterol,Calculated 31 mg/dL (0-99); Osmolality,Calculated 285 (280-300); Phosphorous 3.2 mg/dL (2.7-4.5); Potassium 3.9 mEq/L (3.5-5.1); Sodium 137 mEq/L (136-145); Total Protein 5.4 g/dL (6.4-8.9); Triglycerides 69 mg/dL (< 150); eGFR For African Americans > 60 (> 60); eGFR For Non-African Americans > 60 (> 60)
[2019-01-28] MEDS: *HR* HYDROcodone/Acet 5/325 mg TABLET PO SCH (02:30)
[2019-01-28] MEDS ORDERED: *HR* OxyCODONE Immed Rel 5 MG TABLET PO PRN (07:45)
[2019-01-28] MEDS: Cholecalciferol (D-3) 1,000 UNIT (25MCG) TABLET PO SCH (07:58)
[2019-01-28] MEDS: Sucralfate 1 GM TABLET PO SCH ×4 (07:59→21:15)
[2019-01-28] MEDS: Metoprolol XL (24 HR) Succ 25 MG TAB.ER.24H PO SCH (07:59)
[2019-01-28] MEDS: Aspirin 81 MG TAB.CHEW PO SCH (07:59)
--- NOTE | 2019-01-28 08:00 | Internal Med Progress Note ---
<Helen Winters - Last Filed: 01/28/19 14:11> Hospitalist Progress Note - Encounter Date of Encounter: 01/28/19 Time of Encounter: 10:24 - Subjective Interval History: Patient seen and examined at bedside he is resting comfortably in bed in no acute distress. He denies any other episodes of feeling like passing outdoor syncope. He denies chest pain, shortness of breath, headache, change in vision. He only complains that he felt like no one cared about him in the hospital until now. - Exam Vitals: Temp Pulse Resp BP Pulse Ox 97.9 F 65 20 123/69 98 01/28/19 06:42 01/28/19 06:42 01/28/19 06:42 01/28/19 06:42 01/28/19 06:42 Exam: Gen.: Vitals noted. No acute distress. AAOx3 HEENT: oropharynx clear, Normocephalic, atraumatic Cardiac: RRR, no murmur, +S1/S2 Pulmonary: CTA bilaterally, no wheezes, rales or rhonchi, equal chest expansion Abdomen: soft, nontender, Bowel sounds noted, no guarding Extremities: no BLE edema, nontender calf, no cyanosis or clubbing Neuro: A&Ox3, moves all extremities, no focal deficits Psych: Appropriate mood and behavior - Assessment and Plan (1) Syncope Current Visit: Yes Status: Acute Assessment and Plan: Patient has syncopal episode at rehab facility. Patient had walked 200 feet then sat down in a chair for breakfast became dizzy and lightheaded after 5 minutes and then passed out. Afterwards he was slightly confused and nauseous than vomited. No history of seizures. -Diagnosis is unclear at this time however this is most likely either arrhythmia in the setting of known a fib, orthostatic hypotension, or vasovagal. Unlikely to be seizure due to the initial prodromal symptoms leading up to syncope and he has no history of seizure. ACS, stroke ruled out. -Risk factors: MD, CAD, HFrEF, A.fib. -Head CTA negative for acute intracranial abnormality -chest x-ray negative -D dimer 1690, troponin negative x3 -EKG RRR, no ST or T wave changes indicating ischemia Plan -awaiting results of carotid ultrasound, echocardiogram, EEG, orthostatic pressures -continue fall precautions -continue cardiac telemetry -Sammy clark ordered -PT/OT ordered -the patient will need to follow up with his [facility] operator outpatient. (2) Status post total right knee replacement Current Visit: No Status: Acute Assessment and Plan: s/p total right knee replacement by Dr. Amaya 12/2018 -continue pain main management regimen of oxycodone, hydrocodone, tizanidine (3) Paroxysmal atrial fibrillation Current Visit: Yes Status: Acute Assessment and Plan: History of newly diagnosed paroxysmal a fib during last admission. Patient to not tolerate anticoagulation due to G.I. bleed so cardiology deemed him not a good candidate for anticoagulation. He is rate controlled with Toprol 25 daily. -Rate controlled currently -Continue Toprol (4) Anemia Current Visit: No Status: Acute Assessment and Plan: Normocytic Anemia. Hemoglobin at admission 12. Baseline hemoglobin is 13. -hemoglobin 10.7 -this is most likely dilutional as all cell lineages had decreased -no obvious active bleeding Plan -will recheck hemoglobin tomorrow morning. Will continue monitor for bleeding. (5) Peptic ulcer disease Current Visit: No Status: Acute Assessment and Plan: History of G.I. bleed and peptic ulcer disease. Previous EGD showing duodenal ulcers. -Continue omeprazole 20 b.i.d. (6) HTN (hypertension) Current Visit: No Status: Chronic Assessment and Plan: History of hypertension taking Toprol -blood pressure controlled -continue Toprol (7) CAD (coronary artery disease) Current Visit: No Status: Chronic Assessment and Plan: History of coronary artery disease taking aspirin, Crestor, Toprol -continue home medications (8) UTI (urinary tract infection) Current Visit: Yes Status: Acute Assessment and Plan: Urinalysis is concerning for UTI. The patient is asymptomatic, however there is a foul smell of urine in the room. -U/A: positive leukocyte esterase, WBC 50 to 100. No squamous cells Plan: urine culture ordered will await results. If positive then will treat. DVT Prophylaxis: Heparin SQ - Time Spent with Patient Total time spent is greater than 50% in coordination of care (as documented) at patient's floor/unit and/or counseling patient: Internal Medicine: Result - Labs CBC & Chem 7: 01/28/19 01:37 01/28/19 01:37 Labs: Short CBC 01/27/19 01/28/19 Range/Units 09:20 01:37 WBC 8.3 6.5 (4.3-11.1) K/mcL Hgb 12.0 L 10.7 L (12.9-16.9) g/dL Hct 38.2 34.2 L (37.5-50.1) % Plt Count 191 174 (140-400) K/mcL Neutrophils # 6.3 4.4 (1.6-8.9) K/mcL BMP 01/27/19 01/28/19 09:20 01:37 Sodium 140 137 Potassium 4.1 3.9 Chloride 102 105 Carbon Dioxide 28 26 BUN 16 16 Creatinine 1.08 0.96 Glucose 99 88 Calcium 9.1 8.8 Cardiac Enzymes 01/27/19 01/27/19 01/28/19 Range/Units 09:20 20:11 01:37 Troponin I < 0.03 < 0.03 < 0.03 (< 0.04) ng/mL Liver Function 01/28/19 Range/Units 01:37 Total Bilirubin 0.5 (0.3-1.0) mg/dL AST 23 (13-39) Units/L ALT 21 (7-52) Units/L Alkaline Phosphatase 78 (34-104) Units/L Albumin 3.5 (3.5-5.7) g/dL Urine 01/27/19 Range/Units 23:19 Urine Color Yellow (Yellow) Urine Clarity Cloudy A (Clear) Urine pH 6.0 (5.0-8.0) pH Units Ur Specific [place] > 1.030 H (1.010-1.025) Urine Protein Negative (Neg-Trace) mg/dL Urine Glucose (UA) Normal (Normal) mg/dL - ABG Interpretation ABG results: PT/INR, D-dimer PT 12.4 Seconds (9.4-12.1) H 01/28/19 01:37 D-Dimer 1690 ng/mLFEU (0-500) H 01/27/19 09:20 - Impressions Impressions Chest X-Ray 01/27/19 00:00 IMPRESSION: No evidence of acute cardiopulmonary disease. D/ / Juanjose Correa MD / Juanjose Correa MD Interpreting Provider: Juanjose Correa MD Chest CTA 01/27/19 10:46 IMPRESSION: No evidence of pulmonary embolism or acute pulmonary abnormality. D/ / 01/27/2019 12:47:54 Melvin Ramos MD / abeba Interpreting Provider: Melvin Ramos MD Consult Discharge Plan - Plan Referrals: Mirtha Vieira, GENERAL INTERN [Primary Care Provider] - <Pebbles Steel - Last Filed: 01/28/19 15:53> Hospitalist Progress Note - Encounter Date of Encounter: 01/28/19 - Exam Vitals: Temp Pulse Resp BP Pulse Ox 97.7 F 68 18 181/75 98 01/28/19 15:23 01/28/19 15:23 01/28/19 15:23 01/28/19 15:39 01/28/19 15:23 - Assessment and Plan (1) Status post total right knee replacement Current Visit: No Status: Acute (2) CAD (coronary artery disease) Current Visit: No Status: Chronic (3) HTN (hypertension) Current Visit: No Status: Chronic (4) Syncope Current Visit: Yes Status: Acute (5) Anemia Current Visit: No Status: Acute (6) Peptic ulcer disease Current Visit: No Status: Acute (7) Paroxysmal atrial fibrillation Current Visit: Yes Status: Acute (8) UTI (urinary tract infection) Current Visit: Yes Status: Acute - Time Spent with Patient Total time spent is greater than 50% in coordination of care (as documented) at patient's floor/unit and/or counseling patient: Internal Medicine: Result - Labs CBC & Chem 7: 01/28/19 01:37 01/28/19 01:37 Labs: Short CBC 01/28/19 Range/Units 01:37 WBC 6.5 (4.3-11.1) K/mcL Hgb 10.7 L (12.9-16.9) g/dL Hct 34.2 L (37.5-50.1) % Plt Count 174 (140-400) K/mcL Neutrophils # 4.4 (1.6-8.9) K/mcL BMP 01/28/19 01:37 Sodium 137 Potassium 3.9 Chloride 105 Carbon Dioxide 26 BUN 16 Creatinine 0.96 Glucose 88 Calcium 8.8 Cardiac Enzymes 01/27/19 01/28/19 01/28/19 Range/Units 20:11 01:37 08:16 Troponin I < 0.03 < 0.03 < 0.03 (< 0.04) ng/mL Liver Function 01/28/19 Range/Units 01:37 Total Bilirubin 0.5 (0.3-1.0) mg/dL AST 23 (13-39) Units/L ALT 21 (7-52) Units/L Alkaline Phosphatase 78 (34-104) Units/L Albumin 3.5 (3.5-5.7) g/dL Urine 01/27/19 01/28/19 Range/Units 23:19 08:30 Urine Color Yellow Yellow (Yellow) Urine Clarity Cloudy A Cloudy A (Clear) Urine pH 6.0 7.5 (5.0-8.0) pH Units Ur Specific [place] > 1.030 H 1.015 (1.010-1.025) Urine Protein Negative Negative (Neg-Trace) mg/dL Urine Glucose (UA) Normal Normal (Normal) mg/dL - ABG Interpretation ABG results: PT/INR, D-dimer PT 12.4 Seconds (9.4-12.1) H 01/28/19 01:37 D-Dimer 1690 ng/mLFEU (0-500) H 01/27/19 09:20 - Attending Attestation I examined this patient and my medical decision-making was reviewed with the Resident Physician Dr Winters. I agree with the documented findings, disposition and treatment plan as described except to the extent set forth below. Mr Asher is observed for syncope awake, right knee pain, no dizziness, lightheadedness, cp, or palpitations. gen- alert, awake,appears stated age cv- reg rate and rhythm, normal s1,s2, no murmurs appreciated, no pitting le edema lungs- ctabl neuro- AAOx3, CN grossly intact, strength in RLE reduced by pain with rom/movement, however there are no focal strength deficits otherwise and sensation to light touch is intact throughout syncope, recurrent-cont tele, appreciate neuro recs, MRI/A head/neck, echo and eeg pending, seizure and fall precautions -follows with Dr Lopez outpt for cards and will need to see him upon dc pAfib, currently NSR- cont tel eand marrhythmia monitoring, BB, NOT on AC due to severe GIB last month Recent Right Knee repair- pt/ot/sw and will likely dispo back to his rehab facility __ <Helen Winters - Last Filed: 01/28/19 14:11> (1) Syncope Qualifiers: Syncope type: unspecified Qualified Code(s): R55 - Syncope and collapse (4) Anemia Qualifiers: Anemia type: unspecified type Qualified Code(s): D64.9 - Anemia, unspecified (6) HTN (hypertension) Qualifiers: Hypertension type: essential hypertension Qualified Code(s): I10 - Essential (primary) hypertension (7) CAD (coronary artery disease) Qualifiers: Coronary Disease-Associated Artery/Lesion type: [place] artery [place] vs. transplanted heart: [place] heart Associated angina: without angina Qualified Code(s): I25.10 - Atherosclerotic heart disease of [place] coronary artery without angina pectoris <Pebbles Steel - Last Filed: 01/28/19 15:53> (2) CAD (coronary artery disease) Qualifiers: Coronary Disease-Associated Artery/Lesion type: [place] artery [place] vs. transplanted heart: [place] heart Associated angina: without angina Qualified Code(s): I25.10 - Atherosclerotic heart disease of [place] coronary artery wit hout angina pectoris (3) HTN (hypertension) Qualifiers: Hypertension type: essential hypertension Qualified Code(s): I10 - Essential (primary) hypertension (4) Syncope Qualifiers: Syncope type: unspecified Qualified Code(s): R55 - Syncope and collapse (5) Anemia Qualifiers: Anemia type: unspecified type Qualified Code(s): D64.9 - Anemia, unspecified
[2019-01-28 08:41] LABS: Bilirubin,Urine Negative (Negative); Blood,Urine Negative (Negative); Clarity,Urine Cloudy (Clear); Color,Urine Yellow (Yellow); Glucose,Urine (UA) Normal (Normal); Ketones,Urine Negative (Negative); Leukocyte Esterase,Urine Small (Negative); Nitrite,Urine Negative (Negative); PH,Urine 7.5 pH Units (5.0-8.0); Protein,Urine Negative (Neg-Trace); Specific Gravity,Urine 1.015 (1.010-1.025); Urobilinogen,Urine Normal (Normal)
[2019-01-28 08:42] LABS: Bacteria,Urine Many per hpf (None-Few); Hyaline Casts,Urine None Seen per lpf (None-Few); RBC,Urine 0-3 per hpf (0-3); Squamous Epithelial Cell,Urine Few per lpf (None-Few); WBC,Urine 15-30 per hpf (0-3)
--- NOTE | 2019-01-28 13:57 | Neurology - Consult Note ---
Date of Encounter: 01/28/19 Time of Encounter: 13:53 Assessment and Plan (1) Syncope Current Visit: Yes Status: Acute My assessment is that this patient may have experienced an episode of convulsive syncope. However he has a very significant history of coronary artery disease and past myocardial infarctions. His most recent echocardiogram revealed an ejection fraction of 45%. This was completed in December of this year. I really suspect that this was either secondary to orthostasis which would be more likely in the face of a low ejection fraction, or perhaps a vasovagal event. I will however entertained the possibility of vertebral basilar insufficiency, and seizure. I would therefore like to obtain an MRI scan of the brain/MRA/EEG. Further recommendations will be made pending the outcomes of these tests. I am not convinced that a tilt table test is necessary. Qualifiers: Syncope type: unspecified Qualified Code(s): R55 - Syncope and collapse History of Present Illness HPI: The chart was reviewed, the patient was seen and examined. Mr. Asher is a 78 year old male who has a prior history of ischemic heart disease hemorrhagic gastric ulcers atrial fibrillation 3 coronary artery stents chronic kidney disease and recent right knee replacement completed around December 19. Patient's daughter is present who corroborates pertinent details. According to her he began having episodes of "passing out" after the knee surgery. Apparently he lost a tremendous amount of blood after the surgery is my understanding that this was due to bleeding gastric ulcers. However yesterday while in rehabilitation for the right knee he felt "dizzy while he was sitting." The nurses came over to escorted him to another location any apparently briefly lost consciousness. One of the nurses felt like it may have been a seizure. However the duration of the event is unknown. Apparently he was diaphoretic and made grunting noises. His daughter states that he was confused for 3 hours following the event. Apparently some of the episodes have been associated with low blood pressure. I did review a previous echocardiogram completed in December of this year which revealed an ejection fraction of 45%. He also sees cardiology on an outpatient basis. Apparently his anticoagulation has been discontinued because of the gastric bleeding. He has not ever had an MRI or an EEG. Past Med Surg Social Fam HX - Past Medical History Medical history: atrial fibrillation, coronary artery disease, hyperlipidemia, myocardial infarction Additional medical history: stents x 3 Psychiatric history: no psych history - Past Surgical History Surgical History: knee replacement (Right on 12/19/18), other Additional surgical history: bilateral knee replacement. colonoscopy. PCI - Social History Smoking Status: Never smoker Smokeless Tobacco Status: No Alcohol use: none Drug use: none - Family History Mother Family Member Ethnicity: Non- Living Status: Hx Family Neurologic Disorders: Yes (Alzheimer's disease) Father Adopted: No Family Member Ethnicity: Non- Living Status: Hx Family Cardiac Disorders: Yes (CAD) Brother Adopted: No Family Member Ethnicity: Non- Living Status: Hx Family Cardiac Disorders: Yes ([place]) Hx Family Respiratory Disorders: No Hx Family Cancer: No Hx Family GI Disorders: No Hx Family Endocrine Disorder: No Hx Family Neuromuscular Disorders: No Hx Family Neurologic Disorders: No Hx Family HEENT Disorders: No Hx Family Autoimmune Disorders: No Medications and Allergies Aspirin 81 mg PO DAILY 04/24/17 [History] Metoprolol XL (24 HR) Succ [Toprol Xl] 25 mg PO DAILY #30 tab.er.24h 04/26/17 [Rx] Nitroglycerin 0.4 mg SL Q5MIN PRN #10 tab.subl 04/26/17 [Rx] Docusate Sodium [Move It Along] 100 mg PO BID 12/26/18 [History] Rosuvastatin [Crestor] 40 mg PO DAILY 12/26/18 [History] Cholecalciferol (D-3) [Vitamin D] 1,000 unit PO DAILY tablet 12/29/18 [Rx] Lidocaine Patch [Lidoderm 5% patch] 1 each TP DAILY adh..patch 12/29/18 [Rx] Pantoprazole Sodium [Protonix] 40 mg PO BID #60 tablet.dr 12/29/18 [Rx] Polyethylene Glycol 3350 [MiraLAX] 17 gm PO BID powd.pack 12/29/18 [Rx] Acetaminophen [Tylenol] 500 mg PO Q6HR PRN 01/20/19 [History] Oxycodone HCl [Roxybond] 5 mg PO BID PRN 01/20/19 [History] HYDROcodone/Acet 5/325 mg [[place] 5-325 mg] 1 tab PO Q6H 01/27/19 [History] Tizanidine HCl [Zanaflex] 2 mg PO QID PRN 01/27/19 [History] Allergy/AdvReac Type Severity Reaction Status Date / Time Penicillins AdvReac Hives Verified 12/26/18 04:49 All Systems: The remainder of the systems were reviewed and are negative Review of Systems: The balance of the systems review is negative. Physical Examination - Vital Signs Vital Signs: Initial Vital Signs Temp Pulse Resp BP Pulse Ox 97.6 F 61 16 109/78 97 01/27/19 08:57 01/27/19 08:57 01/27/19 08:57 01/27/19 08:57 01/27/19 08:57 - Exam Exam: General Examination: *CONSTITUTIONAL: normal *GENERAL APPEARANCE OF PATIENT appears healthy and well groomed *EYES: pupils equal, round, reactive to light and accommodation, conjunctiva clear without masses or ulcerations, fundi normal. *CARDIOVASCULAR no peripheral edema, distal temperature normal, dorsalis pedis pulses normal. Refer to vital signs Musculoskeletal: *GAIT AND STATION patient is wearing a right knee brace, he is however able to walk using his walker *ASSESSMENT OF MUSCLE STRENGTH IN THE UPPER AND LOWER EXTREMITIES - patient has normal strength bulk and tone of both upper extremities. He has normal strength bulk and tone of the left lower extremity. He has a brace on the right knee. He has normal strength of the right hip flexors he has normal strength of the right tibialis anterior and gastrocs. *MUSCLE TONE IN THE UPPER AND LOWER EXTREMITIES normal. No abnormal movements, fasciculations or atrophy identified. Neurological: *ORIENTATION to time and place *RECURRENT AND REMOTE MEMORY are somewhat impaired. *ATTENTION AND CONCENTRATION are normal *LANGUAGE FUNCTION no significant aphasia or dysarthia was noted. *FUND OF KNOWLEDGE patient had some difficulty giving a proper history of the events leading up to his admission. His daughter has to help with this. *MENTAL attention span and concentration normal. *CN II optic fundi were normal, no papilledema noted. *CN III,IV, PERRLA extraocular eye movements were full, no nystagmus and no ptosis noted. *CN V shows normal sensation and jaw opens symmetrically. *CN VII shows normal facial movement symmetrically, upper and lower bilaterally. *CN VIII shows no significant hearing loss on examination in the office. *CN IX,,X palate elevated symmetrically and normal gag reflex was noted. *CN XI normal strength in the sternocleidomastoid muscles, symmetrical shoulder shrugging. *CN XII tongue protruded in the midline, with normal strength and movement. *SENSORY EXAMINATION pinprick sensation intact, and light touch(vibration sense). *REFLEXES: deep tendon reflexes were normal and symmetrical , grade 2/4 diffusely, no pathological reflexes were noted. I was unable to assess the rig ht patellar reflex. *CEREBELLAR TESTING normal finger to nose. *PAIN LEVEL 0 Results - Laboratory Findings CBC and BMP: 01/28/19 01:37 01/28/19 01:37 Abnormal lab findings: Abnormal lab results RBC 3.71 M/mcL (4.19-5.50) L 01/28/19 01:37 Hgb 10.7 g/dL (12.9-16.9) L 01/28/19 01:37 Hct 34.2 % (37.5-50.1) L 01/28/19 01:37 MCHC 31.3 g/dL (31.6-35.5) L 01/28/19 01:37 RDW 14.6 % (11.5-14.5) H 01/28/19 01:37 PT 12.4 Seconds (9.4-12.1) H 01/28/19 01:37 D-Dimer 1690 ng/mLFEU (0-500) H 01/27/19 09:20 Serum Total Protein 5.4 g/dL (6.4-8.9) L 01/28/19 01:37 Globulin 1.9 g/dL (2.4-3.5) L 01/28/19 01:37 Urine Clarity Cloudy (Clear) A 01/28/19 08:30 Ur Specific [place] > 1.030 (1.010-1.025) H 01/27/19 23:19 Ur Leukocyte Esterase Small (Negative) H 01/28/19 08:30 Urine Microscopic WBC 15-30 per hpf (0-3) H 01/28/19 08:30 Urine Bacteria Many per hpf (None-Few) H 01/28/19 08:30 Ur Culture Indicated? YES (NO) A 01/28/19 08:30 Consult Discharge Plan - Plan Referrals: Mirtha Vieira, HEALTH SERVICES MANAGER [Primary Care Provider] -
[2019-01-28] MEDS: *HR* Heparin 5,000 UNIT/ML VIAL SQ SCH ×2 (13:59→21:18)
[2019-01-28] MEDS: *HR* HYDROcodone/Acet 5/325 mg TABLET PO PRN ×2 (14:29→21:15)
[2019-01-29 04:28] LABS: Basophils % 0.6 %; Eosinophils # 0.2 K/mcL (0.0-0.6); Eosinophils % 2.6 %; Hematocrit 34.6 % (37.5-50.1); Hemoglobin 10.9 g/dL (12.9-16.9); Immature Granulocytes % 0.2 % (0-4); Lymphocytes # 1.7 K/mcL (0.6-4.6); Lymphocytes % 26.1 %; Mean Corpuscular HGB Conc 31.5 g/dL (31.6-35.5); Mean Corpuscular Hemoglobin 28.3 pg (28.0-33.3); Mean Corpuscular Volume 89.9 fL (83.0-100.0); Mean Platelet Volume 10.5 fL (9.4-12.4); Monocytes # 0.6 K/mcL (0.0-1.3); Monocytes % 8.3 %; Neutrophils # 4.1 K/mcL (1.6-8.9); Platelet Count 172 K/mcL (140-400); Red Blood Count 3.85 M/mcL (4.19-5.50); Red Cell Distribution Width 14.6 % (11.5-14.5); Segmented Neutrophils % 62.2 %; White Blood Count 6.6 K/mcL (4.3-11.1)
[2019-01-29] MEDS: *HR* HYDROcodone/Acet 5/325 mg TABLET PO PRN ×2 (05:23→21:17)
[2019-01-29] MEDS: *HR* Heparin 5,000 UNIT/ML VIAL SQ SCH ×3 (05:24→21:05)
--- NOTE | 2019-01-29 08:05 | Internal Med Progress Note ---
<Pebbles Steel - Last Filed: 01/29/19 12:26> Hospitalist Progress Note - Encounter Date of Encounter: 01/29/19 - Exam Vitals: Temp Pulse Resp BP Pulse Ox 97.9 F 62 16 105/64 98 01/29/19 11:19 01/29/19 11:19 01/29/19 11:19 01/29/19 11:19 01/29/19 11:19 - Assessment and Plan (1) Status post total right knee replacement Current Visit: No Status: Acute (2) CAD (coronary artery disease) Current Visit: No Status: Chronic (3) HTN (hypertension) Current Visit: No Status: Chronic (4) Syncope Current Visit: Yes Status: Acute (5) Anemia Current Visit: No Status: Acute (6) Peptic ulcer disease Current Visit: No Status: Acute (7) Paroxysmal atrial fibrillation Current Visit: Yes Status: Acute (8) UTI (urinary tract infection) Current Visit: Yes Status: Acute - Time Spent with Patient Total time spent is greater than 50% in coordination of care (as documented) at patient's floor/unit and/or counseling patient: Internal Medicine: Result - Labs CBC & Chem 7: 01/29/19 03:59 01/28/19 01:37 Labs: Short CBC 01/29/19 Range/Units 03:59 WBC 6.6 (4.3-11.1) K/mcL Hgb 10.9 L (12.9-16.9) g/dL Hct 34.6 L (37.5-50.1) % Plt Count 172 (140-400) K/mcL Neutrophils # 4.1 (1.6-8.9) K/mcL - ABG Interpretation ABG results: PT/INR, D-dimer PT 12.4 Seconds (9.4-12.1) H 01/28/19 01:37 D-Dimer 1690 ng/mLFEU (0-500) H 01/27/19 09:20 - Impressions Impressions Head MRA 01/28/19 14:08 IMPRESSION: No infarct. No flow limiting stenosis or branch occlusion detected within the head or neck. D/ / Fidel Garcia MD / Fidel Garcia MD Interpreting Provider: Fidel Garcia MD Neck MRA 01/28/19 14:08 IMPRESSION: No infarct. No flow limiting stenosis or branch occlusion detected within the head or neck. D/ / Fidel Garcia MD / Fidel Garcia MD Interpreting Provider: Fidel Garcia MD Brain MRI 01/28/19 14:09 IMPRESSION: No infarct. No flow limiting stenosis or branch occlusion detected within the head or neck. D/ / Fidel Garcia MD / Fidel Garcia MD Interpreting Provider: Fidel Garcia MD Echocardiogram Limited Views 01/29/19 07:58 Impressions: LVEF 45%. Mild regional LV systolic dysfunction with hypo/akinesis involving the mid distal anteroseptum and apex. Recommend repeating study with Definity for improved imaging of the apex. Normal right ventricular structure and function. Consider full Echo for better evaluation of syncope. No prior echo for comparison. Left Ventricular Wall Motion: Rest Echo Findings The apex, apical septal, apical lateral and mid anterior septal hill were hypokinetic. All other wall segments showed normal motion. Findings: Study Quality * Technically adequate exam. ECG Findings * Normal sinus rhythm. Left Ventricle * LVEF 45%. * LV chamber size and wall thickness are normal. Right Ventricle * Normal right ventricular structure and function. Aorta * Normally sized aortic root. Pericardium * There is no pericardial effusion present. Consult Discharge Plan - Plan Referrals: Mirtha Vieira, NET DEVELOPER CONSULTANT [Primary Care Provider] - - Attending Attestation I examined this patient and my medical decision-making was reviewed with the Resident Physician Dr Winters. I agree with the documented findings, disposition and treatment plan as described except to the extent set forth below. Mr Asher is observed for syncope awake, knee pain is improved, denies dizziness, lightheadedness, cp, or palpitations. overall feeling back to baseline today. relieved by MRI results being normal. gen- alert, awake,appears stated age cv- reg rate and rhythm, no pitting le edema lungs- ctabl,norm resp effort on room air neuro- AAOx3, CN grossly intact syncope, recurrent-he is absolutely refusing to wear tele, MRI/A unremarkable, EEG, CUS and echo reads are pending , appreciate neuro recs -follows with Dr Lopez outpt for cards and will need to see him upon dc, will consult inpt if echo abnormal pAfib, currently NSR- he wont't wer tele, cont BB, NOT on AC due to severe GIB last month Recent Right Knee repair- pt/ot/sw and will likely dispo back to his rehab facility UTI suspected, >100K CFUs - ua implied infection and given his presentation and being male- this will be treated as UTI with abx, will follow sensitivities <Helen Winters - Last Filed: 01/29/19 14:14> Hospitalist Progress Note - Encounter Date of Encounter: 01/29/19 Time of Encounter: 08:30 - Subjective Interval History: Patient seen examined at bedside he was alert and oriented times 3 distress. H is daughter is present. He denies any weakness, syncope, headache, change in vision. He has no complaints. He is happy that MRI results were negative for stroke. He is looking for to being discharged back to rehab soon. - Exam Vitals: Temp Pulse Resp BP Pulse Ox 98.1 F 71 16 112/62 95 01/29/19 07:12 01/29/19 07:12 01/29/19 07:12 01/29/19 07:12 01/29/19 07:12 Exam: Gen.: Vitals noted. No acute distress. AAOx3 HEENT: oropharynx clear, Normocephalic, atraumatic Cardiac: RRR, no murmur, +S1/S2 Pulmonary: CTA bilaterally, no wheezes, rales or rhonchi, equal chest expansion Abdomen: soft, nontender, Bowel sounds noted, no guarding Extremities: no BLE edema, nontender calf, no cyanosis or clubbing Neuro: A&Ox3, moves all extremities, no focal deficits Psych: Appropriate mood and behavior - Assessment and Plan (1) Syncope Current Visit: Yes Status: Acute Assessment and Plan: Patient has syncopal episode at rehab facility. Patient had walked 200 feet then sat down in a chair for breakfast became dizzy and lightheaded after 5 minutes and then passed out. Afterwards he was slightly confused and nauseous than vomited. No history of seizures. -Diagnosis is unclear at this time however this is most likely either arrhythmia in the setting of known a fib, orthostatic hypotension, or vasovagal. Unlikely to be seizure due to the initial prodromal symptoms leading up to syncope and he has no history of seizure. ACS, stroke ruled out. -Risk factors: [place], CAD, HFrEF, A.fib. -Head CTA negative for acute intracranial abnormality -chest x-ray negative -D dimer 1690, troponin negative x3 -EKG RRR, no ST or T wave changes indicating ischemia -01/21/2019 limited TTE: EF 45%, hypo/Akinesis involving the mid-distal anteroseptum and apex. Recommend repeat study with Definity for improved imaging of [place]. -He has positive orthostatic blood pressures. Standing BP 138/69, laying down BP 181/75 Plan -repeat echocardiogram with enhancement -continue fall precautions -cardiac telemetry is ordered but the patient is refusing it -Sammy clark ordered -PT/OT ordered -the patient will need to follow up with his bench chemist outpatient. (2) Status post total right knee replacement Current Visit: No Status: Acute Assessment and Plan: s/p total right knee replacement by Dr. Amaya 12/2018 -continue pain main management regimen of oxycodone, hydrocodone, tizanidine (3) Paroxysmal atrial fibrillation Current Visit: Yes Status: Acute Assessment and Plan: History of newly diagnosed paroxysmal a fib during last admission. Patient to not tolerate anticoagulation due to G.I. bleed so cardiology deemed him not a good candidate for anticoagulation. He is rate controlled with Toprol 25 daily. -Rate controlled currently -Continue Toprol (4) UTI (urinary tract infection) Current Visit: Yes Status: Acute Assessment and Plan: Urinalysis is concerning for UTI. The patient is asymptomatic, however there is a foul smell of urine in the room. -U/A: positive leukocyte esterase, WBC 50 to 100. No squamous cells -urine culture growing GNR Plan: -with urine culture now growing GNR will treat with ciprofloxacin since he has an allergy to penicillin and will await the urine culture sensitivity (5) Anemia Current Visit: No Status: Acute Assessment and Plan: Normocytic Anemia. Hemoglobin at admission 12. Baseline hemoglobin is 13. -hemoglobin 10.9 increased -this is most likely dilutional as all cell lineages had decreased -no obvious active bleeding Plan -stable and increased -will recheck hemoglobin tomorrow morning. Will continue monitor for bleeding. (6) Peptic ulcer disease Current Visit: No Status: Acute Assessment and Plan: History of G.I. bleed and peptic ulcer disease. Previous EGD showing duodenal ulcers. -Continue omeprazole 20 b.i.d. (7) HTN (hypertension) Current Visit: No Status: Chronic Assessment and Plan: History of hypertension taking Toprol -blood pressure controlled -continue Toprol (8) CAD (coronary artery disease) Current Visit: No Status: Chronic Assessment and Plan: History of coronary artery disease taking aspirin, Crestor, Toprol -continue home medications DVT Prophylaxis: Heparin SQ - Time Spent with Patient Total time spent is greater than 50% in coordination of care (as documented) at patient's floor/unit and/or counseling patient: Internal Medicine: Result - Labs CBC & Chem 7: 01/29/19 03:59 01/28/19 01:37 Labs: Short CBC 01/29/19 Range/Units 03:59 WBC 6.6 (4.3-11.1) K/mcL Hgb 10.9 L (12.9-16.9) g/dL Hct 34.6 L (37.5-50.1) % Plt Count 172 (140-400) K/mcL Neutrophils # 4.1 (1.6-8.9) K/mcL Cardiac Enzymes 01/28/19 Range/Units 08:16 Troponin I < 0.03 (< 0.04) ng/mL Urine 01/28/19 Range/Units 08:30 Urine Color Yellow (Yellow) Urine Clarity Cloudy A (Clear) Urine pH 7.5 (5.0-8.0) pH Units Ur Specific [place] 1.015 (1.010-1.025) Urine Protein Negative (Neg-Trace) mg/dL Urine Glucose (UA) Normal (Normal) mg/dL - ABG Interpretation ABG results: PT/INR, D-dimer PT 12.4 Seconds (9.4-12.1) H 01/28/19 01:37 D-Dimer 1690 ng/mLFEU (0-500) H 01/27/19 09:20 - Impressions Impressions Head MRA 01/28/19 14:08 IMPRESSION: No infarct. No flow limiting stenosis or branch occlusion detected within the head or neck. D/ / Fidel Garcia MD / Fidel Garcia MD Interpreting Provider: Fidel Garcia MD Neck MRA 01/28/19 14:08 IMPRESSION: No infarct. No flow limiting stenosis or branch occlusion detected within the head or neck. D/ / Fidel Garcia MD / Fidel Garcia MD Interpreting Provider: Fidel Garcia MD Brain MRI 01/28/19 14:09 IMPRESSION: No infarct. No flow limiting stenosis or branch occlusion detected within the head or neck. D/ / Fidel Garcia MD / Fidel Garcia MD Interpreting Provider: Fidel Garcia MD <Pebbles Steel - Last Filed: 01/29/19 12:26> (2) CAD (coronary artery disease) Qualifiers: Coronary Disease-Associated Artery/Lesion type: teller artery [place] vs. transplanted heart: teller heart Associated angina: without angina Qualified Code(s): I25.10 - Atherosclerotic heart disease of teller coronary artery without angina pectoris (3) HTN (hypertension) Qualifiers: Hypertension type: essential hypertension Qualified Code(s): I10 - Essential (primary) hypertension (4) Syncope Qualifiers: Syncope type: unspecified Qualified Code(s): R55 - Syncope and collapse (5) Anemia Qualifiers: Anemia type: unspecified type Qualified Code(s): D64.9 - Anemia, unspecified <Helen Winters - Last Filed: 01/29/19 14:14> (1) Syncope Qualifiers: Syncope type: unspecified Qualified Code(s): R55 - Syncope and collapse (5) Anemia Qualifiers: Anemia type: unspecified type Qualified Code(s): D64.9 - Anemia, unspecified (7) HTN (hypertension) Qualifiers: Hypertension type: essential hypertension Qualified Code(s): I10 - Essential (primary) hypertension (8) CAD (coronary artery disease) Qualifiers: Coronary Disease-Associated Artery/Lesion type: teller artery [place] vs. transplanted heart: teller heart Associated angina: without angina Qualified Code(s): I25.10 - Atherosclerotic heart disease of teller coronary artery without angina pectoris
[2019-01-29] MEDS: Metoprolol XL (24 HR) Succ 25 MG TAB.ER.24H PO SCH (08:21)
[2019-01-29] MEDS: Aspirin 81 MG TAB.CHEW PO SCH (08:23)
[2019-01-29] MEDS: Cholecalciferol (D-3) 1,000 UNIT (25MCG) TABLET PO SCH (08:23)
[2019-01-29] MEDS: Sucralfate 1 GM TABLET PO SCH ×4 (08:23→21:05)
--- NOTE | 2019-01-29 12:52 | EEG/EMG/Oth Biometrics Report ---
EEG Procedure Report Date of procedure: 01/29/19 EEG Procedure: Routine EEG Procedure Note: This is a report of a 21 channel bipolar and referential montage EEG. A posterior dominant rhythm of 10-12 Hz moderate voltage alpha frequencies identified symmetrically in the posterior head regions. This rhythm attenuates symmetrically with eye opening. Hyperventilation is not performed in recording. Periods of drowsiness are identified as reference by dropout of posterior dominant rhythm and emergence of mixed theta and delta frequencies anteriorly. The subject does not approach stage II sleep. Photic stimulations performed and produces a symmetric driving response. The EKG rhythm strip appears to be a ventricular rhythm with low voltage at 56 bpm. Impressions this EEG recording is within normal limits. There is no evidence of epileptiform activity identified during the study. Comment: The EKG rhythm strip reveals a bradycardic rate at 56 bpm appears to be a ventricular rhythm of low voltage. Please correlate clinically.
--- NOTE | 2019-01-29 13:26 | Neurology Progress Note ---
Date of Encounter: 01/29/19 Time of Encounter: 13:23 Assessment and Plan (1) Syncope Current Visit: Yes Status: Acute As stated previously I am highly suspicious of cardiogenic syncope with subsequent convulsions. Neurologic workup is completely negative. EEG reveals no evidence of seizure activity. Patient is stable for discharge from a neurologic perspective and will resume rehabilitation therapy for the knee. 25 minutes was spent with the patient today with greater than 50% of that time being spent in [id number] contact which consisted of counseling and coordinating care. We will reevaluate at your request. Qualifiers: Syncope type: unspecified Qualified Code(s): R55 - Syncope and collapse Subjective Interval history: Chart was reviewed, patient was seen and examined. Patient had an uneventful night. Multiple family members are present at the bedside. The MRI scan of the brain, MRA of the brain, and MRA of the neck were all negative. EEG was normal without any evidence of seizure activity. However the EKG strip was abnormal revealing low voltage with a rate of 56 bpm. Multiple Questions were answered at the bedside today. Objective - Constitutional Vitals: Temp Pulse Resp BP Pulse Ox 97.9 F 62 16 105/64 98 01/29/19 11:19 01/29/19 11:19 01/29/19 11:19 01/29/19 11:19 01/29/19 11:19 Exam: Exam: General Examination: *CONSTITUTIONAL: normal *GENERAL APPEARANCE OF PATIENT appears healthy and well groomed *EYES: pupils equal, round, reactive to light and accommodation, conjunctiva clear without masses or ulcerations, fundi normal. *CARDIOVASCULAR no peripheral edema, distal temperature normal, dorsalis pedis pulses normal. Refer to vital signs Musculoskeletal: *GAIT AND STATION patient is wearing a right knee brace, he is however able to walk using his walker *ASSESSMENT OF MUSCLE STRENGTH IN THE UPPER AND LOWER EXTREMITIES - patient has normal strength bulk and tone of both upper extremities. He has normal strength bulk and tone of the left lower extremity. He has a brace on the right knee. He has normal strength of the right hip flexors he has normal strength of the right tibialis anterior and gastrocs. *MUSCLE TONE IN THE UPPER AND LOWER EXTREMITIES normal. No abnormal movements, fasciculations or atrophy identified. Neurological: *ORIENTATION to time and place *RECURRENT AND REMOTE MEMORY are somewhat impaired. *ATTENTION AND CONCENTRATION are normal *LANGUAGE FUNCTION no significant aphasia or dysarthia was noted. *FUND OF KNOWLEDGE patient had some difficulty giving a proper history of the events leading up to his admission. His daughter has to help with this. *MENTAL attention span and concentration normal. *CN II optic fundi were normal, no papilledema noted. *CN III,IV, PERRLA extraocular eye movements were full, no nystagmus and no ptosis noted. *CN V shows normal sensation and jaw opens symmetrically. *CN VII shows normal facial movement symmetrically, upper and lower sona aterally. *CN VIII shows no significant hearing loss on examination in the office. *CN IX,,X palate elevated symmetrically and normal gag reflex was noted. *CN XI normal strength in the sternocleidomastoid muscles, symmetrical shoulder shrugging. *CN XII tongue protruded in the midline, with normal strength and movement. *SENSORY EXAMINATION pinprick sensation intact, and light touch(vibration sense). *REFLEXES: deep tendon reflexes were normal and symmetrical , grade 2/4 diffusely, no pathological reflexes were noted. I was unable to assess the right patellar reflex. *CEREBELLAR TESTING normal finger to nose. *PAIN LEVEL 0 Results - Laboratory Findings CBC and BMP: 01/29/19 03:59 01/28/19 01:37 Abnormal lab findings: Abnormal lab results RBC 3.85 M/mcL (4.19-5.50) L 01/29/19 03:59 Hgb 10.9 g/dL (12.9-16.9) L 01/29/19 03:59 Hct 34.6 % (37.5-50.1) L 01/29/19 03:59 MCHC 31.5 g/dL (31.6-35.5) L 01/29/19 03:59 RDW 14.6 % (11.5-14.5) H 01/29/19 03:59 PT 12.4 Seconds (9.4-12.1) H 01/28/19 01:37 D-Dimer 1690 ng/mLFEU (0-500) H 01/27/19 09:20 Serum Total Protein 5.4 g/dL (6.4-8.9) L 01/28/19 01:37 Globulin 1.9 g/dL (2.4-3.5) L 01/28/19 01:37 Urine Clarity Cloudy (Clear) A 01/28/19 08:30 Ur Specific [place] > 1.030 (1.010-1.025) H 01/27/19 23:19 Ur Leukocyte Esterase Small (Negative) H 01/28/19 08:30 Urine Microscopic WBC 15-30 per hpf (0-3) H 01/28/19 08:30 Urine Bacteria Many per hpf (None-Few) H 01/28/19 08:30 Ur Culture Indicated? YES (NO) A 01/28/19 08:30 Consult Discharge Plan - Plan Referrals: Mirtha Vieira, LITIGATION SPECIALIST [Primary Care Provider] -
[2019-01-30 04:18] LABS: Hematocrit 35.5 % (37.5-50.1); Hemoglobin 11.3 g/dL (12.9-16.9); Mean Corpuscular HGB Conc 31.8 g/dL (31.6-35.5); Mean Corpuscular Hemoglobin 29.3 pg (28.0-33.3); Mean Platelet Volume 10.6 fL (9.4-12.4); Platelet Count 167 K/mcL (140-400); Red Blood Count 3.86 M/mcL (4.19-5.50); Red Cell Distribution Width 14.4 % (11.5-14.5)
[2019-01-30] MEDS: *HR* Heparin 5,000 UNIT/ML VIAL SQ SCH ×2 (06:13→11:57)
[2019-01-30] MEDS: Metoprolol XL (24 HR) Succ 25 MG TAB.ER.24H PO SCH (07:18)
[2019-01-30] MEDS: Aspirin 81 MG TAB.CHEW PO SCH (07:18)
[2019-01-30] MEDS: Cholecalciferol (D-3) 1,000 UNIT (25MCG) TABLET PO SCH (07:18)
[2019-01-30] MEDS: Sucralfate 1 GM TABLET PO SCH ×2 (07:18→11:57)
[2019-01-30] MEDS ORDERED: Perflutren Lipid Microsphere 1.3 ML in 0.9 % Sodium Chloride 8.7 ML IVP ONE (07:58)
--- NOTE | 2019-01-30 08:41 | Internal Med Progress Note ---
Hospitalist Progress Note - Encounter Date of Encounter: 01/30/19 - Exam Vitals: Temp Pulse Resp BP Pulse Ox 97.8 F 79 16 111/68 94 01/30/19 06:59 01/30/19 06:59 01/30/19 06:59 01/30/19 07:08 01/30/19 06:59 - Time Spent with Patient Total time spent is greater than 50% in coordination of care (as documented) at patient's floor/unit and/or counseling patient: Internal Medicine: Result - Labs CBC & Chem 7: 01/30/19 03:46 01/28/19 01:37 Labs: Short CBC 01/30/19 Range/Units 03:46 WBC 6.0 (4.3-11.1) K/mcL Hgb 11.3 L (12.9-16.9) g/dL Hct 35.5 L (37.5-50.1) % Plt Count 167 (140-400) K/mcL - ABG Interpretation ABG results: PT/INR, D-dimer PT 12.4 Seconds (9.4-12.1) H 01/28/19 01:37 D-Dimer 1690 ng/mLFEU (0-500) H 01/27/19 09:20 - Impressions Impressions Echocardiogram Limited Views 01/29/19 07:58 Impressions: LVEF 45%. Mild regional LV systolic dysfunction with hypo/akinesis involving the mid distal anteroseptum and apex. Recommend repeating study with Definity for improved imaging of the apex. Normal right ventricular structure and function. Consider full Echo for better evaluation of syncope. No prior echo for comparison. Left Ventricular Wall Motion: Rest Echo Findings The apex, apical septal, apical lateral and mid anterior septal hill were hypokinetic. All other wall segments showed normal motion. Findings: Study Quality * Technically adequate exam. ECG Findings * Normal sinus rhythm. Left Ventricle * LVEF 45%. * LV chamber size and wall thickness are normal. Right Ventricle * Normal right ventricular structure and function. Aorta * Normally sized aortic root. Pericardium * There is no pericardial effusion present. Consult Discharge Plan - Plan Referrals: Mirtha Vieira INSTITUTIONAL RESEARCH COORDINATOR [Primary Care Provider] - (Appt has been requested. )
[2019-01-30 10:48] VITALS: BP 111/66
--- NOTE | 2019-01-30 13:43 | Discharge Summary ---
<Pebbles Steel - Last Filed: 01/30/19 15:21> Date of Encounter: 01/30/19 - Discharge Diagnosis (1) Status post total right knee replacement Status: Acute (2) CAD (coronary artery disease) Status: Chronic Qualifiers: Coronary Disease-Associated Artery/Lesion type: eek artery [place] vs. transplanted heart: eek heart Associated angina: without angina Qualified Code(s): I25.10 - Atherosclerotic heart disease of eek coronary artery without angina pectoris (3) HTN (hypertension) Status: Chronic Qualifiers: Hypertension type: essential hypertension Qualified Code(s): I10 - Essential (primary) hypertension (4) Syncope Status: Acute Qualifiers: Syncope type: unspecified Qualified Code(s): R55 - Syncope and collapse (5) Anemia Status: Acute Qualifiers: Anemia type: unspecified type Qualified Code(s): D64.9 - Anemia, unspecified (6) Peptic ulcer disease Status: Acute (7) Paroxysmal atrial fibrillation Status: Acute (8) UTI (urinary tract infection) Status: Acute Hospital course: Mr. Asher is a 78 year old male - Time Spent with Patient Total time spent providing and/or coordinating discharge services: - Discharge Medications Prescriptions: New Ciprofloxacin [Cipro] 500 mg PO BID #11 tablet Continued Aspirin 81 mg PO DAILY Metoprolol XL (24 HR) Succ [Toprol Xl] 25 mg PO DAILY #30 tab.er.24h Nitroglycerin 0.4 mg SL Q5MIN PRN #10 tab.subl PRN Reason: Chest Pain Docusate Sodium [Move It Along] 100 mg PO BID Rosuvastatin [Crestor] 40 mg PO DAILY Lidocaine Patch [Lidoderm 5% patch] 1 each TP DAILY adh..patch Polyethylene Glycol 3350 [MiraLAX] 17 gm PO BID powd.pack Pantoprazole Sodium [Protonix] 40 mg PO BID #60 tablet.dr Cholecalciferol (D-3) [Vitamin D] 1,000 unit PO DAILY tablet Acetaminophen [Tylenol] 500 mg PO Q6HR PRN PRN Reason: Pain Tizanidine HCl [Zanaflex] 2 mg PO QID PRN PRN Reason: Pain Sucralfate [Carafate] 1 gm PO QID HYDROcodone/Acet 5/325 mg [[place] 5-325 mg] 1 tab PO Q6H PRN 1 Days #4 tablet PRN Reason: Pain Oxycodone HCl [Roxybond] 5 mg PO BID PRN 1 Days #2 tablet.orl PRN Reason: Pain Home Medications: Aspirin 81 mg PO DAILY 04/24/17 [History] Metoprolol XL (24 HR) Succ [Toprol Xl] 25 mg PO DAILY #30 tab.er.24h 04/26/17 [Rx] Nitroglycerin 0.4 mg SL Q5MIN PRN #10 tab.subl 04/26/17 [Rx] Docusate Sodium [Move It Along] 100 mg PO BID 12/26/18 [History] Rosuvastatin [Crestor] 40 mg PO DAILY 12/26/18 [History] Cholecalciferol (D-3) [Vitamin D] 1,000 unit PO DAILY tablet 12/29/18 [Rx] Lidocaine Patch [Lidoderm 5% patch] 1 each TP DAILY adh..patch 12/29/18 [Rx] Pantoprazole Sodium [Protonix] 40 mg PO BID #60 tablet.dr 12/29/18 [Rx] Polyethylene Glycol 3350 [MiraLAX] 17 gm PO BID powd.pack 12/29/18 [Rx] Acetaminophen [Tylenol] 500 mg PO Q6HR PRN 01/20/19 [History] Tizanidine HCl [Zanaflex] 2 mg PO QID PRN 01/27/19 [History] Sucralfate [Carafate] 1 gm PO QID 01/28/19 [History] Ciprofloxacin [Cipro] 500 mg PO BID #11 tablet 01/30/19 [Rx] HYDROcodone/Acet 5/325 mg [[place] 5-325 mg] 1 tab PO Q6H PRN 1 Days #4 tablet 01/30/19 [Rx] Oxycodone HCl [Roxybond] 5 mg PO BID PRN 1 Days #2 tablet.orl 01/30/19 [Rx] Allergies/Adverse Reactions: Allergy/AdvReac Type Severity Reaction Status Date / Time Penicillins AdvReac Hives Verified 12/26/18 04:49 Date of admission: 01/29/19 14:59 Primary care physician: Mirtha Vieira CNP Consults: 01/28/19 11:32 Consult to Occupational Therapy [CONS] Routine Comment: Evaluate, develop and implement POC Reason for Consult: recent right knee replacement and poor ambulation status impairing abilities Does patient have active BEDREST order?: No Is patient medically & hemodynamically stable?: Yes Patient assessed for mobility or mobilized this visit?: Yes Consult to Physical Therapy [CONS] Routine Comment: Evaluate, develop and implement POC Reason for Consult: recent right knee repair and poor ambulation, came from rehab, using wheelchair there Does patient have active BEDREST order?: No Is patient medically & hemodynamically stable?: Yes Patient assessed for mobility or mobilized this visit?: Yes Consult to Director Of Development And Marketing [CONS] Routine Reason for SW Consult: from rehab, anticipate dc back to there when med clear 01/28/19 17:58 Consult to Interpret Exam [CONS] Routine Consulting Provider: Will Saha Consult to Interpret Exam: Interpret EEG - Constitutional Vitals: Temp Pulse Resp BP Pulse Ox 97.8 F 66 16 111/66 96 01/30/19 10:45 01/30/19 10:45 01/30/19 10:45 01/30/19 10:45 01/30/19 10:45 - Patient Status Disposition: Transfer Inpatient Rehab Fac Condition: Good - Discharge Instructions Instructions: Ciprofloxacin (By mouth), Hydrocodone/Acetaminophen (By mouth), Atrial Fibrillation (DC), Chest Pain (DC), Urinary Tract Infection in Men (DC), Syncope (DC), Anemia (GEN) Follow Up With: Maurice Amaya MD [Partnered Physician] - 01/31/19 10:00 am Mirtha Vieira CNP [Primary Care Provider] - (Appt has been requested. ) Iván Lopez MD [Non-Partnered Physician] - 03/01/19 10:00 am Additional Instructions: Please continue home medications as instructed. Please continue course of ciprofloxacin as instructed. Please continue to wear LE Hose at all times. Please follow-up with Dr. Amaya outpatient, next appointment on 01/31/19. Please follow up with Dr. Lopez for routine cardiology visits. Please return to the emergency department if you experience fevers, chills, chest pain, shortness of breath, blood in stool or urine, or any other concerning or worsening symptoms. wear le hose at all times. - Diet and Activity Activity: as per physical therapy, increase activity as tolerated - Attending Attestation I examined this patient and my medical decision-making was reviewed with the Resident Physician Dr Oh. I agree with the documented findings, disposition and treatment plan as described except to the extent set forth below. Mr Asher was observed for syncope awake, working with rehab. cont right knee pain and difficulty ambulating. denies lightheadedness, dizziness, sob, plapitations or cp. very eager for dc. dc plan discussed in detail and all questions answered. gen- alert, awake,appears stated age cv- reg rate and rhythm, no pitting le edema lungs- ctabl,norm resp effort on room air msk- right knee in brace, can ambulate slowly with walker neuro- AAOx3 syncope, recurrent-suspect orthostatic hypotnesion as previously diagnosed given he was orthostatic here, no longer on VS this morning, + UTI may have contributed we cannot definitely rule out arrhythmia as he refused tele monitoring most of his admission neurologic work up was extensive and unremarkable ECHO and CUS were unremarkable for acute changes -follows with Dr Lopez outpt for cards and will need to see him upon dc, cont to wear LE hose at all time pAfib, currently NSR- cont BB, NOT on AC due to severe GIB last month Recent Right Knee repair- pt/ot, will dispo back to rehab, Dr Amaya will see in office tomorrow 01/31/19 UTI E Aerogenes - cont cipro to complete course on dc dc to rehab in stable condition times pent on dc 40 min <Mariajose Oh - Last Filed: 01/30/19 18:17> Date of Encounter: 01/30/19 Time of Encounter: 16:31 - Discharge Diagnosis (1) Anemia Priority: Secondary Status: Acute Qualifiers: Anemia type: unspecified type Qualified Code(s): D64.9 - Anemia, unspecified (2) Paroxysmal atrial fibrillation Priority: Secondary Status: Acute (3) Peptic ulcer disease Priority: Secondary Status: Acute (4) Status post total right knee replacement Priority: Secondary Status: Acute (5) Syncope Priority: Primary Status: Acute Qualifiers: Syncope type: unspecified Qualified Code(s): R55 - Syncope and collapse (6) UTI (urinary tract infection) Priority: Secondary Status: Acute (7) CAD (coronary artery disease) Priority: Secondary Status: Chronic Qualifiers: Coronary Disease-Associated Artery/Lesion type: eek artery [place] vs. transplanted heart: eek heart Associated angina: without angina Qualified Code(s): I25.10 - Atherosclerotic heart disease of eek coronary artery without angina pectoris (8) HTN (hypertension) Priority: Secondary Status: Chronic Qualifiers: Hypertension type: essential hypertension Qualified Code(s): I10 - Essential (primary) hypertension Hospital course: Mr. Asher is a 78 year old male with significant PMH of CTAP, HTN, CAD with 3 stents (no longer on Plavix due to gastric bleeding), hemorrhagic gastric ulcerations, recent right knee surgery who presented to the ED on 01/27/19 with a syncopal episode at rehabilitation Center. In ED, patient's labs showed high d- dimer, but subsequent CT of chest was negative for pulmonary embolism. Patient was admitted for further evaluation of syncopal episode. Of note, patient has history of newly diagnosed paroxysmal atrial fibrillation during last admission, rate controlled with Toprol 25 daily. Further testing revealed, troponins negative 3, negative head CT, negative, negative EKG, negative chest x-ray. A repeat echocardiogram showed EF 4045% with wall motion abnormality. Patient follows with outpatient cardiology (Dr. Lopez) routinely for extensive cardiac history. Further imaging showed unremarkable brain MRI, unremarkable head MRA and unremarkable neck MRA. An EEG study was also conducted, it did not show evidence of epileptiform activity. Carotid duplex study showed nonstenotic plaque and right carotid system. At this time patient had a negative workup for syncopal episode and stable. Likely etiology for syncopal episode as orthostatic, which resolved at admission. No further workup at this time. Patient will follow up with cardiology outpatient. Patient discharged to an extended care facility for continuation of rehabilitation. - Time Spent with Patient Total time spent providing and/or coordinating discharge services: Date of admission: 01/29/19 14:59 Primary care physician: Mirtha Vieira CNP Consults: 01/28/19 11:32 Consult to Occupational Therapy [CONS] Routine Comment: Evaluate, develop and implement POC Reason for Consult: recent right knee replacement and poor ambulation status impairing abilities Does patient have active BEDREST order?: No Is patient medically & hemodynamically stable?: Yes Patient assessed for mobility or mobilized this visit?: Yes Consult to Physical Therapy [CONS] Routine Comment: Evaluate, develop and implement POC Reason for Consult: recent right knee repair and poor ambulation, came from rehab, using wheelchair there Does patient have active BEDREST order?: No Is patient medically & hemodynamically stable?: Yes Patient assessed for mobility or mobilized this visit?: Yes Consult to Director Of Development And Marketing [CONS] Routine Reason for SW Consult: from rehab, anticipate dc back to there when med clear 01/28/19 17:58 Consult to Interpret Exam [CONS] Routine Consulting Provider: Will Saha Consult to Interpret Exam: Interpret EEG Discharging clinician: Mariajose Oh Anticipated date of discharge: 01/30/19 - Constitutional Vitals: Temp Pulse Resp BP Pulse Ox 97.8 F 66 16 111/66 96 01/30/19 10:45 01/30/19 10:45 01/30/19 10:45 01/30/19 10:45 01/30/19 10:45 General appearance: Present: cooperative, A&O X 3, no acute distress, answers questions appropriately Exam: Gen.: Vitals noted. No acute distress. AAOx3 HEENT: oropharynx clear, Normocephalic, atraumatic Cardiac: RRR, no murmur, +S1/S2 Pulmonary: CTA bilaterally, no wheezes, rales or rhonchi, equal chest expansion Abdomen: soft, nontender, Bowel sounds noted, no guarding Extremities: no BLE edema, nontender calf, no cyanosis or clubbing Neuro: A&Ox3, moves all extremities, no focal deficits Psych: Appropriate mood and behavior - Head Head exam: Present: atraumatic, normal inspection, normocephalic - Eye Eye exam: Present: normal appearance, PERRL - ENT ENT exam: Present: mucous membranes moist, normal exam - Neck Neck exam general surgery: Present: full ROM, normal inspection - Respiratory Respiratory exam: Present: CTAB - Cardiovascular Cardiovascular exam: Present: RRR - GI/Abdominal GI/Abdominal exam: Present: normal bowel sounds, soft - Extremities Exam Extremities exam: Present: normal inspection, warm, radial pulses palpable and symmetrical - Neurological Exam Neurological exam: Present: alert, normal gait, oriented X3, no focal deficits - Psychiatric Psychiatric exam: Present: normal affect, normal mood - Skin Skin exam: Present: dry, intact, normal color - Patient Status Overall status at discharge: patient is progressing back to baseline - Diet and Activity Activity: increase activity as tolerated Diet: low fat, low cholesterol, low salt diet
--- NOTE | 2019-01-30 14:19 | Physician Discharge Referral ---
<Mariajose Oh S - Last Filed: 01/30/19 14:17> [facility] Referral Info Provider in Charge: Dr. Steel Provider in Charge after Transfer: PCP Institutional Level of Care: Skilled - Diagnosis (1) Syncope Priority: Primary Status: Acute (2) Status post total right knee replacement Priority: Secondary Status: Acute (3) UTI (urinary tract infection) Priority: Secondary Status: Acute (4) Paroxysmal atrial fibrillation Priority: Secondary Status: Acute (5) Anemia Priority: Secondary Status: Acute (6) Peptic ulcer disease Priority: Secondary Status: Acute (7) CAD (coronary artery disease) Priority: Secondary Status: Chronic (8) HTN (hypertension) Priority: Secondary Status: Chronic - Transfer Medications Prescriptions: Ciprofloxacin [Cipro] 500 mg PO BID #11 tablet HYDROcodone/Acet 5/325 mg [[place] 5-325 mg] 1 tab PO Q6H PRN 1 Days #4 tablet PRN Reason: Pain Oxycodone HCl [Roxybond] 5 mg PO BID PRN 1 Days #2 tablet.orl PRN Reason: Pain Home Medications: Aspirin 81 mg PO DAILY 04/24/17 [History] Metoprolol XL (24 HR) Succ [Toprol Xl] 25 mg PO DAILY #30 tab.er.24h 04/26/17 [Rx] Nitroglycerin 0.4 mg SL Q5MIN PRN #10 tab.subl 04/26/17 [Rx] Docusate Sodium [Move It Along] 100 mg PO BID 12/26/18 [History] Rosuvastatin [Crestor] 40 mg PO DAILY 12/26/18 [History] Cholecalciferol (D-3) [Vitamin D] 1,000 unit PO DAILY tablet 12/29/18 [Rx] Lidocaine Patch [Lidoderm 5% patch] 1 each TP DAILY adh..patch 12/29/18 [Rx] Pantoprazole Sodium [Protonix] 40 mg PO BID #60 tablet.dr 12/29/18 [Rx] Polyethylene Glycol 3350 [MiraLAX] 17 gm PO BID powd.pack 12/29/18 [Rx] Acetaminophen [Tylenol] 500 mg PO Q6HR PRN 01/20/19 [History] Tizanidine HCl [Zanaflex] 2 mg PO QID PRN 01/27/19 [History] Sucralfate [Carafate] 1 gm PO QID 01/28/19 [History] Ciprofloxacin [Cipro] 500 mg PO BID #11 tablet 01/30/19 [Rx] HYDROcodone/Acet 5/325 mg [[place] 5-325 mg] 1 tab PO Q6H PRN 1 Days #4 tablet 01/30/19 [Rx] Oxycodone HCl [Roxybond] 5 mg PO BID PRN 1 Days #2 tablet.orl 01/30/19 [Rx] Allergies/Adverse Reactions: Allergy/AdvReac Type Severity Reaction Status Date / Time Penicillins AdvReac Hives Verified 12/26/18 04:49 - Respiratory Orders Smoking Cessation: Smoking cessation has been advised. For more information, call the [employer] Line at 4-402-BMPP-NOW. - Ancillary Orders May use pressure relief devices daily prn - Rehabiliation Orders Rehab Orders: ROM Exercises, Evaluation for Physical Therapy, Evaluation for Occupational Therapy - Treatments Skin tear care topically daily PRN per policy - Diet Orders Cardiac CERTIFICATION: I certify that the transfer of the above named patient to an Extended Care Facility is necessary for the continuing treatment of the diagnosis listed. The above information is true and accurate reflection of patient's current condition. Confidential - Redisclosure prohibited without a patient's written consent. <Pebbles Steel - Last Filed: 01/30/19 15:37> - Diagnosis (1) Status post total right knee replacement Status: Acute (2) CAD (coronary artery disease) Status: Chronic (3) HTN (hypertension) Priority: Secondary Status: Chronic (4) Syncope Status: Acute (5) Anemia Status: Acute (6) Peptic ulcer disease Status: Acute (7) Paroxysmal atrial fibrillation Status: Acute (8) UTI (urinary tract infection) Status: Acute - Respiratory Orders None Smoking Cessation: Smoking cessation has been advised. For more information, call the [employer] Line at 6-205-VKOC-NOW. - Advance Directives Code Status: Full Code - Mobility Orders Ambulate - Rehabiliation Orders Rehab Potential: Good CERTIFICATION: I certify that the transfer of the above named patient to an Extended Care Facility is necessary for the continuing treatment of the diagnosis listed. The above information is true and accurate reflection of patient's current condition. Confidential - Redisclosure prohibited without a patient's written consent.
== END 2019-01-30 15:44 | DRG 312 ==
LOC: 3BNU 08:45 → EMEROOARM 08:45 → SUATTDRO 13:53 → 3BNU 14:32
PROVIDERS: ADMIT Internal Medicine Nephrology; ATTEND Internal Medicine

== ENCOUNTER 2019-06-13 06:39 | Inpatient (IN) ==
[2019-06-13] MEDS ORDERED: 0.9 % Sodium Chloride 1,000 ML ONE ×2 (07:11→10:22)
[2019-06-13 07:21] LABS: Hematocrit 41.1 % (37.5-50.1); Hemoglobin 13.4 g/dL (12.9-16.9); Mean Corpuscular HGB Conc 32.6 g/dL (31.6-35.5); Mean Corpuscular Hemoglobin 28.3 pg (28.0-33.3); Mean Corpuscular Volume 86.9 fL (83.0-100.0); Mean Platelet Volume 10.4 fL (9.4-12.4); Platelet Count 188 K/mcL (140-400); Red Blood Count 4.73 M/mcL (4.19-5.50); Red Cell Distribution Width 15.1 % (11.5-14.5); White Blood Count 9.1 K/mcL (4.3-11.1)
[2019-06-13 07:22] LABS: INR 1.2; Prothrombin Time 14.1 Seconds (9.4-12.1)
[2019-06-13] MEDS ORDERED: *HR* FentaNYL (PF) 100 MCG/2 ML VIAL ONE (07:28)
[2019-06-13] MEDS ORDERED: *HR* Heparin 10,000 UNIT/10 ML VIAL ONE (07:29)
[2019-06-13] MEDS ORDERED: Heparin 1,000 UNITS/500 mL 1,000 ML ONE (07:29)
[2019-06-13 07:37] LABS: BUN/Creatinine Ratio 13 (6-26); Blood Urea Nitrogen 15 mg/dL (8-23); Calcium 9.3 mg/dL (8.6-10.3); Carbon Dioxide 28 mEq/L (23-29); Chloride 103 mEq/L (98-107); Glucose 84 mg/dL (70-105); Osmolality,Calculated 288 (280-300); Potassium 4.2 mEq/L (3.5-5.1); Sodium 139 mEq/L (136-145); eGFR For African Americans > 60 (> 60); eGFR For Non-African Americans 60 (> 60)
[2019-06-13] MEDS ORDERED: Clindamycin 600 MG/50 ML 600 MG/50 ML IV.SOLN IVPB ONE (07:40)
[2019-06-13] MEDS ORDERED: ISOVUE-370 200 ML INFUS..BTL ONE (07:43)
[2019-06-13] MEDS ORDERED: Heparin 1,000 UNITS/500 mL 500 ML ONE (07:58)
[2019-06-13] MEDS ORDERED: Protamine Sulfate 50 MG/5 ML VIAL IVP ONE (10:10)
[2019-06-13] MEDS ORDERED: Naloxone 0.4 MG/ML INJ IVP PRN (10:17)
[2019-06-13] MEDS ORDERED: Nitroglycerin 0.4 MG TAB.SUBL SL PRN (10:20)
[2019-06-13] MEDS ORDERED: *HR* OxyCODONE Immed Rel 5 MG TABLET PO PRN (10:57)
[2019-06-13] MEDS ORDERED: Ondansetron 4 MG/2 ML VIAL IVP ONE ×2 (10:57→12:21)
[2019-06-13] MEDS ORDERED: *HR* FentaNYL (PF) 100 MCG/2 ML VIAL IVP PRN (10:57)
[2019-06-13] MEDS ORDERED: *HR* Labetalol 20 MG/4 ML SYRINGE IVP PRN (10:57)
[2019-06-13] MEDS ORDERED: *HR* Promethazine 25 MG/ML VIAL IVP PRN (10:57)
[2019-06-13] MEDS ORDERED: *HR* Propofol 200 MG/20 ML VIAL IVP ONE (12:21)
[2019-06-13] MEDS ORDERED: Lidocaine -MPF 4% 5 ML AMPUL INFILT ONE (12:21)
[2019-06-13] MEDS ORDERED: *HR* Succinylcholine 200 MG/10 ML VIAL IVP ONE (12:21)
[2019-06-13] MEDS ORDERED: *HR* Phenylephrine 10 MG/ML VIAL IVC ONE (12:21)
[2019-06-13] MEDS ORDERED: EPHEDrine 50 MG/ML VIAL IVP ONE (12:21)
[2019-06-13] MEDS: Sucralfate 1 GM TABLET PO SCH ×3 (13:27→20:19)
[2019-06-13] MEDS: 0.9 % Sodium Chloride 1,000 ML IVC SCH (13:34)
[2019-06-13] MEDS: Gabapentin 300 MG CAPSULE PO SCH ×2 (15:29→20:18)
[2019-06-13] MEDS: Apixaban 5 MG TABLET PO SCH (20:18)
[2019-06-14] MEDS: 0.9 % Sodium Chloride 1,000 ML IVC SCH ×2 (00:57→04:21)
[2019-06-14 07:15] LABS: Basophils % 0.2 %; Hematocrit 33.4 % (37.5-50.1); Hemoglobin 10.8 g/dL (12.9-16.9); Immature Granulocytes % 0.3 % (0-4); Lymphocytes # 0.9 K/mcL (0.6-4.6); Lymphocytes % 7.8 %; Mean Corpuscular HGB Conc 32.3 g/dL (31.6-35.5); Mean Corpuscular Hemoglobin 28.6 pg (28.0-33.3); Mean Corpuscular Volume 88.4 fL (83.0-100.0); Mean Platelet Volume 10.5 fL (9.4-12.4); Monocytes # 0.8 K/mcL (0.0-1.3); Monocytes % 6.5 %; Platelet Count 139 K/mcL (140-400); Red Blood Count 3.78 M/mcL (4.19-5.50); Red Cell Distribution Width 15.4 % (11.5-14.5); Segmented Neutrophils % 85.2 %; White Blood Count 11.8 K/mcL (4.3-11.1)
[2019-06-14 07:35] LABS: Calcium 8.6 mg/dL (8.6-10.3); Potassium 4.8 mEq/L (3.5-5.1)
[2019-06-14] MEDS: Sucralfate 1 GM TABLET PO SCH (08:39)
[2019-06-14] MEDS: Gabapentin 300 MG CAPSULE PO SCH (08:39)
[2019-06-14] MEDS: Apixaban 5 MG TABLET PO SCH (08:40)
[2019-06-14] MEDS ORDERED: Cholecalciferol (D-3) 1,000 UNIT (25MCG) TABLET PO SCH (09:00)
[2019-06-14] MEDS ORDERED: Metoprolol XL (24 HR) Succ 25 MG TAB.ER.24H PO SCH (09:00)
[2019-06-14] MEDS ORDERED: Aspirin 81 MG TAB.CHEW PO SCH (09:00)
[2019-06-14] MEDS ORDERED: FLU Vac QV 19-20 (6Month+)/PF 0.5 ML SYRINGE IM ONE (10:47)
[2019-06-14 13:13] VITALS: BP 99/57
== END 2019-06-14 12:22 | disposition home or self-care (01) | DRG 274 ==
LOC: ICNU 06:39
PROVIDERS: ADMIT Internal Medicine Cardiovascular Disease; ATTEND Internal Medicine Cardiovascular Disease

== ENCOUNTER 2020-12-17 12:43 | Inpatient (IN) ==
[2020-12-17] MEDS ORDERED: 0.9 % Sodium Chloride 1,000 ML IVC ONE (14:11)
[2020-12-17] MEDS ORDERED: cefTRIAXone 2,000 MG in Water for inj. (sterile) 10 ML IVP ONE (14:17)
[2020-12-17 15:06] LABS: Basophils % 0.3 %; Eosinophils % 0.2 %; Hematocrit 39.7 % (37.5-50.1); Hemoglobin 12.9 g/dL (12.9-16.9); Immature Granulocytes % 0.5 % (0-4); Lymphocytes # 0.6 K/mcL (0.6-4.6); Lymphocytes % 5.2 %; Mean Corpuscular HGB Conc 32.5 g/dL (31.6-35.5); Mean Corpuscular Hemoglobin 29.5 pg (28.0-33.3); Mean Corpuscular Volume 90.6 fL (83.0-100.0); Mean Platelet Volume 10.6 fL (9.4-12.4); Monocytes # 0.7 K/mcL (0.0-1.3); Monocytes % 6.4 %; Neutrophils # 9.7 K/mcL (1.6-8.9); Platelet Count 171 K/mcL (140-400); Red Blood Count 4.38 M/mcL (4.19-5.50); Red Cell Distribution Width 15.6 % (11.5-14.5); Segmented Neutrophils % 87.4 %; White Blood Count 11.1 K/mcL (4.3-11.1)
[2020-12-17 15:06] LABS: VBG HCO3 22 mEq/L (21-27); VBG PCO2 43 mmHg (41-51); VBG PH 7.31 pH Units (7.32-7.42); VBG PO2 40 mmHg (25-50)
[2020-12-17 15:15] LABS: Prothrombin Time 12.1 Seconds (9.4-12.1)
[2020-12-17 15:17] LABS: Activated Partial Thrombo Time 25.8 Seconds (26.0-36.0)
[2020-12-17 15:49] LABS: Acetaminophen < 10 mcg/mL (10-20); Alanine Aminotransferase 300 Units/L (7-52); Albumin 3.4 g/dL (3.5-5.7); Albumin/Globulin Ratio 1.4 (1.1-2.2); Alkaline Phosphatase 120 Units/L (34-104); Aspartate Amino Transferase 635 Units/L (13-39); BUN/Creatinine Ratio 11 (6-26); Bilirubin,Direct 0.2 mg/dL (0.0-0.2); Bilirubin,Indirect 0.6 mg/dL (0.0-1.0); Bilirubin,Total 0.8 mg/dL (0.3-1.0); Blood Urea Nitrogen 32 mg/dL (8-23); Calcium 9.6 mg/dL (8.6-10.3); Carbon Dioxide 21 mEq/L (23-29); Chloride 106 mEq/L (98-107); Creatine Kinase > 20000 Units/L (30-223); Ethanol < 10 mg/dL (Less than 10); Globulin 2.4 g/dL (2.4-3.5); Glucose 129 mg/dL (70-105); Lipase 40 Units/L (11-82); Magnesium 2.3 mg/dL (1.6-2.6); Osmolality,Calculated 287 (280-300); Potassium 3.9 mEq/L (3.5-5.1); Sodium 134 mEq/L (136-145); Total Protein 5.8 g/dL (6.4-8.9); Troponin I 0.04 ng/mL (< 0.04); eGFR For African Americans 26 (> 60); eGFR For Non-African Americans 21 (> 60)
[2020-12-17] MEDS ORDERED: 0.9 % Sodium Chloride 1,000 ML IVC SCH (16:00)
[2020-12-17 16:26] LABS: Amorphous Sediment,Urine Few per hpf (None-Few); Bilirubin,Urine Negative (Negative); Blood,Urine Large (Negative); Clarity,Urine Turbid (Clear); Color,Urine Light-Orange (Yellow); Glucose,Urine (UA) Normal (Normal); Ketones,Urine Negative (Negative); Leukocyte Esterase,Urine Negative (Negative); Mucus,Urine Few per lpf (None-Few); Nitrite,Urine Negative (Negative); Protein,Urine 200 mg/dL (Neg-Trace); Specific Gravity,Urine 1.018 (1.010-1.025); Squamous Epithelial Cell,Urine Few per hpf (None-Few); Urobilinogen,Urine Normal (Normal)
[2020-12-17] MEDS: 0.9 % Sodium Chloride 1,000 ML IVC ONE (16:28)
[2020-12-17] MEDS: Sodium Bicarbonate 150 MEQ in Water for inj. (sterile) 1,000 ML IVC SCH ×2 (16:33→22:44)
[2020-12-17] MEDS ORDERED: Naloxone 0.4 MG/ML INJ IVP PRN (16:55)
[2020-12-17] MEDS ORDERED: Ondansetron 4 MG/2 ML VIAL IVP PRN (16:55)
[2020-12-17] MEDS ORDERED: MOM Conc 10 ML UD.LIQ PO PRN (16:55)
[2020-12-17 17:44] LABS: Thyroid Stimulating Hormone 2.628 mcIU/mL (0.340-5.600)
[2020-12-17] MEDS: Sucralfate 1 GM TABLET PO SCH (22:10)
[2020-12-18 02:23] LABS: Basophils % 0.5 %; Eosinophils # 0.1 K/mcL (0.0-0.6); Eosinophils % 0.7 %; Hematocrit 31.6 % (37.5-50.1); Immature Granulocytes % 0.4 % (0-4); Lymphocytes # 0.9 K/mcL (0.6-4.6); Lymphocytes % 10.9 %; Mean Corpuscular HGB Conc 33.9 g/dL (31.6-35.5); Mean Corpuscular Hemoglobin 29.8 pg (28.0-33.3); Mean Platelet Volume 10.3 fL (9.4-12.4); Monocytes # 0.7 K/mcL (0.0-1.3); Monocytes % 8.5 %; Neutrophils # 6.7 K/mcL (1.6-8.9); Platelet Count 148 K/mcL (140-400); Red Blood Count 3.59 M/mcL (4.19-5.50); Red Cell Distribution Width 15.4 % (11.5-14.5); White Blood Count 8.4 K/mcL (4.3-11.1)
[2020-12-18 02:25] LABS: Hemoglobin 10.7 g/dL (12.9-16.9)
[2020-12-18 02:28] LABS: INR 1.1; Prothrombin Time 12.5 Seconds (9.4-12.1)
[2020-12-18 02:48] LABS: Albumin 2.7 g/dL (3.5-5.7); Albumin/Globulin Ratio 1.4 (1.1-2.2); Bilirubin,Direct 0.2 mg/dL (0.0-0.2); Bilirubin,Indirect 0.4 mg/dL (0.0-1.0); Bilirubin,Total 0.6 mg/dL (0.3-1.0); Calcium 8.5 mg/dL (8.6-10.3); Phosphorous 2.6 mg/dL (2.7-4.5); Potassium 3.4 mEq/L (3.5-5.1); Total Protein 4.7 g/dL (6.4-8.9); Troponin I 0.05 ng/mL (< 0.04)
[2020-12-18 03:50] LABS: Hepatitis B Surface Antigen Nonreactive (Nonreactive)
[2020-12-18 04:20] LABS: Hepatitis A Antibody IgM Nonreactive (Nonreactive); Hepatitis B Core IgM Nonreactive (Nonreactive)
[2020-12-18 04:21] LABS: Hepatitis C Virus Antibody Nonreactive (Nonreactive)
[2020-12-18] MEDS: Sodium Bicarbonate 150 MEQ in Water for inj. (sterile) 1,000 ML IVC SCH (06:50)
[2020-12-18] MEDS: Sucralfate 1 GM TABLET PO SCH ×2 (08:26→20:10)
[2020-12-18] MEDS ORDERED: Sodium Bicarbonate 75 MEQ in 0.45 % Sodium Chloride 1,000 ML IVC SCH (11:30)
[2020-12-18] MEDS: Carbamide Peroxide 150 DROP/15 ML BOTTLE RIGHT EAR SCH ×2 (12:26→20:10)
[2020-12-18] MEDS: Sodium Bicarbonate 75 MEQ in 0.45 % Sodium Chloride 1,000 ML IVC SCH ×2 (13:34→20:09)
[2020-12-18 14:38] LABS: Sodium, Urine 42.5 mEq/L
[2020-12-18 14:45] LABS: Protein/Creatinine Ratio,Urine 4.95 mg/mg (0.00-0.20)
[2020-12-18] MEDS ORDERED: Haloperidol Lactate 5 MG/ML VIAL IVP ONE (15:20)
[2020-12-18] MEDS ORDERED: CefTRIAXone 1,000 MG VIAL ONE (15:37)
[2020-12-18] MEDS: cefTRIAXone 1,000 MG in Water for inj. (sterile) 10 ML IVP SCH (15:38)
[2020-12-19 03:37] LABS: Basophils % 0.2 %; Eosinophils # 0.1 K/mcL (0.0-0.6); Eosinophils % 0.7 %; Hematocrit 32.6 % (37.5-50.1); Hemoglobin 10.9 g/dL (12.9-16.9); Immature Granulocytes % 0.7 % (0-4); Lymphocytes # 0.8 K/mcL (0.6-4.6); Lymphocytes % 9.1 %; Mean Corpuscular HGB Conc 33.4 g/dL (31.6-35.5); Mean Corpuscular Hemoglobin 29.4 pg (28.0-33.3); Mean Corpuscular Volume 87.9 fL (83.0-100.0); Mean Platelet Volume 10.2 fL (9.4-12.4); Monocytes # 0.7 K/mcL (0.0-1.3); Monocytes % 8.4 %; Neutrophils # 7.1 K/mcL (1.6-8.9); Platelet Count 159 K/mcL (140-400); Red Blood Count 3.71 M/mcL (4.19-5.50); Red Cell Distribution Width 15.2 % (11.5-14.5); Segmented Neutrophils % 80.9 %; White Blood Count 8.8 K/mcL (4.3-11.1)
[2020-12-19 03:59] LABS: Albumin 2.6 g/dL (3.5-5.7); Albumin/Globulin Ratio 1.2 (1.1-2.2); Bilirubin,Total 0.7 mg/dL (0.3-1.0); Calcium 8.2 mg/dL (8.6-10.3); Globulin 2.1 g/dL (2.4-3.5); Potassium 2.9 mEq/L (3.5-5.1); Total Protein 4.7 g/dL (6.4-8.9)
[2020-12-19] MEDS: Sodium Bicarbonate 75 MEQ in 0.45 % Sodium Chloride 1,000 ML IVC SCH (04:04)
[2020-12-19] MEDS ORDERED: *HR* Metoprolol 5 MG/5 ML VIAL IVP PRN (05:14)
[2020-12-19] MEDS ORDERED: *HR* Metoprolol 5 MG/5 ML VIAL IVP STA (05:17)
[2020-12-19] MEDS ORDERED: 0.9 % Sodium Chloride 1,000 ML IVC ONE (05:41)
[2020-12-19] MEDS ORDERED: 0.9 % Sodium Chloride 500 ML ONE (05:46)
[2020-12-19] MEDS: 0.9 % Sodium Chloride 500 ML IVC PRN ×2 (05:49→06:25)
[2020-12-19] MEDS ORDERED: Amiodarone 150 MG in D5% in Water 100 ML IVPB ONE (06:50)
[2020-12-19] MEDS ORDERED: Amiodarone Premix 150 MG/100 ML BAG IVPB ONE (06:50)
[2020-12-19] MEDS ORDERED: 0.9 % Sodium Chloride 1,000 ML ONE (06:57)
[2020-12-19] MEDS: 0.9 % Sodium Chloride 1,000 ML IVC ONE (07:03)
[2020-12-19] MEDS ORDERED: Potassium Chloride 40 MEQ, Lidocaine 1% 2 ML in 0.9 % Sodium Chloride 500 ML IVPB ONE (07:09)
[2020-12-19] MEDS: Sucralfate 1 GM TABLET PO SCH ×2 (08:44→21:36)
[2020-12-19] MEDS: Metoprolol XL (24 HR) Succ 25 MG TAB.ER.24H PO SCH (08:58)
[2020-12-19] MEDS: 0.9 % Sodium Chloride 1,000 ML IVC SCH (10:14)
[2020-12-19] MEDS: Carbamide Peroxide 150 DROP/15 ML BOTTLE RIGHT EAR SCH (10:15)
[2020-12-19] MEDS: cefTRIAXone 1,000 MG in Water for inj. (sterile) 10 ML IVP SCH (15:09)
[2020-12-19] MEDS: QUEtiapine Fumarate 25 MG TABLET PO SCH (21:36)
[2020-12-20] MEDS: Carbamide Peroxide 150 DROP/15 ML BOTTLE RIGHT EAR SCH ×3 (04:46→21:22)
[2020-12-20] MEDS: 0.9 % Sodium Chloride 1,000 ML IVC SCH ×3 (04:51→23:31)
[2020-12-20 06:52] LABS: Basophils % 0.5 %; Eosinophils # 0.2 K/mcL (0.0-0.6); Eosinophils % 1.8 %; Hematocrit 31.4 % (37.5-50.1); Hemoglobin 10.4 g/dL (12.9-16.9); Immature Granulocytes % 0.5 % (0-4); Lymphocytes # 0.9 K/mcL (0.6-4.6); Lymphocytes % 10.6 %; Mean Corpuscular HGB Conc 33.1 g/dL (31.6-35.5); Mean Corpuscular Hemoglobin 29.1 pg (28.0-33.3); Mean Platelet Volume 10.3 fL (9.4-12.4); Monocytes # 0.7 K/mcL (0.0-1.3); Monocytes % 8.6 %; Neutrophils # 6.4 K/mcL (1.6-8.9); Platelet Count 150 K/mcL (140-400); Red Blood Count 3.57 M/mcL (4.19-5.50); Red Cell Distribution Width 15.4 % (11.5-14.5); White Blood Count 8.2 K/mcL (4.3-11.1)
[2020-12-20] MEDS: Sucralfate 1 GM TABLET PO SCH ×2 (07:58→21:19)
[2020-12-20] MEDS: Metoprolol XL (24 HR) Succ 25 MG TAB.ER.24H PO SCH (07:58)
[2020-12-20 08:51] LABS: Albumin 2.5 g/dL (3.5-5.7); Albumin/Globulin Ratio 1.5 (1.1-2.2); Bilirubin,Total 0.5 mg/dL (0.3-1.0); Calcium 7.9 mg/dL (8.6-10.3); Globulin 1.7 g/dL (2.4-3.5); Potassium 2.9 mEq/L (3.5-5.1); Total Protein 4.2 g/dL (6.4-8.9)
[2020-12-20] MEDS ORDERED: Potassium Chloride 40 MEQ, Lidocaine 1% 2 ML in 0.9 % Sodium Chloride 500 ML IVPB ONE (09:28)
[2020-12-20] MEDS: cefTRIAXone 1,000 MG in Water for inj. (sterile) 10 ML IVP SCH (15:10)
[2020-12-20] MEDS: QUEtiapine Fumarate 25 MG TABLET PO SCH (21:19)
[2020-12-21 02:00] LABS: Basophils % 0.4 %; Eosinophils # 0.2 K/mcL (0.0-0.6); Eosinophils % 2.1 %; Hematocrit 32.4 % (37.5-50.1); Hemoglobin 10.9 g/dL (12.9-16.9); Immature Granulocytes % 0.2 % (0-4); Lymphocytes # 0.9 K/mcL (0.6-4.6); Lymphocytes % 9.9 %; Mean Corpuscular HGB Conc 33.6 g/dL (31.6-35.5); Mean Corpuscular Hemoglobin 29.7 pg (28.0-33.3); Mean Corpuscular Volume 88.3 fL (83.0-100.0); Mean Platelet Volume 10.3 fL (9.4-12.4); Monocytes # 0.7 K/mcL (0.0-1.3); Monocytes % 7.3 %; Neutrophils # 7.2 K/mcL (1.6-8.9); Platelet Count 151 K/mcL (140-400); Red Blood Count 3.67 M/mcL (4.19-5.50); Red Cell Distribution Width 15.6 % (11.5-14.5); Segmented Neutrophils % 80.1 %
[2020-12-21 03:00] LABS: Potassium 3.6 mEq/L (3.5-5.1)
[2020-12-21] MEDS: 0.9 % Sodium Chloride 1,000 ML IVC SCH ×4 (07:41→23:11)
[2020-12-21] MEDS: Metoprolol XL (24 HR) Succ 25 MG TAB.ER.24H PO SCH (07:42)
[2020-12-21] MEDS: Sucralfate 1 GM TABLET PO SCH ×2 (07:42→20:52)
[2020-12-21] MEDS: Carbamide Peroxide 150 DROP/15 ML BOTTLE RIGHT EAR SCH ×2 (07:43→20:54)
[2020-12-21] MEDS: QUEtiapine Fumarate 25 MG TABLET PO SCH ×2 (10:38→20:52)
[2020-12-21] MEDS: cefTRIAXone 1,000 MG in Water for inj. (sterile) 10 ML IVP SCH (15:31)
[2020-12-22 05:29] LABS: Basophils # 0.1 K/mcL (0.0-0.2); Basophils % 0.6 %; Eosinophils # 0.3 K/mcL (0.0-0.6); Eosinophils % 2.9 %; Hematocrit 31.7 % (37.5-50.1); Hemoglobin 10.3 g/dL (12.9-16.9); Immature Granulocytes % 0.6 % (0-4); Lymphocytes % 12.1 %; Mean Corpuscular HGB Conc 32.5 g/dL (31.6-35.5); Mean Corpuscular Hemoglobin 29.3 pg (28.0-33.3); Mean Corpuscular Volume 90.1 fL (83.0-100.0); Mean Platelet Volume 10.4 fL (9.4-12.4); Monocytes # 0.7 K/mcL (0.0-1.3); Monocytes % 7.8 %; Neutrophils # 6.5 K/mcL (1.6-8.9); Platelet Count 157 K/mcL (140-400); Red Blood Count 3.52 M/mcL (4.19-5.50); Red Cell Distribution Width 15.9 % (11.5-14.5); White Blood Count 8.6 K/mcL (4.3-11.1)
[2020-12-22 05:53] LABS: Potassium 3.9 mEq/L (3.5-5.1)
[2020-12-22] MEDS: Carbamide Peroxide 150 DROP/15 ML BOTTLE RIGHT EAR SCH (07:34)
[2020-12-22] MEDS: 0.9 % Sodium Chloride 1,000 ML IVC SCH (07:34)
[2020-12-22] MEDS: Metoprolol XL (24 HR) Succ 25 MG TAB.ER.24H PO SCH (07:37)
[2020-12-22] MEDS: Sucralfate 1 GM TABLET PO SCH (07:37)
[2020-12-22] MEDS: QUEtiapine Fumarate 25 MG TABLET PO SCH (07:37)
[2020-12-22 11:03] VITALS: BP 113/72
[2020-12-22 11:39] LABS: Adenovirus Not Detected (Not Detect); Bordetella Pertussis Not Detected (Not Detect); Chlamydophila pneumoniae Not Detected (Not Detect); Coronavirus 229E Not Detected (Not Detect); Coronavirus HKU1 Not Detected (Not Detect); Coronavirus NL63 Not Detected (Not Detect); Coronavirus OC43 Not Detected (Not Detect); Human Metapneumovirus Not Detected (Not Detect); Human Rhinovirus/Enterovirus Not Detected (Not Detect); Influenza A Subtype 2009 H1 Not Detected (Not Detect); Influenza B Not Detected (Not Detect); Mycoplasma pneumoniae Not Detected (Not Detect); Parainfluenza Virus 1 Not Detected (Not Detect); Parainfluenza Virus 2 Not Detected (Not Detect); Parainfluenza Virus 3 Not Detected (Not Detect); Parainfluenza Virus 4 Not Detected (Not Detect); Respiratory Syncytial Virus Not Detected (Not Detect); SARS-CoV-2 Not Detected (Not Detect)
== END 2020-12-22 12:49 | DRG 689 ==
LOC: 3NENU 12:43 → EMEROOARM 12:43 → SUATTDRO 16:51 → 3NENU 17:30 → CDU 17:32 → 2NNU 12-19 07:06 → 3BNU 12-21 12:20
PROVIDERS: ADMIT Internal Medicine; ATTEND Family Medicine

== ENCOUNTER 2021-01-28 09:38 | Inpatient (IN) ==
[2021-01-28] MEDS ORDERED: 0.9 % Sodium Chloride 1,000 ML IVC ONE ×2 (10:23→12:09)
[2021-01-28] MEDS ORDERED: *HR* Metoprolol 5 MG/5 ML VIAL IVP ONE ×2 (10:24→12:09)
[2021-01-28 10:56] LABS: Prothrombin Time 11.7 Seconds (9.4-12.1)
[2021-01-28 10:58] LABS: Activated Partial Thrombo Time 26.8 Seconds (26.0-36.0)
[2021-01-28 11:16] LABS: Basophils # 0.1 K/mcL (0.0-0.2); Basophils % 0.9 %; Eosinophils # 0.2 K/mcL (0.0-0.6); Eosinophils % 3.8 %; Hematocrit 31.2 % (37.5-50.1); Hemoglobin 10.4 g/dL (12.9-16.9); Immature Granulocytes % 0.3 % (0-4); Lymphocytes # 1.3 K/mcL (0.6-4.6); Lymphocytes % 21.8 %; Mean Corpuscular HGB Conc 33.3 g/dL (31.6-35.5); Mean Corpuscular Hemoglobin 30.8 pg (28.0-33.3); Mean Corpuscular Volume 92.3 fL (83.0-100.0); Mean Platelet Volume 11.3 fL (9.4-12.4); Monocytes # 0.3 K/mcL (0.0-1.3); Monocytes % 5.5 %; Neutrophils # 3.9 K/mcL (1.6-8.9); Platelet Count 145 K/mcL (140-400); Red Blood Count 3.38 M/mcL (4.19-5.50); Segmented Neutrophils % 67.7 %; White Blood Count 5.8 K/mcL (4.3-11.1)
[2021-01-28 11:56] LABS: Albumin 3.3 g/dL (3.5-5.7); Albumin/Globulin Ratio 1.5 (1.1-2.2); Bilirubin,Direct 0.1 mg/dL (0.0-0.2); Bilirubin,Indirect 0.5 mg/dL (0.0-1.0); Bilirubin,Total 0.6 mg/dL (0.3-1.0); Calcium 9.1 mg/dL (8.6-10.3); Potassium 4.2 mEq/L (3.5-5.1); Total Protein 5.5 g/dL (6.4-8.9)
[2021-01-28 11:57] LABS: Globulin 2.2 g/dL (2.4-3.5)
[2021-01-28] MEDS ORDERED: *HR* Digoxin 0.5 MG/2 ML AMPUL IVP ONE (12:27)
[2021-01-28] MEDS ORDERED: *HR* Metoprolol 5 MG/5 ML VIAL IVP PRN (13:01)
[2021-01-28] MEDS ORDERED: Acetaminophen 325 MG TABLET PO PRN (15:54)
[2021-01-28] MEDS ORDERED: Ondansetron 4 MG/2 ML VIAL IVP PRN (15:58)
[2021-01-28] MEDS ORDERED: Melatonin 3 MG TABLET PO PRN (15:58)
[2021-01-28] MEDS ORDERED: Naloxone 0.4 MG/ML INJ IVP PRN (15:58)
[2021-01-28] MEDS: *HR* Ticagrelor 90 MG TABLET PO SCH (21:12)
[2021-01-29 05:51] LABS: BUN/Creatinine Ratio 16 (6-26); Blood Urea Nitrogen 19 mg/dL (8-23); Calcium 8.5 mg/dL (8.6-10.3); Carbon Dioxide 21 mEq/L (23-29); Chloride 110 mEq/L (98-107); Glucose 74 mg/dL (70-105); Magnesium 1.9 mg/dL (1.6-2.6); Osmolality,Calculated 289 (280-300); Potassium 3.9 mEq/L (3.5-5.1); Sodium 139 mEq/L (136-145); eGFR For African Americans > 60 (> 60); eGFR For Non-African Americans 60 (> 60)
[2021-01-29 05:55] LABS: Hemoglobin 8.8 g/dL (12.9-16.9); Red Blood Count 3.01 M/mcL (4.19-5.50); White Blood Count 7.5 K/mcL (4.3-11.1)
[2021-01-29 05:56] LABS: Hematocrit 27.7 % (37.5-50.1); Mean Corpuscular HGB Conc 31.8 g/dL (31.6-35.5); Mean Corpuscular Hemoglobin 29.2 pg (28.0-33.3); Mean Platelet Volume 10.9 fL (9.4-12.4); Platelet Count 148 K/mcL (140-400); Red Cell Distribution Width 17.1 % (11.5-14.5)
[2021-01-29] MEDS: Aspirin 81 MG TAB.CHEW PO SCH (08:52)
[2021-01-29] MEDS: *HR* Ticagrelor 90 MG TABLET PO SCH ×2 (08:52→21:10)
[2021-01-29] MEDS ORDERED: Metoprolol XL (24 HR) Succ 25 MG TAB.ER.24H PO SCH (09:00)
[2021-01-29] MEDS: Metoprolol XL (24 HR) Succ 25 MG TAB.ER.24H PO SCH (10:59)
[2021-01-30] MEDS: Aspirin 81 MG TAB.CHEW PO SCH (08:45)
[2021-01-30] MEDS: Metoprolol XL (24 HR) Succ 25 MG TAB.ER.24H PO SCH (08:45)
[2021-01-30] MEDS: *HR* Ticagrelor 90 MG TABLET PO SCH (08:45)
[2021-01-30 11:54] VITALS: BP 122/67; PULSE 60; TEMP 97.7; O2SAT 96
== END 2021-01-30 14:53 | disposition home health service (06) | DRG 310 ==
LOC: 2ANU 09:38 → EMEROOARM 09:38 → SUATTDRO 13:40 → 2ANU 14:50
PROVIDERS: ADMIT Internal Medicine; ATTEND Internal Medicine